=== PATIENT | female | born 1955 | race Caucasian/White ===

== ENCOUNTER → 2020-08-21 | Outpatient (CLI) | payer OTHER ==
[2020-08-21 11:33] LABS: BASO % 0.6 % (0.0-1.0); EOS # 0.2 10^3/uL (0.0-0.5); EOS % 4.3 % (0.0-3.0); HEMATOCRIT 44.7 % (36.0-47.0); HEMOGLOBIN 13.9 g/dl (12.0-15.5); LYMPH # 1.5 10^3/uL (1.5-5.0); LYMPH % 28.5 % (24.0-44.0); MEAN CORPUSCULAR HEMOGLOBIN 27.5 pg (27.0-33.0); MEAN CORPUSCULAR HGB CONC 31.1 g/dl (32.0-36.5); MEAN CORPUSCULAR VOLUME 88.3 fl (80.0-96.0); MONO # 0.4 10^3/uL (0.0-0.8); MONO % 7.3 % (0.0-5.0); NEUTROPHILS % 59.1 % (36.0-66.0); PLATELET COUNT, AUTOMATED 299 10^3/uL (150-450); RED BLOOD COUNT 5.06 10^6/uL (4.00-5.40); WHITE BLOOD COUNT 5.1 10^3/uL (4.0-10.0)
[2020-08-21 12:14] LABS: ERYTHROCYTE SEDIMENTATION RATE 9 mm/hr (0-30)
[2020-08-21 12:17] LABS: ALBUMIN 3.4 GM/DL (3.2-5.2); ALT/SGPT 27 U/L (12-78); BILIRUBIN,TOTAL 0.4 MG/DL (0.2-1.0); BLOOD UREA NITROGEN 16 MG/DL (7-18); C REACTIVE PROTEIN QUANTITATIV 0.77 MG/DL (0.00-0.30); CALCIUM LEVEL 8.9 MG/DL (8.8-10.2); CARBON DIOXIDE LEVEL 25 MEQ/L (21-32); CHLORIDE LEVEL 103 MEQ/L (98-107); CHOLESTEROL LEVEL 216 MG/DL (<200); CREATININE FOR GFR 0.86 MG/DL (0.55-1.30); GLOMERULAR FILTRATION RATE > 60.0 (>45); GLUCOSE, FASTING 92 MG/DL (70-100); HDL CHOLESTEROL 61 MG/DL (>40); LDL CHOLESTEROL 128 MG/DL (<100); NON-HDL-C 155 MG/DL; POTASSIUM SERUM 4.3 MEQ/L (3.5-5.1); RHEUMATOID FACTOR QUANT < 10.0 IU/ML (<15.0); SODIUM LEVEL 141 MEQ/L (136-145); TOTAL PROTEIN 6.9 GM/DL (6.4-8.2); TRIGLYCERIDES LEVEL 133 MG/DL (<150)
== END ==
LOC: M WUC 08:24
PROVIDERS: ATTEND Nurse Practitioner Family
DX: M79.7 Fibromyalgia (principal); I25.2 Old myocardial infarction

== ENCOUNTER → 2021-04-30 | Outpatient (CLI) | payer OTHER ==
[~2021-04-30] MED LIST: ALLO100T PO; CAND4TAB PO; CBD OIL PO; CIDA500T2 PO; COLC0.6T47 PO; D31000TA2 PO; DULO1CAP5 PO; EQL50TAB2 PO; FISH1000 PO; FURO40TA2 PO; GNP250TA9 PO; METO1TAB87 PO; NEUR100C PO; PANT40TA29 PO; SAVE50TA PO
== END ==
LOC: M LABSMTC 11:21
PROVIDERS: ATTEND Anesthesiology
DX: Z01.812 Encounter for preprocedural laboratory examination (principal); Z20.822 Contact with and (suspected) exposure to COVID-19

== ENCOUNTER 2021-05-05 10:37 | Day surgery (SDC) | payer OTHER ==
[~2021-05-05] VITALS: Ht 193 cm; Wt 93.0 kg
[~2021-05-05 10:37] MED LIST changes: +LIDOCAINE 2% 100MG/5ML SDV (FOR ANES.) As Ordered ONE; +NS 1,000 ML IV ONE; +propofoL 200 MG/20 ML VIAL As Ordered ONE
[2021-05-05] MEDS ORDERED: fentaNYL 100 MCG/2 ML INJECTION (J3010) As Ordered ONE (11:45)
[2021-05-05] MEDS ORDERED: propofoL 200 MG/20 ML VIAL As Ordered ONE ×2 (12:00→12:09)
--- NOTE | 2021-05-05 12:40 | ROOR ---
Patient Name: Carey Pickens Procedure Date: 05/05/2021 11:35 AM Date of : 1955 Age: 65 Room: [facility] Gender: Female Note Status: Finalized Procedure: Upper GI endoscopy Indications: Heartburn, Follow-up of Ye's esophagus Providers: Enzo Whitaker MD Referring MD: Bhavya Hopper NP Requesting Provider: Medicines: Monitored Anesthesia Care Complications: No immediate complications. Procedure: Pre-Anesthesia Assessment: - Prior to the procedure, a History and Physical was performed, and patient medications and allergies were reviewed. The patient is competent. The risks and benefits of the procedure and the sedation options and risks were discussed with the patient. All questions were answered and informed consent was obtained. Patient identification and proposed procedure were verified by the physician, the nurse and the anesthesiologist in the procedure room. Mental Status Examination: alert and oriented. Airway Examination: normal oropharyngeal airway and neck mobility. Respiratory Examination: clear to auscultation. CV Examination: normal. Prophylactic Antibiotics: The patient does not require prophylactic antibiotics. Prior Anticoagulants: The patient has taken no previous anticoagulant or antiplatelet agents. ASA Grade Assessment: II - A patient with mild systemic disease. After reviewing the risks and benefits, the patient was deemed in satisfactory condition to undergo the procedure. The anesthesia plan was to use monitored anesthesia care (MAC). Immediately prior to administration of medications, the patient was re-assessed for adequacy to receive sedatives. The heart rate, respiratory rate, oxygen saturations, blood pressure, adequacy of pulmonary ventilation, and response to care were monitored throughout the procedure. The physical status of the patient was re-assessed after the procedure. The Endoscope was introduced through the mouth, and advanced to the second part of duodenum. The upper GI endoscopy was accomplished without difficulty. The patient tolerated the procedure well. Findings: LA Grade B (one or more mucosal breaks greater than 5 mm, not extending between the tops of two mucosal folds) esophagitis with no bleeding was found in the distal esophagus. Biopsies were taken with a cold forceps for histology. Verification of patient identification for the specimen was done by the physician and nurse using the patient's name, date and medical record number. Estimated blood loss was minimal. A medium-sized hiatal hernia was present. Scattered moderate inflammation characterized by erythema and granularity was found in the gastric antrum. Biopsies were taken with a cold forceps for Helicobacter pylori testing. Verification of patient identification for the specimen was done by the physician and nurse using the patient's name, date and medical record number. No gross lesions were noted in the duodenal bulb, in the second portion of the duodenum, in the area of the papilla and in the third portion of the duodenum. Impression: - LA Grade B reflux esophagitis. Rule out Ye's esophagus. Biopsied. - Medium-sized hiatal hernia. - Gastritis. Biopsied. - No gross lesions in the duodenal bulb, in the second portion of the duodenum, in the area of the papilla and in the third portion of the duodenum. Recommendation: - Patient has a contact number available for emergencies. The signs and symptoms of potential delayed complications were discussed with the patient. Return to normal activities tomorrow. Written discharge instructions were provided to the patient. - High fiber diet. - Continue present medications. - Await pathology results. - Follow an antireflux regimen. - Recommend acid suppression medication daily. - Telephone GI clinic for pathology results in 2 weeks. - Return to primary care physician. Procedure Code(s): --- Professional --- 09703, Esophagogastroduodenoscopy, flexible, transoral; with biopsy, single or multiple Diagnosis Code(s): --- Professional --- K21.0, Gastro-esophageal reflux disease with esophagitis K44.9, Diaphragmatic hernia without obstruction or gangrene K29.70, Gastritis, unspecified, without bleeding K22.70, Ye's esophagus without dysplasia R12, Heartburn CPT copyright 2019 [employer]. All rights reserved. The codes documented in this report are preliminary and upon percussion teacher review may be revised to meet current compliance requirements. Enzo Whitaker MD Enzo Whitaker MD 05/05/2021 12:39:28 PM Electronically signed by Enzo Whitaker MD Number of Addenda: 0 Note Initiated On: 05/05/2021 11:35 AM Estimated Blood Loss: Estimated blood loss was minimal.
--- NOTE | 2021-05-05 12:43 | ROOR ---
Patient Name: Carey Pickens Procedure Date: 05/05/2021 11:43 AM Date of : 1955 Age: 65 Room: [facility] Gender: Female Note Status: Finalized Procedure: Colonoscopy Indications: Screening for colorectal malignant neoplasm Providers: Enzo Whitaker MD Referring MD: Bhavya Hopper NP Requesting Provider: Medicines: Monitored Anesthesia Care Complications: No immediate complications. Procedure: Pre-Anesthesia Assessment: - Prior to the procedure, a History and Physical was performed, and patient medications and allergies were reviewed. The patient is competent. The risks and benefits of the procedure and the sedation options and risks were discussed with the patient. All questions were answered and informed consent was obtained. Patient identification and proposed procedure were verified by the physician, the nurse and the anesthesiologist in the procedure room. Mental Status Examination: alert and oriented. Airway Examination: normal oropharyngeal airway and neck mobility. Respiratory Examination: clear to auscultation. CV Examination: normal. Prophylactic Antibiotics: The patient does not require prophylactic antibiotics. Prior Anticoagulants: The patient has taken no previous anticoagulant or antiplatelet agents. ASA Grade Assessment: III - A patient with severe systemic disease. After reviewing the risks and benefits, the patient was deemed in satisfactory condition to undergo the procedure. The anesthesia plan was to use monitored anesthesia care (MAC). Immediately prior to administration of medications, the patient was re-assessed for adequacy to receive sedatives. The heart rate, respiratory rate, oxygen saturations, blood pressure, adequacy of pulmonary ventilation, and response to care were monitored throughout the procedure. The physical status of the patient was re-assessed after the procedure. The Colonoscope was introduced through the anus and advanced to the terminal ileum, with identification of the appendiceal orifice and IC valve. The colonoscopy was performed without difficulty. The patient tolerated the procedure well. The quality of the bowel preparation was good. The terminal ileum, ileocecal valve, appendiceal orifice, and rectum were photographed. Scope insertion time was 2 minutes. Scope withdrawal time was 9 minutes. The total duration of the procedure was 12 minutes. Findings: The perianal and digital rectal examinations were normal. The terminal ileum appeared normal. There was evidence of a prior functional end-to-end colo-colonic anastomosis in the recto-sigmoid colon. This was patent and was characterized by healthy appearing mucosa. The anastomosis was traversed. Three sessile polyps were found in the recto-sigmoid colon, descending colon and ascending colon. The polyps were 3 to 6 mm in size. These polyps were removed with a cold snare. Resection and retrieval were complete. Verification of patient identification for the specimen was done by the physician and nurse using the patient's name, date and medical record number. Estimated blood loss was minimal. Multiple small and large-mouthed diverticula were found from sigmoid to transverse colon. There was no evidence of diverticular bleeding. Non-bleeding external and internal hemorrhoids were found during retroflexion. The hemorrhoids were medium-sized. Impression: - The examined portion of the ileum was normal. - Patent functional end-to-end colo-colonic anastomosis, characterized by healthy appearing mucosa. - Three 3 to 6 mm polyps at the recto-sigmoid colon, in the descending colon and in the ascending colon, removed with a cold snare. Resected and retrieved. - Moderate diverticulosis from sigmoid to transverse colon. There was no evidence of diverticular bleeding. - Non-bleeding external and internal hemorrhoids. Recommendation: - Patient has a contact number available for emergencies. The signs and symptoms of potential delayed complications were discussed with the patient. Return to normal activities tomorrow. Written discharge instructions were provided to the patient. - High fiber diet. - Continue present medications. - Use fiber, for example Citrucel, Fibercon, Konsyl or Metamucil. - Await pathology results. - Repeat colonoscopy in 5 years for surveillance based on pathology results. - Telephone GI clinic for pathology results in 2 weeks. - Return to primary care physician. Procedure Code(s): --- Professional --- 36431, Colonoscopy, flexible; with removal of tumor(s), polyp(s), or other lesion(s) by snare technique Diagnosis Code(s): --- Professional --- Z12.11, Encounter for screening for malignant neoplasm of colon K64.8, Other hemorrhoids Z98.0, Intestinal bypass and anastomosis status K63.5, Polyp of colon K57.30, Diverticulosis of large intestine without perforation or abscess without bleeding CPT copyright 2019 [employer]. All rights reserved. The codes documented in this report are preliminary and upon pancake professional review may be revised to meet current compliance requirements. Enzo Whitaker MD Enzo Whitaker MD 05/05/2021 12:42:40 PM Electronically signed by Enzo Whitaker MD Number of Addenda: 0 Note Initiated On: 05/05/2021 11:43 AM Estimated Blood Loss: Estimated blood loss was minimal.
[2021-05-05 13:01] VITALS: BP 171/72
== END 2021-05-05 13:10 | disposition home or self-care (01) ==
LOC: M OPP 10:37
PROVIDERS: ATTEND Internal Medicine Gastroenterology
DX: Z12.11 Encounter for screening for malignant neoplasm of colon (principal); K63.5 Polyp of colon; K57.30 Diverticulosis of large intestine without perforation or abscess without bleeding; K64.8 Other hemorrhoids; Z98.0 Intestinal bypass and anastomosis status; K21.00 Gastro-esophageal reflux disease with esophagitis, without bleeding; K44.9 Diaphragmatic hernia without obstruction or gangrene; K29.70 Gastritis, unspecified, without bleeding; K22.70 Barrett's esophagus without dysplasia; R12 Heartburn; I25.2 Old myocardial infarction; Z79.899 Other long term (current) drug therapy
CPT/HCPCS: 43239; 45385; 88305; J3010

== ENCOUNTER → 2021-05-12 | Outpatient (CLI) | payer OTHER ==
[~2021-05-12] MED LIST changes: +GASTROGRAFIN SOLUTION 30ML (Q9963) As Ordered ONE; +ISOVUE-370 76% 100ML VIAL As Ordered ONE; -LIDOCAINE 2% 100MG/5ML SDV (FOR ANES.) As Ordered ONE; -NS 1,000 ML IV ONE; -propofoL 200 MG/20 ML VIAL As Ordered ONE
--- NOTE | 2021-05-12 12:22 | REP ---
INDICATION: LOWER LT QUAD PAIN. COMPARISON: None. TECHNIQUE: Standard helical technique after the intravenous administration of 100 cc Isovue 370 and oral bowel preparatory contrast administration. FINDINGS: The lung bases show mild chronic changes. There are no pleural or pericardial effusions. The liver, gallbladder, spleen, pancreas, adrenal glands, and kidneys are within normal limits. The abdominal aorta and para-aortic regions are within normal limits. The bowel loops and the mesenteries are within normal limits. Postsurgical changes are seen in the rectosigmoid region. There is no free fluid or free air. There is descending colon diverticulosis. There is a left-sided spigelian hernia the aperture of which measures approximately 2.2 cm and through which only mesentery protrudes. There is no evidence of a mass or adenopathy. There are chronic spinal changes. IMPRESSION: 1. Left lower quadrant spigelian hernia as described above. 2. Descending colon diverticulosis and postoperative change seen in the rectosigmoid region. 3. No evidence of acute disease. Other findings as described above. <Electronically signed by Kolby Flowers > 05/12/21 [id number]
== END ==
LOC: M RAD 09:43
PROVIDERS: ATTEND Physician Assistant Medical
DX: R10.32 Left lower quadrant pain (principal)
CPT/HCPCS: 74177; Q9963; Q9967

== ENCOUNTER 2021-08-10 08:08 | Inpatient (IN) | payer MEDICARE ==
[~2021-08-10] VITALS: Ht 162.6 cm; Wt 113.7 kg
[2021-08-10] VITALS (7 sets, daily range): BP systolic 123–143; BP diastolic 73–87; O2SAT 80–97
[~2021-08-10 08:08] MED LIST changes: -GASTROGRAFIN SOLUTION 30ML (Q9963) As Ordered ONE; -ISOVUE-370 76% 100ML VIAL As Ordered ONE
[2021-08-10] MEDS ORDERED: ACETAMINOPHEN 325 MG TAB PO ONE (08:35)
--- OUTSIDE RECORDS SUMMARY | 2021-08-10 08:56 | CCD | Continuity of Care Document ---
Author Author MARLENE ESCOBAR, Carey Magallon Organization Unknown Address [address] [place] [address] Phone [phone] Care Team Providers Care Reimbursement Rep Name Role Phone Bhavya Hopper N.P. AUTM [phone] [facility] Surgery Practice - Surgery AUTM Hien Best AUTM [phone] Problems Active Problems Provider Date Essential hypertension Hernandez Arroyo MD Onset: 021 Social History Type Date Description Comments Sex Unknown ETOH Use 2-3 A Week Recreational Drug Use Denies Drug Use Tobacco Use Start: Unknown End: Unknown Patient is a former smoker Allergies, Adverse Reactions, Alerts Description No Known Drug Allergies Medications Active Medications SIG Qnty Indications Ordering Provide r Date At[place]and 4mg Tablets Daily in am Unknown Baclofen 10mg Tablets Q6HRS p rn Unknown CBD Oil 1500MG 1 dropper bid prn Unknown Duloxetine HCL 30mg Caps DR Part Daily Unknown Fish Oil [place]-3 1000mg Capsules Daily Unknown Gabapentin 100mg Capsules 1 by mouth three times a day Unknown Glucosamine Chondroitin Complex 500-400mg Capsules Daily Unknown Magnesium 30mg Tablets Daily Unknown Metoprolol Tartrate 25mg Tablets Daily Unknown Pantoprazole Sodium 40mg Tablets DR Daily Unknown Vitamin B Complex Tablets Da naomi Unknown Vitamin D3 50mcg (2000 Ut) Capsule s 1 every day Unknown Calcium 600 600mg Tablets 1 q d Unknown History Medications Miralax 17GM/Scoop Powder use as instructed by doctor for bowel prep 510gm Deepak Covarrubias MD 04/04/2021 - 05/26/2021 Suprep Bowel Prep Kit 17.5-3.13-1.6GM/177ML Solution take per doctor's bowel prep instructions. 354ml R10.3 2 Deepak Covarrubias MD 03/24/2021 - 04/04/[address] take 4 tabs by mouth prior to procedure per instructions. 4tabs R10.32 Deepak Covarrubias MD 03/24/2021 - 05/26/2021 Immunizations Description No Information Available Vital Signs Date Vital Result Comment 05/27/2021 2:12pm BP Systolic 152 mmHg BP Diastolic 86 mmHg Heart Rate 68 /min Body Temperature 98.2 F Height 64 inches 5'4" Weight 209.12 lb BMI (Body Mass Index) 35.9 kg/m2 Rosie Body Weight 120 lb Weight 94.859 kg BSA (Body Surface Area) 1.99 m2 03/24/2021 9:41am BP Systolic 142 mmHg BP Diastolic 92 mmHg Height 64 inches 5'4" Weight 210.00 lb BMI (Body Mass Index) 36.0 kg/m2 Rosie Body Weight 120 lb Weight 95.256 kg BSA (Body Surface Area) 2.00 m2 Results Test Acquired Date Facility Test Result H/L Range Note Laboratory test finding 05/05/2021 [facility] Main Lab [address] [place], [place] [address] [phone] Pathology Request For Service (SEE NOTE) 1 1 FINAL DIAGNOSIS A - Stomach, biopsy: Gastric mucosa with mild reactive gastropathy. No evidence for H. pylori-like organisms on H&E stain. B - Esophagus, lower, biopsy: Squamous mucosa with no significant pathologic findings. No evidence for eosinophilic esophagitis or intestinal metaplasia. C - Colon, polyps, polypectomy: One fragment of tubular adenoma. Multiple fragments of hyperplastic polyps also present. 05/06/2021 - 1255 CLINICAL DIAGNOSIS History Ye's, heartburn, and left lower quadrant pain 05/05/2021 - 1528 GROSS DIAGNOSIS A - Received in formalin labeled "gastric biopsy" consists of one salcedo fragment measuring 0.3 x 0.3 x 0.2 cm. All in one. B - Received in formalin labeled "lower esophagus biopsy" consists of four salcedo fragments, 0.5 x 0.3 x 0.1 cm in aggregate. All in one. C - Received in formalin labeled "colon polyps" consists of multiple salcedo fragments, 0.7 x 0.5 x 0.3 cm in aggregate. All in one. -SV 05/05/2021 - 1528 Signed MELBA MEHTA MD 05/06/2021 1340 Procedures Date Code Description Status 05/05/2021 44900 Colonoscopy W/ Poly Completed 05/05/2021 34508 Endoscopy Upper GI Biopsy Comple [place] 03/24/2021 10873 Office/Outpatient New Moderate M DM 45-59 Minutes Completed Medical Devices Description No Information Available Encounters Type Date Location Provider Dx Diagnosis Office Visit 03/24/2021 9:30a [facility] Gastroenterology [facility] herrera Best, RPA-C K22.70 Ye's esophagus without dysplasia K21.9 Gastro-esophageal reflux dis ease without esophagitis R10.32 Left lower quadrant pain Assessments Date Code Description Provider 05/27/2021 K43.2 Incisional hernia Hernandez jones MD 05/27/2021 R10.32 Left lower quadrant pain Hernandez Arroyo MD 05/05/2021 Z12.11 Encounter for screening for kaleb gnant neoplasm of colon Enzo Whitaker M.D. 05/05/2021 D12.2 Benign neoplasm of ascending col on Enzo Whitaker M.D. 05/05/2021 D12.4 Benign neoplasm of descending co dru Enzo Whitaker M.D. 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 05/05/2021 K57.30 Diverticulosis of la rge intestine without perforation or abscess without bleeding Enzo Whitaker M.D. 05/05/2021 K64.8 Other hemorrhoids Enzo kiser M.D. 05/05/2021 K63.5 Polyp of colon Enzo Toledo ala, M.D. 05/05/2021 R12 Heartburn Enzo Toledo ala, M.D. 05/05/2021 K29.70 Gastritis, unspecified, without bleeding Enzo Whitaker M.D. 05/05/2021 K22.70 Ye's esophagus without dysp lasia Enzo Whitaker M.D. 05/05/2021 K21.00 Gastro-esophageal re flux disease with esophagitis, without bleeding Enzo Whitaker M.D. 05/05/2021 K44.9 Diaphragmatic hernia without obs truction or gangrene Enzo Whitaekr M.D. 03/24/2021 K22.70 Ye's esophagus without dysp lasia Hiennishi Best RPA-C 03/24/2021 K21.9 Gastro-esophageal reflux disease without esophagitis Hien Best, ANGELA-C 03/24/2021 R10.32 Left lower quadrant pain Hien Best, [facility] Plan of Treatment 05/27/2021 - Hernandez Arroyo MD* K43.2 Incisional hernia* Comments:* Patient technically does not have a spigelian hernia. She has an incisional hernia at the lower mid rectus from her prior colostomy site. Not clear if she is symptomatic with this. Where she hurts worse more towards the left groin area but this is not associated with an inguinal hernia as this is located lateral to the inguinal canal. Probably more an inguinal muscle strain. We discussed reasons why to repair hernia which includes symptomatic hernia, enlarging hernia or just the presence of the hernia. There is a theoretical risk for incarceration and strangulation needing emergent surgery so on healthy patients can undergo general anesthesia, it is an option to have an elective repair. I did point out that I do not think that the area where she hurts, where her left groin is related to the presence of the left lower quadrant hernia so fixing her incisional hernia will not relieve or improve the groin discomfort I do not believe. She can give it some time to see if it gets better by itself. She would like to think about it first and she would give us a call whether she would like to have it repaired. Follow-up as needed * R10.32 Left lower quadrant pain* Comments:* Her pain seems to be centered over the left groin area by the inguinal crease but this is well away and lateral from the inguinal canal. She has some point tenderness there with no associated skin changes that I could see and I cannot feel any associated hernia or lump with that. This may just be secondary to muscle strain and she can continue to just watch for now and see if it gets better by itself. She can try some heat compress over the area to see if he gets better. Functional Status Description No Information Available Mental Status Description No Information Available Referrals Refer to Reason for Referral Status Appt Date Hernandez Arroyo MD SPIGELIAN HERNIA Scheduled 05/27/20 21 [address] [place] [address] [phone] [facility] Surgery Practice 65 y/o female with history o f variable LLQ pain. 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 Please evaluate and treat as appropriate. Thank you. Created [phone] Enzo Whitaker M.D. BARRETTS ESOPHAGUS EGD SCREENING [facility] eduled 02/11/2021 [facility]-GI [address], [address] [place], [place] [address] [phone]
--- OUTSIDE RECORDS SUMMARY | 2021-08-10 08:56 | CCD | Continuity of Care Document ---
Demographics Address [address] [place] [address] Home Phone [phone] Preferred Language Unknown Marital Status Unknown Cheondoism Affiliation Unknown Race White Ethnic Group Declined to Specify/Unknown Author Author MARLENE ESCOBAR, Carey Magallon Organization Unknown Address [address] [place] [address] Phone [phone] Care Team Providers Care Pricing Specialist Name Role Phone Bhavya Hopper N.P. AUTM [phone] [facility] Surgery Practice - Surgery AUTM Hien Best AUTM Problems Active Problems Provider Date Essential hypertension [...] Caps DR Part Daily Unknown Fish Oil [place]-3 1000mg Capsules Daily Unknown Gabapentin 100mg Capsules [...] lb BMI (Body Mass Index) 35.9 kg/m2 Elizabeth Body Weight 120 lb Weight 94.859 kg BSA (Body Surface Area) 1.99 m2 03/24/2021 9:41am BP Systolic 142 mmHg BP Diastolic 92 mmHg Height 64 inches 5'4" Weight 210.00 lb BMI (Body Mass Index) 36.0 kg/m2 Elizabeth Body Weight 120 lb Weight 95.256 kg BSA (Body Surface Area) 2.00 m2 Results Test Acquired Date Facility Test Result H/L Range Note Laboratory test finding 05/05/2021 [facility] Main Lab [address] [place], [place] [address] [phone] Pathology Request For Service (SEE NOTE) 1 [...] 05/06/2021 1340 Procedures Date Code Description Status 05/27/2021 26730 Office/Outpatient New Low MDM 30 -44 Minutes Completed 05/05/2021 96096 Colonoscopy W/ Poly Completed 05/05/2021 61268 Endoscopy Upper GI Biopsy Comple [place] 03/24/2021 43949 Office/Outpatient New Moderate M DM 45-59 Minutes Completed Medical Devices Description No Information Available Encounters Type Date Location Provider Dx Diagnosis Office Visit 05/27/2021 2:00p [facility] Surgery Practice Edu bethany Arroyo MD K43.2 Incisional hernia without ob struction or gangrene R10.32 Left lower quadrant pain Office Visit 03/24/2021 9:30a [facility] Gastroenterology [facility] careyice Hien Best, RPA-C K22.70 Ye's esophagus without dysplasia [...] hernia without obs truction or gangrene Enzo Whitaker M.D. 03/24/2021 K22.70 Ye's esophagus without dysp lasia Hien Best RPA-C 03/24/2021 K21.9 Gastro-esophageal reflux disease without esophagitis Hiennishi Best RPA-C 03/24/2021 R10.32 Left lower quadrant pain Hiennishi Best RPA-C Plan of Treatment 05/27/2021 - Hernandez Arroyo [...] Arroyo MD SPIGELIAN HERNIA Scheduled 05/27/[address] [place] [address] [address] [place] [address] [phone] [facility] Surgery Practice 65 y/o female with history o f variable LLQ pain. 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 Please evaluate and treat as appropriate. Thank you. Created [phone] Enzo Whitaker M.D. BARRETTS ESOPHAGUS EGD SCREENING [facility] eduled 02/11/2021 [facility]-GI [address], [address] [place], [place] [address] [phone]
--- OUTSIDE RECORDS SUMMARY | 2021-08-10 08:56 | CCD | Continuity of Care Document ---
Author Author MARLENE ESCOBAR, Carey Magallon Organization Unknown Address [address] [place] [address] Phone [phone] Care Team Providers Care Pool Hall Inspector Name Role Phone Bhavya Hopper N.P. AUTM [phone] [facility] Surgery Practice - Surgery AUTM Hien Best AUTM [phone] Problems Active Problems Provider Date Essential hypertension [...] Caps DR Part Daily Unknown Fish Oil [place]-3 1000mg Capsules Daily Unknown Gabapentin 100mg Capsules [...] lb BMI (Body Mass Index) 35.9 kg/m2 [place] Body Weight 120 lb Weight 94.859 kg BSA (Body Surface Area) 1.99 m2 03/24/2021 9:41am BP Systolic 142 mmHg BP Diastolic 92 mmHg Height 64 inches 5'4" Weight 210.00 lb BMI (Body Mass Index) 36.0 kg/m2 [place] Body Weight 120 lb Weight 95.256 kg BSA (Body Surface Area) 2.00 m2 Results Test Acquired Date Facility Test Result H/L Range Note Laboratory test finding 05/05/2021 [facility] Main Lab [address] [place], [place] [address] [phone] Pathology Request For Service (SEE NOTE) 1 [...] 1340 Procedures Date Code Description Status 05/05/2021 84667 Colonoscopy W/ Poly Completed 05/05/2021 72721 Endoscopy Upper GI Biopsy Comple [place] 03/24/2021 19000 Office/Outpatient New Moderate M DM 45-59 Minutes Completed Medical Devices Description No Information Available Encounters Type Date Location Provider Dx Diagnosis Office Visit 03/24/2021 9:30a [facility] Gastroenterology [facility] herrera Best, RPA-C K22.70 Ye's esophagus without [...] K21.9 Gastro-esophageal reflux disease without esophagitis Hien eBst, ANGELA-C 03/24/2021 R10.32 Left lower quadrant pain Hien Best, [facility] Plan of Treatment 05/27/2021 - Hernandez [...] MD SPIGELIAN HERNIA Scheduled 05/27/20 21 [address] [place] [address] [phone] [facility] Surgery Practice 65 y/o female with history o f variable LLQ pain. 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 Please evaluate and treat as appropriate. Thank you. Created [phone] Enzo Whitaker M.D. BARRETTS ESOPHAGUS EGD SCREENING [facility] eduled 02/11/2021 [facility] [address], [address] [place], [place] [address] [phone]
--- OUTSIDE RECORDS SUMMARY | 2021-08-10 08:56 | CCD ---
Continuity of Care Document (CCD) Created on: 08/04/2021 Carey Pickens External Reference #: [id number] : [id number] Sex: Female Author Author Carey HOPPER Organization Unknown Address [address] [place] [address] Phone [phone] Care Team Providers Care Medical Coding Manager Name Role Phone [facility] AUTM [facility] Gastro - Gastroenterology AUTM Problems Active Problems Provider Date Ye's esophagus Bhavya Hopper FNP Onset: 08/20/2020 Gastroesophageal reflux disease Bhavya Hopper FNP Onset: 08/20/2020 Degenerative joint disease involving multiple joints Ebenezer hBhavya FNP Onset: 08/20/2020 Old myocardial infarction Bhavya Hopper FNP Onset: 2019 Essential hypertension Bhavya Hopper FNP Onset: 0 Fibromyalgia Bhavya Hopper FNP Onset: 08/20/2020 Social History Type Date Description Comments Sex Unknown Tobacco Use Start: Unknown Never Used Smokeless Tobacco ETOH Use Consumes 2-3 glasses of wine per week Tobacco Use Start: Unknown End: Unknown Patient is a former smoker quit at age 31 Recreational Drug Use Denies Drug Use Smoking Status Reviewed: 08/04/21 Patient is a former smoker qu it at age 31 Exercise Type/Frequency Exercises sporadically Tattoo/Piercing Pierced ears Tattoo/Piercing Tattoo 3 Sun Exposure Does not use sunscreen Seat Belt/Car Seat Always uses seat belt Bike Helmet Always Smoke Alarms Yes Smoke Alarms Carbon Monoxide Detector: Yes Allergies and adverse reactions Description No Known Drug Allergies Medications Active Medications SIG Qnty Indications Ordering Provide r Date Duloxetine HCL 60mg Caps DR Part 1 by mouth every day 90caps Bhavya Hopper FNP 05/22/2021 Pantoprazole Sodium 40mg Tablets D R take one tablet by mouth daily 90tabs Bhavya Hopper FNP 0 Baclofen 10mg Tablets take 1 tablet by mouth every 6 hours as needed for muscle spasm 180tabs P jaida COLLEEN Latif Gabapentin 100mg Capsules take 1 capsules by by mouth up to three times a day as needed for back pain 360caps Bhavya Hopper FNP Tamsulosin HCL 0.4mg Capsules take one capsule by mouth every day Unknown Valsartan 160mg Tablets take one tablet by mouth every day for blood pressure Unknown Melatonin 3mg Capsules 1 t ab at bedtime Unknown Mirtazapine 7.5mg Tablets 1 tab by mouth every night at bedtime Unknown 0 Metoprolol Tartrate 25mg Tablets take one tablet by mouth daily Unknown History Medications Atacand 8mg Tablets take one tablet by mouth every day in the morning for blood pressure 90tabs Bhavya Hopper FNP 05/22/2021 - 08/04/2021 Immunizations CPT Code Status Date Vaccine Lot # [id number] Given 01/22/2021 Moderna Sars-(Co vid-19) vaccine, mRNA, LNP-S, PF, 100 mcg/ 0.5 mL 83068 Given 12/25/2020 Moderna Sars-(Co vid-19) vaccine, mRNA, LNP-S, PF, 100 mcg/ 0.5 mL 81680 Given 11/08/2020 Boostrix (Tdap) Tetnus, Diphtheria Toxoids & Acellular Pertussis [id number] Vital Signs Date Vital Result Comment 08/04/2021 10:40am BP Systolic 156 mmHg BP Diastolic 74 mmHg BP Systolic Recheck 147 mmHg recheck BP Diastolic Recheck 81 mmHg recheck Heart Rate 61 /min Body Temperature 97.6 F Respiratory Rate 16 /min Height 63 inches 5'3" Weight 203.38 lb O2 % BldC Oximetry 98 % Peak Expiratory Flow Rate 326 Estimated Peak Flow Rate [place] Body Weight 115 lb BMI (Body Mass Index) 36.0 kg/m2 05/22/2021 11:05am BP Systolic 156 mmHg BP Diastolic 100 mmHg BP Systolic Recheck 159 mmHg BP Diastolic Recheck 113 mmHg Heart Rate 96 /min Body Temperature 97.1 F Respiratory Rate 17 /min Height 63 inches 5'3" Weight 206.00 lb O2 % BldC Oximetry 98 % Peak Expiratory Flow Rate 327 Estimated Peak Flow Rate [place] Body Weight 115 lb BMI (Body Mass Index) 36.5 kg/m2 Results Test Acquired Date Facility Test Result H/L Range Note Coronavirus 2019 Nasopharygeal 04/30/2021 Patient S [facility] [place] [address] [phone] Coronavirus 2019 Nasopharygeal ASSAY INFORMATIO <SEE N OTE> 1 1 ASSAY INFORMATION: Real Time RT-PCR NOTE: The COVID-19 assay has been cleared by the U.S. Food and Drug Administration under the Emergency Use Authorization (EUA). [employer] and [employer] are designated as high complexity laboratories by the Clinical Laboratory Improvement Amendments of 1988(CLIA) and are qualified to perform this test. 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 MACHINE OPERATOR RESISTANCE 08/04/2021 M79.7 Fibromyalgia Bhavya Hopper FNP 08/04/2021 M15.0 Primary generalized (osteo)arthr itis Bhavya Hopper FNP 08/04/2021 E55.9 Vitamin D deficiency, unspecifie d Bhavya Hopper FNP 08/04/2021 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 Bhavya Hopper FNP 05/22/2021 M54.5 Low back pain Bhavya Hopper FNP 05/22/2021 M41.9 Scoliosis, unspecified Bhavya Hopper FNP 05/22/2021 I10 Essential (primary) hypertension Bhavya Hopper FNP Plan of Treatment Future Appointment(s):* 11/06/2021 9:30 am - Bhavya Hopper FNP at Main Office 08/04/2021 - Bhavya Hopper FNP* I10 Essential (primary) hypertension * K21.9 Gastro-esophageal reflux disease without esophagitis * M79.7 Fibromyalgia * M15.0 Primary generalized (osteo)arthritis * E55.9 Vitamin D deficiency, unspecified * I69.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 and hemip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 side* New Orders:* PT Order, Scheduled: 08/04/21 * PT Order, Scheduled: 08/04/21 * Follow up:* 3 months Functional Status Functional Condition Comment Date Status Bifocal glasses Active Independent with all ADL's Activ e leg/ankle brace left Active Mental Status Mental Condition Comment Date Status None Active Referrals Description No Information Available
--- OUTSIDE RECORDS SUMMARY | 2021-08-10 08:56 | CCD | Continuity of Care Document ---
Author Author Carey HOPPER ENVIRONMENTAL SERVICES PROJECT MANAGER Organization Unknown Address [address] [place] [address] Phone [phone] Care Team Providers Care Talent Rep Name Role Phone [facility] 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 Onset: 08/20/2020 Degenerative joint disease involving multiple joints [place] hBhavya ENVIRONMENTAL SERVICES PROJECT MANAGER Onset: 08/20/2020 Old myocardial infarction Bhavya Hopper ENVIRONMENTAL SERVICES PROJECT MANAGER Onset: 2019 Essential hypertension Bhavya Hopper, ENVIRONMENTAL SERVICES PROJECT MANAGER Onset: 0 Fibromyalgia Bhavya Hopper, ENVIRONMENTAL SERVICES PROJECT MANAGER Onset: 08/20/2020 Social History Type Date Description [...] Provide r Date Duloxetine HCL 60mg Caps Part 1 by mouth every day 90capcasey Bhavya Hopper FNP 05/22/2021 Pantoprazole Sodium 40mg Tablets D R take one tablet by mouth daily 90tabs Bhavya Hopper FNP 0 Baclofen 10mg Tablets take 1 tablet by mouth every 6 hours as needed for muscle spasm 180tabs P eddieambreenBhavya FNP Gabapentin 100mg Capsules take 1 capsules by [...] CPT Code Status Date Vaccine Lot # [id number] Given 01/22/2021 Moderna Sars-(Co vid-19) vaccine, mRNA, LNP-S, PF, 100 mcg/ 0.5 mL 56039 Given 12/25/2020 Moderna Sars-(Co vid-19) vaccine, mRNA, LNP-S, PF, 100 mcg/ 0.5 mL 65736 Given 11/08/2020 Boostrix (Tdap) Tetnus, Diphtheria Toxoids [...] Flow Rate 326 Estimated Peak Flow Rate [place] Body Weight 115 lb BMI (Body Mass [...] Flow Rate 327 Estimated Peak Flow Rate [place] Body Weight 115 lb BMI (Body Mass Index) 36.5 kg/m2 Results Test Acquired Date Facility Test Result H/L Range Note Coronavirus 2019 Nasopharygeal 04/30/2021 Patient S [facility] [place] [address] [phone] Coronavirus 2019 Nasopharygeal ASSAY INFORMATIO <SEE N OTE> 1 1 ASSAY INFORMATION: Real Time RT-PCR NOTE: The COVID-19 assay has been cleared by the U.S. Food and Drug Administration under the Emergency Use Authorization (EUA). [employer] and [employer] are designated as high complexity laboratories by the Clinical Laboratory Improvement Amendments of 1988(CLIA) and are qualified to perform this test. 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 I69.354 Hemiplga following cerebral infrc affecting left nondom side I10 Essential (primary) hyperten tonya K21.9 Gastro-esophageal reflux dis ease without esophagitis M79.7 Fibromyalgia M15.0 Primary generalized (osteo)a rthritis E55.9 Vitamin D deficiency, unspec ified Office Visit 05/22/2021 11:00a Main Office Bhavya Hopper FNP M54.5 Low back pain M41.9 Scoliosis, unspecified I10 Essential (primary) hyperten tonya Assessments Date Code Description Provider 08/04/2021 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 Bhavya Hopper FNP 08/04/2021 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 Bhavya Hopper, ENVIRONMENTAL SERVICES PROJECT MANAGER 08/04/2021 I10 Essential (primary) hypertension Bhavya Hopper FNP 08/04/2021 K21.9 Gastro-esophageal reflux disease without esophagitis Bhavya Hopper, ENVIRONMENTAL SERVICES PROJECT MANAGER 08/04/2021 M79.7 Fibromyalgia Bhavya Hopper, ENVIRONMENTAL SERVICES PROJECT MANAGER 08/04/2021 M15.0 Primary generalized (osteo)arthr itis Bhavya Hopper, ENVIRONMENTAL SERVICES PROJECT MANAGER 08/04/2021 E55.9 Vitamin D deficiency, unspecifie d Bhavya Hopper, ENVIRONMENTAL SERVICES PROJECT MANAGER 05/22/2021 M54.5 Low back pain Bhavya Hopper, ENVIRONMENTAL SERVICES PROJECT MANAGER 05/22/2021 M41.9 Scoliosis, unspecified Bhavya Hopper, ENVIRONMENTAL SERVICES PROJECT MANAGER 05/22/2021 I10 Essential (primary) hypertension Bhavya Hopper FNP Plan of Treatment Future Appointment(s):* 11/06/2021 9:30 am - Bhavya Hopper FNP at Main Office 08/04/2021 - Bhavya Hopper FNP* 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* Comments:* refer to neurology * I69.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 and hemip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 side* New Orders:* PT Order, Ordered: 08/04/21 * PT Order, Ordered: 08/04/21 * Comments:* refer for PT and OT * Follow up:* 3 months * I10 Essential (primary) hypertension* Comments:* controlled, continue current medications * K21.9 Gastro-esophageal reflux disease without esophagitis * M79.7 Fibromyalgia * M15.0 Primary generalized (osteo)arthritis * E55.9 Vitamin D deficiency, unspecified Functional Status Functional Condition Comment Date Status Bifocal glasses Active Independent with all ADL's Activ e leg/ankle brace left Active Mental Status Mental Condition Comment Date Status None Active Referrals Refer to Reason for Referral Status Appt Date Bhavya Hopper FNP Patient need urgent appt, s/p stroke. Thank you. Sent [id number] [place] [address] [phone]
--- OUTSIDE RECORDS SUMMARY | 2021-08-10 08:56 | CCD | Continuity of Care Document ---
Author Author MARLENE ESCOBAR, Carey Magallon Organization Unknown Address [address] [place] [address] Phone [phone] Care Team Providers Care Encoding Clerk Name Role Phone Bhavya Hopper N.P. AUTM [phone] [facility] Surgery Practice - Surgery AUTM [phone] Hien Best AUTM [phone] Problems Active Problems Provider Date Essential hypertension [...] Caps DR Part Daily Unknown Fish Oil [place]-3 1000mg Capsules Daily Unknown Gabapentin 100mg Capsules [...] lb BMI (Body Mass Index) 35.9 kg/m2 [place] Body Weight 120 lb Weight 94.859 kg BSA (Body Surface Area) 1.99 m2 03/24/2021 9:41am BP Systolic 142 mmHg BP Diastolic 92 mmHg Height 64 inches 5'4" Weight 210.00 lb BMI (Body Mass Index) 36.0 kg/m2 [place] Body Weight 120 lb Weight 95.256 kg BSA (Body Surface Area) 2.00 m2 Results Test Acquired Date Facility Test Result H/L Range Note Laboratory test finding 05/05/2021 [facility] Main Lab [address] [place], [place] [address] [phone] Pathology Request For Service (SEE NOTE) 1 [...] 1340 Procedures Date Code Description Status 05/05/2021 83734 Colonoscopy W/ Poly Completed 05/05/2021 74481 Endoscopy Upper GI Biopsy Comple [place] 03/24/2021 81480 Office/Outpatient New Moderate M DM 45-59 Minutes Completed Medical Devices Description No Information Available Encounters Type Date Location Provider Dx Diagnosis Office Visit 03/24/2021 9:30a [facility] Gastroenter[facility] herrera Best, RPA-C K22.70 Ye's esophagus [...] D12.2 Benign neoplasm of ascending col on Ezno Whitaker M.D. 05/05/2021 D12.4 Benign neoplasm of descending co dru Enzo Whitaker M.D. 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 05/05/2021 K57.30 Diverticulosis of la rge intestine without perforation or abscess without bleeding Enzo Whitaker M.D. 05/05/2021 K64.8 Other hemorrhoids Enzo kiser M.D. 05/05/2021 K63.5 Polyp of colon Enzo Toledo ala, M.D. 05/05/2021 R12 Heartburn Enzo oTledo ala, M.D. 05/05/2021 K29.70 Gastritis, unspecified, without [...] R10.32 Left lower quadrant pain Hien Best, [facility] Plan of Treatment 05/27/2021 - Hernandez Arroyo [...] MD SPIGELIAN HERNIA Scheduled 05/27/20 21 [address] [facility] [place] [address] [phone] [facility] Surgery Practice 65 y/o female with history o f variable LLQ pain. 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 Please evaluate and treat as appropriate. Thank you. Created [phone] Enzo Whitaker M.D. BARRETTS ESOPHAGUS EGD SCREENING [facility] eduled 02/11/2021 [facility] [address], [address] [place], [place] [id number] [phone]
--- OUTSIDE RECORDS SUMMARY | 2021-08-10 08:56 | CCD | Continuity of Care Document ---
Author Author Carey HOPPER TIMBER TREATMENT PLANT OPERATOR Organization Unknown Address [address] [place] [address] Phone [phone] Care Team Providers Care Bit Sander Name Role Phone [facility] AUTM [phone] [facility] - Gastroenterology AUTM [phone] Problems Active Problems Provider Date Ye's esophagus Bhavya Hopper FNP Onset: 08/20/2020 Gastroesophageal reflux disease Bhavya Hpoper FNP Onset: 08/20/2020 Degenerative joint disease involving multiple joints Bhavya Price TIMBER TREATMENT PLANT OPERATOR Onset: 08/20/2020 Old myocardial infarction Bhavya Hopper FNP Onset: 2019 Essential hypertension Bhavya Hopper FNP Onset: 0 Fibromyalgia Bhavya Hopper TIMBER TREATMENT PLANT OPERATOR Onset: 08/20/2020 Social History Type Date Description Comments Sex Unknown Tobacco Use Start: Unknown Never Used Smokeless Tobacco ETOH Use Consumes 2-3 glasses of wine per week Tobacco Use Start: Unknown End: Unknown Patient is a former smoker quit at age 31 Recreational Drug Use Denies Drug Use Smoking Status Reviewed: 05/22/21 Patient is a former smoker qu it at age 31 Exercise Type/Frequency Exercises sporadically Tattoo/Piercing Pierced ears Tattoo/Piercing Tattoo 3 Sun Exposure Does not use sunscreen Seat Belt/Car Seat Always uses seat belt Bike Helmet Always Smoke Alarms Yes Smoke Alarms Carbon Monoxide Detector: Yes Allergies, Adverse Reactions, Alerts Description No Known Drug Allergies Medications Active Medications SIG Qnty Indications Ordering Provide r Date Duloxetine HCL 60mg Caps DR Part 1 by mouth every day 90caps Bhavya Hopper [facility] 05/22/2021 Atacand 8mg Tablets take one tablet by mouth every day in the morning for blood pressure 90tabs NormanBhavya ureñaNANYP 05/22/2021 Metoprolol Tartrate 25mg Tablets take one tablet by mouth every day 90tabs RuchiBhavyaNANYP 0 Pantoprazole Sodium 40mg Tablets D R take one tablet by mouth daily 180tabs Ruchi BhavyaNANYP 0 Baclofen 10mg Tablets take 1 tablet by mouth every 6 hours as needed for muscle spasm 180tabs P mannyBhavya colon TIMBER TREATMENT PLANT OPERATOR Gabapentin 100mg Capsules take 1 capsules by by mouth up to three times a day as needed for back pain 360caps NormanBhvaya ureña [facility] Vitamin B Complex Tablets 1 by mouth every day Unknown Fish Oil 1000mg Capsules 1 po qd Unknown Magnesium Complex one po qd Unknown 000 CBD Oil 1500 MG 1 dropper bid as needed Unknown Probiotic Daily Capsules 1 by mouth every day Unknown History Medications Amoxicillin/Clavulanate Potassium 875-125mg Tablets 1 by mouth twice a day for 10 days 20tabs K57.32 Vandana Bhavya crook, [facility] 01/27/2021 - 02/06/2021 Colchicine 0.6mg Tablets take two tabs now and one in an hour then one tab bid 14tabs M10.9 Quinton Hopper, [facility] 01/27/2021 - 05/22/2021 Allopurinol 100mg Tablets 1 by mouth every day 90tabs M10.9 NormanBhavya ureña [facility] 01/27/2021 - 05/22/2021 Immunizations CPT Code Status Date Vaccine Lot # [id number] Given 01/22/2021 Moderna Sars-(Co vid-19) vaccine, mRNA, LNP-S, PF, 100 mcg/ 0.5 mL 44086 Given 12/25/2020 Moderna Sars-(Co vid-19) vaccine, mRNA, LNP-S, PF, 100 mcg/ 0.5 mL 61112 Given 11/08/2020 Boostrix (Tdap) Tetnus, Diphtheria Toxoids & Acellular Pertussis [id number] Vital Signs Date Vital Result Comment 05/22/2021 11:05am BP Systolic 156 mmHg BP Diastolic 100 mmHg BP Systolic Recheck 159 mmHg BP Diastolic Recheck 113 mmHg Heart Rate 96 /min Body Temperature 97.1 F Respiratory Rate 17 /min Height 63 inches 5'3" Weight 206.00 lb O2 % BldC Oximetry 98 % Peak Expiratory Flow Rate 327 Estimated Peak Flow Rate [place] Body Weight 115 lb BMI (Body Mass Index) 36.5 kg/m2 01/27/2021 10:25am BP Systolic 135 mmHg BP Diastolic 88 mmHg Heart Rate 95 /min Body Temperature 97.1 F Respiratory Rate 18 /min Height 63 inches 5'3" Weight 210.25 lb O2 % BldC Oximetry 98 % Peak Expiratory Flow Rate 327 Estimated Peak Flow Rate [place] Body Weight 115 lb BMI (Body Mass Index) 37.2 kg/m2 Results Test Acquired Date Facility Test Result H/L Range Note Coronavirus 2019 Nasopharygeal 04/30/2021 [place] [address] [phone] Coronavirus 2019 Nasopharygeal ASSAY INFORMATIO <SEE N OTE> 1 1 ASSAY INFORMATION: Real Time RT-PCR NOTE: The COVID-19 assay has been cleared by the U.S. Food and Drug Administration under the Emergency Use Authorization (EUA). [employer] and [employer] are designated as high complexity laboratories by the Clinical Laboratory Improvement Amendments of 1988(CLIA) and are qualified to perform this test. Not Detected Procedures Date Code Description Status 05/22/2021 12621 Office/Outpatient Established Mo d MDM 30-39 Min Completed 01/27/2021 35953 Office/Outpatient Established Mo d MDM 30-39 Min Completed Medical Devices Description No Information Available Encounters Type Date Location Provider Dx Diagnosis Office Visit 05/22/2021 11:00a Main Office Bhavya Hopper FNP M54.5 Low back pain M41.9 Scoliosis, unspecified I10 Essential (primary) hyperten tonya Office Visit 01/27/2021 10:15a Main Office Bhavya Hopper FNP K57.3 2 Dvtrcli of lg int w/o perforation or abscess w/o bleeding M10.9 Gout, unspecified K21.9 Gastro-esophageal reflux dis ease without esophagitis Assessments Date Code Description Provider 05/22/2021 M54.5 Low back pain Bhavya Hopper FNP 05/22/2021 M41.9 Scoliosis, unspecified PleBhavya owen, TIMBER TREATMENT PLANT OPERATOR 05/22/2021 I10 Essential (primary) hypertension Bhavya Hopper FNP 01/27/2021 K57.32 Diverticulitis of la rge intestine without perforation or abscess without bleeding PleBhavya owen, TIMBER TREATMENT PLANT OPERATOR 01/27/2021 M10.9 Gout, unspecified Pleskach Moll y, TIMBER TREATMENT PLANT OPERATOR 01/27/2021 K21.9 Gastro-esophageal reflux disease without esophagitis Bhavya Hopper FNP Plan of Treatment Future Appointment(s):* 07/08/2021 10:15 am - Bhavya Hopper FNP at Main Office 05/22/2021 - Bhavya Hopper FNP* M54.5 Low back pain* Comments:* chronic in nature, will restart baclofen and gabapentin. Patient to take gabapentin just once daily to start and slowly increase as tolerated. If she is unable to tolerate or pain is uncontrollable will refer back to pain management * M41.9 Scoliosis, unspecified* Comments:* as above * I10 Essential (primary) hypertension* Comments:* Furosemide discontinued. Increase atacand and see response * Follow up:* one month * All * New Medication:* Duloxetine HCL 60 mg - 1 by mouth every day * Atacand 8 mg - take one tablet by mouth every day in the morning for blood pressure Functional Status Functional Condition Comment Date Status Bifocal glasses Active Independent with all ADL's Activ e Mental Status Mental Condition Comment Date Status None Active Referrals Refer to Reason for Referral Status Appt Date [facility] Hx of Ye's Esophogas, needs EGD please Cl osed 03/13/2021 [address] [place] [address] [phone]
--- OUTSIDE RECORDS SUMMARY | 2021-08-10 08:57 | CCD | Continuity of Care Document ---
Author Author Carey SLATER M.D. 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 AUTM [phone] Problems Description No Active Problems Social History Type Date Description Comments Sex Unknown ETOH Use Occasionally consumes alcohol Tobacco Use Start: Unknown Non Smoker Allergies, Adverse Reactions, Alerts Description No Known Drug Allergies Medications Active Medications SIG Qnty Indications Ordering Provide r Date Miralax 17GM/Scoop Powder use as instructed by doctor for bowel prep 510gm Deepak Covarrubias MD 04/04/[address] take 4 tabs by mouth prior to procedure per instructions. 4tabs R10.32 Deepak Covarrubias MD 03/24/2021 Furosemide 40mg Tablets Q mor adonay Unknown Vitamin B Complex Tablets Da naomi Unknown Savella 50mg Tablets bid Unknown Pantoprazole Sodium 40mg Tablets DR Daily Unknown Metoprolol Tartrate 25mg Tablets Daily Unknown Magnesium 30mg Tablets Daily Unknown Glucosamine Chondroitin Complex 500-400mg Capsules Daily Unknown Gabapentin 100mg Capsules 1 by mouth three times a day prn Unknown Fish Oil Holden-3 1000mg Capsules Daily Unknown Duloxetine HCL 30mg Caps DR Part Daily Unknown Colchicine 0.6mg Tablets bid Unknown CBD Oil 1500MG 1 dropper bid prn Unknown Baclofen 10mg Tablets Q6HRS p rn Unknown Atacand 4mg Tablets Daily in am Unknown Allopurinol 100mg Tablets Ivory ly Unknown History Medications Suprep Bowel Prep Kit 17.5-3.13-1.6GM/177ML Solution take per doctor's bowel prep instructions. 354ml R10.3 2 Deepak Covarrubias MD 03/24/2021 - 04/04/2021 Immunizations Description No Information Available Vital Signs Date Vital Result Comment 03/24/2021 9:41am BP Systolic 142 mmHg BP Diastolic 92 mmHg Height 64 inches 5'4" Weight 210.00 lb BMI (Body Mass Index) 36.0 kg/m2 [place] Body Weight 120 lb Weight 95.256 kg BSA (Body Surface Area) 2.00 m2 Results Test Acquired Date Facility Test Result H/L Range Note Laboratory test finding 05/05/2021 [facility] Lab [address] [place] [address] [phone] Pathology Request For Service (SEE NOTE) 1 [...] 1340 Procedures Date Code Description Status 05/05/2021 13288 Colonoscopy W/ Poly Completed 05/05/2021 86553 Endoscopy Upper GI Biopsy Comple [place] 03/24/2021 48954 Office/Outpatient New Moderate M DM 45-59 Minutes Completed Medical Devices Description No Information Available Encounters Type Date Location Provider Dx Diagnosis Office Visit 03/24/2021 9:30a [facility] DOMINIC Call 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 05/05/2021 D12.2 Benign neoplasm of ascending col on Enzo Slater M.D. 05/05/2021 D12.4 Benign neoplasm of descending co dru Enzo Slater M.D. 05/05/2021 D12.7 Benign neoplasm of rectosigmoid junction Enzo Slater M.D. 05/05/2021 K57.30 Diverticulosis of la rge intestine without perforation or abscess without bleeding Enzo Slater M.D. 05/05/2021 K64.8 Other hemorrhoids Enzo kiser M.D. 05/05/2021 K63.5 Polyp of colon Enzo Toledo ala, M.D. 05/05/2021 R12 Heartburn Enzo Toledo ala, M.D. 05/05/2021 K29.70 Gastritis, unspecified, without bleeding Enzo Slater M.D. 05/05/2021 K22.70 Ye's esophagus without dysp lasia Enzo Slater M.D. 05/05/2021 K21.00 Gastro-esophageal re flux disease with esophagitis, without bleeding Enzo Slater M.D. 05/05/2021 K44.9 Diaphragmatic hernia without obs truction or gangrene Enzo Slater M.D. 03/24/2021 K22.70 Ye's esophagus without dysp lasia DOMINIC Call 03/24/2021 K21.9 Gastro-esophageal reflux disease without esophagitis DOMINIC Call 03/24/2021 R10.32 Left lower quadrant pain DOMINIC Call Plan of Treatment Future Appointment(s):* 05/14/2021 1:25 pm - Enzo Slater M.D. 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 Reviewed risks and benefits of the procedures, as well as other options, with the patient. Prep for this procedure was discussed with patient, including risks and side effects associated with the prep. Patient verbalized understanding of all of the above and is in agreement to proceed. Patient will seek medical attention for any acute changes. Will monitor. * Follow up:* As scheduled, sooner if needed. Functional Status Description No Information Available Mental Status Description No Information Available Referrals Refer to Reason for Referral Status Appt Date Enzo Slater M.D. BARRETTS ESOPHAGUS EGD SCREENING Chiara eduled 02/11/2021 [facility] [address], [address] [place] [id number] [phone]
--- OUTSIDE RECORDS SUMMARY | 2021-08-10 08:57 | CCD | Continuity of Care Document ---
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 AUTM Religion Gastro - Gastroenterology AUTM Problems Active Problems Provider Date Ye's esophagus Bhavya Hopper FNP Onset: 08/20/2020 Gastroesophageal reflux disease Bhavya Hopper FNP Onset: 08/20/2020 Degenerative joint disease involving multiple joints Bhavya Price [employer] Onset: 08/20/2020 Old myocardial infarction Bhavya Hopper FNP Onset: 2019 Essential hypertension Bhavya Hopper FNP Onset: 0 Fibromyalgia Bhavya Hopper [employer] Onset: 08/20/2020 Social History Type Date Description [...] by mouth every day 90caps Bhavya Hopper [facility] 05/22/2021 Atacand 8mg Tablets take one [...] for muscle spasm 180tabs P mannyBhavya colon [employer] Gabapentin 100mg Capsules take 1 capsules by by mouth up to three times a day as needed for back pain 360caps NormanBhavya ureña [facility] Vitamin B Complex Tablets 1 by [...] 10 days 20tabs K57.32 Vandana Bhavya crook, [facility] 01/27/2021 - 02/06/2021 Colchicine 0.6mg Tablets take two tabs now and one in an hour then one tab bid 14tabs M10.9 Quinton Hopper, [facility] 01/27/2021 - 05/22/2021 Allopurinol 100mg Tablets 1 by mouth every day 90tabs M10.9 NormanBhavya ureña [facility] 01/27/2021 - 05/22/2021 Immunizations CPT Code Status Date Vaccine Lot # [id number] Given 01/22/2021 Moderna Sars-(Co vid-19) vaccine, mRNA, LNP-S, PF, 100 mcg/ 0.5 mL 63661 Given 12/25/2020 Moderna Sars-(Co vid-19) vaccine, mRNA, LNP-S, PF, 100 mcg/ 0.5 mL 56936 Given 11/08/2020 Boostrix (Tdap) Tetnus, Diphtheria Toxoids [...] Flow Rate 327 Estimated Peak Flow Rate [place] Body Weight 115 lb BMI (Body Mass Index) 36.5 kg/m2 01/27/2021 10:25am BP Systolic 135 mmHg BP Diastolic 88 mmHg Heart Rate 95 /min Body Temperature 97.1 F Respiratory Rate 18 /min Height 63 inches 5'3" Weight 210.25 lb O2 % BldC Oximetry 98 % Peak Expiratory Flow Rate 327 Estimated Peak Flow Rate [place] Body Weight 115 lb BMI (Body Mass Index) 37.2 kg/m2 Results Test Acquired Date Facility Test Result H/L Range Note Coronavirus 2019 Nasopharygeal 04/30/[address] [place] [address] [phone] Coronavirus 2019 Nasopharygeal ASSAY INFORMATIO <SEE N OTE> 1 1 ASSAY INFORMATION: Real Time RT-PCR NOTE: The COVID-19 assay has been cleared by the U.S. Food and Drug Administration under the Emergency Use Authorization (EUA). [employer] and [email or web address] are designated as high complexity laboratories by the Clinical Laboratory Improvement Amendments of 1988(CLIA) and are qualified to perform this test. Not Detected Procedures Date Code Description Status 01/27/2021 65428 Office/Outpatient Established Mo d MDM 30-39 Min Completed Medical Devices Description No Information Available Encounters Type Date Location Provider Dx Diagnosis Office Visit 01/27/2021 10:15a Main Office Bhavya Hopper FNP K57.3 2 Dvtrcli of lg int w/o perforation or abscess w/o bleeding M10.9 Gout, unspecified K21.9 Gastro-esophageal reflux dis ease without esophagitis Assessments Date Code Description Provider 05/22/2021 M54.5 Low back pain Bhavya Hopper FNP 05/22/2021 M41.9 Scoliosis, unspecified PleBhavya owen FNP 05/22/2021 I10 Essential (primary) hypertension Bhavya Hopper FNP 01/27/2021 K57.32 Diverticulitis of la rge intestine without perforation or abscess without bleeding Bhavya Hopper FNP 01/27/2021 M10.9 Gout, unspecified Conchis Hopper FNP 01/27/2021 K21.9 Gastro-esophageal reflux disease without esophagitis Bhavya Hopper FNP Plan of Treatment Future Appointment(s):* 07/08/2021 10:15 am - Bhavya Hopper FNP at Main Office 05/22/2021 - Bhavya Hopper FNP* M54.5 Low back pain * M41.9 Scoliosis, unspecified * I10 Essential (primary) hypertension* Follow up:* one month * All * [...] to Reason for Referral Status Appt Date Religion Gastro Hx of Ye's Esophogas, needs EGD please Cl osed 03/13/2021 [address] [place] [address] [phone]
--- OUTSIDE RECORDS SUMMARY | 2021-08-10 08:57 | CCD ---
Author Author [facility] Organization [facility] Address Unknown Phone Unavailable Care Team Providers Care Skip Hoist Engineer Name Role Phone Ayla ROSARIO MD Unavailable Unavailable Ayla ROSARIO MD Unavailable Unavailable Ayla ROSARIO MD Unavailable Unavailable Ayla ROSARIO MD Unavailable Unavailable Ayla ROSARIO MD Unavailable Unavailable Ayla ROSARIO MD Unavailable Unavailable Ayla ROSARIO MD Unavailable Unavailable Ayla ROSARIO MD Unavailable Unavailable Ayla ROSARIO MD Unavailable Unavailable Ayla ROSARIO MD Unavailable Unavailable Ayla ROSARIO MD Unavailable Unavailable Ayla ROSARIO MD Unavailable Unavailable Ayla ROSARIO MD Unavailable Unavailable Ayla ROSARIO MD Unavailable Unavailable Ayla ROSARIO MD Unavailable Unavailable Ayla ROSARIO MD Unavailable Unavailable Ayla ROSARIO MD Unavailable Unavailable Ayla ROSARIO MD Unavailable Unavailable Ayla ROSARIO MD Unavailable Unavailable Ayla ROSARIO MD Unavailable Unavailable Ayla ROSARIO MD Unavailable Unavailable Ayla ROSARIO MD Unavailable Unavailable Ayla ROSARIO MD Unavailable Unavailable Ayla ROSARIO MD Unavailable Unavailable Ayla ROSARIO MD Unavailable Unavailable Ayla ROSARIO MD Unavailable Unavailable Ayla ROSARIO MD Unavailable Unavailable Ayla ROSARIO MD Unavailable Unavailable Ayla ROSARIO MD Unavailable Unavailable Ayla ROSARIO MD Unavailable Unavailable Ayla ROSARIO MD Unavailable Unavailable BARAYUGA, Ayla BUSTOS MD Unavailable Unavailable BARAYUGA, Ayla BUSTOS MD Unavailable Unavailable BARAYUGA, Ayla BUSTOS MD Unavailable Unavailable BARAYUGA, Ayla BUSTOS MD Unavailable Unavailable Charlebois, A Hien RPA C Unavailable Unavailable Charlebois, A Hien RPA C Unavailable Unavailable Charlebois, A Hien RPA C Unavailable Unavailable Charlebois, A Hien RPA C Unavailable Unavailable Charlebois, A Hien RPA C Unavailable Unavailable Charlebois, A Hien RPA C Unavailable Unavailable Charlebois, A Hien RPA C Unavailable Unavailable Charlebois, A Hien RPA C Unavailable Unavailable Charlebois, A Hien RPA C Unavailable Unavailable Charlebois, A Hien RPA C Unavailable Unavailable Charlebois, A Hien RPA C Unavailable Unavailable Charlebois, A Hien RPA C Unavailable Unavailable Charlebois, A Hien RPA C Unavailable Unavailable Charlebois, A Hien RPA C Unavailable Unavailable Charlebois, A Hien RPA C Unavailable Unavailable Charlebois, A Hien RPA C Unavailable Unavailable Charlebois, A Hien RPA C Unavailable Unavailable Charlebois, A Hien RPA C Unavailable Unavailable Charlebois, A Hien RPA C Unavailable Unavailable Charlebois, A Hien RPA C Unavailable Unavailable Charlebois, A Hien RPA C Unavailable Unavailable Charlebois, A Hien RPA C Unavailable Unavailable Charlebois, A Hien RPA C Unavailable Unavailable Charlebois, A Hien RPA C Unavailable Unavailable Charlebois, A Hien RPA C Unavailable Unavailable Charlebois, A Hien RPA C Unavailable Unavailable Charlebois, A Hien RPA C Unavailable Unavailable Charlebois, A Hien RPA C Unavailable Unavailable Charlebois, A Hien RPA C Unavailable Unavailable Charlebois, A Hien RPA C Unavailable Unavailable Charlebois, A Hien RPA C Unavailable Unavailable Charlebois, A Hien RPA C Unavailable Unavailable Charlebois, A Hien RPA C Unavailable Unavailable Pleskach, Bhavya REFERENCE ASSISTANT Unavailable Unavailable Pleskach, Bhavya REFERENCE ASSISTANT Unavailable Unavailable Pleskach, Bhavya REFERENCE ASSISTANT Unavailable Unavailable Pleskach, Bhavya REFERENCE ASSISTANT Unavailable Unavailable Pleskach, Bhavya REFERENCE ASSISTANT Unavailable Unavailable Pleskach, Bhavya REFERENCE ASSISTANT Unavailable Unavailable Pleskach, Bhavya REFERENCE ASSISTANT Unavailable Unavailable Pleskach, Bhavya REFERENCE ASSISTANT Unavailable Unavailable Pleskach, Bhavya REFERENCE ASSISTANT Unavailable Unavailable Pleskach, Bhavya REFERENCE ASSISTANT Unavailable Unavailable Pleskach, Bhavya REFERENCE ASSISTANT Unavailable Unavailable Pleskach, Bhavya REFERENCE ASSISTANT Unavailable Unavailable Pleskach, Bhavya REFERENCE ASSISTANT Unavailable Unavailable Pleskach, Bhavya REFERENCE ASSISTANT Unavailable Unavailable Pleskach, Bhavya REFERENCE ASSISTANT Unavailable Unavailable Pleskach, Bhavya REFERENCE ASSISTANT Unavailable Unavailable Pleskach, Bhavya REFERENCE ASSISTANT Unavailable Unavailable Pleskach, Bhavya REFERENCE ASSISTANT Unavailable Unavailable Pleskach, Bhavya REFERENCE ASSISTANT Unavailable Unavailable Pleskach, Bhavya REFERENCE ASSISTANT Unavailable Unavailable Pleskach, Bhavya REFERENCE ASSISTANT Unavailable Unavailable Pleskach, Bhavya REFERENCE ASSISTANT Unavailable Unavailable Pleskach, Bhavya REFERENCE ASSISTANT Unavailable Unavailable Pleskach, Bhavya REFERENCE ASSISTANT Unavailable Unavailable Pleskach, Bhavya REFERENCE ASSISTANT Unavailable Unavailable Pleskach, Bhavya REFERENCE ASSISTANT Unavailable Unavailable Pleskach, Bhavya REFERENCE ASSISTANT Unavailable Unavailable Pleskach, Bhavya REFERENCE ASSISTANT Unavailable Unavailable Pleskach, Bhavya REFERENCE ASSISTANT Unavailable Unavailable Pleskach, Bhavya REFERENCE ASSISTANT Unavailable Unavailable Pleskach, Bhavya REFERENCE ASSISTANT Unavailable Unavailable Pleskach, Bhavya REFERENCE ASSISTANT Unavailable Unavailable Pleskach, Bhavya REFERENCE ASSISTANT Unavailable Unavailable Pleskach, Bhavya REFERENCE ASSISTANT Unavailable Unavailable Pleskach, Bhavya REFERENCE ASSISTANT Unavailable Unavailable Pleskach, Bhavya REFERENCE ASSISTANT Unavailable Unavailable Pleskach, Bhavya REFERENCE ASSISTANT Unavailable Unavailable Pleskach, Bhavya REFERENCE ASSISTANT Unavailable Unavailable Pleskach, Bhavya REFERENCE ASSISTANT Unavailable Unavailable Pleskach, Bhavya REFERENCE ASSISTANT Unavailable Unavailable Pleskach, Bhavya REFERENCE ASSISTANT Unavailable Unavailable Pleskach, Bhavya REFERENCE ASSISTANT Unavailable Unavailable Kiara Hanna MD Unavailable Unavailable Kiara Hanna MD Unavailable Unavailable Kiara Hanna MD Unavailable Unavailable Kiara Hanna MD Unavailable Unavailable Kiara Hanna MD Unavailable Unavailable Kiara Hanna MD Unavailable Unavailable Kiara Hanna MD Unavailable Unavailable Kiara Hanna MD Unavailable Unavailable Kiara Hanna MD Unavailable Unavailable Kiara Hanna MD Unavailable Unavailable Kiara Hanna MD Unavailable Unavailable Kiara Hanna MD Unavailable Unavailable Kiara Hanna MD Unavailable Unavailable Slezka Vojtech Unavailable Unavailable Slezka Vojtech Unavailable Unavailable Slezka Vojtech Unavailable Unavailable SlezkaDaltonjtech Unavailable Unavailable Slezka Vojtech Unavailable Unavailable SlezkaDaltonjtech Unavailable Unavailable SlezkaDaltonjtech Unavailable Unavailable SlezkaDaltonjtech Unavailable Unavailable SlezkaDaltonjtech Unavailable Unavailable SlezkaDaltonjtech Unavailable Unavailable SlezkaDaltonjtech Unavailable Unavailable SlezkaDaltonjtech Unavailable Unavailable SlezkaDaltonjtech Unavailable Unavailable SlezkaDaltonjtech Unavailable Unavailable SlezkaDaltonjtech Unavailable Unavailable SlezkaDaltonjtech Unavailable Unavailable SlezkaDaltonjtech Unavailable Unavailable SlezkaDaltonjtech Unavailable Unavailable SlezkaDaltonjtech Unavailable Unavailable SlezkaDaltonjtech Unavailable Unavailable SlezkaDaltonjtech Unavailable Unavailable SlezkaDaltonjtech Unavailable Unavailable SlezkaDaltonjtech Unavailable Unavailable SlezkaDaltonjtech Unavailable Unavailable SlezkaDaltonjtech Unavailable Unavailable SlezkaDaltonjtech Unavailable Unavailable SlezkaDaltonjtech Unavailable Unavailable SlezkaDaltonjtech Unavailable Unavailable SlezkaDaltonjtech Unavailable Unavailable SlezkaDaltonjtech Unavailable Unavailable SlezkaDaltonjtech Unavailable Unavailable SlezkaDaltonjtech Unavailable Unavailable SlezkaDaltonjtech Unavailable Unavailable SlezkaDaltonjtech Unavailable Unavailable SlezkaDaltonjtech Unavailable Unavailable SlezkaDaltonjtech Unavailable Unavailable SlezkaDaltonjtech Unavailable Unavailable SlezkaDaltonjtech Unavailable Unavailable SlezkaDaltonjtech Unavailable Unavailable SlezkaDaltonjtech Unavailable Unavailable SlezkaDaltonjtech Unavailable Unavailable SlezkaDaltonjtech Unavailable Unavailable SlezkaDaltonjtech Unavailable Unavailable SlezkaDaltonjtech Unavailable Unavailable SlezkaDaltonjtech Unavailable Unavailable Re-disclosure Warning The records that you are about to access may contain information from federally-assisted alcohol or drug abuse programs. If such information is present, then the following federally mandated warning applies: This information has been disclosed to you from records protected by federal confidentiality rules (42 CFR part 2). The federal rules prohibit you from making any further disclosure of this information unless further disclosure is expressly permitted by the written consent of the person to whom it pertains or as otherwise permitted by 42 CFR part 2. A general authorization for the release of medical or other information is NOT sufficient for this purpose. The Federal rules restrict any use of the information to criminally investigate or prosecute any alcohol or drug abuse patient.The records that you are about to access may contain highly sensitive health information, the redisclosure of which is protected by Article 27-F of the [facility] Public Health law. If you continue you may have access to information: Regarding HIV / AIDS; Provided by facilities licensed or operated by the [facility] Office of Mental Health; or Provided by the [facility] Office for People With Developmental Disabilities. If such information is present, then the following [facility] mandated warning applies: This information has been disclosed to you from confidential records which are protected by state law. State law prohibits you from making any further disclosure of this information without the specific written consent of the person to whom it pertains, or as otherwise permitted by law. Any unauthorized further disclosure in violation of state law may result in a fine or mcfp sentence or both. A general authorization for the release of medical or other information is NOT sufficient authorization for further disc losure. Encounters Encounter Providers Location Date Indications Data Source(s ) Outpatient Attender: Bhavya Hopper [facility] Main Office 08/04/2021 1 0:30:00 AM EDT [facility] ([facility] Outpatient Attender: JULI Martinez/Kalia/Tim/ Satish 05/27/2021 02:00:00 PM EDT [facility] ([facility] Outpatient Attender: Bhavya Hopper [facility] Main Office 05/22/2021 1 1:00:00 AM EDT [facility] ([facility] Outpatient Attender: Hien Martinez/Kalia/Camilla sigala/Reinguido 03/24/2021 09:30:00 AM EDT [facility] ([facility]) Outpatient Attender: Bhavya Hopper [facility] Main Office 01/27/2021 1 0:15:00 AM EDT [facility] ([facility] Outpatient Attender: Kiara Hanna MDReferrer: Kashif Nicolebrayden [facility] [email or web address] 11/12/2020 12:00:00 AM EST - 11/12/2020 04:34:14 PM EST [facility] Outpatient Attender: Bhavya Hopper [facility] Main Office 11/11/2020 0 9:15:00 AM EST [facility] ([facility] Outpatient Attender: Bhavya Hopper [facility] Main Office 08/20/2020 0 8:15:00 AM EST [facility] ([facility] Immunizations Vaccine Date Status Description Data Source(s) Moderna Sars-(Covid-19) vaccine, mRNA, LNP-S, PF, 100 mcg/ 0.5 mL 01/22/2021 12:00:00 AM EDT completed [facility] ([facility] COVID-19 VACCINE Moderna 01/22/2021 12:00:00 AM EDT completed [facility] Vaccine Series Complete: NOThis Data was Submitted to [facility] Via mcTEL. Moderna Sars-(Covid-19) vaccine, mRNA, LNP-S, PF, 100 mcg/ 0.5 mL 12/25/2020 09:23:00 AM EST completed [facility] ([facility] COVID-19 VACCINE Moderna 12/25/2020 12:00:00 AM EST completed [facility] Vaccine Series Complete: NOThis Data was Submitted to [facility] Via mcTEL. Tdap 11/08/2020 08:53:00 AM EST completed [facility] ([facility] Medications Medication Brand Name Start Date Product Form Dose Route Admi nistrative Instructions Pharmacy Instructions Status Indications Reaction Description Data Source(s) 10 mg 05/23/2021 12:00:00 AM EDT tablet 180 TAKE ONE TABLET BY MOUTH EVERY 6 HOURS NEEDED FOR MUSCLE SPASM TAKE ONE TABLET BY MOUTH EVERY 6 HOURS A S NEEDED FOR MUSCLE SPASM SOLD: 05/23/2021 [facility] candesartan cilexetil 8 MG Oral Tablet CANDESARTAN CILEXETIL 05/23/2021 12:00:00 AM EDT tablet 90 TAKE ONE TABLET BY MOUTH MARIA LUISA RY MORNING TAKE ONE TABLET BY MOUTH EVERY MORNING SOLD: 05/23/2021 [facility] 100 mg 05/23/2021 12:00:00 AM EDT capsule 270 TAKE 1 CAPSULE BY MOUTH UP TO THREE TIMES A DAY NEEDED FOR BACK PAIN TAKE 1 CAPSULE BY MOUTH UP TO THREE TIMES A DAY NEEDED FOR BACK PAIN SOLD: 05/23/2021 [facility] candesartan cilexetil 8 MG Oral Tablet [Atacand] Atacand 05/22/2021 12:00:00 AM EDT ORAL completed [facility] ([facility] duloxetine 60 MG Delayed Release Oral Capsule Duloxetine HCL 05/22/2021 12:00:00 AM EDT ORAL active [facility] ([facility] pantoprazole 40 MG Delayed Release Oral Tablet PANTOPRAZOLE SODIUM 05/15/2021 12:00:00 AM EDT tablet,delayed release (DR/EC) 180 T LACHELLE ONE TABLET BY MOUTH TWICE A DAY TAKE ONE TABLET BY MOUTH TWICE A DAY SOLD: 05/15/2021 [facility] 30 mg 05/15/2021 12:00:00 AM EDT capsule,delayed release (DR/EC) 90 TAKE ONE CAPSULE BY MOUTH EVERY DAY TAKE ONE CAPSULE BY MOUTH EVERY DAY SOLD: 05/15/2021 [facility] POLYETHYLENE GLYCOL 3350 142 MG/ML Oral Solution [Miralax] M iralax 04/04/2021 12:00:00 AM EDT completed [facility] ([facility], ) 25 mg 03/31/2021 12:00:00 AM EDT tablet 90 TAKE ONE TABLET BY MOUTH EVERY DAY TAKE ONE TABLET BY MOUTH EVERY DAY SOLD: 04/01/2021 [facility] Bisacodyl 5 MG Delayed Release Oral Tablet [Dulcolax] Dulcol ax 03/24/2021 12:00:00 AM EDT ORAL completed [facility] ([facility], ) Suprep Bowel Prep Kit Suprep Bowel Prep Kit 03/24/2021 12:00:00 AM EDT completed [facility] ([facility], ) 50 mg 02/18/2021 12:00:00 AM EDT tablet 180 TAKE ONE TABLET BY MOUTH TWICE A DAY TAKE ONE TABLET BY MOUTH TWICE A DAY SOLD: 02/22/2021 [facility] 40 mg 02/18/2021 12:00:00 AM EDT tablet 90 TAKE ONE TABLET BY MOUTH EVERY MORNING TAKE ONE TABLET BY MOUTH EVERY MORNING SOLD: 02/22/2021 [facility] candesartan cilexetil 4 MG Oral Tablet CANDESARTAN CILEXETIL 02/12/2021 12:00:00 AM EDT tablet 90 TAKE ONE TABLET BY MOUTH MARIA LUISA RY MORNING FOR BLOOD PRESSURE TAKE ONE TABLET BY MOUTH EVERY MORNING FOR BLOOD PRESSURE SOLD: 02/17/2021 [facility] 0.6 mg 01/27/2021 12:00:00 AM EDT tablet 14 TAKE 2 TABLETS BY MOUTH NOW AND 1 TABLET IN AN HOUR THEN 1 TABLET TWO TIMES A DAY TAKE 2 TABLETS BY MOUTH NOW AND 1 TABLET IN AN HOUR THEN 1 TABLET TWO TIMES A DAY SOLD: 01/27/2021 [facility] Allopurinol 100 MG Oral Tablet Allopurinol 01/27/2021 12:00:00 AM EDT ORAL completed [facility] ([facility] 875-125 mg 01/27/2021 12:00:00 AM EDT tablet 20 TAKE ONE TABLET BY MOUTH TWICE A DAY FOR 10 DAYS TAKE ONE TABLET BY MOUTH TWICE A DAY FOR 10 DAYS SOLD: 01/27/2021 [facility] Colchicine 0.6 MG Oral Tablet Colchicine 01/27/2021 12:00:00 AM EDT completed [facility] ([facility] pantoprazole 40 MG Delayed Release Oral Tablet PANTOPRAZOLE SODIUM 01/27/2021 12:00:00 AM EDT tablet,delayed release (DR/EC) 180 T LACHELLE ONE TABLET BY MOUTH TWICE A DAY TAKE ONE TABLET BY MOUTH TWICE A DAY SOLD: 01/27/2021 [facility] 100 mg 01/27/2021 12:00:00 AM EDT tablet 90 TAKE ONE TABLET BY MOUTH EVERY DAY TAKE ONE TABLET BY MOUTH EVERY DAY SOLD: 01/27/2021 [facility] Amoxicillin 875 MG / Clavulanate 125 MG Oral Tablet Am oxicillin/Clavulanate Potassium 01/27/2021 12:00:00 AM EDT ORAL completed [facility] ([facility] 25 mg 12/02/2020 12:00:00 AM EST tablet 90 TAKE ONE TABLET BY MOUTH EVERY DAY TAKE ONE TABLET BY MOUTH EVERY DAY SOLD: 12/05/2020 [facility] 500 mg 11/28/2020 12:00:00 AM EST capsule 28 TAKE ONE CAPSULE BY MOUTH EVERY 6 HOURS UNTIL FINISHED TAKE ONE CAPSULE BY MOUTH EVERY 6 HOURS UNTIL FINISHED SOLD: 11/29/2020 [facility] 50 mg 11/13/2020 12:00:00 AM EST tablet 60 TAKE ONE TABLET BY MOUTH TWICE A DAY AFTER 12.5 MG TABLETS DONE TAKE ONE TABLET BY MOUTH TWICE A DAY AFT ER 12.5 MG TABLETS DONE SOLD: 12/19/2020 [facility] 50 mg 11/13/2020 12:00:00 AM EST tablet 60 TAKE ONE TABLET BY MOUTH TWICE A DAY AFTER 12.5 MG TABLETS DONE TAKE ONE TABLET BY MOUTH TWICE A DAY AFT ER 12.5 MG TABLETS DONE SOLD: 11/15/2020 [facility] 50 mg 11/13/2020 12:00:00 AM EST tablet 60 TAKE ONE TABLET BY MOUTH TWICE A DAY AFTER 12.5 MG TABLETS DONE TAKE ONE TABLET BY MOUTH TWICE A DAY AFT ER 12.5 MG TABLETS DONE SOLD: 01/22/2021 [facility] 12.5 mg 11/12/2020 12:00:00 AM EST tablet 25 TAKE ONE TABLET BY MOUTH EVERY DAY DAY 1 THEN 1 TWO TIMES A DAY DAYS 2-3 THEN 2 TWO TIMES A DAY DAYS 4-7 THEN 4 TWO TIMES A DAY TAKE ONE TABLET BY MOUTH EVERY DAY DAY 1 THEN 1 TWO TIMES A DAY DAYS 2-3 THEN 2 TWO TIMES A DAY DAYS 4-7 THEN 4 TWO TIMES A DAY SOLD: 11/13/2020 [facility] Milnacipran hydrochloride 50 MG Oral Tablet [Savella] Savell a 11/11/2020 12:00:00 AM EST active [facility] ([facility] 30 mg 11/11/2020 12:00:00 AM EST capsule,delayed release (DR/EC) 14 TAKE ONE CAPSULE BY MOUTH EVERY DAY TAKE ONE CAPSULE BY MOUTH EVERY DAY SOLD: 11/12/2020 [facility] Milnacipran hydrochloride 12.5 MG Oral Tablet [Savella] Save lla 11/11/2020 12:00:00 AM EST completed [facility] ([facility] duloxetine 30 MG Delayed Release Oral Capsule Duloxetine HCL 11/11/2020 12:00:00 AM EST ORAL active [facility] ([facility] 25 mg 09/25/2020 12:00:00 AM EST tablet 90 TAKE ONE TABLET BY MOUTH EVERY DAY TAKE ONE TABLET BY MOUTH EVERY DAY SOLD: 10/01/2020 [facility] Metoprolol Tartrate 25 MG Oral Tablet me toprolol tartrate (LOPRESSOR) 25 MG tablet metoprolol tartrate (LOPRESSOR) 25 MG tablet 09/25/2020 12:0 0:00 AM EST 25 mg Oral active Take 25 mg by mo uth daily [facility] pantoprazole 40 MG Delayed Release Oral Tablet pantoprazole (PROTONIX) 40 MG tablet pantoprazole (PROTONIX) 40 MG tablet 09/05/2020 12:00:00 AM EST 40 mg Oral active Take 40 mg by mouth daily [facility] duloxetine 60 MG Delayed Release Oral Ca psule DULoxetine (CYMBALTA) 60 MG capsule DULoxetine (CYMBALTA) 60 MG capsule 09/05/2020 12:00:00 AM EST 60 mg Oral active Take 60 mg by mouth daily [facility] pantoprazole 40 MG Delayed Release Oral Tablet PANTOPRAZOLE SODIUM 09/05/2020 12:00:00 AM EST tablet,delayed release (DR/EC) 90 T LACHELLE ONE TABLET BY MOUTH EVERY DAY TAKE ONE TABLET BY MOUTH EVERY DAY SOLD: 09/06/2020 [facility] pantoprazole 40 MG Delayed Release Oral Tablet PANTOPRAZOLE SODIUM 09/05/2020 12:00:00 AM EST tablet,delayed release (DR/EC) 90 T LACHELLE ONE TABLET BY MOUTH EVERY DAY TAKE ONE TABLET BY MOUTH EVERY DAY SOLD: 11/18/2020 [facility] 60 mg 09/05/2020 12:00:00 AM EST capsule,delayed release (DR/EC) 90 TAKE ONE CAPSULE BY MOUTH EVERY DAY TAKE ONE CAPSULE BY MOUTH EVERY DAY SOLD: 09/06/2020 [facility] 800 mg 08/24/2020 12:00:00 AM EST tablet 15 TAKE ONE TABLET BY MOUTH THREE TIMES A DAY -STARTING ONE DAY PRIOR TO SURGERY TAKE ONE TABLET BY MOUTH THREE TIMES A DAY -STARTING ONE DAY PRIOR TO SURGERY SOLD: 08/25/2020 [facility] candesartan cilexetil 4 MG Oral Tablet candesartan (AT ACAND) 4 MG tablet candesartan (ATACAND) 4 MG tablet 08/22/2020 12:00:00 AM EST active TAKE ONE TABLET BY MOUTH EVERY MORNING FOR BLOOD PRESS URE [facility] 4 mg 08/22/2020 12:00:00 AM EST tablet 90 TAKE ONE TABLET BY MOUTH EVERY MORNING FOR BLOOD PRESSURE TAKE ONE TABLET BY MOUTH EVERY MORNING F OR BLOOD PRESSURE SOLD: 08/23/2020 [facility] candesartan cilexetil 4 MG Oral Tablet CANDESARTAN CILEXETIL 08/22/2020 12:00:00 AM EST tablet 90 TAKE ONE TABLET BY MOUTH MARIA LUISA RY MORNING FOR BLOOD PRESSURE TAKE ONE TABLET BY MOUTH EVERY MORNING FOR BLOOD PRESSURE SOLD: 11/18/2020 [facility] 40 mg 08/21/2020 12:00:00 AM EST tablet 90 TAKE ONE TABLET BY MOUTH EVERY MORNING TAKE ONE TABLET BY MOUTH EVERY MORNING SOLD: 11/18/2020 [facility] 40 mg 08/21/2020 12:00:00 AM EST tablet 90 TAKE ONE TABLET BY MOUTH EVERY MORNING TAKE ONE TABLET BY MOUTH EVERY MORNING SOLD: 08/22/2020 [facility] Furosemide 40 MG Oral Tablet furosemide (LASIX) 40 MG tablet furosemide (LASIX) 40 MG tablet 08/21/2020 12:00:00 AM EST 40 mg Oral activ e Take 40 mg by mouth [facility] Insurance Providers Payer name Policy type / Coverage type Policy ID Covered democrat ID Covered democrat's relationship to [place] Policy [place] Plan Information [employer] [id number] xxxxxxxxxxxx [id number] [employer] [id number] [place] [id number] [facility] [id number] [facility] 2 [id number] [facility] [id number] [facility] 2 [id number] [employer] [id number] [facility] [id number] Problems, Conditions, and Diagnoses Code Display Name Description Problem Type Effective Dates Data Source(s) I51.81 Takotsubo syndrome Takotsubo syndrome Diagnosis 03:14:38 PM EST [facility] [id number] Essential hypertension Essential hypertension Problem 05/27/2021 12:00:00 AM EDT [facility] ([facility], ) I51.81 Takotsubo syndrome Takotsubo syndrome [id number] 12:00:00 AM EST [facility] M79.7 Fibromyalgia Fibromyalgia Problem 08/20/2020 12:00:00 A M EST [facility] ([facility] I10 Essential hypertension Essential hypertension Problem 08/20/2020 12:00:00 AM EST [facility] ([facility] I25.2 Old myocardial infarction Old myocardial infarction Pr oblem 08/20/2020 12:00:00 AM EST [facility] ([facility] M15.0 Degenerative joint disease involving mul tiple joints Degenerative joint disease involving multiple joints Problem 08/20/2020 12:00:00 AM EST [facility] ([facility] K21.9 Gastroesophageal reflux disease Gastroesophageal reflu x disease Problem 08/20/2020 12:00:00 AM EST [facility] ([facility] K22.70 Ye's esophagus Ye's esophagus Problem 1 10/20/2019 12:00:00 AM EST [facility] ([facility] Surgeries/Procedures Procedure Description Date Indications Data Source(s) Soto Cre W/I 7 Days Of DC, Comm W/I 2 Dys 08/04/2021 12:00:00 AM EDT [facility] ([facility] OFFICE OUTPATIENT NEW 30 MINUTES 05/27/2021 12:00:00 A M EDT [facility] ([facility]) OFFICE OUTPATIENT VISIT 25 MINUTES 05/22/2021 12:00:00 AM EDT [facility] ([facility] Endoscopy Upper GI Biopsy 05/05/2021 12:00:00 AM EDT [facility] ([facility]) Colonoscopy W/ Poly 05/05/2021 12:00:00 AM EDT [facility] ([facility]) OFFICE OUTPATIENT NEW 45 MINUTES 03/24/2021 12:00:00 A M EDT [facility] ([facility]) OFFICE OUTPATIENT VISIT 25 MINUTES 01/27/2021 12:00:00 AM EDT [facility] ([facility] ECG ROUTINE ECG W/LEAST 12 LDS W/I&R <td>POCT AMB EKG</td><td>Routine</td><td>11/12/2020 4:47 PM EST</td><td> Takotsubo syndrome</td><td> </td> 11/12/2020 09:47:00 PM EST Takotsubo syndrome [facility] Takotsubo syndrome OFFICE OUTPATIENT VISIT 25 MINUTES 11/11/2020 12:00:00 AM EST [facility] ([facility] Brief Emotional/Behav Assessment W/ Scoring Doc Per Standard Inst 08/20/2020 12:00:00 AM EST [facility] ([facility] Results ID Date Data Source [id number] 05/05/2021 12:15:00 PM EDT [facility] ([facility]) Name Value Range Interpretation Code Description Data Aisha rce(s) Supporting Document(s) Surgical pathology study Laboratory test result [facility] ([facility]) <content>FINAL DIAGNOSIS</content>
< content></content>
<content>A - Stomach, biopsy:</content>
<content>Gastric mucosa with mild reactive gastropathy.</content>
<content>No evidence for H. pylori-like organisms on H&E stain.</content>
<content></content>
<content>B - Esophagus, lower, biopsy:</content>
<content>Squamous mucosa with no significant pathologic findings.</content>
<content>No evidence for eosinophilic esophagitis or intestinal metaplasia.</content>
<content></content>
<content>C - Colon, polyps, polypectomy:</content>
<content>One fragment of tubular adenoma.</content>
<content>Multiple fragments of hyperplastic polyps also present.</content>
<content>05/06/2021 - 1255</content>
<content></content>
<content>CLINICAL DIAGNOSIS</content>
<content></content>
<content>History Ye's, heartburn, and left lower quadrant pain</content>
<content>05/05/2021 - 1528</content>
<content></content>
<content>GROSS DIAGNOSIS</content>
<content></content>
<content>A - Received in formalin labeled "gastric biopsy" consists of one salcedo</content>
<content>fragment measuring 0.3 x 0.3 x 0.2 cm. All in one.</content>
<content></content>
<content>B - Received in formalin labeled "lower esophagus biopsy" consists of</content>
<content>four salcedo fragments, 0.5 x 0.3 x 0.1 cm in aggregate. All in one.</content>
<content></content>
<content>C - Received in formalin labeled "colon polyps" consists of multiple salcedo</content>
<content>fragments, 0.7 x 0.5 x 0.3 cm in aggregate. All in one.</content>
<content>-SV</content>
<content>05/05/2021 - 1528</content>
<content></content>
<content>Signed MELBA MEHTA MD 05/06/2021 1340</content>
<content></content> ID Date Data Source [id number] 04/30/2021 11:20:00 AM EDT [facility] ([facility] Name Value Range Interpretation Code Description Data Aisha rce(s) Supporting Document(s) Coronavirus 2019 Nasopharygeal Laboratory test result [facility] ASSAY INFORMATION: Real Time RT-PCR NOTE: The COVID-19 assay has been cleared by the U.S. Food and Drug Administration under the Emergency Use Authorization (EUA). [facility] are designated as high complexity laboratories by the Clinical Laboratory Improvement Amendments of 1988(CLIA) and are qualified to perform this test. Not Detected ID Date Data Source [id number] 08/21/2020 08:27:00 AM EST [facility] ([facility] Name Value Range Interpretation Code Description Data Aisha rce(s) Supporting Document(s) C reactive protein [Mass/volume] in Serum or Plasma by High sensitivity method 0.77 mg/dL 0.00-0.30 [facility] ID Date Data Source [id number] 08/21/2020 08:27:00 AM EST [facility] ([facility] Name Value Range Interpretation Code Description Data Aisha rce(s) Supporting Document(s) Triglycerides Level 133 mg/dL [facility] HDL Cholesterol 61 mg/dL [facility] Cholesterol Level 216 mg/dL [facility] LDL Cholesterol 128 mg/dL [facility] Non-HDL-C 155 mg/dL [facility] Cholesterol Risk Ratio 3.540 [facility] ID Date Data Source [id number] 08/21/2020 08:27:00 AM EST [facility] ([facility] Name Value Range Interpretation Code Description Data Aisha rce(s) Supporting Document(s) Rheumatoid factor [Units/volume] in Serum or Plasma Laboratory test result [facility] ([facility] Erythrocyte sedimentation rate by 2H Westergren method 9 mm/hr 0-3 0 [facility] ID Date Data Source [id number] 08/21/2020 08:27:00 AM EST [facility] ([facility] Name Value Range Interpretation Code Description Data Aisha rce(s) Supporting Document(s) Glucose, Fasting 92 mg/dL 70-100 [facility] Blood Urea Nitrogen 16 mg/dL 7-18 [facility] Glomerular Filtration Rate Laboratory test result [facility] ([facility] <content>Units are mL/min/1.73 m2</content>
<content></content>
<content>Chronic Kidney Disease Staging per [facility]:</content>
<content></content>
<content>Stage I & II GFR >=60 Normal to Mildly Decreased</content>
<content>Stage III GFR 30- 59 Moderately Decreased</content>
<content>Stage IV GFR 15-29 Severely Decreased</content>
<content>Stage V GFR <15 Very Little GFR Left</content>
<content>ESRD GFR <15 on [employer]</content>
<content></content> Creatinine For GFR 0.86 mg/dL 0.55-1.30 [facility] Potassium Serum 4.3 meq/L 3.5-5.1 [facility] Sodium Level 141 meq/L 136-145 [facility] Chloride Level 103 meq/L 98-107 [facility] Carbon Dioxide Level 25 meq/L 21-32 [facility] Anion Gap 13 meq/L 8-16 [facility] Alt/SGPT 27 U/L 12-78 [facility] Ast/Sgot 23 U/L 7-37 [facility] Calcium Level 8.9 mg/dL 8.8-10.2 [facility] Bilirubin,Total 0.4 mg/dL 0.2-1.0 [facility] Alkaline Phosphatase 65 U/L 45-117 [facility] Albumin/Globulin Ratio 1.0 1.2-2.2 [facility] ([facility] Total Protein 6.9 GM/DL 6.4-8.2 [facility] Albumin 3.4 GM/DL 3.2-5.2 [facility] ID Date Data Source [id number] 08/21/2020 08:27:00 AM EST [facility] ([facility] Name Value Range Interpretation Code Description Data Aisha rce(s) Supporting Document(s) White Blood Count 5.1 10 4.0-10.0 [facility] Hematocrit 44.7 % 36.0-47.0 [facility] Red Blood Count 5.06 10 4.00-5.40 [facility] Hemoglobin 13.9 g/dL 12.0-15.5 [facility] Mean Corpuscular Volume 88.3 fl 80.0-96.0 M [facility] ([facility] Mean Corpuscular HGB Conc 31.1 g/dL 32.0-36.5 [facility] Mean Corpuscular Hemoglobin 27.5 pg 27.0-33.0 [facility] Red Cell Distribution Width 14.1 % 11.5-14.5 [facility] Platelet Count, Automated 299 10 150-450 [facility] Neutrophils % 59.1 % 36.0-66.0 [facility] Lymph % 28.5 % 24.0-44.0 [facility] [place] % 7.3 % 0.0-5.0 [facility] Baso % 0.6 % 0.0-1.0 [facility] Eos % 4.3 % 0.0-3.0 [facility] Nucleated Red Blood Cell % 0.0 % 0-0 [facility] ([facility] Immature Granulocyte % 0.2 % 0-3.0 [facility] Lymph # 1.5 10 1.5-5.0 [facility] Neutrophils # 3.0 10 1.5-8.5 [facility] [place] # 0.4 10 0.0-0.8 [facility] Eos # 0.2 10 0.0-0.5 [facility] Baso # 0.0 10 0.0-0.2 [facility] Procedure Social History Code Duration Value Status Description Data Source(s ) Smoking 08/04/2021 12:00:00 AM EDT Patient is a former smoker completed Patient is a former smoker [facility] Alcohol intake 11/12/2020 12:00:00 AM EST Yes completed [facility] Smoking 11/12/2020 12:00:00 AM EST Former smoker completed Former smoker [facility] Vital Signs ID Date Data Source UNK Name Value Range Interpretation Code Description Data Source(s) Diastolic blood pressure 74 mm[Hg] 74 mm[Hg] [facility] Systolic blood pressure 156 mm[Hg] 156 mm[Hg] [facility] ([facility] Systolic blood pressure 147 mm[Hg] 147 mm[Hg] [facility] ([facility] recheck Diastolic blood pressure 81 mm[Hg] 81 mm[Hg] [facility] recheck Heart rate 61 /min 61 /min [facility] ([facility] Body temperature 97.6 [degF] 97.6 [degF] [facility] Respiratory rate 16 /min 16 /min [facility] ( [facility] Body height 63 [in_i] 63 [in_i] [facility] 5'3" Body weight 203.38 [lb_av] 203.38 [lb_av] [facility] ([facility] Oxygen saturation in Arterial blood by Pulse oximetry 98 % 98 % [facility] ([facility] [place] body weight 115 [lb_av] 115 [lb_av] [facility] ([facility] Body mass index (BMI) [Ratio] 36.0 kg/m2 36.0 k g/m2 [facility] ([facility] Body surface area Derived from formula 1.99 m2 1.99 m2 [facility] ([facility]) Systolic blood pressure 152 mm[Hg] 152 mm[Hg] [facility] ([facility]) Diastolic blood pressure 86 mm[Hg] 86 mm[Hg] [facility] ([facility]) Heart rate 68 /min 68 /min [facility] ([facility]) Body temperature 98.2 [degF] 98.2 [degF] [facility] ([facility]) Body height 64 [in_i] 64 [in_i] [facility] ([facility]) 5'4" Body weight 209.12 [lb_av] 209.12 [lb_av] [facility] ([facility]) Body mass index (BMI) [Ratio] 35.9 kg/m2 35.9 k g/m2 [facility] ([facility]) [place] body weight 120 [lb_av] 120 [lb_av] [facility] ([facility]) Body weight 94.859 kg 94.859 kg [facility] ([facility]) Systolic blood pressure 156 mm[Hg] 156 mm[Hg] [facility] ([facility] Diastolic blood pressure 100 mm[Hg] 100 mm[Hg] [facility] Body temperature 97.1 [degF] 97.1 [degF] [facility] ([facility] Systolic blood pressure 159 mm[Hg] 159 mm[Hg] [facility] ([facility] Body height 63 [in_i] 63 [in_i] [facility] ([facility] 5'3" Respiratory rate 17 /min 17 /min [facility] ( [facility] Body weight 206.00 [lb_av] 206.00 [lb_av] [facility] ([facility] Oxygen saturation in Arterial blood by Pulse oximetry 98 % 98 % [facility] ([facility] [place] body weight 115 [lb_av] 115 [lb_av] [facility] ([facility] Body mass index (BMI) [Ratio] 36.5 kg/m2 36.5 k g/m2 [facility] ([facility] Diastolic blood pressure 113 mm[Hg] 113 mm[Hg] [facility] Heart rate 96 /min 96 /min [facility] ([facility] Body height 64 [in_i] 64 [in_i] [facility] ([facility]) 5'4" Body weight 210.00 [lb_av] 210.00 [lb_av] [facility] ([facility]) Body mass index (BMI) [Ratio] 36.0 kg/m2 36.0 k g/m2 [facility] ([facility]) [place] body weight 120 [lb_av] 120 [lb_av] [facility] ([facility]) [facility] 95.256 [facility] Body surface area Derived from formula 2.00 m2 2.00 m2 [facility] ([facility]) Body mass index (BMI) [Ratio] 36.0 kg/m2 36.0 k g/m2 [facility] ([facility]) Systolic blood pressure 142 mm[Hg] 142 mm[Hg] M [facility] ([facility]) Diastolic blood pressure 92 mm[Hg] 92 mm[Hg] [facility] ([facility]) Body height 64 [in_i] 64 [in_i] [facility] ([facility]) 5'4" Body weight 210.00 [lb_av] 210.00 [lb_av] [facility] ([facility]) [place] body weight 120 [lb_av] 120 [lb_av] [facility] ([facility]) Body weight 95.256 kg 95.256 kg [facility] ([facility]) Body surface area Derived from formula 2.00 m2 2.00 m2 [facility] ([facility]) Body height 63 [in_i] 63 [in_i] [facility] ([facility] 5'3" Body mass index (BMI) [Ratio] 37.2 kg/m2 37.2 k g/m2 [facility] ([facility] Systolic blood pressure 135 mm[Hg] 135 mm[Hg] [facility] ([facility] Diastolic blood pressure 88 mm[Hg] 88 mm[Hg] [facility] Heart rate 95 /min 95 /min [facility] ([facility] Body temperature 97.1 [degF] 97.1 [degF] [facility] ([facility] Respiratory rate 18 /min 18 /min [facility] ( [facility] Body weight 210.25 [lb_av] 210.25 [lb_av] [facility] ([facility] Oxygen saturation in Arterial blood by Pulse oximetry 98 % 98 % [facility] ([facility] [place] body weight 115 [lb_av] 115 [lb_av] [facility] ([facility] Body height 162.6 cm 162.6 cm [facility] Systolic blood pressure 130 mm[Hg] 130 mm[Hg] [facility] Diastolic blood pressure 78 mm[Hg] 78 mm[Hg] [facility] Heart rate 63 /min 63 /min [facility] Body weight 95.255 kg 95.255 kg [facility] Body mass index (BMI) [Ratio] 36.05 kg/m2 36.05 kg/m2 [facility] Oxygen saturation in Arterial blood by Pulse oximetry 98 % 98 % [facility] Oxygen saturation in Arterial blood by Pulse oximetry 97 % 97 % [facility] ([facility] Systolic blood pressure 138 mm[Hg] 138 mm[Hg] [facility] ([facility] Diastolic blood pressure 76 mm[Hg] 76 mm[Hg] [facility] Heart rate 76 /min 76 /min [facility] ([facility] Body temperature 97.5 [degF] 97.5 [degF] [facility] ([facility] Respiratory rate 18 /min 18 /min [facility] ( [facility] Body height 63 [in_i] 63 [in_i] [facility] ([facility] 5'3" Body weight 209.38 [lb_av] 209.38 [lb_av] [facility] ([facility] [place] body weight 115 [lb_av] 115 [lb_av] [facility] ([facility] Body mass index (BMI) [Ratio] 37.1 kg/m2 37.1 k g/m2 [facility] ([facility] Body temperature 97.1 [degF] 97.1 [degF] [facility] ([facility] Oxygen saturation in Arterial blood by Pulse oximetry 98 % 98 % [facility] ([facility] [place] body weight 115 [lb_av] 115 [lb_av] [facility] ([facility] Body mass index (BMI) [Ratio] 36.8 kg/m2 36.8 k g/m2 [facility] ([facility] Systolic blood pressure 145 mm[Hg] 145 mm[Hg] [facility] ([facility] Diastolic blood pressure 86 mm[Hg] 86 mm[Hg] [facility] ([facility] Systolic blood pressure 137 mm[Hg] 137 mm[Hg] [facility] ([facility] recheck Diastolic blood pressure 79 mm[Hg] 79 mm[Hg] [facility] ([facility] recheck Heart rate 78 /min 78 /min [facility] ([facility] Body temperature 97.1 [degF] 97.1 [degF] [facility] ([facility] Respiratory rate 16 /min 16 /min [facility] ( [facility] Body height 63 [in_i] 63 [in_i] [facility]ON[facility] ([facility] 5'3" Body weight 208.00 [lb_av] 208.00 [lb_av] [facility] ([facility] Patient Treatment Plan of Care Planned Activity Planned Date Details Description Data Source (s) Metoprolol Tartrate 25 MG Oral Tablet 09/25/2020 12:00:[address] [facility] pantoprazole 40 MG Delayed Release Oral Tablet 09/05/2020 12:00:[address] [facility] duloxetine 60 MG Delayed Release Oral Capsule 09/05/2020 12:00:[address] [facility] candesartan cilexetil 4 MG Oral Tablet 08/22/2020 12:00:[address] [facility] Furosemide 40 MG Oral Tablet 08/21/2020 12:00:[address] [facility]
[2021-08-10 09:09] LABS: BASO % 0.3 % (0.0-1.0); EOS % 0.1 % (0.0-3.0); HEMATOCRIT 42.5 % (36.0-47.0); HEMOGLOBIN 14.1 g/dl (12.0-15.5); LYMPH # 1.1 10^3/uL (1.5-5.0); MEAN CORPUSCULAR HEMOGLOBIN 27.4 pg (27.0-33.0); MEAN CORPUSCULAR HGB CONC 33.2 g/dl (32.0-36.5); MEAN CORPUSCULAR VOLUME 82.7 fl (80.0-96.0); MONO # 1.4 10^3/uL (0.0-0.8); MONO % 9.3 % (2.0-8.0); NEUTROPHILS # 12.6 10^3/uL (1.5-8.5); NEUTROPHILS % 82.9 % (36.0-66.0); PLATELET COUNT, AUTOMATED 214 10^3/uL (150-450); RED BLOOD COUNT 5.14 10^6/uL (4.00-5.40); WHITE BLOOD COUNT 15.2 10^3/uL (4.0-10.0)
[2021-08-10] MEDS ORDERED: cefTRIAXone SOD 2 GM in D5W MINI-BAG PLUS 50 ML IV ONE (09:10)
--- NOTE | 2021-08-10 09:10 | REP ---
INDICATION: DYSPNEA/COUGH. COMPARISON: None. TECHNIQUE: Semi upright portable chest image was obtained. FINDINGS: There is bibasilar airspace disease consistent with atelectasis or pneumonia. There may be superimposed pleural effusions. The heart is largely obscured but there is no apparent congestive heart failure. There is severe dextroscoliosis of the thoracic spine. The upper abdominal bowel gas pattern is normal. IMPRESSION: Bibasilar airspace disease consistent with atelectasis or pneumonia. There may be superimposed pleural effusions. <Electronically signed by Caden Franics > 08/10/21 0915
[2021-08-10 09:45] LABS: ALT/SGPT 57 U/L (12-78); BILIRUBIN,DIRECT 0.3 MG/DL (0.0-0.2); BILIRUBIN,TOTAL 0.9 MG/DL (0.2-1.0); BLOOD UREA NITROGEN 14 MG/DL (7-18); CARBON DIOXIDE LEVEL 26 MEQ/L (21-32); CHLORIDE LEVEL 101 MEQ/L (98-107); CK-MB VALUE MASS < 1.0 NG/ML (<3.6); CPK CREATINE PHOSPHOKINASE 124 U/L (26-192); CREATININE FOR GFR 0.87 MG/DL (0.55-1.30); GLOMERULAR FILTRATION RATE > 60.0 (>45); GLUCOSE, FASTING 141 MG/DL (70-100); MB/CK RELATIVE INDEX 0.81 (< OR =4); NT-PRO BNP 175 PG/ML (<125); POTASSIUM SERUM 4.4 MEQ/L (3.5-5.1); SODIUM LEVEL 136 MEQ/L (136-145); TROPONIN I < 0.02 NG/ML (< 0.10)
[2021-08-10] MEDS ORDERED: MIRT1TAB PO (10:59)
[2021-08-10] MEDS ORDERED: MELA3TAB24 PO (10:59)
[2021-08-10] MEDS ORDERED: VALS1TAB67 PO (10:59)
[2021-08-10] MEDS ORDERED: GABA-1171 PO (10:59)
[2021-08-10] MEDS ORDERED: TAMS1CAP17 PO (10:59)
[2021-08-10] MEDS ORDERED: HOME MED LIST COMPLETE! XX SCH (11:05)
[2021-08-10] MEDS ORDERED: ISOVUE-370 76% 100ML VIAL As Ordered ONE (11:40)
[2021-08-10] MEDS ORDERED: ONDANSETRON 4MG/2ML VIAL IV ONE (11:55)
[2021-08-10] MEDS: MORPHINE 2 MG/ML 1ML VIAL (J2270) IV PRN ×3 (12:11→17:45)
--- NOTE | 2021-08-10 12:11 | REP ---
INDICATION: dyspnea, pleuritic chest pain, recent hospitalization. COMPARISON: None. TECHNIQUE: Imaging protocol: Computed angiography of the chest with IV contrast. Contiguous 3 mm thick axial projection images were obtained through the chest. 2D sagittal and coronal reconstructions were performed. Radiation optimization: All CT scans at this facility use at least one of these dose optimization techniques: automated exposure control; mA and/or kV adjustment per patient size (includes targeted exams where dose is matched to clinical indication); or iterative reconstruction. Contrast: 75 cc of Isovue 370, intravenous. FINDINGS: Lower neck: The thyroid gland is normal. There is no supraclavicular lymphadenopathy. Mediastinum: No abnormal masses or lymphadenopathy. Heart/thoracic aorta: The heart is enlarged. There is no pericardial effusion. There is minimal calcific vascular disease of the thoracic aorta and coronary arteries. Upper abdomen: There is minimal calcific vascular disease of the abdominal aorta. Thoracic esophagus: There is a small hiatal hernia. Chest wall and axilla: The breast soft tissues of the chest wall appear unremarkable. There is no axillary lymphadenopathy. There is severe dextroscoliosis of the thoracic spine. Lung parenchyma: There is peribronchial consolidation/scarring in the lower lobe of the right lung involving primarily the basilar segments, with tubular/traction bronchiectasis. There is superimposed multifocal pleural base consolidation, which may indicate bronchial obstruction. There is a small right pleural effusion. There is peribronchial consolidation/scarring in the superior segment and posterior basilar segment of the lower lobe of the left lung, and the inferior segment of the lingula, with tubular/traction bronchiectasis. There is superimposed pleural base consolidation, which may indicate bronchial obstruction. IMPRESSION: 1. Bilateral peribronchial consolidation/scarring involving the lower lobes of both lungs. There is superimposed multifocal pleural base consolidation which may indicate bronchial obstruction. 2. There is a small right pleural effusion. 3. Cardiomegaly. There is minimal calcific vascular disease of the thoracoabdominal aorta and coronary arteries. 4. There is severe dextroscoliosis of the thoracic spine. <Electronically signed by Caden Francis > 08/10/21 3213
--- OUTSIDE RECORDS SUMMARY | 2021-08-10 13:05 | CCD ---
Author Author [facility] Organization [facility] Address Unknown Phone Unavailable Care Team Providers Care Patrol Conductor Name Role Phone Ayla ROSARIO MD Unavailable [...] Hien RPA C Unavailable Unavailable Pleskach, Bhavya CLAIMS SERVICE ADJUSTOR Unavailable Unavailable Pleskach, Bhavya CLAIMS SERVICE ADJUSTOR Unavailable Unavailable Pleskach, Bhavya CLAIMS SERVICE ADJUSTOR Unavailable Unavailable Pleskach, Bhavya CLAIMS SERVICE ADJUSTOR Unavailable Unavailable Pleskach, Bhavya CLAIMS SERVICE ADJUSTOR Unavailable Unavailable Pleskach, Bhavya CLAIMS SERVICE ADJUSTOR Unavailable Unavailable Pleskach, Bhavya CLAIMS SERVICE ADJUSTOR Unavailable Unavailable Pleskach, Bhavya CLAIMS SERVICE ADJUSTOR Unavailable Unavailable Pleskach, Bhavya CLAIMS SERVICE ADJUSTOR Unavailable Unavailable Pleskach, Bhavya CLAIMS SERVICE ADJUSTOR Unavailable Unavailable Pleskach, Bhavya CLAIMS SERVICE ADJUSTOR Unavailable Unavailable Pleskach, Bhavya CLAIMS SERVICE ADJUSTOR Unavailable Unavailable Pleskach, Bhavya CLAIMS SERVICE ADJUSTOR Unavailable Unavailable Pleskach, Bhavya CLAIMS SERVICE ADJUSTOR Unavailable Unavailable Pleskach, Bhavya CLAIMS SERVICE ADJUSTOR Unavailable Unavailable Pleskach, Bhavya CLAIMS SERVICE ADJUSTOR Unavailable Unavailable Pleskach, Bhavya CLAIMS SERVICE ADJUSTOR Unavailable Unavailable Pleskach, Bhavya CLAIMS SERVICE ADJUSTOR Unavailable Unavailable Pleskach, Bhavya CLAIMS SERVICE ADJUSTOR Unavailable Unavailable Pleskach, Bhavya CLAIMS SERVICE ADJUSTOR Unavailable Unavailable Pleskach, Bhavya CLAIMS SERVICE ADJUSTOR Unavailable Unavailable Pleskach, Bhavya CLAIMS SERVICE ADJUSTOR Unavailable Unavailable Pleskach, Bhavya CLAIMS SERVICE ADJUSTOR Unavailable Unavailable Pleskach, Bhavya CLAIMS SERVICE ADJUSTOR Unavailable Unavailable Pleskach, Bhavya CLAIMS SERVICE ADJUSTOR Unavailable Unavailable Pleskach, Bhavya CLAIMS SERVICE ADJUSTOR Unavailable Unavailable Pleskach, Bhavya CLAIMS SERVICE ADJUSTOR Unavailable Unavailable Pleskach, Bhavya CLAIMS SERVICE ADJUSTOR Unavailable Unavailable Pleskach, Bhavya CLAIMS SERVICE ADJUSTOR Unavailable Unavailable Pleskach, Bhavya CLAIMS SERVICE ADJUSTOR Unavailable Unavailable Pleskach, Bhavya CLAIMS SERVICE ADJUSTOR Unavailable Unavailable Pleskach, Bhavya CLAIMS SERVICE ADJUSTOR Unavailable Unavailable Pleskach, Bhavya CLAIMS SERVICE ADJUSTOR Unavailable Unavailable Pleskach, Bhavya CLAIMS SERVICE ADJUSTOR Unavailable Unavailable Pleskach, Bhavya CLAIMS SERVICE ADJUSTOR Unavailable Unavailable Pleskach, Bhavya CLAIMS SERVICE ADJUSTOR Unavailable Unavailable Pleskach, Bhavya CLAIMS SERVICE ADJUSTOR Unavailable Unavailable Pleskach, Bhavya CLAIMS SERVICE ADJUSTOR Unavailable Unavailable Pleskach, Bhavya CLAIMS SERVICE ADJUSTOR Unavailable Unavailable Pleskach, Bhavya CLAIMS SERVICE ADJUSTOR Unavailable Unavailable Pleskach, Bhavya CLAIMS SERVICE ADJUSTOR Unavailable Unavailable Pleskach, Bhavya CLAIMS SERVICE ADJUSTOR Unavailable Unavailable Kiara Hanna MD Unavailable Unavailable [...] protected by Article 27-F of the [facility] Public Health law. If you continue you may have access to information: Regarding HIV / AIDS; Provided by facilities licensed or operated by the [facility] Office of Mental Health; or Provided by the [facility] Office for People With Developmental Disabilities. If such information is present, then the following [facility] mandated warning applies: This information has [...] law may result in a fine or chcf sentence or both. A general authorization for the release of medical or other information is NOT sufficient authorization for further disc losure. Encounters Encounter Providers Location Date Indications Data Source(s ) Outpatient Attender: Bhavya Hopper [facility] Main Office 08/04/2021 1 0:30:00 AM EDT [facility] ([facility] Outpatient Attender: JULI Martinez/Kalia/Tim/ Satish 05/27/2021 02:00:00 PM EDT [facility] ([facility] Outpatient Attender: Bhavya Hopper [facility] Main Office 05/22/2021 1 1:00:00 AM EDT [facility] ([facility] Outpatient Attender: Hien Martinez/Kalia/Camilla sigala/Reinguido 03/24/2021 09:30:00 AM EDT [facility] ([facility]) Outpatient Attender: Bhavya Hopper [facility] Main Office 01/27/2021 1 0:15:00 AM EDT [facility] ([facility] Outpatient Attender: Kiara Hanna MDReferrer: Kashif Nicolebrayden [facility] [email or web address] 11/12/2020 12:00:00 AM EST - 11/12/2020 04:34:14 PM EST [facility] Outpatient Attender: Bhavya Hopper [facility] Main Office 11/11/2020 0 9:15:00 AM EST [facility] ([facility] Outpatient Attender: Bhavya Hopper [facility] Main Office 08/20/2020 0 8:15:00 AM EST [facility] ([facility] Immunizations Vaccine Date Status Description Data Source(s) Moderna Sars-(Covid-19) vaccine, mRNA, LNP-S, PF, 100 mcg/ 0.5 mL 01/22/2021 12:00:00 AM EDT completed [facility] ([facility] COVID-19 VACCINE Moderna 01/22/2021 12:00:00 AM EDT completed [facility] Vaccine Series Complete: NOThis Data was Submitted to [facility]. Moderna Sars-(Covid-19) vaccine, mRNA, LNP-S, PF, 100 mcg/ 0.5 mL 12/25/2020 09:23:00 AM EST completed [facility] ([facility] COVID-19 VACCINE Moderna 12/25/2020 12:00:00 AM EST completed [facility] Vaccine Series Complete: NOThis Data was Submitted to [facility]. Tdap 11/08/2020 08:53:00 AM EST completed M [...] BY MOUTH TWICE A DAY SOLD: 05/15/2021 [facility] 30 mg 05/15/2021 12:00:00 AM EDT capsule,delayed release (DR/EC) 90 TAKE ONE CAPSULE BY MOUTH EVERY DAY TAKE ONE CAPSULE BY MOUTH EVERY DAY SOLD: 05/15/2021 [facility] POLYETHYLENE GLYCOL 3350 142 MG/ML Oral Solution [Miralax] M iralax 04/04/2021 12:00:00 AM EDT completed [facility] ([facility], ) 25 mg 03/31/2021 12:00:00 AM EDT tablet 90 TAKE ONE TABLET BY MOUTH EVERY DAY TAKE ONE TABLET BY MOUTH EVERY DAY SOLD: 04/01/2021 [facility] Bisacodyl 5 MG Delayed Release Oral Tablet [Dulcolax] Dulcol ax 03/24/2021 12:00:00 AM EDT ORAL completed [facility] ([facility], ) Suprep Bowel Prep Kit Suprep Bowel Prep Kit 03/24/2021 12:00:00 AM EDT completed [facility] ([facility], ) 50 mg 02/18/2021 12:00:00 AM EDT [...] CAPSULE BY MOUTH EVERY DAY SOLD: 11/12/2020 [facility] Milnacipran hydrochloride 12.5 MG Oral Tablet [Savella] Save lla 11/11/2020 12:00:00 AM EST completed [facility] ([facility] duloxetine 30 MG Delayed Release Oral Capsule Duloxetine HCL 11/11/2020 12:00:00 AM EST ORAL active [facility] ([facility] 25 mg 09/25/2020 12:00:00 AM EST tablet 90 TAKE ONE TABLET BY MOUTH EVERY DAY TAKE ONE TABLET BY MOUTH EVERY DAY SOLD: 10/01/2020 [facility] Metoprolol Tartrate 25 MG Oral Tablet me toprolol tartrate (LOPRESSOR) 25 MG tablet metoprolol tartrate (LOPRESSOR) 25 MG tablet 09/25/2020 12:0 0:00 AM EST 25 mg Oral active Take 25 mg by mo uth daily [facility] pantoprazole 40 MG Delayed Release Oral Tablet pantoprazole (PROTONIX) 40 MG tablet pantoprazole (PROTONIX) 40 MG tablet 09/05/2020 12:00:00 AM EST 40 mg Oral active Take 40 mg by mouth daily [facility] duloxetine 60 MG Delayed Release Oral Ca psule DULoxetine (CYMBALTA) 60 MG capsule DULoxetine (CYMBALTA) 60 MG capsule 09/05/2020 12:00:00 AM EST 60 mg Oral active Take 60 mg by mouth daily [facility] pantoprazole 40 MG Delayed Release Oral Tablet PANTOPRAZOLE SODIUM 09/05/2020 12:00:00 AM EST tablet,delayed release (DR/EC) 90 T LACHELLE ONE TABLET BY MOUTH EVERY DAY TAKE ONE TABLET BY MOUTH EVERY DAY SOLD: 09/06/2020 [facility] pantoprazole 40 MG Delayed Release Oral Tablet [...] MOUTH EVERY MORNING FOR BLOOD PRESS URE [facility] 4 mg 08/22/2020 12:00:00 AM EST [...] activ e Take 40 mg by mouth [facility] Insurance Providers Payer name Policy type / Coverage type Policy ID Covered republican ID Covered republican's relationship to dumont Policy [place] Plan Information [employer] [id number] xxxxxxxxxxxx [id number] [employer]IF[employer] B[employer]IT SOLU [id number] [place] [id number] [facility] [id number] [facility] 2 [id number] [facility] [id number] [facility] 2 [id number] [employer] [id number] [facility] [id number] Problems, Conditions, and Diagnoses Code Display Name Description Problem Type Effective Dates Data Source(s) I51.81 Takotsubo syndrome Takotsubo syndrome Diagnosis 03:14:38 PM EST [facility] [id number] Essential hypertension Essential hypertension Problem 05/27/2021 12:00:00 AM EDT [facility] ([facility], ) I51.81 Takotsubo syndrome Takotsubo syndrome 08993899 12:00:00 AM EST [facility] M79.7 Fibromyalgia Fibromyalgia Problem 08/20/2020 12:00:00 [...] MINUTES 05/27/2021 12:00:00 A M EDT [facility] ([facility]) OFFICE OUTPATIENT VISIT 25 MINUTES 05/22/2021 12:00:00 AM EDT [facility] ([facility] Endoscopy Upper GI Biopsy 05/05/2021 12:00:00 AM EDT [facility] ([facility]) Colonoscopy W/ Poly 05/05/2021 12:00:00 AM EDT [facility] ([facility]) OFFICE OUTPATIENT NEW 45 MINUTES 03/24/2021 12:00:00 A M EDT [facility] ([facility]) OFFICE OUTPATIENT VISIT 25 MINUTES 01/27/2021 12:00:00 AM EDT [facility] ([facility] ECG ROUTINE ECG W/LEAST 12 LDS W/I&R <td>POCT AMB EKG</td><td>Routine</td><td>11/12/2020 4:47 PM EST</td><td> Takotsubo syndrome</td><td> </td> 11/12/2020 09:47:00 PM EST Takotsubo syndrome [facility] Takotsubo syndrome OFFICE OUTPATIENT VISIT 25 MINUTES 11/11/2020 12:00:00 AM EST [facility] ([facility] Brief Emotional/Behav Assessment W/ Scoring Doc Per Standard Inst 08/20/2020 12:00:00 AM EST [facility] ([facility] Results ID Date Data Source [id number] 05/05/2021 12:15:00 PM EDT [facility] ([facility]) Name Value Range Interpretation Code Description Data Aisha rce(s) Supporting Document(s) Surgical pathology study Laboratory test result [facility] ([facility]) <content>FINAL DIAGNOSIS</content>
< content></content>
<content>A - [...] 05/06/2021 1340</content>
<content></content> ID Date Data Source [id number] 04/30/2021 11:20:00 AM EDT [facility] ([facility] Name Value Range Interpretation Code Description Data Aisha rce(s) Supporting Document(s) Coronavirus 2019 Nasopharygeal Laboratory test result [facility] ([facility] ASSAY INFORMATION: Real Time RT-PCR NOTE: The COVID-19 assay has been cleared by the U.S. Food and Drug Administration under the Emergency Use Authorization (EUA). [employer] [facility] and [employer] are designated as high complexity laboratories by the Clinical Laboratory Improvement Amendments of 1988(CLIA) and are qualified to perform this test. Not Detected ID Date Data Source [id number] 08/21/2020 08:27:00 AM EST [facility] ([facility] Name Value Range Interpretation Code Description Data Aisha rce(s) Supporting Document(s) C reactive protein [Mass/volume] in Serum or Plasma by High sensitivity method 0.77 mg/dL 0.00-0.30 [facility] ([facility] ID Date Data Source [id number] 08/21/2020 08:27:00 AM EST [facility] ([facility] [...] [facility] ID Date Data Source [id number] 08/21/2020 08:27:00 AM EST [facility] ([facility] Name Value Range Interpretation Code Description Data Aisha rce(s) Supporting Document(s) Rheumatoid factor [Units/volume] in Serum or Plasma Laboratory test result [facility] ([facility] Erythrocyte sedimentation rate by 2H Westergren method 9 mm/hr 0-3 0 [facility] ([facility] ID Date Data Source [id number] 08/21/2020 08:27:00 AM EST [facility] ([facility] [...] Little GFR Left</content>
<content>ESRD GFR <15 on TWIST PACKER</content>
<content></content> Creatinine For GFR 0.86 mg/dL 0.55-1.30 [...] [facility] ID Date Data Source [id number] 08/21/2020 08:27:00 AM EST [facility] ([facility] [...] % 24.0-44.0 [facility] [place] % 7.3 % 0.0-5.0 [facility] ([facility] [...] 10 1.5-8.5 [facility] ([facility] [place] # 0.4 10 0.0-0.8 [facility] ([facility] [...] intake 11/12/2020 12:00:00 AM EST Yes completed [facility] Smoking 11/12/2020 12:00:00 AM EST Former smoker completed Former smoker [facility] Vital Signs ID Date Data Source [...] 98 % [facility] [place] body weight 115 [lb_av] 115 [lb_av] [facility] ([facility] Body mass index (BMI) [Ratio] 36.0 kg/m2 36.0 k g/m2 [facility] ([facility] Body surface area Derived from formula 1.99 m2 1.99 m2 [facility] ([facility]) Systolic blood pressure 152 mm[Hg] 152 mm[Hg] [facility] ([facility]) Diastolic blood pressure 86 mm[Hg] 86 mm[Hg] [facility] ([facility]) Heart rate 68 /min 68 /min [facility] ([facility]) Body temperature 98.2 [degF] 98.2 [degF] [facility] ([facility]) Body height 64 [in_i] 64 [in_i] [facility] ([facility]) 5'4" Body weight 209.12 [lb_av] 209.12 [lb_av] [facility] T ([facility]) Body mass index (BMI) [Ratio] 35.9 kg/m2 35.9 k g/m2 [facility] ([facility]) [place] body weight 120 [lb_av] 120 [lb_av] [facility] ([facility]) Body weight 94.859 kg 94.859 kg [facility] ([facility]) Systolic blood pressure 156 mm[Hg] 156 mm[Hg] M [facility] ([facility] Diastolic blood pressure 100 mm[Hg] 100 mm[Hg] [facility] Systolic blood pressure 159 mm[Hg] 159 mm[Hg] M [facility] ([facility] Body temperature 97.1 [degF] 97.1 [degF] [facility] Respiratory rate 17 /min 17 /min [facility] ( [facility] Body height 63 [in_i] 63 [in_i] [facility] ([facility] 5'3" Body weight 206.00 [lb_av] 206.00 [lb_av] [facility] ([facility] Oxygen saturation in Arterial blood by Pulse oximetry 98 % 98 % [facility] ([facility] [place] body weight 115 [lb_av] 115 [lb_av] [facility] ([facility] Body mass index (BMI) [Ratio] 36.5 kg/m2 36.5 k g/m2 [facility] Diastolic blood pressure 113 mm[Hg] 113 mm[Hg] [facility] Heart rate 96 /min 96 /min [facility] Body height 64 [in_i] 64 [in_i] [facility] ([facility]) 5'4" Body weight 210.00 [lb_av] 210.00 [lb_av] [facility] T ([facility]) Body mass index (BMI) [Ratio] 36.0 kg/m2 36.0 k g/m2 [facility] ([facility]) [place] body weight 120 [lb_av] 120 [lb_av] [facility] T ([facility]) Body weight 95.256 kg 95.256 kg [facility] ([facility]) Body surface area Derived from formula 2.00 m2 2.00 m2 [facility] ([facility]) Systolic blood pressure 142 mm[Hg] 142 mm[Hg] M [facility] ([facility]) Diastolic blood pressure 92 mm[Hg] 92 mm[Hg] [facility] ([facility]) Body height 64 [in_i] 64 [in_i] [facility] ([facility]) 5'4" Body weight 210.00 [lb_av] 210.00 [lb_av] [facility] T ([facility]) Body mass index (BMI) [Ratio] 36.0 kg/m2 36.0 k g/m2 [facility] [place] body weight 120 [lb_av] 120 [lb_av] [facility] T ([facility]) Body weight 95.256 kg 95.256 kg [facility] ([facility]) Body surface area Derived from formula 2.00 m2 2.00 m2 [facility] ([facility]) Body height 63 [in_i] 63 [in_i] [...] 98 % [facility] [place] body weight 115 [lb_av] 115 [lb_av] [facility] ([facility] Systolic blood pressure 130 mm[Hg] 130 mm[Hg] [facility] Diastolic blood pressure 78 mm[Hg] 78 mm[Hg] [facility] Heart rate 63 /min 63 /min [facility] Body height 162.6 cm 162.6 cm [facility] Body weight 95.255 kg 95.255 kg [facility] Body mass index (BMI) [Ratio] 36.05 kg/m2 36.05 kg/m2 [facility] Oxygen saturation in Arterial blood by Pulse oximetry 98 % 98 % [facility] Oxygen saturation in Arterial blood by [...] [lb_av] [facility] ([facility] [place] body weight 115 [lb_av] 115 [lb_av] [facility] ([facility] Body mass index (BMI) [Ratio] 37.1 kg/m2 37.1 k g/m2 [facility] Body temperature 97.1 [degF] 97.1 [degF] [facility] Oxygen saturation in Arterial blood by Pulse oximetry 98 % 98 % [facility] [place] body weight 115 [lb_av] 115 [lb_av] [facility] [...] 25 MG Oral Tablet 09/25/2020 12:00:00 AM [facility] pantoprazole 40 MG Delayed Release Oral Tablet 09/05/2020 12:00:00 AM [facility] duloxetine 60 MG Delayed Release Oral Capsule 09/05/2020 12:00:00 A M [facility] candesartan cilexetil 4 MG Oral Tablet 08/22/2020 12:00:00 AM [facility] Furosemide 40 MG Oral Tablet 08/21/2020 12:00:00 AM [facility]
[2021-08-10] MEDS: TAMSULOSIN 0.4 MG CAP PO SCH (13:23)
[2021-08-10] MEDS: METOPROLOL TART 25 MG TABLET PO SCH (13:24)
[2021-08-10] MEDS: LACTOBACILLUS ACIDOPHILUS CAP (BACID) PO SCH (13:24)
[2021-08-10] MEDS: VITAMIN D 1,000 INTERNATIONAL UNITS TABLET PO SCH (13:24)
[2021-08-10] MEDS: VALSARTAN 80 MG TAB (DIOVAN) PO SCH (13:24)
--- NOTE | 2021-08-10 13:51 | ECGEPIP ---
[facility] - ED Test Date: 2021-08-10 Pat Name: ALIZA SCHULZ Department: Room: - Gender: Female Marker Hand: HAYDEE : 1955 Requested By: Alie Gomes Order Number: [id number] Reading MD: Alie Gomes Measurements Intervals [place] Rate: 106 P: 38 VA: 172 QRS: 30 QRSD: 96 T: 31 QT: 312 QTc: 414 Interpretive Statements Sinus tachycardia Possible Left atrial enlargement NSTTW abnormalities No prior Electronically Signed on 08-10-2021 13:50:47 EDT by Alie Gomes
--- NOTE | 2021-08-10 14:24 | HPEPDOC ---
General Date of Admission Aug 10, 2021 at 13:01 Date of Service: Aug 10, 2021 Chief Complaint The patient is a 66-year-old female admitted with a reason for visit of Pneumonia. History of Present Illness Mrs. Pickens is a 66-year-old female with hypertension and recent hemorrhagic stroke with left-sided residual weakness who presents here with pleuritic chest pain and hypoxia. She tells me that about 6 weeks ago she was hospitalized for hemorrhagic stroke in [place]. She went to [facility] in [place] and afterwards went to rehab. She flew back to here about a week ago. She is doing okay until yesterday afternoon she had left posterior upper back pain and then shortness of breath. The shortness of breath is worse with activity and deep breathing. She came into the ED today for evaluation. While here she had a temperature of 101.2 and tachycardia 113. Blood pressure was stable at 145/74. She was hypoxic at 89%. Lab work-up was significant for WBC of 15.2 and a pro calcitonin level of 0.27. Chest x-ray demonstrated pneumonia. When I spoke with her, she could not complete her sentences without taking a breath. She appeared to have mild respiratory distress. She told me she was feeling better with a nasal cannula in place. Denies any chest pain, abdominal pain, diarrhea, or dysuria. Still has pleuritic chest pain worse with deep breath. Still has residual left-sided weakness in the upper extremity and lower extremity. Patient be admitted for hypoxia secondary to multifocal pneumonia. Home Medications Scheduled Cholecalciferol (Vitamin D3) (Vitamin D3) 1,000 Unit Tablet, 1,000 UNITS PO DAILY, (Reported) Gabapentin (Gabapentin) 100 Mg Capsule, 100 MG PO QHS, (Reported) Melatonin (Melatonin) 3 Mg Tab.rapdis, 3 MG PO QHS, (Reported) Metoprolol Tartrate (Metoprolol Tartrate) 25 Mg Tablet, 25 MG PO DAILY, (Reported) Mirtazapine (Mirtazapine) 7.5 Mg Tablet, 7.5 MG PO QHS, (Reported) Pantoprazole Sodium (Pantoprazole Sodium) 40 Mg Tablet.dr, 40 MG PO BID, (Reported) Tamsulosin Hcl (Tamsulosin HCl) 0.4 Mg Capsule, 0.4 MG PO DAILY, (Reported) Valsartan (Valsartan) 160 Mg Tablet, 160 MG PO DAILY, (Reported) Allergies Coded Allergies: No Known Allergies (Unverified , 04/23/21) Past Medical History Medical History 1. Hypertension 2. History of hemorrhagic stroke with left-sided deficits around Jun 2021 3. GERD 4. Chronic pain 5. Diverticulosis status post colon resection Surgical History 1. Bilateral toe surgery 2. Appendectomy 3. Colon resection for diverticulosis Family History Father: History of leukemia Mother: History of unspecified cancer Social History * Smoker: former Smoker Alcohol: occationally Drugs: denies A-FIB/CHADSVASC A-FIB History Current/History of A-Fib/PAF?: No Review of Systems Constitutional: Reports: Fever; Denies: Chills Eyes: Denies: Vision change ENT: Denies: Sore Throat Skin: Denies: Rash Pulmonary: Reports: Pleuritic Chest Pain; Denies: Cough Cardiovascular: Denies: Chest Pain Gastrointestinal: Denies: Abdominal Pain, Diarrhea Genitourinary: Denies: Dysuria Hematologic: Denies: Bruising Neurological: Reports: Other Symptoms (Residual left-sided weakness in the upper and lower extremity); Denies: Numbness Psych: Denies: Anxiety, Depression Physical Examination General Exam: Positive: Alert, Cooperative, Mild Distress (Has trouble completing sentences) Eye Exam: Positive: EOMI; Negative: Sclera icteric ENT Exam: Positive: Atraumatic Neck Exam: Positive: Supple Chest Exam: Positive: Clear to auscultation Heart Exam: Positive: Rate Normal, Regular Rhythm Abdomen Exam: Positive: Normal bowel sounds, Soft; Negative: Tenderness Extremity Exam: Negative: Edema Neuro Exam: Positive: Cranial Nerves 3-12 NL; Negative: Strength at 5/5 X4 ext (Left arm and left leg weaker than right) Psych Exam: Positive: Mental status NL, Mood NL Vital Signs Vital Signs Date Time Temp Pulse Resp B/P (MAP) Pulse Ox O2 Delivery O2 Flow Rate FiO2 08/10/21 12:44 22 08/10/21 12:15 89 140/66 (90) 93 Nasal Cannula 4.0 08/10/21 10:04 99.3 Laboratory Data Labs 24H Laboratory Tests 2 08/10/21 09:00: Immature Granulocyte % (Auto) 0.4, Neutrophils (%) (Auto) 82.9H, Lymphocytes (%) (Auto) 7.0L, Monocytes (%) (Auto) 9.3H, Eosinophils (%) (Auto) 0.1, Basophils ( %) (Auto) 0.3, Neutrophils # (Auto) 12.6H, Lymphocytes # (Auto) 1.1L, Monocytes # (Auto) 1.4H, Eosinophils # (Auto) 0.0, Basophils # (Auto) 0.0, Nucleated Red Blood Cells % (auto) 0.0, Anion Gap 9, Glomerular Filtration Rate > 60.0, Lactic Acid Level 1.0, Calcium Level 9.0, Total Bilirubin 0.9, Direct Bilirubin 0.3H, Aspartate Amino Transf (AST/SGOT) 38H, Alanine Aminotransferase (ALT/SGPT) 57, Alkaline Phosphatase 135H, Total Creatine Kinase 124, Creatine Kinase MB < 1.0, Creatine Kinase MB Relative Index 0.81, Troponin I < 0.02, PZ-[id number]-Type Natriuretic Peptide 175H, Total Protein 7.0, Albumin 3.0L, Albumin/Globulin Ratio 0.8L, Procalcitonin 0.27, Thyroid Stimulating Hormone (TSH) 1.190 08/10/21 13:11: CBC/BMP Laboratory Tests 08/10/21 09:00 Microbiology Microbiology 08/10/21 Respiratory Virus Panel (PCR) ([facility]) - Final, Complete 08/10/21 Blood Culture, Received Pending 08/10/21 Blood Culture, Received Pending Assessment/Plan Mrs. Pickens is a 66-year-old female with hypertension and recent hemorrhagic stroke with left-sided residual weakness who presents here with pleuritic chest pain and hypoxia. Imaging suggested multifocal pneumonia. Patient does have leukocytosis, hypoxia, and pleuritic chest pain. Patient be started on ceftriaxone and azithromycin. Plan / VTE VTE Prophylaxis Ordered?: Yes Plan Plan 1. Hypoxia in the setting of multifocal pneumonia Supplemental oxygen Patient has leukocytosis with elevated procalcitonin Ceftriaxone and azithromycin day [address] angio chest demonstrated filling defect in the lower lobes. When discussed with radiologist, may be artifact versus PE. Recommended repeating CT angio chest tomorrow 2. Recent hemorrhagic stroke with residual left-sided weakness Patient was at [facility] about 6 weeks ago for hemorrhagic stroke Left upper and lower extremity is still weaker than right We will avoid anticoagulation as much as possible We will try to obtain records 3. Hypertension Continue Lopressor, tamsulosin, and valsartan 4. GERD Continue Protonix 5. Insomnia Switch melatonin to ramelteon 6. DVT prophylaxis SCDs and teds Avoid chemical prophylaxis due to fairly recent hemorrhagic stroke with residual left-sided weakness Disposition: Pending clinical improvement ROBERT ACKERMAN DO Aug 10, 2021 14:24
[2021-08-10] MEDS: AZITHROMYCIN INJ 500 MG, VIAL MATE ADAPTER 1 EACH in NS 250 ML IV SCH (15:08)
[2021-08-10] MEDS: traMADol 50 MG TAB PO PRN ×2 (15:09→21:38)
[2021-08-10] MEDS: LIDOCAINE 5% (LIDODERM) PATCH TD SCH (17:46)
[2021-08-10] MEDS: MIRTAZAPINE 7.5MG PER 1/2 TABLET PO SCH (20:12)
[2021-08-10] MEDS: PANTOPRAZOLE 40MG TAB (PROTONIX) PO SCH (20:12)
[2021-08-10] MEDS: GABAPENTIN 100 MG CAP PO SCH (20:12)
[2021-08-10] MEDS: RAMELTEON 8 MG TAB (ROZEREM) PO SCH (20:12)
[2021-08-10] MEDS: guaiFENesin ER 600 MG TAB PO SCH (20:12)
[2021-08-10] MEDS: ACETAMINOPHEN TAB 650MG DOSE (2X325MG) PO PRN (20:13)
[2021-08-10] MEDS: **NOTE PATIENT COMMENT** MISC XX SCH (20:14)
[2021-08-11] VITALS (14 sets, daily range): BP systolic 72–149; BP diastolic 30–76
[2021-08-11 07:34] LABS: HEMATOCRIT 41.3 % (36.0-47.0); HEMOGLOBIN 13.1 g/dl (12.0-15.5); MEAN CORPUSCULAR HEMOGLOBIN 27.5 pg (27.0-33.0); MEAN CORPUSCULAR HGB CONC 31.7 g/dl (32.0-36.5); MEAN CORPUSCULAR VOLUME 86.6 fl (80.0-96.0); PLATELET COUNT, AUTOMATED 197 10^3/uL (150-450); RED BLOOD COUNT 4.77 10^6/uL (4.00-5.40); WHITE BLOOD COUNT 14.2 10^3/uL (4.0-10.0)
[2021-08-11 08:04] LABS: CALCIUM LEVEL 8.7 MG/DL (8.8-10.2); CREATININE FOR GFR 1.36 MG/DL (0.55-1.30); GLOMERULAR FILTRATION RATE 41.5 (>45)
[2021-08-11] MEDS: LACTOBACILLUS ACIDOPHILUS CAP (BACID) PO SCH (09:48)
[2021-08-11] MEDS: VITAMIN D 1,000 INTERNATIONAL UNITS TABLET PO SCH (09:48)
[2021-08-11] MEDS: TAMSULOSIN 0.4 MG CAP PO SCH (09:48)
[2021-08-11] MEDS: PANTOPRAZOLE 40MG TAB (PROTONIX) PO SCH (09:48)
[2021-08-11] MEDS: guaiFENesin ER 600 MG TAB PO SCH (09:48)
[2021-08-11] MEDS: BACLOFEN 5MG PER 1/2 TABLET PO PRN (09:48)
[2021-08-11] MEDS: LIDOCAINE 5% (LIDODERM) PATCH TD SCH (09:49)
[2021-08-11] MEDS: cefTRIAXone SOD 1 GM in D5W MINI-BAG PLUS 50 ML IV SCH (09:49)
[2021-08-11] MEDS: METOPROLOL TART 25 MG TABLET PO SCH (09:56)
[2021-08-11] MEDS: VALSARTAN 80 MG TAB (DIOVAN) PO SCH (09:57)
[2021-08-11] MEDS: IPRATROPIUM 0.5MG/ALBUTEROL 2.5MG INH SOL UD 3ML (DUONEB) NEB PRN ×2 (11:11→21:57)
[2021-08-11] MEDS ORDERED: ISOVUE-370 76% 100ML VIAL As Ordered ONE (14:00)
--- NOTE | 2021-08-11 14:11 | IPNPDOC ---
Subjective Date Seen The patient was seen on 08/11/21. Subjective Chief Complaint/HPI Mrs. Pickens is a 66-year-old female with hypertension and recent hemorrhagic stroke with left-sided residual weakness who presents here with pleuritic chest pain and hypoxia. This morning, she continues to have back spasms. Shortness of breath is worse during these episodes. Otherwise, she requested CT head as her neurologist had planned repeat imaging for her hemorrhagic stroke. Will order CT head without contrast and repeat the CT angio chest to look for PE. Otherwise I added on baclofen in addition to the lidocaine patch to help with the back spasms. Around 2PM, I was notified that patient had a low blood pressure (BP 78/38, HR 61) with lightheaded. She reported seeing stars. Nurse reported an irregular heart beat, EKG demonstrated trigeminy. Ordered for 1L fluid and repeated labs. She was not anemia and electrolytes were within normal. Troponin was negative. I spoke with the patient. She said her appetite was poor and has not drank much fluid. She also told me her urine looked brown. I ordered for CPK which was normal. Her toes felt warm, so she is most likely septic. Blood pressure was still low after the 1st and 2nd fluid bolus. Ordered for a 3rd bolus. Her blood pressure is more stable with the 3rd bolus. More than half of the 3rd bolus and patient was at 98/36. I spoke with the night attending, Dr. Khanna. Will upgrade patient to PCU. If blood pressure drops again can consider, pressors. Objective Physical Examination General Exam: Positive: Alert, Cooperative, Mild Distress (Has trouble completing sentences) Eye Exam: Positive: EOMI; Negative: Sclera icteric ENT Exam: Positive: Atraumatic Neck Exam: Positive: Supple Chest Exam: Positive: Clear to auscultation Heart Exam: Positive: Rate Normal, Regular Rhythm Abdomen Exam: Positive: Normal bowel sounds, Soft; Negative: Tenderness Extremity Exam: Negative: Edema Neuro Exam: Positive: Cranial Nerves 3-12 NL; Negative: Strength at 5/5 X4 ext (Left arm and left leg weaker than right) Psych Exam: Positive: Mental status NL, Mood NL Assessment /Plan Assessment Mrs. Pickens is a 66-year-old female with hypertension and recent hemorrhagic stroke with left-sided residual weakness who presents here with pleuritic chest pain and hypoxia. Imaging suggested multifocal pneumonia. Patient does have leukocytosis, hypoxia, and pleuritic chest pain. Patient be started on ceftriaxone and azithromycin. We will work on pain control with baclofen, morphine, acetaminophen, and Ultram. No NSAIDs should be used as she recently had a hemorrhagic stroke. Plan/VTE VTE Prophylaxis Ordered?: Yes Plan 1. Hypoxia in the setting of multifocal pneumonia Supplemental oxygen Patient has leukocytosis with elevated procalcitonin Ceftriaxone and azithromycin day [address] angio chest demonstrated filling defect in the lower lobes. When discussed with radiologist, may be artifact versus PE. Pending repeat CT angio chest today. Unable to get repeat CT angio chest today due to hypotension. 2. Recent hemorrhagic stroke with residual left-sided weakness Patient was at [facility] about 6 weeks ago for hemorrhagic stroke Left upper and lower extremity is still weaker than right We will avoid anticoagulation and NSAIDs as much as possible We will try to obtain records Repeating CT head without contrast today. Unable to obtain repeat CT head today due to hypotension 3. Hypertension Continue Lopressor, tamsulosin, and valsartan 4. GERD Continue Protonix 5. Insomnia Switch melatonin to ramelteon 6. Back spasms Added on baclofen 7. DVT prophylaxis SCDs and teds Avoid chemical prophylaxis due to fairly recent hemorrhagic stroke with residual left-sided weakness Disposition: Pending clinical improvement VS, I&O, 24H, Fishbone Vital Signs/I&O Vital Signs Date Time Temp Pulse Resp B/P (MAP) Pulse Ox O2 Delivery O2 Flow Rate FiO2 08/11/21 09:56 103 139/71 08/11/21 09:50 4.0 08/11/21 06:00 98.0 20 93 Nasal Cannula I&O- Last 24 Hours up to 6 AM 08/11/21 06:00 Intake Total 410 ml Output Total 600 ml Balance -190 ml Laboratory Data 24H LABS Laboratory Tests 2 08/11/21 06:31: Nucleated Red Blood Cells % (auto) 0.0, Anion Gap 6L, Glomerular Filtration Rate 41.5L, Calcium Level 8.7L CBC/BMP Laboratory Tests 08/11/21 06:31 Microbiology Microbiology 08/10/21 Respiratory Virus Panel (PCR) ([facility]) - Final, Complete 08/10/21 Blood Culture - Preliminary, Resulted No growth after 24 hours . All specim... 08/10/21 Blood Culture - Preliminary, Resulted No growth after 24 hours . All specim... ROBERT ACKERMAN DO Aug 11, 2021 14:11
[2021-08-11] MEDS ORDERED: NS 1,000 ML IV ONE ×4 (14:20→20:00)
[2021-08-11 15:10] LABS: HEMOGLOBIN 12.4 g/dl (12.0-15.5); MEAN CORPUSCULAR HEMOGLOBIN 27.5 pg (27.0-33.0); MEAN CORPUSCULAR HGB CONC 31.8 g/dl (32.0-36.5); MEAN CORPUSCULAR VOLUME 86.5 fl (80.0-96.0); PLATELET COUNT, AUTOMATED 214 10^3/uL (150-450); RED BLOOD COUNT 4.51 10^6/uL (4.00-5.40); WHITE BLOOD COUNT 12.3 10^3/uL (4.0-10.0)
[2021-08-11] MEDS: ACETAMINOPHEN TAB 650MG DOSE (2X325MG) PO PRN (15:15)
[2021-08-11 15:41] LABS: BLOOD UREA NITROGEN 27 MG/DL (7-18); CALCIUM LEVEL 8.5 MG/DL (8.8-10.2); CARBON DIOXIDE LEVEL 27 MEQ/L (21-32); CHLORIDE LEVEL 103 MEQ/L (98-107); CPK CREATINE PHOSPHOKINASE 118 U/L (26-192); CREATININE FOR GFR 1.32 MG/DL (0.55-1.30); GLUCOSE, FASTING 141 MG/DL (70-100); POTASSIUM SERUM 4.9 MEQ/L (3.5-5.1); SODIUM LEVEL 136 MEQ/L (136-145); TROPONIN I < 0.02 NG/ML (< 0.10)
[2021-08-11] MEDS: NS 1,000 ML IV SCH ×2 (15:59→16:00)
[2021-08-11] MEDS: AZITHROMYCIN INJ 500 MG, VIAL MATE ADAPTER 1 EACH in NS 250 ML IV SCH (16:09)
[2021-08-11] MEDS ORDERED: MIDODRINE 5 MG TAB PO ONE (20:00)
[2021-08-11] MEDS: **NOTE PATIENT COMMENT** MISC XX SCH (21:00)
[2021-08-11 21:04] LABS: BASO % 0.3 % (0.0-1.0); EOS # 0.2 10^3/uL (0.0-0.5); EOS % 2.2 % (0.0-3.0); HEMATOCRIT 39.9 % (36.0-47.0); HEMOGLOBIN 12.3 g/dl (12.0-15.5); LYMPH # 1.4 10^3/uL (1.5-5.0); LYMPH % 15.3 % (24.0-44.0); MEAN CORPUSCULAR HEMOGLOBIN 27.2 pg (27.0-33.0); MEAN CORPUSCULAR HGB CONC 30.8 g/dl (32.0-36.5); MEAN CORPUSCULAR VOLUME 88.3 fl (80.0-96.0); MONO # 0.9 10^3/uL (0.0-0.8); MONO % 9.5 % (2.0-8.0); NEUTROPHILS # 6.6 10^3/uL (1.5-8.5); NEUTROPHILS % 72.3 % (36.0-66.0); PLATELET COUNT, AUTOMATED 162 10^3/uL (150-450); RED BLOOD COUNT 4.52 10^6/uL (4.00-5.40); WHITE BLOOD COUNT 9.2 10^3/uL (4.0-10.0)
--- NOTE | 2021-08-11 21:21 | ECGEPIP ---
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 Non specific ST/T abnormality was present Electronically Signed on 08-11-2021 21:20:52 EDT by James Mcnair
[2021-08-11] MEDS: MORPHINE 2 MG/ML 1ML VIAL (J2270) IV PRN (22:16)
--- NOTE | 2021-08-11 22:19 | REPVR ---
PROCEDURE INFORMATION: Exam: CTA Chest With Contrast Exam date and time: 08/11/2021 9:24 PM Age: 66 years old Clinical indication: Shortness of breath; Additional info: Lower lobe filling defects, artifact vs pe? TECHNIQUE: Imaging protocol: Computed tomographic angiography of the chest with contrast. 3D rendering (Not supervised by radiologist): MIP and/or 3D reconstructed images were created by the technologist. Radiation optimization: All CT scans at this facility use at least one of these dose optimization techniques: automated exposure control; mA and/or kV adjustment per patient size (includes targeted exams where dose is matched to clinical indication); or iterative reconstruction. Contrast material: ISOVUE 370; Contrast volume: 75 ml; Contrast route: INTRAVENOUS (IV); COMPARISON: CT ANGIO CHEST 08/10/2021 11:41 AM FINDINGS: Pulmonary arteries: Small nonocclusive embolus demonstrated in the distal left intralobar pulmonary artery extending into the medial basilar branch in the left lower lobe. Small nonocclusive embolus demonstrated in the distal right intralobar pulmonary artery. Findings are unchanged in comparison to the prior study. Aorta: There is no aortic dissection or aneurysm. Other arteries: There is mild atherosclerosis in the thoracic aorta. Lungs: Bibasilar infiltrates with air bronchograms. Findings may represent atelectasis although clinical correlation to exclude infection suggested. Angular opacity in the right middle lobe measuring 6 mm unchanged in comparison to the prior study. Pleural spaces: Small right pleural effusion increased in size in comparison the prior study. Minimal left effusion. Heart: Unremarkable. No cardiomegaly. No pericardial effusion. Lymph nodes: Unremarkable. No enlarged lymph nodes. Bones/joints: Dextroscoliosis. Soft tissues: Unremarkable. IMPRESSION: 1. Small right pleural effusion increased in size in comparison the prior study. Minimal left effusion. 2. There is no aortic dissection or aneurysm. 3. Small bilateral nonocclusive pulmonary emboli as described above. Findings unchanged comparison to the prior study. A critical call has been made to speak with the ordering physician/practitioner. This report will be amended once consultation has occurred. Electronically signed by: Noé Mar On 08/11/2021 22:18:58 PM
--- NOTE | 2021-08-11 22:24 | REPVR ---
PROCEDURE INFORMATION: Exam: CT Head Without Contrast Exam date and time: 08/11/2021 9:24 PM Age: 66 years old Clinical indication: Condition or disease; Other: CVA; Additional info: Re-eval of hemorrhagic stroke (about 6 weeks ago) TECHNIQUE: Imaging protocol: Computed tomography of the head without contrast. Radiation optimization: All CT scans at this facility use at least one of these dose optimization techniques: automated exposure control; mA and/or kV adjustment per patient size (includes targeted exams where dose is matched to clinical indication); or iterative reconstruction. COMPARISON: No relevant prior studies available. FINDINGS: Brain: Periventricular lucency on the right consistent with an age indeterminate infarct. Prior study not available for comparison. Comparison with prior examination suggested when available. Otherwise unremarkable. Cerebral ventricles: No ventriculomegaly. Paranasal sinuses: Visualized sinuses are unremarkable. No fluid levels. Mastoid air cells: Visualized mastoid air cells are well aerated. Bones/joints: There is hyperostosis frontalis interna. Soft tissues: Unremarkable. 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 IMPRESSION: 1. Periventricular lucency on the right consistent with an age indeterminate infarct. Prior study not available for comparison. Comparison with prior examination suggested when available. 2. No acute findings. 3. 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 Electronically signed by: Noé Mar On 08/11/2021 22:23:59 PM
[2021-08-12] MEDS: RAMELTEON 8 MG TAB (ROZEREM) PO SCH ×2 (00:05→21:17)
[2021-08-12] MEDS: guaiFENesin ER 600 MG TAB PO SCH ×3 (00:06→21:18)
[2021-08-12] MEDS: GABAPENTIN 100 MG CAP PO SCH ×2 (00:06→21:17)
[2021-08-12] MEDS: PANTOPRAZOLE 40MG TAB (PROTONIX) PO SCH ×3 (00:07→21:18)
[2021-08-12] MEDS: traMADol 50 MG TAB PO PRN ×3 (00:08→16:20)
--- NOTE | 2021-08-12 00:33 | REPVR ---
PROCEDURE INFORMATION: Exam: US Duplex Lower Extremity Veins, Bilateral Exam date and time: 08/11/2021 11:37 PM Age: 66 years old Clinical indication: Pain; Leg, upper and leg, lower; Left; Additional info: Possible dvt TECHNIQUE: Imaging protocol: Real-time duplex ultrasound of the extremities with 2-D harmon scale, color Doppler flow and spectral waveform analysis with image documentation. Complete exam focused on the bilateral lower extremity veins. COMPARISON: CT ABD PELVIS WITH CONTRAST 05/12/2021 11:37 AM FINDINGS: Right deep veins: Common femoral, femoral, proximal profunda femoral and popliteal veins are patent without thrombus. Normal Doppler waveforms. Normal compressibility and/or augmentation response. Right superficial veins: Saphenofemoral junction is patent without thrombus. Left deep veins: Common femoral, femoral, proximal profunda femoral veins are patent without thrombus. Normal Doppler waveforms. Normal compressibility and/or augmentation response. Partially occluded left popliteal vein Left superficial veins: Saphenofemoral junction is patent without thrombus. Soft tissues: No abnormal focal fluid collection. IMPRESSION: Partially occluded left popliteal vein with thrombus. No extension into the femoral vein or thigh. Calf veins are not imaged. No deep venous thrombosis within the right lower extremity venous system Electronically signed by: Kyle Lora On 08/12/2021 00:33:17 AM
[2021-08-12 04:00] VITALS: BP 101/49
[2021-08-12 08:00] VITALS: BP 128/55
[2021-08-12] MEDS: LIDOCAINE 5% (LIDODERM) PATCH TD SCH (08:16)
[2021-08-12] MEDS: cefTRIAXone SOD 1 GM in D5W MINI-BAG PLUS 50 ML IV SCH (08:17)
[2021-08-12] MEDS: TAMSULOSIN 0.4 MG CAP PO SCH (08:17)
[2021-08-12] MEDS: LACTOBACILLUS ACIDOPHILUS CAP (BACID) PO SCH (08:17)
[2021-08-12] MEDS: VITAMIN D 1,000 INTERNATIONAL UNITS TABLET PO SCH (08:17)
[2021-08-12 08:53] LABS: HEMATOCRIT 35.5 % (36.0-47.0); HEMOGLOBIN 11.4 g/dl (12.0-15.5); MEAN CORPUSCULAR HEMOGLOBIN 27.5 pg (27.0-33.0); MEAN CORPUSCULAR HGB CONC 32.1 g/dl (32.0-36.5); MEAN CORPUSCULAR VOLUME 85.7 fl (80.0-96.0); PLATELET COUNT, AUTOMATED 197 10^3/uL (150-450); RED BLOOD COUNT 4.14 10^6/uL (4.00-5.40); WHITE BLOOD COUNT 10.3 10^3/uL (4.0-10.0)
[2021-08-12 09:15] LABS: BLOOD UREA NITROGEN 14 MG/DL (7-18); CALCIUM LEVEL 8.4 MG/DL (8.8-10.2); CARBON DIOXIDE LEVEL 24 MEQ/L (21-32); CHLORIDE LEVEL 110 MEQ/L (98-107); CREATININE FOR GFR 0.69 MG/DL (0.55-1.30); GLOMERULAR FILTRATION RATE > 60.0 (>45); GLUCOSE, FASTING 159 MG/DL (70-100); POTASSIUM SERUM 4.3 MEQ/L (3.5-5.1); SODIUM LEVEL 140 MEQ/L (136-145)
[2021-08-12] MEDS ORDERED: LORazepam 0.5 MG TAB PO ONE (10:45)
[2021-08-12 12:00] VITALS: BP 150/70
[2021-08-12] MEDS: MORPHINE 2 MG/ML 1ML VIAL (J2270) IV PRN (12:04)
[2021-08-12] MEDS: AZITHROMYCIN INJ 500 MG, VIAL MATE ADAPTER 1 EACH in NS 250 ML IV SCH (13:15)
[2021-08-12 14:07] LABS: INR 1.06; PROTHROMBIN TIME 14.2 SECONDS (12.7-14.5)
[2021-08-12 14:08] LABS: PARTIAL THROMBOPLASTIN TIME 40.9 SECONDS (25.9-37.0)
[2021-08-12] MEDS: BACLOFEN 5MG PER 1/2 TABLET PO PRN ×2 (14:47→21:17)
[2021-08-12 16:00] VITALS: BP 143/83
--- NOTE | 2021-08-12 17:25 | REP ---
INDICATION: R/O dvt COMPARISON: None. TECHNIQUE: Real time compression and duplex Doppler evaluation of the Left upper extremity deep venous system is performed. FINDINGS: The Left subclavian, jugular, axillary, brachial, basilic and cephalic veins are fully compressible where accessible with transducer pressure, and demonstrate no intraluminal thrombus and normal venous waveforms. There is no evidence of deep venous thrombosis.The right subclavian vein is fully compressible where accessible with transducer pressure, and demonstrates no intraluminal thrombus and normal venous waveforms. IMPRESSION: No evidence of deep venous thrombosis of the Left upper extremity deep vein system. <Electronically signed by Evelio Duenas > 08/12/21 [id number]
--- NOTE | 2021-08-12 18:15 | IPNPDOC ---
Date Seen The patient was seen on 08/12/21. Progress Note SUBJECTIVE: patient seen and examined at bedside. on 6L/min. Complains of pleuritic chest pain and SOB. Denies palpitations, fevers, chills. C/o L arm swelling. No hemoptysis. Hypotension has resolved, status post 3 L bolus. OBJECTIVE PHYSICAL EXAMINATION: VITAL SIGNS: please see below General: NAD, comfortable HEENT: PERRLA, EOMI, sclerae clear Neck: supple, normal ROM, no JVD Respiratory: fair inspiratory effort, no wheeze, no rales. CVS: RRR, normal S1, S2, no murmurs Abdo: soft, no masses, no hepatosplenomegaly, BS+, no rebound tenderness Extremities: no edema, pulses 2+ MSK: no joint deformities, normal ROM Neuro: no focal neuro deficits, moving all 4 extremities, CN2-12 intact. Strength 4/5 in LUE, LLE. 5/5 strength in RUE and RLE Psych: calm, cooperative, AAO x 3 LABORATORY DATA, IMAGING STUDIES, MICROBIOLOGY: Please see below. Echocardiogram: ordered on 08/12/21. CT head noncontrast on 08/11/2021 1. Periventricular lucency on the right consistent with an age indeterminate infarct. Prior study not available for comparison. Comparison with prior examination suggested when available. 2. No acute findings. 3. 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 CT angiogram chest on 08/11/2021: IMPRESSION: 1. Small right pleural effusion increased in size in comparison the prior study. Minimal left effusion. 2. There is no aortic dissection or aneurysm. 3. Small bilateral nonocclusive pulmonary emboli as described above. Findings unchanged comparison to the prior study. Bilateral venous duplex on 08/12/2021: IMPRESSION: Partially occluded left popliteal vein with thrombus. No extension into the femoral vein or thigh. Calf veins are not imaged. No deep venous thrombosis within the right lower extremity venous system DVT prophylaxis ordered?: SCDs. TEDs. Started eliquis 2.5 mg BID. ASSESSMENT AND PLAN:Mrs. Pickens is a 66-year-old female with hypertension and recent hemorrhagic stroke with left-sided residual weakness who presents here with pleuritic chest pain and hypoxia. This morning, she continues to have back spasms. Shortness of breath is worse during these episodes. Otherwise, she requested CT head as her neurologist had planned repeat imaging for her hemorrhagic stroke. PROBLEMS: #. Hypoxia in the setting of multifocal pneumonia/sepsis. - CTA showing multiple peribronchial consolidation in lower lobes of both lungs/superimposed multifocal pleural base consolidation Supplemental oxygen Patient has leukocytosis with elevated procalcitonin - hypotensive, s/p 3L NS bolus. Ceftriaxone and azithromycin day [address] angio chest repeat on 08/11/21, small bilateral nonocclusive PEs, see below. #. Recent hemorrhagic stroke with residual left-sided weakness Patient was at [place] and [place] about 6 weeks ago for hemorrhagic stroke Left upper and lower extremity is still weaker than right Reviewed [place] records from [place]. Patient was admitted with a spontaneous right intraparenchymal hemorrhage likely secondary to hypertensive urgency. She was assessed by neurosurgery who recommended an MRI brain 8 weeks after the incident. Repeat CT head 08/11/21: periventricular lucency on R consistent prior infarct. Empta sella syndrome - MRI brain w and wo contrast ordered. #Bilateral PE, L partially occluding popliteal vein thrombus - d/w Dr. Whitt. Difficult decision to start anticoagulation in setting of recent intraparenchymal brain hemorrhage - recommendation to proceed with eliquis 2.5 mg BID. This will likely reduce risk of clot propagation - d/w Dr. Myers. Decision to proceed with IVC filter placement. - NPO after midnight. OK to c/w eliquis per Dr. Myers. - I spoke to patient and her Paul, who are both in agreement with the plan. #. History of essential hypertension, hypotensive overnight. -likely 2/2 sepsis. -Status post 3 L NS bolus. Holding Lopressor, tamsulosin, and valsartan -Resume in a.m. as BP trending upwards #. GERD Continue Protonix # Insomnia Switch melatonin to ramelteon #. Back spasms c/w baclofen #. DVT prophylaxis SCDs and teds - started eliquis 2.5 mg BID. Disposition: Pending clinical improvement VS, I&O, 24H, Fishbone Vital Signs/I&O Vital Signs Date Time Temp Pulse Resp B/P (MAP) Pulse Ox O2 Delivery O2 Flow Rate FiO2 08/12/21 16:20 20 08/12/21 16:00 98.5 95 143/83 (103) 96 High Flow Cannula 6.0 I&O- Last 24 Hours up to 6 AM 08/12/21 06:00 Intake Total 3600 ml Output Total 1200 ml Balance 2400 ml Laboratory Data 24H LABS Laboratory Tests 2 08/11/21 17:55: Lactic Acid Level 0.8 08/11/21 20:51: Immature Granulocyte % (Auto) 0.4, Neutrophils (%) (Auto) 72.3H, Lymphocytes (%) (Auto) 15.3L, Monocytes (%) (Auto) 9.5H, Eosinophils (%) (Auto) 2.2, Basophils (%) (Auto) 0.3, Neutrophils # (Auto) 6.6, Lymphocytes # (Auto) 1.4L, Monocytes # (Auto) 0.9H, Eosinophils # (Auto) 0.2, Basophils # (Auto) 0.0, Nucleated Red Blood Cells % (auto) 0.0, Troponin I < 0.02 08/12/21 08:34: Nucleated Red Blood Cells % (auto) 0.0, Anion Gap 6L, Glomerular Filtration Rate > 60.0, Calcium Level 8.4L 08/12/21 13:31: Erythrocyte Sedimentation Rate 67H, Prothrombin Time 14.2H, Prothromb Time International Ratio 1.06, Activated Partial Thromboplast Time 40.9H, C-Reactive Protein, Quantitative 27.50H CBC/BMP Laboratory Tests 08/11/21 20:51 08/12/21 08:34 Microbiology Microbiology 08/10/21 Respiratory Virus Panel (PCR) ([facility]AS[facility]A) - Final, Complete 08/10/21 Blood Culture - Preliminary, Resulted No Growth after 48 hours. All Specime... 08/10/21 Blood Culture - Preliminary, Resulted No Growth after 48 hours. All Specime... KENNEDY CLARK MD Aug 12, 2021 18:15
[2021-08-12 20:00] VITALS: BP 135/63
[2021-08-12] MEDS ORDERED: PROHANCE 279.3MG/ML 5ML VIAL As Ordered ONE (20:12)
[2021-08-12] MEDS ORDERED: PROHANCE 279.3MG/ML 15ML VIAL As Ordered ONE (20:13)
[2021-08-12] MEDS: IPRATROPIUM 0.5MG/ALBUTEROL 2.5MG INH SOL UD 3ML (DUONEB) NEB PRN (20:41)
[2021-08-12] MEDS: MIRTAZAPINE 7.5MG PER 1/2 TABLET PO SCH ×2 (21:16→21:17)
[2021-08-12] MEDS: **NOTE PATIENT COMMENT** MISC XX SCH (21:18)
[2021-08-12] MEDS: APIXABAN 2.5 MG TAB (ELIQUIS) PO SCH (21:18)
--- NOTE | 2021-08-12 21:20 | REPVR ---
PROCEDURE INFORMATION: Exam: MR Head Without and With Contrast Exam date and time: 08/12/2021 8:46 PM Age: 66 years old Clinical indication: Other: R/O underlying brain mass; Additional info: R/O underlying brain mass. HX R intraparenchymal hemorrhage TECHNIQUE: Imaging protocol: MR of the head without and with intravenous contrast. Contrast material: PROHANCE; Contrast volume: 20 ml; Contrast route: INTRAVENOUS (IV); COMPARISON: CT Head without contrast 08/11/2021 9:12 PM FINDINGS: Brain: Subacute hemorrhagic infarct demonstrated in the right subinsular and external capsule bounded by a T1 and T2 hypointense hemosiderin rim, central high signal on both T1 and T2 weighted imaging, persistent hyperintense signal on diffusion-weighted imaging which may represent T2 shine through, and no significant enhancement on post-contrast imaging. Bandlike focus of T1 hypointense T2 hyperintense with restricted diffusion extending medially and inferiorly consistent with wallerian degeneration. Cerebral ventricles: Normal. No ventriculomegaly. Bones/joints: Unremarkable. Paranasal sinuses: Normal as visualized. No acute sinusitis. Mastoid air cells: Normal as visualized. No mastoid effusion. Orbital cavity: Unremarkable. Soft tissues: Unremarkable. IMPRESSION: Findings consistent with a mid to late subacute hemorrhagic infarct in the right external capsule subinsular region as described above. Finding likely hypertensive in etiology. Electronically signed by: Noé Mar On 08/12/2021 21:19:36 PM
[2021-08-13] VITALS (12 sets, daily range): BP systolic 111–132; BP diastolic 60–66; O2SAT 94–97
[2021-08-13] MEDS: traMADol 50 MG TAB PO PRN ×3 (04:37→21:47)
[2021-08-13 04:54] LABS: HEMATOCRIT 35.1 % (36.0-47.0); HEMOGLOBIN 11.2 g/dl (12.0-15.5); MEAN CORPUSCULAR HEMOGLOBIN 27.3 pg (27.0-33.0); MEAN CORPUSCULAR HGB CONC 31.9 g/dl (32.0-36.5); MEAN CORPUSCULAR VOLUME 85.4 fl (80.0-96.0); PLATELET COUNT, AUTOMATED 201 10^3/uL (150-450); RED BLOOD COUNT 4.11 10^6/uL (4.00-5.40); WHITE BLOOD COUNT 9.1 10^3/uL (4.0-10.0)
[2021-08-13 05:12] LABS: BLOOD UREA NITROGEN 9 MG/DL (7-18); CALCIUM LEVEL 8.1 MG/DL (8.8-10.2); CARBON DIOXIDE LEVEL 31 MEQ/L (21-32); CHLORIDE LEVEL 106 MEQ/L (98-107); CREATININE FOR GFR 0.55 MG/DL (0.55-1.30); GLOMERULAR FILTRATION RATE > 60.0 (>45); GLUCOSE, FASTING 130 MG/DL (70-100); POTASSIUM SERUM 4.8 MEQ/L (3.5-5.1); SODIUM LEVEL 138 MEQ/L (136-145)
--- NOTE | 2021-08-13 07:26 | CR ---
CONSULTATION DATE: 08/12/2021 REFERRING PHYSICIAN: Fareed Arauz MD REASON FOR CONSULTATION: Left-sided weakness, cerebral hemorrhage and current DVT with pulmonary embolism. HISTORY OF PRESENT ILLNESS: Carey Pickens is a 66-year-old woman with a history of hypertension who was visiting [place], end of May,. She states that she had a toothache and went for hiking and then developed sudden left-sided weakness. She was taken to [facility] in [place] and was found to have right-sided basal ganglia hemorrhage. She was hospitalized and then in rehabilitation unit for six weeks. She was discharged home in early July, and they came back to [place] around July 31, 2021. The patient states that she had improved to a certain extent in terms of her left-sided weakness. She developed shortness of breath and back pain which was worse with breathing over the weekend and came back to [facility]. Her temperature in the emergency department was 101.2 with tachycardia, heart rate 113. Blood pressure was 145/74. She was hypoxic with oxygen saturation 89%. WBCs on blood work 15.2. X-ray of chest showed pneumonia. She was thought to have pleuritic chest pain. She later had ultrasound her legs and CT angiogram of chest which revealed nonocclusive left popliteal vein thrombosis and nonocclusive bilateral pulmonary emboli. CT scan of head showed resolving encephalomalacia and right basal ganglia likely consistent with her right basal ganglia hemorrhage 6-7 weeks ago. There was no blood visible on CT scan of head on review. Patient herself states that her left side weakness is worse than before. She has back pain which is worse with activity and breathing. She denies any neck pain, dysphagia, dysarthria, diplopia, urinary incontinence, falls, loss of consciousness. PAST MEDICAL HISTORY: 1. Hypertension. 2. Right-sided basal ganglia hemorrhage with left-sided deficit on June 17, 2021. 3. Acid reflux. 4. Chronic pain. 5. Diverticulosis. 6. Bilateral toe surgery. 7. Appendectomy. 8. Colon resection. FAMILY HISTORY: Father had leukemia present. Mother had cancer. SOCIAL HISTORY: She is a former smoker. She occasionally drinks alcohol. She denies illicit drugs. ALLERGIES: None. HOME MEDICATIONS: 1. Gabapentin 100 mg p.o. q.h.s. 2. Melatonin 3 mg p.o. q.h.s. 3. Metoprolol 25 mg p.o. daily. 4. Mirtazapine 7.5 mg p.o. q.h.s. 5. Protonix 40 mg p.o. daily. 6. Valsartan 160 mg p.o. daily. 7. Flomax 0.4 mg p.o. daily. 8. Vitamin D3 1000 units p.o. daily. PHYSICAL EXAMINATION: VITAL SIGNS: Temperature 99.3, pulse 89, blood pressure 140/66, respiratory rate 22 and patient is on six liters of nasal cannula oxygen. HEART: Regular rate and rhythm. LUNGS: Clear to auscultation. ABDOMEN: Soft, nontender, nondistended. EXTREMITIES: No pedal edema. MUSCULOSKELETAL: No abnormalities. SKIN: No rash. NEUROLOGICAL: No signs of meningeal irritation. The patient is awake, alert, oriented to place, person and time. Normal speech, comprehension and repetition. Extraocular muscles are intact. No facial weakness. Tongue and uvula are midline. 5/5 strength on the right side. Left-sided arm and leg strength is 2/5. Left plantar is upgoing. Gait could not be tested. She has no dysmetria on right side. She has severe left-sided weakness. Sensation is intact on the right side and she has decreased cold touch sensation on the left arm and leg. ASSESSMENT: 1. Right basal ganglia hypertensive hemorrhage with left hemiparesis on June 17, 2021 and recent worsening. 2. Left leg DVT and bilateral pulmonary embolism. 3. Current pneumonia. PLAN: 1. MRI of brain. 2. Eliquis 2.5 mg p.o. b.i.d. One should avoid full dose anticoagulation. 3. Consider inferior vena caval filter. 4. Physical and occupational therapy. 5. Keep blood pressure below 130/80.
[2021-08-13] MEDS ORDERED: amLODIPine 5 MG TAB PO ONE (07:45)
[2021-08-13] MEDS: MORPHINE 2 MG/ML 1ML VIAL (J2270) IV PRN ×3 (09:04→18:32)
[2021-08-13] MEDS: VITAMIN D 1,000 INTERNATIONAL UNITS TABLET PO SCH (09:05)
[2021-08-13] MEDS: LIDOCAINE 5% (LIDODERM) PATCH TD SCH (09:05)
[2021-08-13] MEDS: PANTOPRAZOLE 40MG TAB (PROTONIX) PO SCH ×2 (09:05→20:46)
[2021-08-13] MEDS: LACTOBACILLUS ACIDOPHILUS CAP (BACID) PO SCH (09:05)
[2021-08-13] MEDS: cefTRIAXone SOD 1 GM in D5W MINI-BAG PLUS 50 ML IV SCH (09:05)
[2021-08-13] MEDS: guaiFENesin ER 600 MG TAB PO SCH ×2 (09:06→20:46)
[2021-08-13] MEDS: TAMSULOSIN 0.4 MG CAP PO SCH (09:06)
[2021-08-13] MEDS ORDERED: ISOVUE-300 61% 50ML VIAL As Ordered ONE (10:16)
[2021-08-13] MEDS ORDERED: LIDOCAINE 1% MDV 20ML VIAL As Ordered ONE (10:27)
[2021-08-13] MEDS ORDERED: fentaNYL 100 MCG/2 ML INJECTION (J3010) As Ordered ONE (10:39)
[2021-08-13] MEDS ORDERED: MIDAZOLAM INJ 2MG/2ML VIAL (J2250 PER 1MG) As Ordered ONE (10:40)
--- NOTE | 2021-08-13 11:17 | IRMSE ---
[facility] IR Moderate Sedation Eval. Date and Time Date: Aug 13, 2021 Time: 10:20 ASA Classification ASA Classification: II-Mild systemic disease, III-Severe systemic dis. Mallampati Score: II NPO: Yes Obstructive Sleep Apnea: No Interval Plan: moderate sedation ZAINA MÁRQUEZ MD Aug 13, 2021 11:17
[2021-08-13] MEDS: BACLOFEN 5MG PER 1/2 TABLET PO PRN (12:37)
[2021-08-13] MEDS: APIXABAN 2.5 MG TAB (ELIQUIS) PO SCH ×2 (13:02→20:46)
[2021-08-13] MEDS: AZITHROMYCIN INJ 500 MG, VIAL MATE ADAPTER 1 EACH in NS 250 ML IV SCH (14:19)
--- NOTE | 2021-08-13 17:38 | IPNPDOC ---
Date Seen The patient was seen on 08/13/21. Progress Note SUBJECTIVE: patient seen and examined at bedside. O2 requirement decreased to 5LPM. In good spirits today. Denies CP, SOB, palpitations. Ongoing work with PT. OBJECTIVE PHYSICAL EXAMINATION: VITAL SIGNS: please see below General: NAD, comfortable HEENT: PERRLA, EOMI, sclerae clear Neck: supple, normal ROM, no JVD Respiratory: fair inspiratory effort, no wheeze, no rales. CVS: RRR, normal S1, S2, no murmurs Abdo: soft, no masses, no hepatosplenomegaly, BS+, no rebound tenderness Extremities: no edema, pulses 2+ MSK: no joint deformities, normal ROM Neuro: no focal neuro deficits, moving all 4 extremities, CN2-12 intact. Strength 4/5 in LUE, LLE. 5/5 strength in RUE and RLE Psych: calm, cooperative, AAO x 3 LABORATORY DATA, IMAGING STUDIES, MICROBIOLOGY: Please see below. Echocardiogram: ordered on 08/12/21. MRI brain w/wo contrast (08/12/21): Findings consistent with a mid to late subacute hemorrhagic infarct in the right external capsule subinsular region as described above. Finding likely hypertensive in etiology. CT head noncontrast on 08/11/2021 1. Periventricular lucency on the right consistent with an age indeterminate infarct. Prior study not available for comparison. Comparison with prior examination suggested when available. 2. No acute findings. 3. 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 CT angiogram chest on 08/11/2021: IMPRESSION: 1. Small right pleural effusion increased in size in comparison the prior study. Minimal left effusion. 2. There is no aortic dissection or aneurysm. 3. Small bilateral nonocclusive pulmonary emboli as described above. Findings unchanged comparison to the prior study. Bilateral venous duplex on 08/12/2021: IMPRESSION: Partially occluded left popliteal vein with thrombus. No extension into the femoral vein or thigh. Calf veins are not imaged. No deep venous thrombosis within the right lower extremity venous system DVT prophylaxis ordered?: SCDs. TEDs. Started eliquis 2.5 mg BID. ASSESSMENT AND PLAN:Mrs. Pickens is a 66-year-old female with hypertension and recent hemorrhagic stroke with left-sided residual weakness who presents here with pleuritic chest pain and hypoxia. This morning, she continues to have back spasms. Shortness of breath is worse during these episodes. Otherwise, she requested CT head as her neurologist had planned repeat imaging for her hemorrhagic stroke. PROBLEMS: #. Hypoxia in the setting of multifocal pneumonia/sepsis. - CTA showing multiple peribronchial consolidation in lower lobes of both lungs/superimposed multifocal pleural base consolidation Supplemental oxygen Patient has leukocytosis with elevated procalcitonin - hypotensive, s/p 3L NS bolus. Ceftriaxone and azithromycin day [address] angio chest repeat on 08/11/21, small bilateral nonocclusive PEs, see below. #. Recent hemorrhagic stroke with residual left-sided weakness Patient was at [place] and [place] about 6 weeks ago for hemorrhagic stroke Left upper and lower extremity is still weaker than right Reviewed [place] records from [place]. Patient was admitted with a spontaneous right intraparenchymal hemorrhage likely secondary to hypertensive urgency. She was assessed by neurosurgery who recommended an MRI brain 8 weeks after the incident. Repeat CT head 08/11/21: periventricular lucency on R consistent prior infarct. Empta sella syndrome - MRI brain w and wo contrast - mid to late subacute hemorrhagic infarct in the right external capsule subinsular region #Bilateral PE, L partially occluding popliteal vein thrombus - d/w Dr. Whitt. Difficult decision to start anticoagulation in setting of recent intraparenchymal brain hemorrhage - recommendation to proceed with eliquis 2.5 mg BID. This will likely reduce risk of clot propagation - d/w Dr. Myers. Decision to proceed with IVC filter placement. - s/p IVC filter placement on 08/13/21 - c/w eliquis 2.5 mg BID #. History of essential hypertension, hypotensive overnight. -likely 2/2 sepsis. -Status post 3 L NS bolus. - need strict BP control given hx of intraparenchymal brain bleed likely 2/2 hypertensive urgency - resume valsartan 160 mg daily, metoprolol 25 mg daily, amlodipine 5 mg daily. #Report of questionable LV thrombus? - family denies - noted in records from OSH - ordered 2D echo. #. GERD Continue Protonix # Insomnia Switch melatonin to ramelteon #. Back spasms Added on baclofen #. DVT prophylaxis SCDs and teds - started eliquis 2.5 mg BID. #L arm swelling - Duplex shows no DVT - possibly lymphedema Disposition: Pending clinical improvement. ARU admission screening ordered. VS, I&O, 24H, Fishbone Vital Signs/I&O Vital Signs Date Time Temp Pulse Resp B/P (MAP) Pulse Ox O2 Delivery O2 Flow Rate FiO2 08/13/21 16:00 99.1 99 22 130/60 (83) 96 High Flow Cannula 5.0 I&O- Last 24 Hours up to 6 AM 08/13/21 06:00 Intake Total 300 ml Output Total 300 ml Balance 0 ml Laboratory Data 24H LABS Laboratory Tests 2 08/13/21 02:12: Urine Color YELLOW, Urine Appearance CLEAR, Urine pH 6.0, Urine Specific [place] 1.010, Urine Protein NEGATIVE, Urine Glucose (UA) NEGATIVE, Urine Ketones NEGATIVE, Urine Blood NEGATIVE, Urine Nitrite NEGATIVE, Urine Bilirubin NEGATIV E, Urine Urobilinogen 0.2, Urine Leukocyte Esterase NEGATIVE, Urine WBC (Auto) 1, Urine RBC (Auto) 4H, Urine Hyaline Casts (Auto) 0, Urine Bacteria (Auto) NEGATIVE, Urine Squamous Epithelial Cells 0, Urine Sperm (Auto) 08/13/21 04:29: Nucleated Red Blood Cells % (auto) 0.0, Anion Gap 1L, Glomerular Filtration Rate > 60.0, Calcium Level 8.1L CBC/BMP Laboratory Tests 08/13/21 04:29 Microbiology Microbiology 08/10/21 Respiratory Virus Panel (PCR) ([facility]) - Final, Complete 08/10/21 Blood Culture - Preliminary, Resulted No Growth after 72 hours. All specime... 08/10/21 Blood Culture - Preliminary, Resulted No Growth after 72 hours. All specime... KENNEDY CLARK MD Aug 13, 2021 17:38
[2021-08-13 18:11] LABS: BODY FLUID CULTURE Not indicated. (.); LEGIONELLA ANTIGEN URINE Negative (Negative); ORGANISM ID Not indicated. (.); SPECIMEN SOURCE Urine (.); URINE STREP PNEUMONIAE ANTIGEN Negative (Negative)
[2021-08-13] MEDS: MIRTAZAPINE 7.5MG PER 1/2 TABLET PO SCH (20:46)
[2021-08-13] MEDS: RAMELTEON 8 MG TAB (ROZEREM) PO SCH (20:46)
[2021-08-13] MEDS: GABAPENTIN 100 MG CAP PO SCH (20:46)
[2021-08-13] MEDS: **NOTE PATIENT COMMENT** MISC XX SCH (21:00)
[2021-08-14] VITALS (22 sets, daily range): BP systolic 94–125; BP diastolic 50–58; O2SAT 87–100
[2021-08-14] MEDS: MORPHINE 2 MG/ML 1ML VIAL (J2270) IV PRN (04:08)
[2021-08-14 05:49] LABS: HEMATOCRIT 34.2 % (36.0-47.0); HEMOGLOBIN 11.2 g/dl (12.0-15.5); MEAN CORPUSCULAR HEMOGLOBIN 27.3 pg (27.0-33.0); MEAN CORPUSCULAR HGB CONC 32.7 g/dl (32.0-36.5); MEAN CORPUSCULAR VOLUME 83.2 fl (80.0-96.0); PLATELET COUNT, AUTOMATED 258 10^3/uL (150-450); RED BLOOD COUNT 4.11 10^6/uL (4.00-5.40); WHITE BLOOD COUNT 8.6 10^3/uL (4.0-10.0)
[2021-08-14 06:19] LABS: BLOOD UREA NITROGEN 12 MG/DL (7-18); CALCIUM LEVEL 8.2 MG/DL (8.8-10.2); CARBON DIOXIDE LEVEL 31 MEQ/L (21-32); CHLORIDE LEVEL 103 MEQ/L (98-107); CREATININE FOR GFR 0.61 MG/DL (0.55-1.30); GLOMERULAR FILTRATION RATE > 60.0 (>45); GLUCOSE, FASTING 124 MG/DL (70-100); POTASSIUM SERUM 4.4 MEQ/L (3.5-5.1); SODIUM LEVEL 135 MEQ/L (136-145)
[2021-08-14] MEDS: LIDOCAINE 5% (LIDODERM) PATCH TD SCH (09:59)
[2021-08-14] MEDS: cefTRIAXone SOD 1 GM in D5W MINI-BAG PLUS 50 ML IV SCH (09:59)
[2021-08-14] MEDS: amLODIPine 5 MG TAB PO SCH (10:00)
[2021-08-14] MEDS: guaiFENesin ER 600 MG TAB PO SCH ×2 (10:00→22:06)
[2021-08-14] MEDS: TAMSULOSIN 0.4 MG CAP PO SCH (10:00)
[2021-08-14] MEDS: METOPROLOL SUCC *XL* 25MG TAB (TopROL *XL*) PO SCH (10:00)
[2021-08-14] MEDS: PANTOPRAZOLE 40MG TAB (PROTONIX) PO SCH ×2 (10:00→22:05)
[2021-08-14] MEDS: APIXABAN 2.5 MG TAB (ELIQUIS) PO SCH ×2 (10:00→22:05)
[2021-08-14] MEDS: VITAMIN D 1,000 INTERNATIONAL UNITS TABLET PO SCH (10:01)
[2021-08-14] MEDS: LACTOBACILLUS ACIDOPHILUS CAP (BACID) PO SCH (10:01)
[2021-08-14] MEDS: VALSARTAN 80 MG TAB (DIOVAN) PO SCH (10:01)
[2021-08-14] MEDS: traMADol 50 MG TAB PO PRN ×2 (12:36→22:47)
--- NOTE | 2021-08-14 12:57 | ECHO ---
ECHOCARDIOGRAM DATE OF PROCEDURE: 08/13/2021 Age: 66 Gender: Female Height: 64 inches Weight: 246 pounds. Body surface area: 2.14 m2 Inpatient, progressive care unit (PCU), room 3226 REFERRING PHYSICIAN: Fermin Arauz M.D. INDICATION: Shortness of breath, deep venous thrombosis, pneumonia. MEASUREMENTS: 2D Measurements: RV - 4.8 cm LV - 4.2 cm Septum 1.2 cm Posterior wall 1.1 cm Aortic root 3.1 cm LA - 4.3 cm LVEF 60% Doppler Measurements: AV 1.65 m/s LVOT - 1.31 m/s LVOT diameter 1.9 cm MV-E 57, A 58, E /A ratio 1 Early mitral deceleration time 280 msec E prime medial 10 A prime medial 11.4 E prime lateral 8.9 Average E/E prime ratio 6/PCWP - 9.4 mmHg PV - 0.95 m/s Pulmonary artery acceleration time 70 msec RVSP 50 mmHg IVC - 1.2 cm COMMENTS: Normal sinus rhythm without intraventricular conduction disturbance. Technically challenging study in light of the patient's body habitus, but diagnostically useful information was still obtained. Normal left ventricular size with wall thickenings upper limits of normal. Seeming subtle proximal septal flattening, suspected to be due to right ventricular pressure overload, but other left ventricular wall segments were hyperkinetic with global systolic function increased. Mildly dilated left atrium with currently normal Doppler assessment of LV diastolic function and estimated mean left atrial pressure. Moderately dilated right heart chambers with normal right ventricular free wall motion and Doppler evidence of at least moderate pulmonary hypertension. IVC size was somewhat reduced with adequate respiratory collapse, suggestive of a slightly low central venous pressure. Normal aortic dimensions. Normal-appearing aortic valvular apparatus without functional valvular abnormality. Normal-appearing mitral valvular apparatus and leaflet excursion with no posterior systolic buckling. Only trace mitral insufficiency. Normal-appearing tricuspid valve with at least mild insufficiency. No apparent intracardiac mass or pericardial effusion.
--- NOTE | 2021-08-14 12:58 | IRPON ---
IR Postoperative Note Date Of Procedure: Aug 13, 2021 Time Of Procedure: 16:00 IR Postoperative Note IR IVC Filter Placement IR Inferior vena cavogram IR Ultrasound of the right groin. IR Moderate sedation. Clinical Information:DVT and pulmonary emboli with superimposed pneumonia and decompensated cardiorespiratory status. Recent hemorrhagic stroke and concerns with risk of anticoagulation. Referred for IVC filter placement Physician: Dr. Myers. Procedure: The patient was advised of the benefits, risks, and alternatives of the procedure and informed consent was obtained. A time out was performed with verification of the patient's name, MRN, site of procedure, and type of procedure to be performed. The patient was positioned in the supine position on the angiographic table. The site was prepped and draped in the usual sterile fashion. Moderate sedation was performed by the physician including the presence of an independent trained RN, who assisted in monitoring the patient's level of consciousness and physiological status. Following the administration of fentanyl and Versed, the physician spent 45 minutes of continuous [id number] time with the patient. Preliminary ultrasound of the right groin was performed, demonstrating patent and compressible right common femoral vein. . The right common femoral vein was accessed under ultrasound guidance, using a micropuncture kit. A 0.035 Amplatz wire was advanced under fluoroscopy guidance and placed into the central inferior vena cava. The filter sheath was advanced over the wire, under fluoroscopy guidance, and positioned in the right common iliac vein. An inferior venacavogram was then performed, demonstrating a normal caliber inferior vena cava without filling defects and the renal vein inflows at the L1/L2 level. No caval anomalies were identified. The filter sheath was advanced over the wire and under fluoroscopy guidance, beyond the target site of deployment. A retrievable Cook select inferior vena cava filter was then advanced through the sheath and positioned within the infra-renal inferior vena cava. The filter was then deployed in the usual fashion. Positioning was confirmed fluoroscopically. The sheath was then removed and hemostasis obtained with manual compression. The patient tolerated the procedure well and was returned to the PRU in stable condition. EBL: < 5 mL. Complications:None. Conclusions: 1. Normal cavogram. 2. Successful deployment of a retrievable Cook select inferior vena cava filter in the infra-renal inferior vena cava. 3. Patient to follow-up in IR clinic in 6 months to discuss filter retrieval. Thank you for this referral. CC ZAINA Hdez MD Aug 14, 2021 12:58
[2021-08-14] MEDS: ACETAMINOPHEN TAB 650MG DOSE (2X325MG) PO PRN (14:10)
[2021-08-14] MEDS: BACLOFEN 5MG PER 1/2 TABLET PO PRN (14:10)
[2021-08-14] MEDS: AZITHROMYCIN INJ 500 MG, VIAL MATE ADAPTER 1 EACH in NS 250 ML IV SCH (14:11)
[2021-08-14] MEDS: **NOTE PATIENT COMMENT** MISC XX SCH (21:00)
[2021-08-14] MEDS ORDERED: NS 500 ML IV ONE (21:30)
--- NOTE | 2021-08-14 21:30 | IPNPDOC ---
Date Seen The patient was seen on 08/14/21. Progress Note SUBJECTIVE: patient seen and examined at bedside. O2 requirement decreased to 5LPM. In good spirits today. Denies CP, SOB, palpitations. Ongoing work with PT. OBJECTIVE PHYSICAL EXAMINATION: VITAL SIGNS: please see below General: NAD, comfortable HEENT: PERRLA, EOMI, sclerae clear Neck: supple, normal ROM, no JVD Respiratory: fair inspiratory effort, no wheeze, no rales. CVS: RRR, normal S1, S2, no murmurs Abdo: soft, no masses, no hepatosplenomegaly, BS+, no rebound tenderness Extremities: no edema, pulses 2+ MSK: no joint deformities, normal ROM Neuro: no focal neuro deficits, moving all 4 extremities, CN2-12 intact. Strength 4/5 in LUE, LLE. 5/5 strength in RUE and RLE Psych: calm, cooperative, AAO x 3 LABORATORY DATA, IMAGING STUDIES, MICROBIOLOGY: Please see below. Echocardiogram: ordered on 08/12/21. MRI brain w/wo contrast (08/12/21): Findings consistent with a mid to late subacute hemorrhagic infarct in the right external capsule subinsular region as described above. Finding likely hypertensive in etiology. CT head noncontrast on 08/11/2021 1. Periventricular lucency on the right consistent with an age indeterminate infarct. Prior study not available for comparison. Comparison with prior examination suggested when available. 2. No acute findings. 3. 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 CT angiogram chest on 08/11/2021: IMPRESSION: 1. Small right pleural effusion increased in size in comparison the prior study. Minimal left effusion. 2. There is no aortic dissection or aneurysm. 3. Small bilateral nonocclusive pulmonary emboli as described above. Findings unchanged comparison to the prior study. Bilateral venous duplex on 08/12/2021: IMPRESSION: Partially occluded left popliteal vein with thrombus. No extension into the femoral vein or thigh. Calf veins are not imaged. No deep venous thrombosis within the right lower extremity venous system DVT prophylaxis ordered?: SCDs. TEDs. Started eliquis 2.5 mg BID. ASSESSMENT AND PLAN:Mrs. Pickens is a 66-year-old female with hypertension and recent hemorrhagic stroke with left-sided residual weakness who presents here with pleuritic chest pain and hypoxia. This morning, she continues to have back spasms. Shortness of breath is worse during these episodes. Otherwise, she requested CT head as her neurologist had planned repeat imaging for her hemorrhagic stroke. PROBLEMS: #. Hypoxia in the setting of multifocal pneumonia/sepsis. - CTA showing multiple peribronchial consolidation in lower lobes of both lungs/superimposed multifocal pleural base consolidation Supplemental oxygen Patient has leukocytosis with elevated procalcitonin - hypotensive, s/p 3L NS bolus. Ceftriaxone and azithromycin day 4 CT angio chest repeat on 08/11/21, small bilateral nonocclusive PEs, see below. #. Recent hemorrhagic stroke with residual left-sided weakness Patient was at [place] and [place] about 6 weeks ago for hemorrhagic stroke Left upper and lower extremity is still weaker than right Reviewed [place] records from [place]. Patient was admitted with a spontaneous right intraparenchymal hemorrhage likely secondary to hypertensive urgency. She was assessed by neurosurgery who recommended an MRI brain 8 weeks after the incident. Repeat CT head 08/11/21: periventricular lucency on R consistent prior infarct. Empta sella syndrome - MRI brain w and wo contrast - mid to late subacute hemorrhagic infarct in the right external capsule subinsular region #Bilateral PE, L partially occluding popliteal vein thrombus - d/w Dr. Whitt. Difficult decision to start anticoagulation in setting of recent intraparenchymal brain hemorrhage - recommendation to proceed with eliquis 2.5 mg BID. This will likely reduce risk of clot propagation - d/w Dr. Myers. Decision to proceed with IVC filter placement. - s/p IVC filter placement on 08/13/21 - c/w eliquis 2.5 mg BID #. History of essential hypertension, hypotensive overnight. - likely 2/2 sepsis. -Status post 3 L NS bolus. - need strict BP control given hx of intraparenchymal brain bleed likely 2/2 hypertensive urgency - resume valsartan 160 mg daily, metoprolol 25 mg daily, amlodipine 5 mg daily - with parameters #Report of questionable LV thrombus? - family denies - noted in records from OSH - ordered 2D echo - report showing no intracardiac mass #. GERD Continue Protonix # Insomnia Switch melatonin to ramelteon #. Back spasms Added on baclofen #. DVT prophylaxis SCDs and teds - started eliquis 2.5 mg BID. #L arm swelling - Duplex shows no DVT - possibly lymphedema Disposition: Pending clinical improvement. ARU admission screening pending insurance. VS, I&O, 24H, Fishbone Vital Signs/I&O Vital Signs Date Time Temp Pulse Resp B/P (MAP) Pulse Ox O2 Delivery O2 Flow Rate FiO2 08/14/21 20:00 96.8 75 18 94/51 (65) 96 High Flow Cannula 3.0 I&O- Last 24 Hours up to 6 AM 08/14/21 06:00 Intake Total 1385 ml Output Total 1200 ml Balance 185 ml Laboratory Data 24H LABS Laboratory Tests 2 08/14/21 05:19: Nucleated Red Blood Cells % (auto) 0.0, Anion Gap 1L, Glomerular Filtration Rate > 60.0, Calcium Level 8.2L 08/14/21 11:39: Erythrocyte Sedimentation Rate 1, C-Reactive Protein, Quantitative 21.10H, Procalcitonin 0.40 CBC/BMP Laboratory Tests 08/14/21 05:19 Microbiology Microbiology 08/10/21 Respiratory Virus Panel (PCR) ([facility]) - Final, Complete 08/10/21 Blood Culture - Preliminary, Resulted No Growth after 72 hours. All specime... 08/10/21 Blood Culture - Preliminary, Resulted No Growth after 72 hours. All specime... KENNEDY CLARK MD Aug 14, 2021 21:30
[2021-08-14] MEDS: MIRTAZAPINE 7.5MG PER 1/2 TABLET PO SCH (22:04)
[2021-08-14] MEDS: RAMELTEON 8 MG TAB (ROZEREM) PO SCH (22:05)
[2021-08-14] MEDS: GABAPENTIN 100 MG CAP PO SCH (22:05)
[2021-08-15] VITALS (17 sets, daily range): BP systolic 100–119; BP diastolic 50–62; O2SAT 95–99
[2021-08-15] MEDS: BACLOFEN 5MG PER 1/2 TABLET PO PRN (05:25)
[2021-08-15 06:11] LABS: HEMATOCRIT 35.4 % (36.0-47.0); HEMOGLOBIN 11.3 g/dl (12.0-15.5); MEAN CORPUSCULAR HEMOGLOBIN 27.3 pg (27.0-33.0); MEAN CORPUSCULAR HGB CONC 31.9 g/dl (32.0-36.5); MEAN CORPUSCULAR VOLUME 85.5 fl (80.0-96.0); PLATELET COUNT, AUTOMATED 309 10^3/uL (150-450); RED BLOOD COUNT 4.14 10^6/uL (4.00-5.40); WHITE BLOOD COUNT 9.7 10^3/uL (4.0-10.0)
[2021-08-15 06:38] LABS: BLOOD UREA NITROGEN 15 MG/DL (7-18); CALCIUM LEVEL 8.4 MG/DL (8.8-10.2); CARBON DIOXIDE LEVEL 33 MEQ/L (21-32); CHLORIDE LEVEL 105 MEQ/L (98-107); CREATININE FOR GFR 0.62 MG/DL (0.55-1.30); GLOMERULAR FILTRATION RATE > 60.0 (>45); GLUCOSE, FASTING 115 MG/DL (70-100); SODIUM LEVEL 139 MEQ/L (136-145)
[2021-08-15] MEDS: cefTRIAXone SOD 1 GM in D5W MINI-BAG PLUS 50 ML IV SCH (09:22)
[2021-08-15] MEDS: LIDOCAINE 5% (LIDODERM) PATCH TD SCH (09:22)
[2021-08-15] MEDS: amLODIPine 5 MG TAB PO SCH (09:23)
[2021-08-15] MEDS: VALSARTAN 80 MG TAB (DIOVAN) PO SCH (09:23)
[2021-08-15] MEDS: traMADol 50 MG TAB PO PRN (09:23)
[2021-08-15] MEDS: VITAMIN D 1,000 INTERNATIONAL UNITS TABLET PO SCH (09:24)
[2021-08-15] MEDS: TAMSULOSIN 0.4 MG CAP PO SCH (09:24)
[2021-08-15] MEDS: guaiFENesin ER 600 MG TAB PO SCH ×2 (09:24→20:39)
[2021-08-15] MEDS: APIXABAN 2.5 MG TAB (ELIQUIS) PO SCH ×2 (09:24→20:39)
[2021-08-15] MEDS: PANTOPRAZOLE 40MG TAB (PROTONIX) PO SCH ×2 (09:24→20:40)
[2021-08-15] MEDS: LACTOBACILLUS ACIDOPHILUS CAP (BACID) PO SCH (09:24)
[2021-08-15] MEDS: METOPROLOL SUCC *XL* 25MG TAB (TopROL *XL*) PO SCH (09:24)
[2021-08-15] MEDS ORDERED: BACLOFEN 5MG PER 1/2 TABLET PO ONE (12:00)
--- NOTE | 2021-08-15 13:02 | REP ---
INDICATION: Left ankle pain. COMPARISON: None. TECHNIQUE: Four views FINDINGS: No acute fracture or destructive osseous lesion. The mortise is intact. There is a plantar calcaneal heel spur. IMPRESSION: No acute osseous abnormality. <Electronically signed by Kolby Flowers > 08/15/21 [id number]
--- NOTE | 2021-08-15 13:17 | REP ---
INDICATION: left leg pain. COMPARISON: 08/11/2021 which showed a partially occluded popliteal vein. TECHNIQUE: Multiple ultrasonographic images of the deep venous structures of the left lower extremity were obtained from the inguinal ligament to the ankle. Venous compression techniques, color doppler imaging, and augmentation techniques were also obtained where appropriate. As per the ACR guidelines the anterior tibial vein can not be effectively evaluated. Only compression techniques in the calf on the peroneal and posterior tibial veins was attempted/performed. FINDINGS: Once again, there is echogenic material seen in the popliteal vein, however, today there also shows echogenic material in noncompressible peroneal and posterior tibial veins of the calf. The remainder of the imaged deep venous structures are unchanged from the prior exam and show no additional thrombus IMPRESSION: Known popliteal DVT from the exam of 08/11/2021 with today's exam also showing calf DVT as described above. <Electronically signed by Kolby Flowers > 08/15/21 [id number]
[2021-08-15] MEDS: AZITHROMYCIN INJ 500 MG, VIAL MATE ADAPTER 1 EACH in NS 250 ML IV SCH (15:12)
[2021-08-15] MEDS: ACETAMINOPHEN TAB 650MG DOSE (2X325MG) PO PRN (15:28)
[2021-08-15] MEDS: MORPHINE 2 MG/ML 1ML VIAL (J2270) IV PRN (15:29)
--- NOTE | 2021-08-15 17:04 | IPNPDOC ---
Subjective Date Seen The patient was seen on 08/15/21. Subjective Chief Complaint/HPI Mrs. Pickens is a 66-year-old female with hypertension and recent hemorrhagic stroke with left-sided residual weakness who presents here with pleuritic chest pain and hypoxia. This morning, patient denies any chest pain or dyspnea. She occasionally has back spasms. Her main complaint is her left leg pain. Ordered for x-ray ankle which was negative. Ultrasound left lower extremity still demonstrates a DVT which is most likely caused to her pain. Objective Physical Examination General Exam: Positive: Alert, Cooperative Eye Exam: Positive: EOMI; Negative: Sclera icteric ENT Exam: Positive: Atraumatic Neck Exam: Positive: Supple Chest Exam: Positive: Clear to auscultation Heart Exam: Positive: Rate Normal, Regular Rhythm Abdomen Exam: Positive: Normal bowel sounds, Soft; Negative: Tenderness Extremity Exam: Negative: Edema Neuro Exam: Positive: Cranial Nerves 3-12 NL; Negative: Strength at 5/5 X4 ext (Left arm and left leg weaker than right) Psych Exam: Positive: Mental status NL, Mood NL Assessment /Plan Assessment Mrs. Pickens is a 66-year-old female with hypertension and recent hemorrhagic stroke with left-sided residual weakness who presents here with pleuritic chest pain and hypoxia. Imaging suggested multifocal pneumonia. Patient does have leukocytosis, hypoxia, and pleuritic chest pain. Patient be started on ceftriaxone and azithromycin. Otherwise, CT angio chest demonstrated PE and ultrasound of the left leg demonstrated popliteal DVT. Most likely provoked from recent hospitalization and recent travel from [place]. IVC filter was placed on 08/13/2021. Neurology, Dr. Whitt, was consulted, and recommended Eliquis 2.5 mg twice daily. Also recommended keeping the blood pressure below 130/80. Physical therapy and Occupational Therapy had recommended rehab. ARU screen has been placed. Plan/VTE VTE Prophylaxis Ordered?: Yes Plan 1. Hypoxia in the setting of multifocal pneumonia/sepsis Supplemental oxygen. Still requiring 3 L of oxygen Patient has leukocytosis with elevated procalcitonin Ceftriaxone and azithromycin day 5 2. Recent hemorrhagic stroke with residual left-sided weakness Patient was at [facility] about 6 weeks ago for hemorrhagic stroke Left upper and lower extremity is still weaker than right We will avoid anticoagulation and NSAIDs as much as possible Repeat CT head on 08/11/2021 demonstrated periventricular lucency in the right, consistent with prior infarct MRI brain with and without contrast demonstrated a mid to late subacute hemorrhagic infarct in the right external capsule subinsular region 3. Bilateral PE and left popliteal vein DVT Provoked secondary to recent hospitalization and recent travel IVC filter placed on 08/13/2021 Neurology consulted. Made a difficult decision to start anticoagulation Eliquis 2.5 mg twice daily Maintain blood pressure below 130/80 4. Hypertension Continue amlodipine, Lopressor, tamsulosin, and valsartan 5. GERD Continue Protonix 6. Insomnia Switch melatonin to ramelteon 7. Back spasms Continue baclofen 8. DVT prophylaxis Eliquis 2.5 mg twice daily Disposition: Physical therapy recommended PT and OT. ARU screen placed. Will obtain procalcitonin to see if we can de-escalate IV antibiotics to p.o. antibiotics VS, I&O, 24H, Fishbone Vital Signs/I&O Vital Signs Date Time Temp Pulse Resp B/P (MAP) Pulse Ox O2 Delivery O2 Flow Rate FiO2 08/15/21 16:00 98.6 84 18 100/50 (67) 98 High Flow Cannula 3.0 I&O- Last 24 Hours up to 6 AM 08/15/21 06:00 Intake Total 983 ml Output Total 550 ml Balance 433 ml Laboratory Data 24H LABS Laboratory Tests 2 08/15/21 05:52: Nucleated Red Blood Cells % (auto) 0.0, Anion Gap 1L, Glomerular Filtration Rate > 60.0, Calcium Level 8.4L CBC/BMP Laboratory Tests 08/15/21 05:52 Microbiology Microbiology 08/10/21 Respiratory Virus Panel (PCR) ([facility]) - Final, Complete 08/10/21 Blood Culture - Final, Complete NO GROWTH AFTER 5 DAYS 08/10/21 Blood Culture - Final, Complete NO GROWTH AFTER 5 DAYS ROBERT ACKERMAN DO Aug 15, 2021 17:04
[2021-08-15] MEDS: DOCUSATE SODIUM 100MG CAPSULE PO SCH (20:38)
[2021-08-15] MEDS: GABAPENTIN 100 MG CAP PO SCH (20:40)
[2021-08-15] MEDS: RAMELTEON 8 MG TAB (ROZEREM) PO SCH (20:40)
[2021-08-15] MEDS: MIRTAZAPINE 7.5MG PER 1/2 TABLET PO SCH (20:40)
[2021-08-15] MEDS: **NOTE PATIENT COMMENT** MISC XX SCH (20:40)
[2021-08-16] VITALS (18 sets, daily range): BP systolic 105–130; BP diastolic 54–65; O2SAT 93–97
[2021-08-16] MEDS: BACLOFEN 5MG PER 1/2 TABLET PO PRN (00:36)
[2021-08-16] MEDS: MORPHINE 2 MG/ML 1ML VIAL (J2270) IV PRN (01:37)
[2021-08-16] MEDS: traMADol 50 MG TAB PO PRN ×2 (05:46→15:04)
[2021-08-16 06:26] LABS: HEMOGLOBIN 11.6 g/dl (12.0-15.5); MEAN CORPUSCULAR HEMOGLOBIN 27.3 pg (27.0-33.0); MEAN CORPUSCULAR HGB CONC 32.2 g/dl (32.0-36.5); MEAN CORPUSCULAR VOLUME 84.7 fl (80.0-96.0); PLATELET COUNT, AUTOMATED 397 10^3/uL (150-450); RED BLOOD COUNT 4.25 10^6/uL (4.00-5.40); WHITE BLOOD COUNT 8.8 10^3/uL (4.0-10.0)
[2021-08-16 06:42] LABS: BLOOD UREA NITROGEN 12 MG/DL (7-18); CALCIUM LEVEL 8.5 MG/DL (8.8-10.2); CARBON DIOXIDE LEVEL 29 MEQ/L (21-32); CHLORIDE LEVEL 105 MEQ/L (98-107); CREATININE FOR GFR 0.47 MG/DL (0.55-1.30); GLOMERULAR FILTRATION RATE > 60.0 (>45); GLUCOSE, FASTING 112 MG/DL (70-100); POTASSIUM SERUM 4.1 MEQ/L (3.5-5.1); SODIUM LEVEL 138 MEQ/L (136-145)
[2021-08-16] MEDS: VALSARTAN 80 MG TAB (DIOVAN) PO SCH (10:10)
[2021-08-16] MEDS: VITAMIN D 1,000 INTERNATIONAL UNITS TABLET PO SCH (10:10)
[2021-08-16] MEDS: LACTOBACILLUS ACIDOPHILUS CAP (BACID) PO SCH (10:10)
[2021-08-16] MEDS: amLODIPine 5 MG TAB PO SCH (10:11)
[2021-08-16] MEDS: TAMSULOSIN 0.4 MG CAP PO SCH (10:11)
[2021-08-16] MEDS: DOCUSATE SODIUM 100MG CAPSULE PO SCH ×2 (10:11→21:26)
[2021-08-16] MEDS: METOPROLOL SUCC *XL* 25MG TAB (TopROL *XL*) PO SCH (10:12)
[2021-08-16] MEDS: PANTOPRAZOLE 40MG TAB (PROTONIX) PO SCH ×2 (10:13→21:26)
[2021-08-16] MEDS: APIXABAN 2.5 MG TAB (ELIQUIS) PO SCH ×2 (10:13→21:27)
[2021-08-16] MEDS: cefTRIAXone SOD 1 GM in D5W MINI-BAG PLUS 50 ML IV SCH (10:14)
[2021-08-16] MEDS: LIDOCAINE 5% (LIDODERM) PATCH TD SCH (10:15)
[2021-08-16] MEDS: guaiFENesin ER 600 MG TAB PO SCH ×2 (10:15→21:26)
[2021-08-16] MEDS: GABAPENTIN 100 MG CAP PO SCH ×3 (12:59→21:26)
[2021-08-16] MEDS: AZITHROMYCIN INJ 500 MG, VIAL MATE ADAPTER 1 EACH in NS 250 ML IV SCH (14:51)
[2021-08-16] MEDS: MIRALAX *UNIT DOSE* 17GM PACKET PO PRN (15:04)
--- NOTE | 2021-08-16 15:32 | IPNPDOC ---
Subjective Date Seen The patient was seen on 08/16/21. Subjective Chief Complaint/HPI Mrs. Pickens is a 66-year-old female with hypertension and recent hemorrhagic stroke with left-sided residual weakness who presents here with pleuritic chest pain and hypoxia. He was seen this morning. She denies any chest pain or worsening dyspnea. She still having muscle spasms. She requested increasing gabapentin frequency to help with the muscle spasms. We will increase gabapentin from 100 mg nightly to 100 mg 3 times daily. Otherwise, she is weaned down from 3 L of oxygen to 2 L of oxygen Objective Physical Examination General Exam: Positive: Alert, Cooperative Eye Exam: Positive: EOMI; Negative: Sclera icteric ENT Exam: Positive: Atraumatic Neck Exam: Positive: Supple Chest Exam: Positive: Clear to auscultation Heart Exam: Positive: Rate Normal, Regular Rhythm Abdomen Exam: Positive: Normal bowel sounds, Soft; Negative: Tenderness Extremity Exam: Negative: Edema Neuro Exam: Positive: Cranial Nerves 3-12 NL; Negative: Strength at 5/5 X4 ext (Left arm and left leg weaker than right) Psych Exam: Positive: Mental status NL, Mood NL Assessment /Plan Assessment Mrs. Pickens is a 66-year-old female with hypertension and recent hemorrhagic stroke with left-sided residual weakness who presents here with pleuritic chest pain and hypoxia. Imaging suggested multifocal pneumonia. Patient does have leukocytosis, hypoxia, and pleuritic chest pain. Patient be started on ceftriaxone and azithromycin. Otherwise, CT angio chest demonstrated PE and ultrasound of the left leg demonstrated popliteal DVT. Most likely provoked from recent hospitalization and recent travel from [place]. IVC filter was placed on 08/13/2021. Neurology, Dr. Whitt, was consulted, and recommended Eliquis 2.5 mg twice daily. Also recommended keeping the blood pressure below 130/80. Physical therapy and Occupational Therapy had recommended rehab. ARU screen has been placed. Plan/VTE VTE Prophylaxis Ordered?: Yes Plan 1. Hypoxia in the setting of multifocal pneumonia/sepsis Supplemental oxygen. Wean down to 2 L of oxygen Patient has leukocytosis with elevated procalcitonin Ceftriaxone and azithromycin day 6 2. Recent hemorrhagic stroke with residual left-sided weakness Patient was at [facility] about 6 weeks ago for hemorrhagic stroke Left upper and lower extremity is still weaker than right We will avoid anticoagulation and NSAIDs as much as possible Repeat CT head on 08/11/2021 demonstrated periventricular lucency in the right, consistent with prior infarct MRI brain with and without contrast demonstrated a mid to late subacute hemorrhagic infarct in the right external capsule subinsular region 3. Bilateral PE and left popliteal vein DVT Provoked secondary to recent hospitalization and recent travel IVC filter placed on 08/13/2021 Neurology consulted. Made a difficult decision to start anticoagulation Eliquis 2.5 mg twice daily Maintain blood pressure below 130/80 4. Hypertension Continue amlodipine, Lopressor, tamsulosin, and valsartan 5. GERD Continue Protonix 6. Insomnia Switch melatonin to ramelteon 7. Back spasms Continue baclofen 8. DVT prophylaxis Eliquis 2.5 mg twice daily Disposition: Physical therapy recommended PT and OT. ARU screen placed. Procalcitonin pending VS, I&O, 24H, Fishbone Vital Signs/I&O Vital Signs Date Time Temp Pulse Resp B/P (MAP) Pulse Ox O2 Delivery O2 Flow Rate FiO2 08/16/21 15:04 18 Nasal Cannula 2.0 08/16/21 12:00 99.5 75 123/58 (79) 98 I&O- Last 24 Hours up to 6 AM 08/16/21 06:00 Intake Total 1323 ml Output Total 0 ml Balance 1323 ml Laboratory Data 24H LABS Laboratory Tests 2 08/16/21 05:28: Nucleated Red Blood Cells % (auto) 0.0, Anion Gap 4L, Glomerular Filtration Rate > 60.0, Calcium Level 8.5L CBC/BMP Laboratory Tests 08/16/21 05:28 Microbiology Microbiology 08/10/21 Respiratory Virus Panel (PCR) ([facility]) - Final, Complete 08/10/21 Blood Culture - Final, Complete NO GROWTH AFTER 5 DAYS 08/10/21 Blood Culture - Final, Complete NO GROWTH AFTER 5 DAYS ROBERT ACKERMAN DO Aug 16, 2021 15:32
[2021-08-16] MEDS: RAMELTEON 8 MG TAB (ROZEREM) PO SCH (21:25)
[2021-08-16] MEDS: MIRTAZAPINE 7.5MG PER 1/2 TABLET PO SCH (21:25)
[2021-08-16] MEDS: **NOTE PATIENT COMMENT** MISC XX SCH (21:27)
[2021-08-17] VITALS (16 sets, daily range): BP systolic 98–151; BP diastolic 53–76; O2SAT 93–100
[2021-08-17 05:37] LABS: HEMATOCRIT 34.6 % (36.0-47.0); HEMOGLOBIN 11.2 g/dl (12.0-15.5); MEAN CORPUSCULAR HEMOGLOBIN 27.4 pg (27.0-33.0); MEAN CORPUSCULAR HGB CONC 32.4 g/dl (32.0-36.5); MEAN CORPUSCULAR VOLUME 84.6 fl (80.0-96.0); PLATELET COUNT, AUTOMATED 433 10^3/uL (150-450); RED BLOOD COUNT 4.09 10^6/uL (4.00-5.40); WHITE BLOOD COUNT 8.4 10^3/uL (4.0-10.0)
[2021-08-17 06:08] LABS: BLOOD UREA NITROGEN 11 MG/DL (7-18); CALCIUM LEVEL 8.3 MG/DL (8.8-10.2); CARBON DIOXIDE LEVEL 28 MEQ/L (21-32); CHLORIDE LEVEL 106 MEQ/L (98-107); CREATININE FOR GFR 0.55 MG/DL (0.55-1.30); GLOMERULAR FILTRATION RATE > 60.0 (>45); GLUCOSE, FASTING 98 MG/DL (70-100); POTASSIUM SERUM 4.4 MEQ/L (3.5-5.1); SODIUM LEVEL 139 MEQ/L (136-145)
[2021-08-17] MEDS: MIRALAX *UNIT DOSE* 17GM PACKET PO PRN (06:28)
[2021-08-17] MEDS: LACTOBACILLUS ACIDOPHILUS CAP (BACID) PO SCH (09:10)
[2021-08-17] MEDS: DOCUSATE SODIUM 100MG CAPSULE PO SCH ×2 (09:10→21:11)
[2021-08-17] MEDS: VALSARTAN 80 MG TAB (DIOVAN) PO SCH (09:10)
[2021-08-17] MEDS: VITAMIN D 1,000 INTERNATIONAL UNITS TABLET PO SCH (09:10)
[2021-08-17] MEDS: TAMSULOSIN 0.4 MG CAP PO SCH (09:10)
[2021-08-17] MEDS: APIXABAN 2.5 MG TAB (ELIQUIS) PO SCH ×2 (09:11→21:11)
[2021-08-17] MEDS: guaiFENesin ER 600 MG TAB PO SCH ×2 (09:11→21:11)
[2021-08-17] MEDS: GABAPENTIN 100 MG CAP PO SCH ×3 (09:11→21:11)
[2021-08-17] MEDS: amLODIPine 5 MG TAB PO SCH (09:11)
[2021-08-17] MEDS: LIDOCAINE 5% (LIDODERM) PATCH TD SCH (09:12)
[2021-08-17] MEDS: PANTOPRAZOLE 40MG TAB (PROTONIX) PO SCH ×2 (09:12→21:11)
[2021-08-17] MEDS: cefTRIAXone SOD 1 GM in D5W MINI-BAG PLUS 50 ML IV SCH (09:12)
[2021-08-17] MEDS: METOPROLOL SUCC *XL* 25MG TAB (TopROL *XL*) PO SCH (09:12)
[2021-08-17] MEDS: traMADol 50 MG TAB PO PRN ×3 (09:16→18:36)
[2021-08-17] MEDS: MORPHINE 2 MG/ML 1ML VIAL (J2270) IV PRN (10:07)
[2021-08-17] MEDS ORDERED: MORPHINE 4 MG/ML 1ML VIAL/SYRINGE (J2270) IV STA (10:44)
[2021-08-17] MEDS ORDERED: ONDANSETRON 4MG/2ML VIAL IV PRN (10:45)
[2021-08-17] MEDS ORDERED: ONDANSETRON 4MG/2ML VIAL IV STA (10:49)
--- NOTE | 2021-08-17 12:15 | IPNPDOC ---
Subjective Date Seen The patient was seen on 08/17/21. Subjective Chief Complaint/HPI Mrs. Pickens is a 66-year-old female with hypertension and recent hemorrhagic stroke with left-sided residual weakness who presents here with pleuritic chest pain and hypoxia. Patient was seen earlier in the morning and was doing well. She was sitting up in her chair off of nasal canula. She was feeling well, denied chest pain or dyspnea. Later in the morning, she developed severe pelvic pain and left leg cramping. Worse with palpation. Area felt soft and not warm. She also felt nauseous. Ordered for additional morphine, ondansetron, and CT abd/pelvis with and without contrast stat. Objective Physical Examination General Exam: Positive: Alert, Cooperative, Moderate Distress Eye Exam: Positive: EOMI; Negative: Sclera icteric ENT Exam: Positive: Atraumatic Neck Exam: Positive: Supple Chest Exam: Positive: Clear to auscultation Heart Exam: Positive: Rate Normal, Regular Rhythm Abdomen Exam: Positive: Normal bowel sounds, Soft, Other (Pelvic pain) Extremity Exam: Negative: Edema Neuro Exam: Positive: Cranial Nerves 3-12 NL; Negative: Strength at 5/5 X4 ext (Left arm and left leg weaker than right) Psych Exam: Positive: Mental status NL, Mood NL Assessment /Plan Assessment Mrs. Pickens is a 66-year-old female with hypertension and recent hemorrhagic stroke with left-sided residual weakness who presents here with pleuritic chest pain and hypoxia. Imaging suggested multifocal pneumonia. Patient does have leukocytosis, hypoxia, and pleuritic chest pain. Patient be started on ceftriaxone and azithromycin. Otherwise, CT angio chest demonstrated PE and ultrasound of the left leg demonstrated popliteal DVT. Most likely provoked from recent hospitalization and recent travel from [place]. IVC filter was placed on 08/13/2021. Neurology, Dr. Whitt, was consulted, and recommended Eliquis 2.5 mg twice daily. Also recommended keeping the blood pressure below 130/80. Physical therapy and Occupational Therapy had recommended rehab. ARU screen has been placed. Late morning, patient developed a severe pelvic pain. Located on the mons pubis. Soft, not hot. She has a purwick. Ordered for stat CT abd/pelvis with and without contrast. Plan/VTE VTE Prophylaxis Ordered?: Yes Plan 1. Hypoxia in the setting of multifocal pneumonia/sepsis Supplemental oxygen. Wean down to 2 L of oxygen Patient has leukocytosis with elevated procalcitonin Ceftriaxone day 7 -Discontinued azithromycin 2. Recent hemorrhagic stroke with residual left-sided weakness Patient was at [facility] about 6 weeks ago for hemorrhagic stroke Left upper and lower extremity is still weaker than right We will avoid anticoagulation and NSAIDs as much as possible Repeat CT head on 08/11/2021 demonstrated periventricular lucency in the right, consistent with prior infarct MRI brain with and without contrast demonstrated a mid to late subacute hemorrhagic infarct in the right external capsule subinsular region 3. Bilateral PE and left popliteal vein DVT Provoked secondary to recent hospitalization and recent travel IVC filter placed on 08/13/2021 Neurology consulted. Made a difficult decision to start anticoagulation Eliquis 2.5 mg twice daily Maintain blood pressure below 130/80 4. Hypertension Continue amlodipine, Lopressor, tamsulosin, and valsartan 5. GERD Continue Protonix 6. Insomnia Switch melatonin to ramelteon 7. Back spasms Continue baclofen 8. DVT prophylaxis Eliquis 2.5 mg twice daily Disposition: Physical therapy recommended PT and OT. ARU screen placed. Procalcitonin pending. CT abd/pelvis pending VS, I&O, 24H, Fishbone Vital Signs/I&O Vital Signs Date Time Temp Pulse Resp B/P (MAP) Pulse Ox O2 Delivery O2 Flow Rate FiO2 08/17/21 11:20 18 08/17/21 10:00 97 Nasal Cannula 2.0 08/17/21 09:35 118/68 (85) 08/17/21 08:00 96.5 75 I&O- Last 24 Hours up to 6 AM 08/17/21 06:00 Intake Total 1165 ml Output Total 1900 ml Balance -735 ml Laboratory Data 24H LABS Laboratory Tests 2 08/17/21 04:52: Nucleated Red Blood Cells % (auto) 0.0, Anion Gap 5L, Glomerular Filtration Rate > 60.0, Calcium Level 8.3L CBC/BMP Laboratory Tests 08/17/21 04:52 Microbiology Microbiology 08/10/21 Respiratory Virus Panel (PCR) ([facility]) - Final, Complete 08/10/21 Blood Culture - Final, Complete NO GROWTH AFTER 5 DAYS 08/10/21 Blood Culture - Final, Complete NO GROWTH AFTER 5 DAYS ROBERT ACKERMAN DO Aug 17, 2021 12:14
[2021-08-17] MEDS ORDERED: ISOVUE-370 76% 100ML VIAL As Ordered ONE (13:36)
--- NOTE | 2021-08-17 14:55 | REP ---
INDICATION: Severe pain, recent IVC filter. Hemoperitium? Stone?. COMPARISON: 05/12/2021 also with contrast TECHNIQUE: Standard helical technique before and after the intravenous administration of 100 cc Isovue 370 FINDINGS: Since the last examination a moderate sized right pleural effusion has developed. Patchy right lung base opacities are identified with air bronchograms. The liver, gallbladder, spleen, pancreas, adrenal glands, and kidneys are unchanged. The abdominal aorta and para-aortic regions are unchanged. There is no significant change in appearance of the bowel loops or the mesenteries. 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 Since the last examination an inferior vena cava filter has been placed the tip of which is at the level of the superior endplate of L2 which is just at the level of the left renal vein. There is no abnormal Veronica caval fatty infiltration or fluid. Bone window technique throughout the examination shows no change in the osseous structures. IMPRESSION: 1. Status post inferior vena cava filter as described above. 2. Right pleural effusion and patchy right lung base opacities as described above. Subsegmental atelectatic changes suspected, however, concomitant pneumonia cannot be ruled out. 3. There is no evidence of acute intra-abdominal or intrapelvic disease with findings as described above. <Electronically signed by Kolby Flowers > 08/17/21 [id number]
[2021-08-17] MEDS: MIRTAZAPINE 7.5MG PER 1/2 TABLET PO SCH (21:11)
[2021-08-17] MEDS: RAMELTEON 8 MG TAB (ROZEREM) PO SCH (21:11)
[2021-08-17] MEDS: **NOTE PATIENT COMMENT** MISC XX SCH (21:12)
[2021-08-18] MEDS: traMADol 50 MG TAB PO PRN ×2 (01:03→11:50)
[2021-08-18 02:00] VITALS: BP 113/56
[2021-08-18 06:00] VITALS: BP 116/62
[2021-08-18 06:29] LABS: HEMOGLOBIN 12.1 g/dl (12.0-15.5); MEAN CORPUSCULAR HEMOGLOBIN 27.4 pg (27.0-33.0); MEAN CORPUSCULAR HGB CONC 32.7 g/dl (32.0-36.5); MEAN CORPUSCULAR VOLUME 83.9 fl (80.0-96.0); PLATELET COUNT, AUTOMATED 525 10^3/uL (150-450); RED BLOOD COUNT 4.41 10^6/uL (4.00-5.40)
[2021-08-18 07:01] LABS: BLOOD UREA NITROGEN 10 MG/DL (7-18); CALCIUM LEVEL 8.5 MG/DL (8.8-10.2); CARBON DIOXIDE LEVEL 29 MEQ/L (21-32); CHLORIDE LEVEL 103 MEQ/L (98-107); CREATININE FOR GFR 0.54 MG/DL (0.55-1.30); GLOMERULAR FILTRATION RATE > 60.0 (>45); GLUCOSE, FASTING 97 MG/DL (70-100); POTASSIUM SERUM 4.6 MEQ/L (3.5-5.1); SODIUM LEVEL 139 MEQ/L (136-145)
[2021-08-18] MEDS: GABAPENTIN 100 MG CAP PO SCH ×3 (08:49→20:34)
[2021-08-18] MEDS: TAMSULOSIN 0.4 MG CAP PO SCH (08:49)
[2021-08-18] MEDS: PANTOPRAZOLE 40MG TAB (PROTONIX) PO SCH ×2 (08:49→20:35)
[2021-08-18] MEDS: LACTOBACILLUS ACIDOPHILUS CAP (BACID) PO SCH (08:49)
[2021-08-18] MEDS: VALSARTAN 80 MG TAB (DIOVAN) PO SCH (08:49)
[2021-08-18] MEDS: VITAMIN D 1,000 INTERNATIONAL UNITS TABLET PO SCH (08:49)
[2021-08-18] MEDS: cefTRIAXone SOD 1 GM in D5W MINI-BAG PLUS 50 ML IV SCH (08:49)
[2021-08-18] MEDS: APIXABAN 2.5 MG TAB (ELIQUIS) PO SCH ×2 (08:49→20:35)
[2021-08-18] MEDS: guaiFENesin ER 600 MG TAB PO SCH ×2 (08:49→20:35)
[2021-08-18] MEDS: DOCUSATE SODIUM 100MG CAPSULE PO SCH ×2 (08:49→20:35)
[2021-08-18] MEDS: LIDOCAINE 5% (LIDODERM) PATCH TD SCH (08:50)
[2021-08-18] MEDS: amLODIPine 5 MG TAB PO SCH (08:50)
[2021-08-18] MEDS: METOPROLOL SUCC *XL* 25MG TAB (TopROL *XL*) PO SCH (08:50)
[2021-08-18 10:00] VITALS: BP 111/66
--- NOTE | 2021-08-18 12:10 | IPNPDOC ---
Subjective Date Seen The patient was seen on 08/18/21. Subjective Chief Complaint/HPI Mrs. Pickens is a 66-year-old female with hypertension and recent hemorrhagic stroke with left-sided residual weakness who presents here with pleuritic chest pain and hypoxia. This morning, she is feeling better. The pain in her groin has resolved. Unclear what had happened, and patient is not sure either. She is glad that it has resolved. Possibly related to the hernia seen on CT abd/pelvis, but in the wrong location. No acute findings in the pelvis. Still has some pleuritic pain. PT and OT evaluated patient, recommending ARU. Objective Physical Examination General Exam: Positive: Alert, Cooperative Eye Exam: Positive: EOMI; Negative: Sclera icteric ENT Exam: Positive: Atraumatic Neck Exam: Positive: Supple Chest Exam: Positive: Clear to auscultation Heart Exam: Positive: Rate Normal, Regular Rhythm Abdomen Exam: Positive: Normal bowel sounds, Soft Extremity Exam: Negative: Edema Neuro Exam: Positive: Cranial Nerves 3-12 NL; Negative: Strength at 5/5 X4 ext (Left arm and left leg weaker than right) Psych Exam: Positive: Mental status NL, Mood NL Assessment /Plan Assessment Mrs. Pickens is a 66-year-old female with hypertension and recent hemorrhagic stroke with left-sided residual weakness who presents here with pleuritic chest pain and hypoxia. Imaging suggested multifocal pneumonia. Patient does have leukocytosis, hypoxia, and pleuritic chest pain. Patient be started on ceftriaxone and azithromycin. Otherwise, CT angio chest demonstrated PE and ultrasound of the left leg demonstrated popliteal DVT. Most likely provoked from recent hospitalization and recent travel from [place]. IVC filter was placed on 08/13/2021. Neurolog y, Dr. Whitt, was consulted, and recommended Eliquis 2.5 mg twice daily. Also recommended keeping the blood pressure below 130/80. Physical therapy and Occupational Therapy had recommended rehab. ARU screen has been placed. Late morning, patient developed a severe pelvic pain. Located on the mons pubis. Soft, not hot. She has a purwick. Ordered for stat CT abd/pelvis with and without contrast. No acute findings on the CT abd/pelvis with and without contrast. Pain resolved on own. Plan/VTE VTE Prophylaxis Ordered?: Yes Plan 1. Hypoxia in the setting of multifocal pneumonia/sepsis Supplemental oxygen. Wean down to 2 L of oxygen Patient has leukocytosis with elevated procalcitonin Ceftriaxone transitioned to Cefdinir. Antibiotic day 8, pending procalcitonin results -Discontinued azithromycin 2. Recent hemorrhagic stroke with residual left-sided weakness Patient was at [facility] about 6 weeks ago for hemorrhagic stroke Left upper and lower extremity is still weaker than right We will avoid anticoagulation and NSAIDs as much as possible Repeat CT head on 08/11/2021 demonstrated periventricular lucency in the right, consistent with prior infarct MRI brain with and without contrast demonstrated a mid to late subacute hemorrhagic infarct in the right external capsule subinsular region 3. Bilateral PE and left popliteal vein DVT Provoked secondary to recent hospitalization and recent travel IVC filter placed on 08/13/2021 Neurology consulted. Made a difficult decision to start anticoagulation Eliquis 2.5 mg twice daily Maintain blood pressure below 130/80 4. Hypertension Continue amlodipine, Lopressor, tamsulosin, and valsartan 5. GERD Continue Protonix 6. Insomnia Switch melatonin to ramelteon 7. Back spasms Continue baclofen 8. DVT prophylaxis Eliquis 2.5 mg twice daily Disposition: Physical therapy recommended PT and OT. ARU screen placed. Patient is medically stable. VS, I&O, 24H, Fishbone Vital Signs/I&O Vital Signs Date Time Temp Pulse Resp B/P (MAP) Pulse Ox O2 Delivery O2 Flow Rate FiO2 08/18/21 11:50 18 Room Air 08/18/21 10:00 98.0 82 111/66 (81) 96 2.0 I&O- Last 24 Hours up to 6 AM 08/18/21 06:00 Intake Total 1130 ml Output Total 1400 ml Balance -270 ml Laboratory Data 24H LABS Laboratory Tests 2 08/18/21 05:50: Nucleated Red Blood Cells % (auto) 0.0, Anion Gap 7L, Glomerular Filtration Rate > 60.0, Calcium Level 8.5L CBC/BMP Laboratory Tests 08/18/21 05:50 Microbiology Microbiology 08/10/21 Respiratory Virus Panel (PCR) (JASMINA) - Final, Complete 08/10/21 Blood Culture - Final, Complete NO GROWTH AFTER 5 DAYS 08/10/21 Blood Culture - Final, Complete NO GROWTH AFTER 5 DAYS ROBERT ACKERMAN DO Aug 18, 2021 12:10
[2021-08-18 14:00] VITALS: BP 110/63
[2021-08-18 18:00] VITALS: BP 118/64
[2021-08-18] MEDS: RAMELTEON 8 MG TAB (ROZEREM) PO SCH (20:34)
[2021-08-18] MEDS: MIRTAZAPINE 7.5MG PER 1/2 TABLET PO SCH (20:34)
[2021-08-18] MEDS: CEFDINIR 300 MG CAP (OMNICEF) PO SCH (20:35)
[2021-08-18] MEDS: **NOTE PATIENT COMMENT** MISC XX SCH (20:36)
[2021-08-18] MEDS: ACETAMINOPHEN TAB 650MG DOSE (2X325MG) PO PRN (20:36)
[2021-08-18 22:00] VITALS: BP 116/58
[2021-08-19] VITALS (8 sets, daily range): BP systolic 111–122; BP diastolic 58–64; O2SAT 92–97
[2021-08-19] MEDS: traMADol 50 MG TAB PO PRN ×2 (03:53→12:57)
[2021-08-19] MEDS: BACLOFEN 5MG PER 1/2 TABLET PO PRN ×2 (04:53→20:37)
[2021-08-19 06:42] LABS: HEMATOCRIT 36.8 % (36.0-47.0); HEMOGLOBIN 11.8 g/dl (12.0-15.5); MEAN CORPUSCULAR HEMOGLOBIN 26.9 pg (27.0-33.0); MEAN CORPUSCULAR HGB CONC 32.1 g/dl (32.0-36.5); PLATELET COUNT, AUTOMATED 504 10^3/uL (150-450); RED BLOOD COUNT 4.38 10^6/uL (4.00-5.40); WHITE BLOOD COUNT 7.9 10^3/uL (4.0-10.0)
[2021-08-19 07:07] LABS: BLOOD UREA NITROGEN 12 MG/DL (7-18); CALCIUM LEVEL 8.5 MG/DL (8.8-10.2); CARBON DIOXIDE LEVEL 29 MEQ/L (21-32); CHLORIDE LEVEL 105 MEQ/L (98-107); CREATININE FOR GFR 0.61 MG/DL (0.55-1.30); GLOMERULAR FILTRATION RATE > 60.0 (>45); GLUCOSE, FASTING 107 MG/DL (70-100); POTASSIUM SERUM 4.4 MEQ/L (3.5-5.1); SODIUM LEVEL 139 MEQ/L (136-145)
[2021-08-19] MEDS: LIDOCAINE 5% (LIDODERM) PATCH TD SCH (08:22)
[2021-08-19] MEDS: VALSARTAN 80 MG TAB (DIOVAN) PO SCH (08:23)
[2021-08-19] MEDS: APIXABAN 2.5 MG TAB (ELIQUIS) PO SCH ×2 (08:23→20:37)
[2021-08-19] MEDS: guaiFENesin ER 600 MG TAB PO SCH ×2 (08:23→20:37)
[2021-08-19] MEDS: TAMSULOSIN 0.4 MG CAP PO SCH (08:24)
[2021-08-19] MEDS: DOCUSATE SODIUM 100MG CAPSULE PO SCH ×2 (08:24→20:37)
[2021-08-19] MEDS: GABAPENTIN 100 MG CAP PO SCH ×3 (08:24→20:37)
[2021-08-19] MEDS: CEFDINIR 300 MG CAP (OMNICEF) PO SCH (08:24)
[2021-08-19] MEDS: VITAMIN D 1,000 INTERNATIONAL UNITS TABLET PO SCH (08:24)
[2021-08-19] MEDS: LACTOBACILLUS ACIDOPHILUS CAP (BACID) PO SCH (08:25)
[2021-08-19] MEDS: amLODIPine 5 MG TAB PO SCH (08:25)
[2021-08-19] MEDS: METOPROLOL SUCC *XL* 25MG TAB (TopROL *XL*) PO SCH (08:25)
[2021-08-19] MEDS: PANTOPRAZOLE 40MG TAB (PROTONIX) PO SCH ×2 (08:25→20:37)
[2021-08-19 10:05] LABS: DRVV SCREEN 57.2 SEC
[2021-08-19 10:07] LABS: PTT LUPUS TYPE ANTICOAG SCREEN 1.5 (0-1.2)
[2021-08-19 10:12] LABS: DRVV CONFIRM 46.5 SEC; LUPUS CONFIRM RATIO 1.2
[2021-08-19 10:13] LABS: NORMALIZED RATIO 1.25 (0.00-1.20)
[2021-08-19] MEDS: DULoxetine 30MG CAPSULE (CYMBALTA) PO SCH (10:21)
[2021-08-19] MEDS ORDERED: ONDANSETRON 4 MG ORAL DISINTEGRATING TAB PO PRN (17:40)
[2021-08-19 18:11] LABS: ANCA-ATYPICAL <1:20 titer (Neg:<1:20); ANTI THROMBIN 3 ANTIGEN IMMUNO 86 % (72-124); ANTI THROMBIN 3 FUNCT ACTIVITY 101 % (75-135); ANTINUCLEAR ANTIBODIES DIRECT Negative (Negative); CARDIOLIPIN IGA ANTIBODY <9 APL U/mL (0-11); CARDIOLIPIN IGG ANTIBODY <9 GPL U/mL (0-14); CARDIOLIPIN IGM ANTIBODY 11 MPL U/mL (0-12); CYTOPLASMIC NEUTROP AB ANCA-C <1:20 titer (Neg:<1:20); PERINUCLEAR AB ANCA-P <1:20 titer (Neg:<1:20); PROTEIN C ANTIGEN 73 % (60-150); PROTEIN S ANTIGEN FREE 71 % (61-136); PROTEIN S ANTIGEN TOTAL 80 % (60-150); SJOGREN'S ANTI SS-A <0.2 AI (0.0-0.9); SJOGREN'S ANTI SS-B <0.2 AI (0.0-0.9)
--- NOTE | 2021-08-19 20:27 | IPNPDOC ---
Subjective Date Seen The patient was seen on 08/19/21. Subjective Chief Complaint/HPI Mrs. Pickens is a 66-year-old female with hypertension and recent hemorrhagic stroke with left-sided residual weakness who presents here with pleuritic chest pain and hypoxia. This morning she denies any chest pain or dyspnea. ARU initially did not accept due to not being able to communicate with her insurance. PFS working on contacting insurance Objective Physical Examination General Exam: Positive: Alert, Cooperative Eye Exam: Positive: EOMI; Negative: Sclera icteric ENT Exam: Positive: Atraumatic Neck Exam: Positive: Supple Chest Exam: Positive: Clear to auscultation Heart Exam: Positive: Rate Normal, Regular Rhythm Abdomen Exam: Positive: Normal bowel sounds, Soft Extremity Exam: Negative: Edema Neuro Exam: Positive: Cranial Nerves 3-12 NL; Negative: Strength at 5/5 X4 ext (Left arm and left leg weaker than right) Psych Exam: Positive: Mental status NL, Mood NL Assessment /Plan Assessment Mrs. Pickens is a 66-year-old female with hypertension and recent hemorrhagic stroke with left-sided residual weakness who presents here with pleuritic chest pain and hypoxia. Imaging suggested multifocal pneumonia. Patient does have leukocytosis, hypoxia, and pleuritic chest pain. Patient be started on ceftriaxone and azithromycin. Otherwise, CT angio chest demonstrated PE and ultrasound of the left leg demonstrated popliteal DVT. Most likely provoked from recent hospitalization and recent travel from [place]. IVC filter was placed on 08/13/2021. Neurology, Dr. Whitt, was consulted, and recommended Eliquis 2.5 mg twice daily. Also recommended keeping the blood pressure below 130/80. Physical therapy and Occupational Therapy had recommended rehab. ARU screen has been placed. Late morning, patient developed a severe pelvic pain. Located on the mons pubis. Soft, not hot. She has a purwick. Ordered for stat CT abd/pelvis with and w ithout contrast. No acute findings on the CT abd/pelvis with and without contrast. Pain resolved on own. Plan/VTE VTE Prophylaxis Ordered?: Yes Plan 1. Hypoxia in the setting of multifocal pneumonia/sepsis Supplemental oxygen. Wean down to 2 L of oxygen Patient has leukocytosis with elevated procalcitonin Ceftriaxone transitioned to Cefdinir. Antibiotic day 9, procalcitonin low. Will discontinue antibiotic today -Discontinued azithromycin 2. Recent hemorrhagic stroke with residual left-sided weakness Patient was at [facility] about 6 weeks ago for hemorrhagic stroke Left upper and lower extremity is still weaker than right We will avoid anticoagulation and NSAIDs as much as possible Repeat CT head on 08/11/2021 demonstrated periventricular lucency in the right, consistent with prior infarct MRI brain with and without contrast demonstrated a mid to late subacute hemorrhagic infarct in the right external capsule subinsular region 3. Bilateral PE and left popliteal vein DVT Provoked secondary to recent hospitalization and recent travel IVC filter placed on 08/13/2021 Neurology consulted. Made a difficult decision to start anticoagulation Eliquis 2.5 mg twice daily Maintain blood pressure below 130/80 4. Hypertension Continue amlodipine, Lopressor, tamsulosin, and valsartan 5. GERD Continue Protonix 6. Insomnia Switch melatonin to ramelteon 7. Back spasms Continue baclofen 8. DVT prophylaxis Eliquis 2.5 mg twice daily Disposition: Physical therapy recommended PT and OT. ARU screen placed. Patient is medically stable. VS, I&O, 24H, Fishbone Vital Signs/I&O Vital Signs Date Time Temp Pulse Resp B/P (MAP) Pulse Ox O2 Delivery O2 Flow Rate FiO2 08/19/21 14:00 97.6 83 18 112/61 (78) 96 High Flow Cannula 1.0 I&O- Last 24 Hours up to 6 AM 08/19/21 06:00 Intake Total 1440 ml Output Total 1350 ml Balance 90 ml Laboratory Data 24H LABS Laboratory Tests 2 08/19/21 06:08: Nucleated Red Blood Cells % (auto) 0.0, Anion Gap 5L, Glomerular Filtration Rate > 60.0, Calcium Level 8.5L CBC/BMP Laboratory Tests 08/19/21 06:08 Microbiology Microbiology 08/10/21 Respiratory Virus Panel (PCR) (JASMINA) - Final, Complete 08/10/21 Blood Culture - Final, Complete NO GROWTH AFTER 5 DAYS 08/10/21 Blood Culture - Final, Complete NO GROWTH AFTER 5 DAYS ROBERT ACKERMAN DO Aug 19, 2021 20:27
[2021-08-19] MEDS: RAMELTEON 8 MG TAB (ROZEREM) PO SCH (20:37)
[2021-08-19] MEDS: MIRTAZAPINE 7.5MG PER 1/2 TABLET PO SCH (20:37)
[2021-08-19] MEDS: **NOTE PATIENT COMMENT** MISC XX SCH (20:38)
[2021-08-20 06:00] VITALS: BP 113/57
[2021-08-20 06:38] LABS: HEMATOCRIT 36.1 % (36.0-47.0); HEMOGLOBIN 11.8 g/dl (12.0-15.5); MEAN CORPUSCULAR HEMOGLOBIN 27.4 pg (27.0-33.0); MEAN CORPUSCULAR HGB CONC 32.7 g/dl (32.0-36.5); MEAN CORPUSCULAR VOLUME 83.8 fl (80.0-96.0); PLATELET COUNT, AUTOMATED 563 10^3/uL (150-450); RED BLOOD COUNT 4.31 10^6/uL (4.00-5.40); WHITE BLOOD COUNT 7.4 10^3/uL (4.0-10.0)
[2021-08-20 06:49] LABS: BLOOD UREA NITROGEN 11 MG/DL (7-18); CALCIUM LEVEL 8.3 MG/DL (8.8-10.2); CARBON DIOXIDE LEVEL 30 MEQ/L (21-32); CHLORIDE LEVEL 104 MEQ/L (98-107); CREATININE FOR GFR 0.51 MG/DL (0.55-1.30); GLOMERULAR FILTRATION RATE > 60.0 (>45); GLUCOSE, FASTING 103 MG/DL (70-100); POTASSIUM SERUM 4.7 MEQ/L (3.5-5.1); SODIUM LEVEL 138 MEQ/L (136-145)
[2021-08-20 08:00] VITALS: BP 122/61
[2021-08-20] MEDS: METOPROLOL SUCC *XL* 25MG TAB (TopROL *XL*) PO SCH (11:01)
[2021-08-20] MEDS: amLODIPine 5 MG TAB PO SCH (11:02)
[2021-08-20] MEDS: APIXABAN 2.5 MG TAB (ELIQUIS) PO SCH ×2 (11:02→21:25)
[2021-08-20] MEDS: PANTOPRAZOLE 40MG TAB (PROTONIX) PO SCH ×2 (11:02→21:25)
[2021-08-20] MEDS: DULoxetine 30MG CAPSULE (CYMBALTA) PO SCH (11:02)
[2021-08-20] MEDS: GABAPENTIN 100 MG CAP PO SCH ×3 (11:03→21:24)
[2021-08-20] MEDS: TAMSULOSIN 0.4 MG CAP PO SCH (11:03)
[2021-08-20] MEDS: VITAMIN D 1,000 INTERNATIONAL UNITS TABLET PO SCH (11:03)
[2021-08-20] MEDS: LACTOBACILLUS ACIDOPHILUS CAP (BACID) PO SCH (11:03)
[2021-08-20] MEDS: guaiFENesin ER 600 MG TAB PO SCH ×2 (11:03→21:25)
[2021-08-20] MEDS: DOCUSATE SODIUM 100MG CAPSULE PO SCH ×2 (11:03→21:00)
[2021-08-20] MEDS: LIDOCAINE 5% (LIDODERM) PATCH TD SCH (11:04)
[2021-08-20] MEDS: VALSARTAN 80 MG TAB (DIOVAN) PO SCH (11:04)
[2021-08-20 12:02] VITALS: BP 118/62
[2021-08-20] MEDS: traMADol 50 MG TAB PO PRN (12:12)
[2021-08-20 14:00] VITALS: BP 118/56
--- NOTE | 2021-08-20 15:07 | IPNPDOC ---
Subjective Date Seen The patient was seen on 08/20/21. Subjective Chief Complaint/HPI Mrs. Pickens is a 66-year-old female with hypertension and recent hemorrhagic stroke with left-sided residual weakness who presents here with pleuritic chest pain and hypoxia. This morning, patient denied any chest pain or dyspnea. Objective Physical Examination General Exam: Positive: Alert, Cooperative Eye Exam: Positive: EOMI; Negative: Sclera icteric ENT Exam: Positive: Atraumatic Neck Exam: Positive: Supple Chest Exam: Positive: Clear to auscultation Heart Exam: Positive: Rate Normal, Regular Rhythm Abdomen Exam: Positive: Normal bowel sounds, Soft Extremity Exam: Negative: Edema Neuro Exam: Positive: Cranial Nerves 3-12 NL; Negative: Strength at 5/5 X4 ext (Left arm and left leg weaker than right) Psych Exam: Positive: Mental status NL, Mood NL Assessment /Plan Assessment Mrs. Pickens is a 66-year-old female with hypertension and recent hemorrhagic stroke with left-sided residual weakness who presents here with pleuritic chest pain and hypoxia. Imaging suggested multifocal pneumonia. Patient does have leukocytosis, hypoxia, and pleuritic chest pain. Patient be started on ceftriaxone and azithromycin. Otherwise, CT angio chest demonstrated PE and ultrasound of the left leg demonstrated popliteal DVT. Most likely provoked from recent hospitalization and recent travel from [place]. IVC filter was placed on 08/13/2021. Neurology, Dr. Whitt, was consulted, and recommended Eliquis 2.5 mg twice daily. Also recommended keeping the blood pressure below 130/80. Physical therapy and Occupational Therapy had recommended rehab. ARU screen has been placed. Late morning, patient developed a severe pelvic pain. Located on the mons pubis. Soft, not hot. She has a purwick. Ordered for stat CT abd/pelvis with and without contrast. No acute findings on the CT abd/pelvis with and without contrast. Pain resolved on own. Plan/VTE VTE Prophylaxis Ordered?: Yes Plan 1. Hypoxia in the setting of multifocal pneumonia/sepsis Supplemental oxygen. Weaned off oxygen Patient had leukocytosis with elevated procalcitonin, both of which has resolved Ceftriaxone transitioned to Cefdinir. Antibiotic day 9, procalcitonin low. Will discontinue antibiotic today -Discontinued azithromycin 2. Recent hemorrhagic stroke with residual left-sided weakness Patient was at [facility] about 6 weeks ago for hemorrhagic stroke Left upper and lower extremity is still weaker than right We will avoid anticoagulation and NSAIDs as much as possible Repeat CT head on 08/11/2021 demonstrated periventricular lucency in the right, consistent with prior infarct MRI brain with and without contrast demonstrated a mid to late subacute hemorrhagic infarct in the right external capsule subinsular region 3. Bilateral PE and left popliteal vein DVT Provoked secondary to recent hospitalization and recent travel IVC filter placed on 08/13/2021 Neurology consulted. Made a difficult decision to start anticoagulation Eliquis 2.5 mg twice daily Maintain blood pressure below 130/80 4. Hypertension Continue amlodipine, Lopressor, tamsulosin, and valsartan 5. GERD Continue Protonix 6. Insomnia Switch melatonin to ramelteon 7. Back spasms Continue baclofen 8. Sepsis with end organ damage -Towards the beginning of the admission, patient had fever, leukocytosis, and tachycardia -Patient had end organ damage with KAMILLA (an acute rise in creatinine from 0.87 to 1.36 -This as resolved with fluid and antibiotics 9. Acute hypoxic respiratory failure -Secondary to PNA and PE -During the beginning of the admission, patient had required nonrebreather -Resolved since treating the PNA and PE 10. Obesity -BMI 43 -Complicates care 11. DVT prophylaxis Eliquis 2.5 mg twice daily Disposition: PT/OT recommended rehab. ARU screen placed. Patient is medically stable. VS, I&O, 24H, Davidbongilberto Vital Signs/I&O Vital Signs Date Time Temp Pulse Resp B/P (MAP) Pulse Ox O2 Delivery O2 Flow Rate FiO2 08/20/21 14:00 98.2 72 16 118/56 (76) 94 Room Air 08/19/21 14:00 1.0 I&O- Last 24 Hours up to 6 AM 08/20/21 06:00 Intake Total 1280 ml Balance 1280 ml Laboratory Data 24H LABS Laboratory Tests 2 08/20/21 05:20: Nucleated Red Blood Cells % (auto) 0.0, Anion Gap 4L, Glomerular Filtration Rate > 60.0, Calcium Level 8.3L CBC/BMP Laboratory Tests 08/20/21 05:20 Microbiology Microbiology 08/10/21 Respiratory Virus Panel (PCR) (JASMINA) - Final, Complete 08/10/21 Blood Culture - Final, Complete NO GROWTH AFTER 5 DAYS 08/10/21 Blood Culture - Final, Complete NO GROWTH AFTER 5 DAYS ROBERT ACKERMAN DO Aug 20, 2021 15:07
[2021-08-20] MEDS: **NOTE PATIENT COMMENT** MISC XX SCH (21:25)
[2021-08-20] MEDS: RAMELTEON 8 MG TAB (ROZEREM) PO SCH (21:25)
[2021-08-20] MEDS: MIRTAZAPINE 7.5MG PER 1/2 TABLET PO SCH (21:25)
[2021-08-20] MEDS: BACLOFEN 5MG PER 1/2 TABLET PO PRN (21:25)
[2021-08-20] MEDS: ACETAMINOPHEN TAB 650MG DOSE (2X325MG) PO PRN (21:26)
[2021-08-20 22:00] VITALS: BP 112/63
[2021-08-21] MEDS: traMADol 50 MG TAB PO PRN (01:59)
[2021-08-21 04:11] LABS: HEXAGONAL PHASE PHOSPHOLIPID 1 sec (0-11)
[2021-08-21 06:00] VITALS: BP 126/69
[2021-08-21 06:48] LABS: HEMATOCRIT 38.8 % (36.0-47.0); HEMOGLOBIN 12.4 g/dl (12.0-15.5); MEAN CORPUSCULAR VOLUME 84.5 fl (80.0-96.0); PLATELET COUNT, AUTOMATED 590 10^3/uL (150-450); RED BLOOD COUNT 4.59 10^6/uL (4.00-5.40); WHITE BLOOD COUNT 6.9 10^3/uL (4.0-10.0)
[2021-08-21 07:08] LABS: BLOOD UREA NITROGEN 11 MG/DL (7-18); CALCIUM LEVEL 8.4 MG/DL (8.8-10.2); CARBON DIOXIDE LEVEL 29 MEQ/L (21-32); CHLORIDE LEVEL 105 MEQ/L (98-107); CREATININE FOR GFR 0.57 MG/DL (0.55-1.30); GLOMERULAR FILTRATION RATE > 60.0 (>45); GLUCOSE, FASTING 90 MG/DL (70-100); POTASSIUM SERUM 4.5 MEQ/L (3.5-5.1); SODIUM LEVEL 140 MEQ/L (136-145)
[2021-08-21] MEDS: VALSARTAN 80 MG TAB (DIOVAN) PO SCH (08:17)
[2021-08-21] MEDS: DOCUSATE SODIUM 100MG CAPSULE PO SCH (08:17)
[2021-08-21] MEDS: METOPROLOL SUCC *XL* 25MG TAB (TopROL *XL*) PO SCH (08:18)
[2021-08-21] MEDS: GABAPENTIN 100 MG CAP PO SCH (08:18)
[2021-08-21 08:22] VITALS: BP 100/62
[2021-08-21] MEDS: TAMSULOSIN 0.4 MG CAP PO SCH (08:22)
[2021-08-21] MEDS: amLODIPine 5 MG TAB PO SCH (08:22)
[2021-08-21] MEDS: DULoxetine 30MG CAPSULE (CYMBALTA) PO SCH (08:31)
[2021-08-21] MEDS: guaiFENesin ER 600 MG TAB PO SCH (08:31)
[2021-08-21] MEDS: PANTOPRAZOLE 40MG TAB (PROTONIX) PO SCH (08:31)
[2021-08-21] MEDS: LACTOBACILLUS ACIDOPHILUS CAP (BACID) PO SCH (08:31)
[2021-08-21] MEDS: APIXABAN 2.5 MG TAB (ELIQUIS) PO SCH (08:31)
[2021-08-21] MEDS: VITAMIN D 1,000 INTERNATIONAL UNITS TABLET PO SCH (08:31)
[2021-08-21] MEDS: LIDOCAINE 5% (LIDODERM) PATCH TD SCH (08:32)
[2021-08-21] MEDS ORDERED: METO1TAB32 PO (09:40)
[2021-08-21] MEDS ORDERED: ELIQ2.5T PO (09:40)
[2021-08-21] MEDS ORDERED: CYMB1CAP5 PO (09:40)
[2021-08-21] MEDS ORDERED: COLA100C5 PO (09:40)
[2021-08-21] MEDS ORDERED: BACL10TA2 PO (09:40)
[2021-08-21] MEDS ORDERED: GABA-1171 PO (09:40)
[2021-08-21] MEDS ORDERED: TRAM50TA2 PO (09:40)
[2021-08-21 10:58] VITALS: BP 110/66
--- NOTE | 2021-08-21 14:18 | DS.PDOC ---
Discharge Summary General Date of Admission Aug 10, 2021 at 13:01 Date of Discharge Aug 21, 2021 Specialist/Consultants [facility], Dr. Whitt Discharge Summary PROCEDURES PERFORMED DURING STAY: IVC filter placed on August 13, [address] Myers ADMITTING DIAGNOSES: 1. Acute hypoxic respiratory failure in the setting of multifocal pneumonia and sepsis 2. Recent hemorrhagic stroke with residual left-sided weakness 3. Provoked bilateral PE and left popliteal vein DVT 4. Hypertension 5. GERD 6. Insomnia 7. Back spasms 8. Sepsis with end organ damage 9. Obesity DISCHARGE DIAGNOSES: 1. Acute hypoxic respiratory failure in the setting of multifocal pneumonia and sepsis 2. Recent hemorrhagic stroke with residual left-sided weakness 3. Provoked bilateral PE and left popliteal vein DVT 4. Hypertension 5. GERD 6. Insomnia 7. Back spasms 8. Sepsis with end organ damage 9. Obesity COMPLICATIONS/CHIEF COMPLAINT: Pneumonia. HISTORY OF PRESENT ILLNESS: Mrs. Pickens is a 66-year-old female with hypertension and recent hemorrhagic stroke with left-sided residual weakness who presents here with pleuritic chest pain and hypoxia. She tells me that about 6 weeks ago she was hospitalized for hemorrhagic stroke in [place]. She went to [facility] in [place] and afterwards went to rehab. She flew back to here about a week ago. She is doing okay until yesterday afternoon she had left posterior upper back pain and then shortness of breath. The shortness of breath is worse with activity and deep breathing. She came into the ED today for robin luation. While here she had a temperature of 101.2 and tachycardia 113. Blood pressure was stable at 145/74. She was hypoxic at 89%. Lab work-up was significant for WBC of 15.2 and a procalcitonin level of 0.27. Chest x-ray demonstrated pneumonia. When I spoke with her, she could not complete her sentences without taking a breath. She appeared to have mild respiratory distress. She told me she was feeling better with a nasal cannula in place. Denies any chest pain, abdominal pain, diarrhea, or dysuria. Still has pleuritic chest pain worse with deep breath. Still has residual left-sided weakness in the upper extremity and lower extremity. Patient be admitted for hypoxia secondary to multifocal pneumonia. HOSPITAL COURSE: After admission, patient developed a low blood pressure (BP 78/38, HR 61) with lightheadedness. Patient was given 30 mg milligrams of fluids and antibiotics. Patient was transferred to the PCU. Patient was requiring increasing amounts of oxygen. With fluids, antibiotics, and treatment for PE, patient stabilized and was able to return to [facility]. At the beginning of admission, patient had a CT angio chest, but initial CT angio chest was inconclusive for PE. Radiologist had recommended a repeat CT angio chest 24 hours later. Suspicion for PE was high due to recent flight, long hospitalization, pleuritic chest pain, and tachycardia. Repeat CT angio chest demonstrated nonocclusive emboli. There is no evidence of right heart strain. Ultrasound of lower extremities were obtained which demonstrated left leg DVT. Neurology was consulted due to patient recent ICH. They had recommended Eliquis 2.5 mg twice daily and inferior vena cava filter placement. They had also recommended keeping patient's blood pressure below 130/80 Otherwise, patient did well during hospitalization. Patient's elevated procalcitonin and leukocytosis both resolved. Patient completed about 9 days of antibiotics. Patient was also able to wean off of oxygen. Patient worked with PT and OT who recommended rehab. Patient was accepted into ARU today. This morning, patient was feeling well. She was off of oxygen. Patient was discharged to ARU today. DISCHARGE MEDICATIONS: Please see below. ALLERGIES: Please see below. PHYSICAL EXAMINATION ON DISCHARGE: VITAL SIGNS: Please see below. GENERAL: Comfortable, in no apparent distress. HEENT: EOMI, sclera clear. NECK: Supple. RESPIRATORY: Lungs clear to auscultation bilaterally, no rales, wheeze or rhonc hi. CARDIOVASCULAR: Regular rate and rhythm. ABDOMEN: Soft, nontender, no guarding or rebound tenderness. Normal bowel sounds. MUSCLE SKELETAL: Residual left sided weakness. NEUROLOGICAL: CN 312 grossly intact. PSYCHOLOGICAL: Normal mood and affect LABORATORY DATA: Please see below. IMAGING: Radiologist interpretation CT angio chest 1. Small right pleural effusion increased in size in comparison the prior study. Minimal left effusion. 2. There is no aortic dissection or aneurysm. 3. Small bilateral nonocclusive pulmonary emboli as described above. Findings unchanged comparison to the prior study. Ultrasound lower extremities bilaterally Partially occluded left popliteal vein with thrombus. No extension into the femoral vein or thigh. Calf veins are not imaged. No deep venous thrombosis within the right lower extremity venous system CT head without contrast 1. Periventricular lucency on the right consistent with an age indeterminate infarct. Prior study not available for comparison. Comparison with prior examination suggested when available. 2. No acute findings. 3. 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 MRI brain Findings consistent with a mid to late subacute hemorrhagic infarct in the right external capsule subinsular region as described above. Finding likely hypertensive in etiology. PROGNOSIS: Good ACTIVITY: As tolerated. DIET: As tolerated DISCHARGE PLAN: ARU DISPOSITION: 62 D/T Rehab Facility. DISCHARGE INSTRUCTIONS: 1. Once discharged from ARU, follow-up with PCP within 1 week. 2. Once discharged from area, also follow-up with neurology within 1 week 3. Maintain blood pressure below 130/80 ITEMS TO FOLLOWUP ON ON OUTPATIENT: 1. Blood pressure 2. Due to provoked PE, patient will need at least 3 months of anticoagulation. Monitor for signs of bleeding and worsening ICH. DISCHARGE CONDITION: Stable. Total time spent discharge planning, discharge summary, medication reconciliation: 40 minutes Vital Signs/I&Os Vital Signs Date Time Temp Pulse Resp B/P (MAP) Pulse Ox O2 Delivery O2 Flow Rate FiO2 08/21/21 10:58 110/66 (81) 08/21/21 08:22 76 08/21/21 06:00 97.9 18 93 Room Air 08/19/21 14:00 1.0 I&O- Last 24 Hours up to 6 AM 08/21/21 06:00 Intake Total 580 ml Output Total 0 ml Balance 580 ml Laboratory Data Labs 24H Laboratory Tests 2 08/21/21 05:47: Nucleated Red Blood Cells % (auto) 0.0, Anion Gap 6L, Glomerular Filtration Rate > 60.0, Calcium Level 8.4L CBC/BMP Laboratory Tests 08/21/21 05:47 Discharge Medications Scheduled Apixaban (Eliquis) 2.5 Mg Tablet, 2.5 MG PO BID Cholecalciferol (Vitamin D3) (Vitamin D3) 1,000 Unit Tablet, 1,000 UNITS PO DAILY, (Reported) Docusate Sodium (Colace) 100 Mg Capsule, 100 MG PO BID Duloxetine Hcl (Cymbalta) 30 Mg Capsule.dr, 30 MG PO DAILY Gabapentin (Gabapentin) 100 Mg Capsule, 100 MG PO TID Melatonin (Melatonin) 3 Mg Tab.rapdis, 3 MG PO QHS, (Reported) Metoprolol Succinate (Metoprolol Succinate) 25 Mg Tab.er.24h, 25 MG PO DAILY Mirtazapine (Mirtazapine) 7.5 Mg Tablet, 7.5 MG PO QHS, (Reported) Pantoprazole Sodium (Pantoprazole Sodium) 40 Mg Tablet.dr, 40 MG PO BID, (Reported) Tamsulosin Hcl (Tamsulosin HCl) 0.4 Mg Capsule, 0.4 MG PO DAILY, (Reported) Valsartan (Valsartan) 160 Mg Tablet, 160 MG PO DAILY, (Reported) Scheduled PRN Baclofen (Baclofen) 10 Mg Tablet, 5 MG PO Q6HP PRN for muscle spasms Tramadol HCl (Tramadol HCl) 50 Mg Tablet, 50 MG PO Q6HP PRN for MODERATE PAIN (PS 5-7) Allergies Coded Allergies: No Known Allergies (Unverified , 04/23/21) ROBERT ACKERMAN DO Aug 21, 2021 14:18
== END 2021-08-21 11:47 | DRG 871 ==
LOC: M ED 08:08 → M ED INP 13:01 → M MSPAV 14:32 → M PCU 08-11 19:44 → M MSPAV 08-17 18:17
PROVIDERS: ADMIT Internal Medicine; ATTEND Internal Medicine
PROC: 06H03DZ Insertion of Intraluminal Device into Inferior Vena Cava, Percutaneous Approach (ICD-10-PCS; principal; 2021-08-13 15:00)
DX: A41.9 Sepsis, unspecified organism (principal); J18.9 Pneumonia, unspecified organism; I26.99 Other pulmonary embolism without acute cor pulmonale; J96.01 Acute respiratory failure with hypoxia; I82.432 Acute embolism and thrombosis of left popliteal vein; I69.154 Hemiplegia and hemiparesis following nontraumatic intracerebral hemorrhage affecting left non-dominant side; N17.9 Acute kidney failure, unspecified; Z68.41 Body mass index [BMI] 40.0-44.9, adult; E66.9 Obesity, unspecified; K21.9 Gastro-esophageal reflux disease without esophagitis; I10 Essential (primary) hypertension; G47.00 Insomnia, unspecified; Z79.899 Other long term (current) drug therapy; K57.30 Diverticulosis of large intestine without perforation or abscess without bleeding; Z87.891 Personal history of nicotine dependence

== ENCOUNTER 2021-08-21 11:55 | Inpatient (IN) | payer MEDICARE ==
[~2021-08-21] VITALS: Ht 162.6 cm; Wt 91.7 kg
[~2021-08-21 11:55] MED LIST changes: +BACL10TA2 PO; +COLA100C5 PO; +CYMB1CAP5 PO; +ELIQ2.5T PO; +GABA-1171 PO; +MELA3TAB24 PO; +METO1TAB32 PO; +MIRT1TAB PO; +TAMS1CAP17 PO; +TRAM50TA2 PO; +VALS1TAB67 PO
[2021-08-21 12:00] VITALS: BP 124/70
--- OUTSIDE RECORDS SUMMARY | 2021-08-21 12:04 | CCD | Continuity of Care Document ---
Author Author Carey DIETRICH M.D. Organization Unknown Address [address] [place] [address] Phone [phone] Care Team Providers Care Videotape Editor Name Role Phone [facility] PRenaeCRenae AUTM [facility] Gastro - Gastroenterology AUTM [facility] Neurology - Neurology AUTM Problems Active Problems Provider Date Ye's esophagus PleBhavya owen, LOCOMOTIVE CRANE OPERATOR Onset: 08/20/2020 Gastroesophageal reflux disease PleConchis oweny, LOCOMOTIVE CRANE OPERATOR Onset: 08/20/2020 Degenerative joint disease involving multiple joints Pleskac hConchisy, LOCOMOTIVE CRANE OPERATOR Onset: 08/20/2020 Old myocardial infarction PleConchis oweny, LOCOMOTIVE CRANE OPERATOR Onset: 2019 Essential hypertension PleskConchis ureñay, LOCOMOTIVE CRANE OPERATOR Onset: 0 Fibromyalgia Pleskach, Bhavya, LOCOMOTIVE CRANE OPERATOR Onset: 08/20/2020 Social History Type Date [...] Caps Part 1 by mouth every day 90caps Bhavya Hopper [facility] 05/22/2021 Pantoprazole Sodium 40mg Tablets D R take one tablet by mouth daily 90tabs Bhavya Hopper, LOCOMOTIVE CRANE OPERATOR 0 Baclofen 10mg Tablets take 1 tablet by mouth every 6 hours as needed for muscle spasm 180tabs P Bhavya sena, LOCOMOTIVE CRANE OPERATOR Gabapentin 100mg Capsules take 1 capsules by by mouth up to three times a day as needed for back pain 360caps Bhavya Hopper, LOCOMOTIVE CRANE OPERATOR Tamsulosin HCL 0.4mg Capsules take one capsule by mouth every day 90caps Bhavya Hopper LOCOMOTIVE CRANE OPERATOR Valsartan 160mg Tablets take one tablet by mouth every day for blood pressure 90tabs Kashif Hopper, LOCOMOTIVE CRANE OPERATOR Melatonin 3mg Capsules 1 t ab at bedtime Unknown Mirtazapine 7.5mg Tablets 1 tab by mouth every night at bedtime 90tabs Bhavya Hopper, LOCOMOTIVE CRANE OPERATOR 00 Metoprolol Tartrate 25mg Tablets take one tablet by mouth daily 90tabs Bhavya Hopper FNP History Medications Atacand 8mg Tablets take one tablet by mouth every day in the morning for blood pressure 90tabs Bhavya Hopper FNP 05/22/2021 - 08/04/2021 Immunizations CPT Code Status Date Vaccine Lot # [id number] Given 01/22/2021 Moderna Sars-(Co vid-19) vaccine, mRNA, LNP-S, PF, 100 mcg/ 0.5 mL [id number] Given 12/25/2020 Moderna Sars-(Co vid-19) vaccine, mRNA, LNP-S, PF, 100 mcg/ 0.5 mL [id number] Given 11/08/2020 Boostrix (Tdap) Tetnus, Diphtheria Toxoids [...] Flow Rate 326 Estimated Peak Flow Rate [place] Body Weight 115 lb BMI (Body Mass [...] Flow Rate 327 Estimated Peak Flow Rate [place] Body Weight 115 lb BMI (Body Mass Index) 36.5 kg/m2 Results Test Acquired Date Facility Test Result H/L Range Note CBC With Differential 08/10/2021 Patient Service [place], [place] [id number] [phone] White Blood Count 15.2 10 High 4.0-10.0 Red Blood Count 5.14 10 Normal 4.00-5.40 Hemoglobin 14.1 g/dL Normal 12.0-15.5 Hematocrit 42.5 % Normal 36.0-47.0 Mean Corpuscular Volume 82.7 fl Normal 80.0-96.0 Mean Corpuscular Hemoglobin 27.4 pg Normal 27.0-33.0 Mean Corpuscular HGB Conc 33.2 g/dL Normal 32.0-36.5 Red Cell Distribution Width 13.3 % Normal 11.5-14.5 Platelet Count, Automated 214 10 Normal 150-450 Neutrophils % 82.9 % High 36.0-66.0 Lymph % 7.0 % Low 24.0-44.0 [place] % 9.3 % High 2.0-8.0 Eos % 0.1 % Normal 0.0-3.0 Baso % 0.3 % Normal 0.0-1.0 Immature Granulocyte % 0.4 % Normal 0-3.0 Nucleated Red Blood Cell % 0.0 % Normal 0-0 Neutrophils # 12.6 10 High 1.5-8.5 Lymph # 1.1 10 Low 1.5-5.0 [place] # 1.4 10 High 0.0-0.8 Eos # 0.0 10 Normal 0.0-0.5 Baso # 0.0 10 Normal 0.0-0.2 Laboratory test finding 08/10/2021 [place] [address] [phone] Lactic Acid Sepsis Protocol 1.0 mmol/L Normal 0.4- 2.0 1 Cardiac Marker Panel 08/10/[address] [place] [address] [phone] CPK Creatine Phosphokinase 124 U/L Normal 26-19 2 CK-MB Value Mass < 1.0 NG/ML Normal <3.6 MB/CK Relative Index 0.81 Normal < Or =4 2 Troponin I < 0.02 NG/ML Normal < 0.10 3 Liver Profile 08/10/2021 Patient Service [facility] [place] [address] [phone] Ast/Sgot 38 U/L High 7-37 Alt/SGPT 57 U/L Normal 12-78 Alkaline Phosphatase 135 U/L High 45-117 Bilirubin,Total 0.9 mg/dL Normal 0.2-1.0 Bilirubin,Direct 0.3 mg/dL High 0.0-0.2 Total Protein 7.0 GM/DL Normal 6.4-8.2 Albumin 3.0 GM/DL Low 3.2-5.2 Albumin/Globulin Ratio 0.8 Low 1.2-2.2 Basic Metabolic Profile 08/10/2021 Patient Service [place] [id number] [phone] Glucose, Fasting 141 mg/dL High 70-100 Blood Urea Nitrogen 14 mg/dL Normal 7-18 Creatinine For GFR 0.87 mg/dL Normal 0.55-1.30 Glomerular Filtration Rate > 60.0 Normal >45 4 Sodium Level 136 mEq/L Normal 136-145 Potassium Serum 4.4 mEq/L Normal 3.5-5.1 Chloride Level 101 mEq/L Normal 98-107 Carbon Dioxide Level 26 mEq/L Normal 21-32 Anion Gap 9 mEq/L Normal 8-16 Calcium Level 9.0 mg/dL Normal 8.8-10.2 Laboratory test finding 08/10/2021 [place] [address] [phone] NT-Pro BNP 175 pg/mL High <125 Thyroid Stimulating Hormone 1.190 uIU/ML Normal 0.358-3.740 Procalcitonin 0.27 Normal 5 Respiratory Panel 08/10/2021 [place] [address] [phone] Respiratory Panel This respiratory <SEE NOTE> 6 Coronavirus 2019 Nasopharygeal 04/30/2021 [place] [address] [phone] Coronavirus 2019 Nasopharygeal ASSAY INFORMATIO <SEE N OTE> 7 1 Y/N query for Sepsis Lactate Rule: Y 2 DIAGNOSIS CRITERIA MMB ng/ml Relative Index (RI) NON-AMI < or = 5 N/A GOLD ZONE > 5 < or = 4 AMI > 5 > 4 3 Troponin I Reference Interva l for [employer] [place] LOCI: 99th Percentile= 0.00-0.045 ng/ml Risk Stratification: <= 0.10 ng/ml Decreased Risk for Adverse Clinical Events. 0.10-1.50 ng/ml Increased Risk for Adv erse Clinical Events. Evaluation of additional criterion and/or repeat testing in 2-6 hours is suggested to rule out myocardial damage. >= 1.50 ng/ml Indicative of Myocardial Injury. 4 Units are mL/min/1.73 m2 Chronic Kidney Disease Staging per NKF: Stage I & II GFR >=60 Normal to Mildly Decreased Stage III GFR 30-59 Moderately Decreased Stage IV GFR 15-29 Severely Decreased Stage V GFR <15 Very Little GFR Left ESRD GFR <15 on SECURITIES COUNSELOR 5 SEPSIS INTERPRETATION OF RES ULTS <0.5 ng/ml Low risk for progression to severe sepsis and or septic shock. 0.50-2.00 ng/ml Sepsis should be consid ered. >2.00 ng/ml High risk for progression to severe sepsis and or septic shock. LOWER RESPIRATORY TRACT INFECTION REFERENCE INTERVAL <0.1 ng/ml Antibiotics strongly discouraged. 0.1-0.25 ng/ml Antibiotics are disc ouraged. 0.26-0.5 ng/ml Antibiotics are enco uraged. >0.5 ng/ml Antibiotics are strongly encouraged. 6 This respiratory PCR panel d etects Influenza A H1, H3 and 2009 H1 viruses, Influenza B virus, Resp iratory Syncytial Virus, Human metapneumovirus, Parainfluenza virus 1, 2, 3 and 4, Adenovirus, Rhinovirus/Enterovirus, Coronavirus HKU1, NL63, OC43, 229E and SARS-CoV-2 (COVID 19), Bordetella pertussis, Bordetella parapertussis, Mycoplasma pneumoniae and Chlamydia pneumoniae. NEGATIVE by MULTIPLEXED NUCLEIC ACID PCR SARS-CoV-2 (COVID 19) NEGATIVE - SARS-CoV-2 (COVID19) 7 ASSAY INFORMATION: Real Time RT-PCR NOTE: The COVID-19 assay has been cleared by the U.S. Food and Drug Administration under the Emergency Use Authorization (EUA). [facility] and [employer] [facility] [employer] are designated as high complexity laboratories by the Clinical Laboratory Improvement Amendments of 1988(CLIA) and are qualified to perform this test. Not Detected Procedures Date Code Description Status 08/04/2021 40176 [place] Cre W/I 7 Days Of DC, Comm W/I 2 Dys Completed 05/22/2021 82440 Office/Outpatient Established Mo d MDM 30-39 Min [...] affecting left non-dominant side Bhavya Hopper FNP 08/04/2021 I10 Essential (primary) hypertension Bhavya Hopper FNP 08/04/2021 K21.9 Gastro-esophageal reflux disease without esophagitis Bhavya Hopper FNP 08/04/2021 M79.7 Fibromyalgia Pleskach, Bhavya, LOCOMOTIVE CRANE OPERATOR 08/04/2021 M15.0 Primary generalized (osteo)arthr itis Bhavya Hopper, LOCOMOTIVE CRANE OPERATOR 08/04/2021 E55.9 Vitamin D deficiency, unspecifie d Bhavya Hopper, LOCOMOTIVE CRANE OPERATOR 05/22/2021 M54.5 Low back pain Bhavya Hopper, LOCOMOTIVE CRANE OPERATOR 05/22/2021 M41.9 Scoliosis, unspecified Bhavya Hopper, LOCOMOTIVE CRANE OPERATOR 05/22/2021 I10 Essential (primary) hypertension Bhavya [...] to Reason for Referral Status Appt Date [facility] Neurology Patient need urgent appt, s/p stroke . Thank you. Scheduled 09/23/[address] [place] [id number] [phone]
--- OUTSIDE RECORDS SUMMARY | 2021-08-21 12:04 | CCD | Continuity of Care Document ---
Author Author Carey DIETRICH M.D. Organization Unknown Address [address] [place] [address] Phone [phone] Care Team Providers Care Instructor Nurse Name Role Phone [facility] PRenaeCRenae AUTM [facility] Gastro - Gastroenterology AUTM [phone] [facility] Neurology - Neurology AUTM [phone] Problems Active Problems Provider Date Ye's esophagus PleBhavya owen, CHECK OUT CASHIER Onset: 08/20/2020 Gastroesophageal reflux disease PleConchis oweny, CHECK OUT CASHIER Onset: 08/20/2020 Degenerative joint disease involving multiple joints Pleskac hConchisy, CHECK OUT CASHIER Onset: 08/20/2020 Old myocardial infarction PleConchis oweny, CHECK OUT CASHIER Onset: 2019 Essential hypertension PleskConchis ureñay, CHECK OUT CASHIER Onset: 0 Fibromyalgia Pleskach, Bhavya, CHECK OUT CASHIER Onset: 08/20/2020 Social History Type Date Description [...] by mouth every day 90caps Bhavya Hopper [facility] 05/22/2021 Pantoprazole Sodium 40mg Tablets D R take one tablet by mouth daily 90tabs Bhavya Hopper, CHECK OUT CASHIER 0 Baclofen 10mg Tablets take 1 tablet by mouth every 6 hours as needed for muscle spasm 180tabs P Bhavya sena, CHECK OUT CASHIER Gabapentin 100mg Capsules take 1 capsules by by mouth up to three times a day as needed for back pain 360caps Bhavya Hopper, CHECK OUT CASHIER Tamsulosin HCL 0.4mg Capsules take one capsule by mouth every day 90caps Bhavya Hopper CHECK OUT CASHIER Valsartan 160mg Tablets take one tablet by mouth every day for blood pressure 90tabs Kashif Hopper, CHECK OUT CASHIER Melatonin 3mg Capsules 1 t ab at bedtime Unknown Mirtazapine 7.5mg Tablets 1 tab by mouth every night at bedtime 90tabs Bhavya Hopper, CHECK OUT CASHIER 00 Metoprolol Tartrate 25mg Tablets take one tablet by mouth daily 90tabs Bhavya Hopper FNP History Medications Atacand 8mg Tablets take one tablet by mouth every day in the morning for blood pressure 90tabs Bhavya Hopper FNP 05/22/2021 - 08/04/2021 Immunizations CPT Code Status Date Vaccine Lot # [id number] Given 01/22/2021 Moderna Sars-(Co vid-19) vaccine, mRNA, LNP-S, PF, 100 mcg/ 0.5 mL 07007 Given 12/25/2020 Moderna Sars-(Co vid-19) vaccine, mRNA, LNP-S, PF, 100 mcg/ 0.5 mL 16751 Given 11/08/2020 Boostrix (Tdap) Tetnus, Diphtheria Toxoids [...] Flow Rate 326 Estimated Peak Flow Rate [place] Body Weight 115 lb BMI (Body Mass [...] Flow Rate 327 Estimated Peak Flow Rate [place] Body Weight 115 lb BMI (Body Mass Index) 36.5 kg/m2 Results Test Acquired Date Facility Test Result H/L Range Note CBC With Differential 08/10/2021 Patient Service [place], [place] [id number] [phone] White Blood Count 15.2 10 High 4.0-10.0 [...] 36.0-66.0 Lymph % 7.0 % Low 24.0-44.0 [place] % 9.3 % High 2.0-8.0 Eos % 0.1 % Normal 0.0-3.0 Baso % 0.3 % Normal 0.0-1.0 Immature Granulocyte % 0.4 % Normal 0-3.0 Nucleated Red Blood Cell % 0.0 % Normal 0-0 Neutrophils # 12.6 10 High 1.5-8.5 Lymph # 1.1 10 Low 1.5-5.0 [place] # 1.4 10 High 0.0-0.8 Eos # 0.0 10 Normal 0.0-0.5 Baso # 0.0 10 Normal 0.0-0.2 Laboratory test finding 08/10/2021 [place] [address] [phone] Lactic Acid Sepsis Protocol 1.0 mmol/L Normal 0.4- 2.0 1 Cardiac Marker Panel 08/10/[address] [place] [address] [phone] CPK Creatine Phosphokinase 124 U/L Normal 26-19 2 CK-MB Value Mass < 1.0 NG/ML Normal <3.6 MB/CK Relative Index 0.81 Normal < Or =4 2 Troponin I < 0.02 NG/ML Normal < 0.10 3 Liver Profile 08/10/[address] [place] [address] [phone] Ast/Sgot 38 U/L High 7-37 Alt/SGPT 57 U/L Normal 12-78 Alkaline Phosphatase 135 U/L High 45-117 Bilirubin,Total 0.9 mg/dL Normal 0.2-1.0 Bilirubin,Direct 0.3 mg/dL High 0.0-0.2 Total Protein 7.0 GM/DL Normal 6.4-8.2 Albumin 3.0 GM/DL Low 3.2-5.2 Albumin/Globulin Ratio 0.8 Low 1.2-2.2 Basic Metabolic Profile 08/10/2021 Patient Service [place] [id number] [phone] Glucose, Fasting 141 mg/dL High 70-100 Blood [...] 8.8-10.2 Laboratory test finding 08/10/2021 [place] [address] [phone] NT-Pro BNP 175 pg/mL High <125 Thyroid Stimulating Hormone 1.190 uIU/ML Normal 0.358-3.740 Procalcitonin 0.27 Normal 5 Respiratory Panel 08/10/2021 [place] [address] [phone] Respiratory Panel This respiratory <SEE NOTE> 6 Coronavirus 2019 Nasopharygeal 04/30/2021 [place] [address] [phone] Coronavirus 2019 Nasopharygeal ASSAY INFORMATIO <SEE N OTE> 7 1 Y/N query for Sepsis Lactate Rule: Y 2 DIAGNOSIS CRITERIA MMB ng/ml Relative Index (RI) NON-AMI < or = 5 N/A GOLD ZONE > 5 < or = 4 AMI > 5 > 4 3 Troponin I Reference Interva l for Siemens [place] LOCI: 99th Percentile= 0.00-0.045 ng/ml Risk Stratification: [...] Little GFR Left ESRD GFR <15 on BOTANICAL TECHNICAL OFFICER 5 SEPSIS INTERPRETATION OF RES ULTS <0.5 [...] Administration under the Emergency Use Authorization (EUA). [facility] and [facility] are designated as high complexity laboratories by the Clinical Laboratory Improvement Amendments of 1988(CLIA) and are qualified to perform this test. Not Detected Procedures Date Code Description Status 08/04/2021 15400 [place] Cre W/I 7 Days Of DC, Comm W/I 2 Dys Completed 05/22/2021 17107 Office/Outpatient Established Mo d MDM 30-39 Min [...] Hopper FNP 08/04/2021 M79.7 Fibromyalgia Pleskach, Bhavya, CHECK OUT CASHIER 08/04/2021 M15.0 Primary generalized (osteo)arthr itis Bhavya Hopper, CHECK OUT CASHIER 08/04/2021 E55.9 Vitamin D deficiency, unspecifie d Bhavya Hopper, CHECK OUT CASHIER 05/22/2021 M54.5 Low back pain Bhavya Hopper, CHECK OUT CASHIER 05/22/2021 M41.9 Scoliosis, unspecified Bhavya Hopper, CHECK OUT CASHIER 05/22/2021 I10 Essential (primary) hypertension Bhavya Hopper [...] to Reason for Referral Status Appt Date [facility] Neurology Patient need urgent appt, s/p stroke . Thank you. Scheduled 09/23/[address] [place] [id number] [phone]
--- OUTSIDE RECORDS SUMMARY | 2021-08-21 12:05 | CCD ---
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 Firmware Engineer Name Role Phone Ayla ROSARIO MD [...] Hien RPA C Unavailable Unavailable Pleskach, Bhavya SHINGLE CARRIER Unavailable Unavailable Pleskach, Bhavya SHINGLE CARRIER Unavailable Unavailable Pleskach, Bhavya SHINGLE CARRIER Unavailable Unavailable Pleskach, Bhavya SHINGLE CARRIER Unavailable Unavailable Pleskach, Bhavya SHINGLE CARRIER Unavailable Unavailable Pleskach, Bhavya SHINGLE CARRIER Unavailable Unavailable Pleskach, Bhavya SHINGLE CARRIER Unavailable Unavailable Pleskach, Bhavya SHINGLE CARRIER Unavailable Unavailable Pleskach, Bhavya SHINGLE CARRIER Unavailable Unavailable Pleskach, Bhavya SHINGLE CARRIER Unavailable Unavailable Pleskach, Bhavya SHINGLE CARRIER Unavailable Unavailable Pleskach, Bhavya SHINGLE CARRIER Unavailable Unavailable Pleskach, Bhavya SHINGLE CARRIER Unavailable Unavailable Pleskach, Bhavya SHINGLE CARRIER Unavailable Unavailable Pleskach, Bhavya SHINGLE CARRIER Unavailable Unavailable Pleskach, Bhavya SHINGLE CARRIER Unavailable Unavailable Pleskach, Bhavya SHINGLE CARRIER Unavailable Unavailable Pleskach, Bhavya SHINGLE CARRIER Unavailable Unavailable Pleskach, Bhavya SHINGLE CARRIER Unavailable Unavailable Pleskach, Bhavya SHINGLE CARRIER Unavailable Unavailable Pleskach, Bhavya SHINGLE CARRIER Unavailable Unavailable Pleskach, Bhavya SHINGLE CARRIER Unavailable Unavailable Pleskach, Bhavya SHINGLE CARRIER Unavailable Unavailable Pleskach, Bhavya SHINGLE CARRIER Unavailable Unavailable Pleskach, Bhavya SHINGLE CARRIER Unavailable Unavailable Pleskach, Bhavya SHINGLE CARRIER Unavailable Unavailable Pleskach, Bhavya SHINGLE CARRIER Unavailable Unavailable Pleskach, Bhavya SHINGLE CARRIER Unavailable Unavailable Pleskach, Bhavya SHINGLE CARRIER Unavailable Unavailable Pleskach, Bhavya SHINGLE CARRIER Unavailable Unavailable Pleskach, Bhavya SHINGLE CARRIER Unavailable Unavailable Pleskach, Bhavya SHINGLE CARRIER Unavailable Unavailable Pleskach, Bhavya SHINGLE CARRIER Unavailable Unavailable Pleskach, Bhavya SHINGLE CARRIER Unavailable Unavailable Pleskach, Bhavya SHINGLE CARRIER Unavailable Unavailable Pleskach, Bhavya SHINGLE CARRIER Unavailable Unavailable Pleskach, Bhavya SHINGLE CARRIER Unavailable Unavailable Pleskach, Bhavya SHINGLE CARRIER Unavailable Unavailable Pleskach, Bhavya SHINGLE CARRIER Unavailable Unavailable Pleskach, Bhavya SHINGLE CARRIER Unavailable Unavailable Pleskach, Bhavya SHINGLE CARRIER Unavailable Unavailable Pleskach, Bhavya SHINGLE CARRIER Unavailable Unavailable Pleskach, Bhavya SHINGLE CARRIER Unavailable Unavailable Pleskach, Bhavya SHINGLE CARRIER Unavailable Unavailable Kiara Hanna MD Unavailable Unavailable [...] Unavailable Unavailable Kiara Hanna MD Unavailable Unavailable SleKiara recinos MD Unavailable Unavailable SleKiara recinos MD Unavailable Unavailable Kiara Hanna MD Unavailable [...] Unavailable Unavailable Kiara Hanna MD Unavailable Unavailable Re-disclosure Warning The records that [...] is protected by Article 27-F of the [facility] Public Health law. If you continue you may have access to information: Regarding HIV / AIDS; Provided by facilities licensed or operated by the [facility] Office of Mental Health; or Provided by the [facility] Office for People With Developmental Disabilities. If such information is present, then the following [facility] mandated warning applies: This information has [...] law may result in a fine or usp sentence or both. A general authorization for the release of medical or other information is NOT sufficient authorization for further disc losure. Encounters Encounter Providers Location Date Indications Data Source(s ) Outpatient Attender: Bhavya Hopper [facility] Main Office 08/04/2021 1 0:30:00 AM EDT [facility] ([facility] Outpatient Attender: JULI Martinez/Kalia/Tim/ Reinguido 05/27/2021 02:00:00 PM EDT [facility] ([facility] Outpatient Attender: Bhavya Hopper [facility] Main Office 05/22/2021 1 1:00:00 AM EDT [facility] ([facility] Outpatient Attender: Hien Martinez/Kalia/A ngel/Reindl 03/24/2021 09:30:00 AM EDT [facility] ([facility]) Outpatient Attender: Bhavya Hopper [facility] Main Office 01/27/2021 1 0:15:00 AM EDT [facility] ([facility] Outpatient Attender: Kiara Hanna MDReferrer: Kashif puri Ruchi [facility] [email or web address] 11/12/2020 12:00:00 AM EST - 11/12/2020 04:34:14 PM EST [facility] Outpatient Attender: Bhavya Hopper [facility] Main Office 11/11/2020 0 9:15:00 AM EST [facility] ([facility] Outpatient Attender: Bhavya Hopper [facility] Main Office 08/20/2020 0 8:15:00 AM EST [facility] ([facility] Immunizations Vaccine Date Status Description Data Source(s) Moderna Sars-(Covid-19) vaccine, mRNA, LNP-S, PF, 100 mcg/ 0.5 mL 01/22/2021 12:00:00 AM EDT completed [facility] ([facility] COVID-19 VACCINE Moderna 01/22/2021 12:00:00 AM EDT completed [facility] Vaccine Series Complete: NOThis Data was Submitted to [facility] Via ensembli. Moderna Sars-(Covid-19) vaccine, mRNA, LNP-S, PF, 100 mcg/ 0.5 mL 12/25/2020 09:23:00 AM EST completed [facility] ([facility] COVID-19 VACCINE Moderna 12/25/2020 12:00:00 AM EST completed [facility] Vaccine Series Complete: NOThis Data was Submitted to [facility] Via ensembli. Tdap 11/08/2020 08:53:00 AM EST completed [facility] ([facility] Medications Medication Brand Name Start Date Product Form Dose Route Admi nistrative Instructions Pharmacy Instructions Status Indications Reaction Description Data Source(s) 25 mg 08/08/2021 12:00:00 AM EDT tablet 90 TAKE ONE TABLET BY MOUTH EVERY DAY TAKE ONE TABLET BY MOUTH EVERY DAY SOLD: 08/13/2021 [facility] 100 mg 05/23/2021 12:00:00 AM EDT capsule 270 TAKE 1 CAPSULE BY MOUTH UP TO THREE TIMES A DAY NEEDED FOR BACK PAIN TAKE 1 CAPSULE BY MOUTH UP TO THREE TIMES A DAY NEEDED FOR BACK PAIN SOLD: 05/23/2021 [facility] 100 mg 05/23/2021 12:00:00 AM EDT capsule 270 TAKE 1 CAPSULE BY MOUTH UP TO THREE TIMES A DAY NEEDED FOR BACK PAIN TAKE 1 CAPSULE BY MOUTH UP TO THREE TIMES A DAY NEEDED FOR BACK PAIN SOLD: 08/13/2021 [facility] 10 mg 05/23/2021 12:00:00 AM EDT tablet 180 TAKE ONE TABLET BY MOUTH EVERY 6 HOURS NEEDED FOR MUSCLE SPASM TAKE ONE TABLET BY MOUTH EVERY 6 HOURS A S NEEDED FOR MUSCLE SPASM SOLD: 05/23/2021 [facility] candesartan cilexetil 8 MG Oral Tablet CANDESARTAN CILEXETIL 05/23/2021 12:00:00 AM EDT tablet 90 TAKE ONE TABLET BY MOUTH MARIA LUISA MORNING TAKE ONE TABLET BY MOUTH EVERY MORNING SOLD: 05/23/2021 [facility] candesartan cilexetil 8 MG Oral Tablet [...] BY MOUTH TWICE A DAY SOLD: 05/15/2021 [facility] 30 mg 05/15/2021 12:00:00 AM EDT capsule,delayed release (DR/EC) 90 TAKE ONE CAPSULE BY MOUTH EVERY DAY TAKE ONE CAPSULE BY MOUTH EVERY DAY SOLD: 05/15/2021 [facility] pantoprazole 40 MG Delayed Release Oral Tablet PANTOPRAZOLE SODIUM 05/15/2021 12:00:00 AM EDT tablet,delayed release (DR/EC) 180 T LACHELLE ONE TABLET BY MOUTH TWICE A DAY TAKE ONE TABLET BY MOUTH TWICE A DAY SOLD: 08/13/2021 [facility] POLYETHYLENE GLYCOL 3350 142 MG/ML Oral Solution [Miralax] M iralax 04/04/2021 12:00:00 AM EDT completed [facility] ([facility], ) 25 mg 03/31/2021 12:00:00 AM EDT tablet 90 TAKE ONE TABLET BY MOUTH EVERY DAY TAKE ONE TABLET BY MOUTH EVERY DAY SOLD: 04/01/2021 [facility] Bisacodyl 5 MG Delayed Release Oral Tablet [Dulcolax] Dulcol ax 03/24/2021 12:00:00 AM EDT ORAL completed [facility] ([facility], ) Suprep Bowel Prep Kit Suprep Bowel Prep Kit 03/24/2021 12:00:00 AM EDT completed [facility] ([facility], ) 50 mg 02/18/2021 12:00:00 AM EDT tablet 180 TAKE ONE TABLET BY MOUTH TWICE A DAY TAKE ONE TABLET BY MOUTH TWICE A DAY SOLD: 02/22/2021 [facility] 40 mg 02/18/2021 12:00:00 AM EDT tablet 90 TAKE ONE TABLET BY MOUTH EVERY MORNING TAKE ONE TABLET BY MOUTH EVERY MORNING SOLD: 02/22/2021 [facility] candesartan cilexetil 4 MG Oral Tablet CANDESARTAN CILEXETIL 02/12/2021 12:00:00 AM EDT tablet 90 TAKE ONE TABLET BY MOUTH MARIA LUISA RY MORNING FOR BLOOD PRESSURE TAKE ONE TABLET BY MOUTH EVERY MORNING FOR BLOOD PRESSURE SOLD: 02/17/2021 [facility] candesartan cilexetil 4 MG Oral Tablet CANDESARTAN CILEXETIL 02/12/2021 12:00:00 AM EDT tablet 90 TAKE ONE TABLET BY MOUTH MARIA LUISA RY MORNING FOR BLOOD PRESSURE TAKE ONE TABLET BY MOUTH EVERY MORNING FOR BLOOD PRESSURE SOLD: 08/13/2021 [facility] Allopurinol 100 MG Oral Tablet Allopurinol 01/27/2021 12:00:00 AM EDT ORAL completed [facility] ([facility] 875-125 mg 01/27/2021 12:00:00 AM EDT tablet 20 TAKE ONE TABLET BY MOUTH TWICE A DAY FOR 10 DAYS TAKE ONE TABLET BY MOUTH TWICE A DAY FOR 10 DAYS SOLD: 01/27/2021 [facility] Colchicine 0.6 MG Oral Tablet Colchicine 01/27/2021 12:00:00 AM EDT completed [facility] ([facility] pantoprazole 40 MG Delayed Release Oral Tablet PANTOPRAZOLE SODIUM 01/27/2021 12:00:00 AM EDT tablet,delayed release (DR/EC) 180 T LACHELLE ONE TABLET BY MOUTH TWICE A DAY TAKE ONE TABLET BY MOUTH TWICE A DAY SOLD: 01/27/2021 [facility] 100 mg 01/27/2021 12:00:00 AM EDT tablet 90 TAKE ONE TABLET BY MOUTH EVERY DAY TAKE ONE TABLET BY MOUTH EVERY DAY SOLD: 01/27/2021 [facility] Amoxicillin 875 MG / Clavulanate 125 MG Oral Tablet Am oxicillin/Clavulanate Potassium 01/27/2021 12:00:00 AM EDT ORAL completed [facility] ([facility] 0.6 mg 01/27/2021 12:00:00 AM EDT tablet 14 TAKE 2 TABLETS BY MOUTH NOW AND 1 TABLET IN AN HOUR THEN 1 TABLET TWO TIMES A DAY TAKE 2 TABLETS BY MOUTH NOW AND 1 TABLET IN AN HOUR THEN 1 TABLET TWO TIMES A DAY SOLD: 01/27/2021 [facility] 25 mg 12/02/2020 12:00:00 AM EST tablet 90 TAKE ONE TABLET BY MOUTH EVERY DAY TAKE ONE TABLET BY MOUTH EVERY DAY SOLD: 12/05/2020 [facility] 500 mg 11/28/2020 12:00:00 AM EST [...] ER 12.5 MG TABLETS DONE SOLD: 11/15/2020 [facility] 50 mg 11/13/2020 12:00:00 AM EST tablet 60 TAKE ONE TABLET BY MOUTH TWICE A DAY AFTER 12.5 MG TABLETS DONE TAKE ONE TABLET BY MOUTH TWICE A DAY AFT ER 12.5 MG TABLETS DONE SOLD: 01/22/2021 [facility] 50 mg 11/13/2020 12:00:00 AM EST tablet 60 TAKE ONE TABLET BY MOUTH TWICE A DAY AFTER 12.5 MG TABLETS DONE TAKE ONE TABLET BY MOUTH TWICE A DAY AFT ER 12.5 MG TABLETS DONE SOLD: 12/19/2020 [facility] 12.5 mg 11/12/2020 12:00:00 [...] 4 TWO TIMES A DAY SOLD: 11/13/2020 [facility] Milnacipran hydrochloride 50 MG Oral Tablet [Savella] Savell a 11/11/2020 12:00:00 AM EST active [facility] ([facility] 30 mg 11/11/2020 12:00:00 AM EST capsule,delayed release (DR/EC) 14 TAKE ONE CAPSULE BY MOUTH EVERY DAY TAKE ONE CAPSULE BY MOUTH EVERY DAY SOLD: 11/12/2020 [facility] Milnacipran hydrochloride 12.5 MG Oral Tablet [Savella] Save lla 11/11/2020 12:00:00 AM EST completed [facility] ([facility] duloxetine 30 MG Delayed Release Oral Capsule Duloxetine HCL 11/11/2020 12:00:00 AM EST ORAL active [facility] ([facility] 25 mg 09/25/2020 12:00:00 AM EST tablet 90 TAKE ONE TABLET BY MOUTH EVERY DAY TAKE ONE TABLET BY MOUTH EVERY DAY SOLD: 10/01/2020 [facility] Metoprolol Tartrate 25 MG Oral Tablet me toprolol tartrate (LOPRESSOR) 25 MG tablet metoprolol tartrate (LOPRESSOR) 25 MG tablet 09/25/2020 12:0 0:00 AM EST 25 mg Oral active Take 25 mg by mo uth daily [facility] pantoprazole 40 MG Delayed Release Oral Tablet PANTOPRAZOLE SODIUM 09/05/2020 12:00:00 AM EST tablet,delayed release (DR/EC) 90 T LACHELLE ONE TABLET BY MOUTH EVERY DAY TAKE ONE TABLET BY MOUTH EVERY DAY SOLD: 09/06/2020 [facility] pantoprazole 40 MG Delayed Release Oral Tablet pantoprazole (PROTONIX) 40 MG tablet pantoprazole (PROTONIX) 40 MG tablet 09/05/2020 12:00:00 AM EST 40 mg Oral active Take 40 mg by mouth daily [facility] duloxetine 60 MG Delayed Release Oral Ca psule DULoxetine (CYMBALTA) 60 MG capsule DULoxetine (CYMBALTA) 60 MG capsule 09/05/2020 12:00:00 AM EST 60 mg Oral active Take 60 mg by mouth daily [facility] pantoprazole 40 MG Delayed Release Oral Tablet [...] MOUTH EVERY MORNING FOR BLOOD PRESS URE [facility] 4 mg 08/22/2020 12:00:00 AM EST tablet [...] activ e Take 40 mg by mouth [facility] Insurance Providers Payer name Policy type / Coverage type Policy ID Covered republican ID Covered republican's relationship to [place] Policy [place] Plan Information [employer] [id number] xxxxxxxxxxxx [id number] [employer] LIF[employer]IME BENEFIT SOLU [id number] Christie [id number] [facility] [id number] 2 2 [id number] MEDICARE [id number] SP [id number] [facility] [id number] SP [id number] LIFETIME BENEFIT SOLUTIONS [id number] MEDICARE BLUE PPO [id number] SP [id number] [facility] [id number] [facility] 2 [id number] Problems, Conditions, and Diagnoses Code Display Name Description Problem Type Effective Dates Data Source(s) I51.81 Takotsubo syndrome Takotsubo syndrome Diagnosis 03:14:38 PM EST [facility] [id number] Essential hypertension Essential hypertension Problem 05/27/2021 12:00:00 AM [facility]ER [facility] ([facility], ) I51.81 Takotsubo syndrome Takotsubo syndrome [id number] 12:00:00 AM EST [facility] M79.7 Fibromyalgia Fibromyalgia Problem 08/20/2020 12:00:00 A [...] MINUTES 05/27/2021 12:00:00 A M EDT [facility] ([facility], ) OFFICE OUTPATIENT VISIT 25 MINUTES 05/22/2021 12:00:00 AM EDT [facility] ([facility] Endoscopy Upper GI Biopsy 05/05/2021 12:00:00 AM EDT [facility] ([facility]) Colonoscopy W/ Poly 05/05/2021 12:00:00 AM EDT [facility] ([facility]) OFFICE OUTPATIENT NEW 45 MINUTES 03/24/2021 12:00:00 A M EDT [facility] ([facility]) OFFICE OUTPATIENT VISIT 25 MINUTES 01/27/2021 12:00:00 AM EDT [facility] ([facility] ECG ROUTINE ECG W/LEAST 12 LDS W/I&R <td>POCT AMB EKG</td><td>Routine</td><td>11/12/2020 4:47 PM EST</td><td> Takotsubo syndrome</td><td> </td> 11/12/2020 09:47:00 PM EST Takotsubo syndrome [facility] Takotsubo syndrome OFFICE OUTPATIENT VISIT 25 MINUTES 11/11/2020 12:00:00 AM EST [facility] ([facility] Brief Emotional/Behav Assessment W/ Scoring Doc Per Standard Inst 08/20/2020 12:00:00 AM EST [facility] ([facility] Results ID Date Data Source [id number] 08/10/2021 09:00:00 AM EDT [facility] Name Value Range Interpretation Code Description Data Aisha rce(s) Supporting Document(s) SARS-CoV-2 (COVID 19) NEGATIVE - SARS-CoV-2 (COVID19) [facility] This lab was ordered by [facility] a nd reported by [facility]. ID Date Data Source [id number] 08/10/2021 09:00:00 AM EDT [facility] ([facility] Name Value Range Interpretation Code Description Data Aisha rce(s) Supporting Document(s) Respiratory Panel Laboratory test result [facility] ([facility] This respiratory PCR panel detects Influ nina A H1, H3 and 2009 H1 viruses, Influenza B virus, Resp iratory Syncytial Virus, Human metapneumovirus, Parainfluenza virus 1, 2, 3 and 4, Adenovirus, Rhinovirus/Enterovirus, Coronavirus HKU1, NL63, OC43, 229E and SARS-CoV-2 (COVID 19), Bordetella pertussis, Bordetella parapertussis, Mycoplasma pneumoniae and Chlamydia pneumoniae. NEGATIVE by MULTIPLEXED NUCLEIC ACID PCR SARS-CoV-2 (COVID 19) NEGATIVE - SARS-CoV-2 (COVID19) ID Date Data Source [id number] 08/10/2021 09:00:00 AM EDT [facility] ([facility] Name Value Range Interpretation Code Description Data Aisha rce(s) Supporting Document(s) Natriuretic peptide.B prohormone N-Terminal [Mass/volu me] in Serum or Plasma 175 pg/mL [facility] ([facility] Thyrotropin [Units/volume] in Serum or Plasma 1.190 uIU/ML 0.358-3.74 0 [facility] ([facility] Procalcitonin [Mass/volume] in Serum or Plasma 0.27 [facility] ([facility] <content>SEPSIS INTERPRETATION OF RESULT S</content>
<content><0.5 ng/ml Low risk for progression to severe</content>
<content>sepsis and or septic shock.</content>
<content>0.50-2.00 ng/ml Sepsis should be considered.</content>
<content>>2.00 ng/ml High risk for progression to severe</content>
<content>sepsis and or septic shock.</content>
<content></content>
<content>LOWER RESPIRATORY TRACT INFECTION REFERENCE INTERVAL</content>
<content><0.1 ng/ml Antibiotics strongly discouraged.</content>
<content>0.1-0.25 ng/ml Antibiotics are discouraged.</content>
<content>0.26-0.5 ng/ml Antibiotics are encouraged.</content>
<content>>0.5 ng/ml Antibiotics are strongly encouraged.</content>
<content></content> ID Date Data Source [id number] 08/10/2021 09:00:00 AM EDT [facility] ([facility] Name Value Range Interpretation Code Description Data Aisha rce(s) Supporting Document(s) Glucose, Fasting 141 mg/dL 70-100 [facility] ([facility] Blood Urea Nitrogen 14 mg/dL 7-18 [facility] ([facility] Creatinine For GFR 0.87 mg/dL 0.55-1.30 [facility] ([facility] Sodium Level 136 meq/L 136-145 [facility] ([facility] Glomerular Filtration Rate Laboratory test result [facility] ([facility] <content>Units are mL/min/1.73 m2</content>
<content></content>
<content>Chronic Kidney Disease Staging per NKF:</content>
<content></content>
<content>Stage I & II GFR >=60 Normal to Mildly Decreased</content>
<content>Stage III GFR 30- 59 Moderately Decreased</content>
<content>Stage IV GFR 15-29 Severely Decreased</content>
<content>Stage V GFR <15 Very Little GFR Left</content>
<content>ESRD GFR <15 on REMOTE SENSING ANALYST</content>
<content></content> Potassium Serum 4.4 meq/L 3.5-5.1 [facility] ([facility] Chloride Level 101 meq/L 98-107 [facility] ([facility] Anion Gap 9 meq/L 8-16 [facility] ([facility] Calcium Level 9.0 mg/dL 8.8-10.2 [facility] ([facility] Carbon Dioxide Level 26 meq/L 21-32 [facility] ([facility] ID Date Data Source [id number] 08/10/2021 09:00:00 AM EDT [facility] ([facility] Name Value Range Interpretation Code Description Data Aisha rce(s) Supporting Document(s) Ast/Sgot 38 U/L 7-37 [facility] ([facility] Alkaline Phosphatase 135 U/L 45-117 [facility] ([facility] Alt/SGPT 57 U/L 12-78 [facility] ([facility] Bilirubin,Total 0.9 mg/dL 0.2-1.0 [facility] ([facility] Bilirubin,Direct 0.3 mg/dL 0.0-0.2 [facility] ([facility] Albumin 3.0 GM/DL 3.2-5.2 [facility] ([facility] Total Protein 7.0 GM/DL 6.4-8.2 [facility] ([facility] Albumin/Globulin Ratio 0.8 1.2-2.2 [facility] ([facility] ID Date Data Source [id number] 08/10/2021 09:00:00 AM EDT [facility] ([facility] Name Value Range Interpretation Code Description Data [facility](s) Supporting Document(s) CPK Creatine Phosphokinase 124 U/L 26-192 [facility] ([facility] CK-MB Value Mass Laboratory test result [facility] ([facility] MB/CK Relative Index 0.81 [facility] ([facility] <content>DIAGNOSIS CRITERIA</content>
<content>MMB ng/ml Relative Index (RI)</content>
<content>NON-AMI < or = 5 N/A</content>
<content>GOLD ZONE > 5 < or = 4</content>
<content>AMI > 5 > 4</content>
<content></content> Troponin I Laboratory [facility] <content>Troponin I Reference Interval f or Siemens [place] LOCI:</content>
<content></content>
<content>99th Percentile= 0.00-0.045 ng/ml</content>
<content></content>
<content>Risk Stratification:</content>
<content><= 0.10 ng/ml Decreased Risk for Adverse Clinical</content>
<content>Events.</content>
<content>0.10-1.50 ng/ml Increased Risk for Adverse Clinical</content>
<content>Events. Evaluation of additional</content>
<content>criterion and/or repeat testing in 2-6</content>
<content>hours is suggested to rule out myocardial</content>
<content>damage.</content>
<content>>= 1.50 ng/ml Indicative of Myocardial Injury.</content>
<content></content> ID Date Data Source [id number] 08/10/2021 09:00:00 AM EDT [facility] ([facility] Name Value Range Interpretation Code Description Data Aisha e(s) Supporting Document(s) Lactate [Mass/volume] in Serum or Plasma 1.0 mmol/L 0.4-2.0 [facility] ([facility] Y/N query for Sepsis Lactate Rule: Y ID Date Data Source [id number] 08/10/2021 09:00:00 AM EDT [facility] ([facility] Name Value Range Interpretation Code Description Data Aisha rce(s) Supporting Document(s) White Blood Count 15.2 10 4.0-10.0 [facility] ([facility] Hemoglobin 14.1 g/dL 12.0-15.5 [facility] ([facility] Red Blood Count 5.14 10 4.00-5.40 [facility] ([facility] Mean Corpuscular Hemoglobin 27.4 pg 27.0-33.0 [facility] ([facility] Hematocrit 42.5 % 36.0-47.0 [facility] ([facility] Mean Corpuscular Volume 82.7 fl 80.0-96.0 [facility] ([facility] Mean Corpuscular HGB Conc 33.2 g/dL 32.0-36.5 [facility] ([facility] Red Cell Distribution Width 13.3 % 11.5-14.5 [facility] ([facility] Platelet Count, Automated 214 10 150-450 [facility] ([facility] Neutrophils % 82.9 % 36.0-66.0 [facility] ([facility] Lymph % 7.0 % 24.0-44.0 [facility] ([facility] [place] % 9.3 % 2.0-8.0 [facility] ([facility] Baso % 0.3 % 0.0-1.0 [facility] ([facility] Eos % 0.1 % 0.0-3.0 [facility] ([facility] Immature Granulocyte % 0.4 % 0-3.0 [facility] ([facility] Nucleated Red Blood Cell % 0.0 % 0-0 [facility] ([facility] Neutrophils # 12.6 10 1.5-8.5 [facility] ([facility] Lymph # 1.1 10 1.5-5.0 [facility] ([facility] [place] # 1.4 10 0.0-0.8 [facility] ([facility] Baso # 0.0 10 0.0-0.2 [facility] ([facility] Eos # 0.0 10 0.0-0.5 [facility] ([facility] ID Date Data Source [id number] 05/05/2021 12:15:00 PM EDT [facility] ([facility], ) Name Value Range Interpretation Code Description Data Aisha rce(s) Supporting Document(s) Surgical pathology study Laboratory test result [facility] ([facility], ) <content>FINAL DIAGNOSIS</content>
< content></content>
<content>A - Stomach, [...] of hyperplastic polyps also present.</content>
<content>05/06/2021 - 5</content>
<content></content>
<content>CLINICAL DIAGNOSIS</content>
<content></content>
<content>History Ye's, heartburn, and left lower quadrant pain</content>
<content>05/05/2021 - 1527</content>
<content></content>
<content>GROSS DIAGNOSIS</content>
<content></content>
<content>A - Received [...] aggregate. All in one.</content>
<content>-SV</content>
<content>05/05/2021 - 1527</content>
<content></content>
<content>Signed MELBA MEHTA MD 05/06/2021 1340</content>
<content></content> ID Date Data Source [id number] 04/30/2021 11:20:00 AM EDT [facility] ([facility] Name Value Range Interpretation Code Description Data Aisha rce(s) Supporting Document(s) Coronavirus 2019 Nasopharygeal Laboratory test result [facility] ([facility] ASSAY INFORMATION: Real Time RT-PCR NOTE: The COVID-19 assay has been cleared by the U.[place]. Food and Drug Administration under the Emergency Use Authorization (EUA). [facility] are designated as high complexity laboratories by the Clinical Laboratory Improvement Amendments of 1988(CLIA) and are qualified to perform this test. Not Detected ID Date Data Source [id number] 08/21/2020 08:27:00 AM EST [facility] Name Value Range Interpretation Code Description Data Aisha rce(s) Supporting Document(s) C reactive protein [Mass/volume] in Serum or Plasma by High sensitivity method 0.77 mg/dL 0.00-0.30 [facility] ID Date Data Source [id number] 08/21/2020 08:27:00 AM EST [facility] ([facility] [...] [facility] ID Date Data Source [id number] 08/21/2020 08:27:00 AM EST [facility] ([facility] Name Value Range Interpretation Code Description Data Aisha rce(s) Supporting Document(s) Rheumatoid factor [Units/volume] in Serum or Plasma Laboratory test result [facility] ([facility] Erythrocyte sedimentation rate by 2H Westergren method 9 mm/hr 0-3 0 [facility] ([facility] ID Date Data Source [id number] 08/21/2020 08:27:00 AM EST [facility] ([facility] Name Value Range Interpretation Code Description Data Aisha e(s) Supporting Document(s) Glucose, Fasting 92 mg/dL 70-100 [...] Little GFR Left</content>
<content>ESRD GFR <15 on REMOTE SENSING ANALYST</content>
<content></content> Creatinine For GFR 0.86 mg/dL 0.55-1.30 [...] [facility] Alt/SGPT 27 U/L 12-78 [facility] ([facility] Ast/Sgot 23 U/L 7-37 [facility] [...] [facility] ID Date Data Source [id number] 08/21/2020 08:27:00 AM EST [facility] (Josefa Ruiz [...] % 24.0-44.0 [facility] ([facility] [place] % 7.3 % 0.0-5.0 [facility] (Josefa johnson [...] 10 1.5-8.5 [facility] ([facility] [place] # 0.4 10 0.0-0.8 [facility] ([facility] Eos # 0.2 10 0.0-0.5 [facility] ([facility] Baso # 0.0 10 0.0-0.2 [facility] ([facility] Procedure Social History Code Duration Value Status Description Data Source(s ) Smoking 08/04/2021 12:00:00 AM EDT Patient is a former smoker completed Patient is a former smoker [facility] Alcohol intake 11/12/2020 12:00:00 AM EST Yes completed [facility] Smoking 11/12/2020 12:00:00 AM EST Former smoker completed Former smoker [facility] Vital Signs ID Date Data Source UNK Name Value Range Interpretation Code Description Data Source(s) Diastolic blood pressure 74 mm[Hg] 74 mm[Hg] [facility] ([facility] Body [...] 98 % [facility] [place] body weight 115 [lb_av] 115 [lb_av] [facility] [...] 61 /min [facility] ([facility] Systolic blood pressure 152 mm[Hg] 152 mm[Hg] [facility] Diastolic blood pressure 86 mm[Hg] 86 mm[Hg] [facility] Heart rate 68 /min 68 /min [facility] ([facility]) Body temperature 98.2 [degF] 98.2 [degF] [facility] ([facility]) Body height 64 [in_i] 64 [in_i] [facility] 5'4" Body weight 209.12 [lb_av] 209.12 [lb_av] [facility] ([facility]) Body mass index (BMI) [Ratio] 35.9 kg/m2 35.9 k g/m2 [facility] ([facility]) [place] body weight 120 [lb_av] 120 [lb_av] [facility] ([facility]) Body weight 94.859 kg 94[address] [facility] ([facility]) Body surface area Derived from formula 1.99 [address] [facility] ([facility]) Body temperature 97.1 [degF] 97.1 [degF] [facility] Respiratory rate 17 /min 17 /min [facility] ( [facility] Oxygen saturation in Arterial blood by Pulse oximetry 98 % 98 % [facility] [place] body weight 115 [lb_av] 115 [lb_av] [facility] ([facility] Heart rate 96 /min 96 /min [facility] ([facility] Body weight 206.00 [lb_av] [...] 113 mm[Hg] [facility] ([facility] Body height 63 [in_i] 63 [in_i] [facility] ([facility] 5'3" Body height 64 [in_i] 64 [in_i] [facility] ([facility]) 5'4" Body weight 210.00 [lb_av] 210.00 [lb_av] [facility] ([facility]) Body mass index (BMI) [Ratio] 36.0 kg/m2 36.0 k g/m2 [facility] [place] body weight 120 [lb_av] 120 [lb_av] [facility] ([facility]) Body weight 95.256 kg [address] [facility] ([facility]) Body surface area Derived from formula 2.[address] [facility] ([facility]) Body mass index (BMI) [Ratio] 36.0 kg/m2 36.0 k g/m2 [facility] ([facility]) [place] body weight 120 [lb_av] 120 [lb_av] [facility] ([facility]) Body weight 95.256 kg 95[address] [facility] ([facility]) Body surface area Derived from formula 2.[address] [facility] ([facility]) Systolic blood pressure 142 mm[Hg] 142 mm[Hg] M [facility] ([facility]) Diastolic blood pressure 92 mm[Hg] 92 mm[Hg] [facility] ([facility]) Body height 64 [in_i] 64 [in_i] [facility] ([facility], ) 5'4" Body weight 210.00 [lb_av] 210.00 [lb_av] [facility] ([facility]) Body height 63 [in_i] 63 [in_i] [facility] 5'3" Body mass index (BMI) [Ratio] 37.2 kg/m2 37.2 k g/m2 [facility] Systolic blood pressure 135 mm[Hg] 135 mm[Hg] [facility] ([facility] Diastolic blood [...] 98 % [facility] [place] body weight 115 [lb_av] 115 [lb_av] [facility] ([facility] Systolic blood pressure 130 mm[Hg] 130 mm[Hg] [facility] Diastolic blood pressure 78 mm[Hg] 78 mm[Hg] [facility] Heart rate 63 /min 63 /min [facility] Body height 162.6 cm 162.6 cm [facility] Body weight 95.255 kg 95.255 kg [facility] Body mass index (BMI) [Ratio] 36.05 kg/m2 36.05 kg/m2 [facility] Oxygen saturation in Arterial blood by Pulse oximetry 98 % 98 % [facility] Oxygen saturation in Arterial blood by Pulse [...] [lb_av] [facility] ([facility] [place] body weight 115 [lb_av] 115 [lb_av] [facility] ([facility] Body mass index (BMI) [Ratio] 37.1 kg/m2 37.1 k g/m2 [facility] Body temperature 97.1 [degF] 97.1 [degF] [facility] Oxygen saturation in Arterial blood by Pulse oximetry 98 % 98 % [facility] [place] body weight 115 [lb_av] 115 [lb_av] [facility] [...] 5'3" Body weight 208.00 [lb_av] 208.00 [lb_av] [facility] ([facility] Patient Treatment Plan of Care Planned Activity Planned Date Details Description Data Source (s) Metoprolol Tartrate 25 MG Oral Tablet 09/25/2020 12:00:00 AM [facility] pantoprazole 40 MG Delayed Release Oral Tablet 09/05/2020 12:00:00 AM [facility] duloxetine 60 MG Delayed Release Oral Capsule 09/05/2020 12:00:00 A M [facility] candesartan cilexetil 4 MG Oral Tablet 08/22/2020 12:00:00 AM [facility] Furosemide 40 MG Oral Tablet 08/21/2020 12:00:00 AM EST [facility]
[2021-08-21] MEDS ORDERED: ONDANSETRON 4 MG TAB PO PRN (12:20)
[2021-08-21] MEDS ORDERED: HOME MED LIST COMPLETE! XX SCH (12:35)
[2021-08-21] MEDS ORDERED: BACLOFEN 10 MG TAB PO PRN (13:10)
[2021-08-21] MEDS ORDERED: hydrOXYzine 10 MG TAB PO PRN (13:10)
[2021-08-21 14:00] VITALS: BP 137/68
--- NOTE | 2021-08-21 15:51 | HPEPDOC ---
Accounting Advisory Services Manager Note DATE OF SERVICE: 08.21.2021 TIME OF ADMISSION: Please refer to physician's admission order. SOURCE OF ADMISSION INFORMATION: Medical Records and Patient ADMITTING DIAGNOSES: 1. Acute hypoxic respiratory failure in the setting of multifocal pneumonia and sepsis 2. Recent hemorrhagic stroke with residual spastic left-hemiparesis and hyperalgesia 3. Provoked bilateral PE and left popliteal vein DVT 4. Hypertension 5. GERD 6. Insomnia 7. Back spasms 8. Sepsis with end organ damage 9. Obesity 10. Debility 11. Hypotension 12.right pes anserine bursitis Surgical History 1. Bilateral toe surgery 2. Appendectomy 3. Colon resection for diverticulosis CHIEF COMPLAINT: . Dypsnea Generalized debility Left hemiparesis with hypersensitivity and pain left upper and lower extremity Pain left 1st CMC joint HISTORY OF PRESENT ILLNESS: History of Present Illness Mrs. 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 She sustained left-sided weakness without cognitive deficits and successfully underwent rehabilitation interventions in [place] at [facility]. She was discharged with all needed equipment including wheelchair, s hower chair, venkatesh-walker flew back home to [place] with plan to continue therapy and progression to use of the quad cane. On 08.19, She presented with pleuritic chest pain and hypoxia was found in ED to be febrile 101.2, tachycardic and hypoxic 89% with leukocytosis 15.2 and found to have non Covid Pneumonia. She was admitted for hypoxia with pleuritic thoracic pain secondary to multifocal pneumonia, treated with course of antibiotics including a stay in PCU for sepsis and hypotension and patient had a CT angio chest, initially inconclusive for PE, repeated 24 hours later due to high suspicion for PE due to recent flight, long hospitalization, pleuritic chest pain, and tachycardia. Repeat CT angio chest demonstrated nonocclusive emboli without evidence of right heart strain. Ultrasound of lower extremities were obtained which demonstrated left leg DVT. Neurology was consulted due to patient recent ICH. They had recommended Eliquis 2.5 mg twice daily and on 08/14 an inferior vena cava filter placement achieved by IR via Right groin access. They had also recommended keeping patient's blood pressure below 130/80 She is now stabilized on room air and being admitted to ARU for strengthening, pulmonary rehabilitation and regaining progress lost with regard to left he miparesis and improving pain and spasticity management. REVIEW OF SYSTEMS: The following is a completed review of systems and has been reviewed. Review of systems otherwise unremarkable. PAIN: Patient self reports pain left 1st CMC, UE, left thigh and at times foot EYES: No recent vision changes. EARS, NOSE, & THROAT: No throat pain, or dysphagia, or rhinorrhea. CARDIOVASCULAR: Denies chest pain or palpitations, does have some posterior pleuritic pain with deep inspiration, alleviated with Lidoderm patches. PULMONARY: admits shortness of breath. GASTROINTESTINAL: Denies constipation/diarrhea. GENITOURINARY: .continent MUSCULOSKELETAL: .No prior issues, recent increase pain right medial knee with increased weight bearing compensating for left sided weakness NEUROLOGICAL:.Spastic L venkatesh s/p R CVA HEMATOLOGICAL: .S/P PE, L DVT, IVC filter SKIN: .Denies rashes, breakdown PSYCHIATRIC: Unremarkable. All other review of systems found to be negative. PAST MEDICAL HISTORY: 1. Hypertension 2. History of hemorrhagic stroke with left-sided deficits around Jun 2021 3. GERD 4. Chronic pain 5. Diverticulosis status post colon resection PAST SURGICAL HISTORY: 1. Bilateral toe surgery 2. Appendectomy 3. Colon resection for diverticulosis ALLERGIES: Please see below. MEDICATIONS: Please see below. FAMILY HISTORY: Mother 62 from cancer, Father 74 from leukemia (pressman). SOCIAL HISTORY: Non Smoker, no EtOH, lives in a ramp accessible 1st floor apart ent with her healthy . DIET: .2G sodium PHYSICAL EXAMINATION: VITAL SIGNS: Please see below. GENERAL: Pleasant and cooperative. No acute distress. Alert and oriented times three, excellent historian. HEENT: Pupils pin point, left facial droop. Extraocular movements intact. Clear conjunctiva, no adenopathy or thyromegaly. Full cervical range of motion without tenderness or spasm. CARDIOVASCULAR: Regular rate and rhythm. No murmurs, rubs, or gallops. LUNGS: Clear to auscultation bilaterally. No wheezes. No rhonchi. ABDOMEN: Soft, nontender, nondistended. Positive normal active bowel sounds, no organomegaly. Old healed midline incision NEUROLOGICAL: Alert and oriented times three. Cranial nerves II through XII noted for tongue deviation to right, left facial droop. Sensation intact to light touch all 4, decreased to pin prick left upper and lower extremities.. Reflexes 2+right 3+ left biceps, triceps, brachial radialis, patellar, tendon jerks with positive Babinski left, withdrawal on right. No tremor, but 3/5 tone left shoulder/arm and foot with c/o pain on Prom at shoulder, wrist and incited spasms left thigh. EXTREMITIES: 4+ /5 right 3-/5 left trimming assembler, elbow flexion, elbow extension, right knee extension, foot dorsiflexion, plantar flexion, unable to test left due to pain and guarding but demonstrates gross motion.. No calf tenderness, there is bilateral trace edema legs/feet.. Tender right medial knee pes anserine bursa and medial compartment. SKIN: .intact LABORATORY DATA: Please see below. IMAGING: Imaging documentation personally reviewed by record. CT angio chest 1. Small right pleural effusion increased in size in comparison the prior study. Minimal left effusion. 2. There is no aortic dissection or aneurysm. 3. Small bilateral nonocclusive pulmonary emboli as described above. Findings unchanged comparison to the prior study. Ultrasound lower extremities bilaterally Partially occluded left popliteal vein with thrombus. No extension into the femoral vein or thigh. Calf veins are not imaged. No deep venous thrombosis within the right lower extremity venous system CT head without contrast 1. Periventricular lucency on the right consistent with an age indeterminate infarct. Prior study not available for comparison. Comparison with prior examination suggested when available. 2. No acute findings. 3. 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 MRI brain Findings consistent with a mid to late subacute hemorrhagic infarct in the right external capsule subinsular region as described above. Finding likely hypertensive in etiology. FUNCTIONAL STATUS: Premorbid: Independent with all activities of daily life as well as mobility, had regained Mod I with hemiwalker. On Admission: -Mod/Max assistance for lower body dressing, shower transfers, stairs. -Min/Mod assistance for bathing, upper body dressing, bed chair and wheelchair transfers, toilet transfers, ambulation. - Set up/supervision assistance for grooming. -Mod I for memory and problem solving. Modified independence for social interaction, expression, comprehension, bowel and bladder. 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 PLAN: 1. Rehab- PT/OT advance gait and ADls, strengthen/stretch/maintain ROM all 4 limbs. We'll continue to work on timing pain medication with therapy interventions to optimize possible capacity to participate. Utilization and adjustment of appropriate splinting, tone reduction techniques in breaking the pattern of shoulder, hand pain syndrome will be a priority, use of AFO and Medication adjustments including gradual increase in baclofen. 2. Neuro- right hemorrhagic CVA with Left venkatesh-, neuro recommended resumption of anticoagulation. Continue 3. Ortho- . Left first carpometacarpal, right knee, spinal pain noted. Be add ressed with appropriate modalities and medication adjustments 4. Cardiac- -HTN , maintain blood pressure systolic 130-amlodipine -HLD- dietary control 5. Resp -incentive spirometry, monitor for recurrent infection, monitor pulse oximetry and include component of pulmonary rehabilitation with overall reconditioning program 6. - Enter Frequency in Direction field Bladder scan [id number] and catheterize for >400 cc if Pt unable to void on own, check PVRs and catheterize for >300cc, may stop all scans if PVRs are <200 cc on 3 consecutive occasions. 7. GI ppx-ppi POST ADMISSION PHYSICIAN EVALUATION: Medical and functional status: Description of medical status, medical assessment: As above. Rehabilitation diagnosis and current and prior co- morbid medical conditions as above. Risk of complications and plans to mitigate them as above. Description of functional status current status is as above. Prior status as above. Status compared to preadmission: There are no clinically significant differences between the patient's current status and the information described on the preadmission screening document. Treatment plan anticipated: Treatment plan is as described above. Required disciplines including physical therapy, occupational therapy, others as noted above. Intensity of services: 3 hours a day, 6-7 days a week. Special considerations: There are no specific special or safety considerations that would likely preclude immediate implementation of an intensive rehabilitation program or subsequently influence the plan of care. ATTESTATION: Considering all the information above, it is my best judgment that this patient requires intensive rehabilitation therapy as described above and an inpatient hospital environment due to the complexity of nursing, medical, and rehabilitation needs required by the patient. Furthermore, this patient can reasonably be expected to participate in an benefit from an inpatient rehabilitation stay with an interdisciplinary team approach to the delivery of rehabilitation care under the direction and supervision of rehabilitation physician. PROGNOSIS: Excellent. ESTIMATED LENGTH OF STAY:10-14 days. PROJECTED DISCHARGE DESTINATION: Home with family support and any durable medical equipment required to increase functional safety and mobility. TIME SPENT COUNSELING AND COORDINATING INITIAL CARE: Greater than 60 minutes. This document is generated using speech recognition software which may result in grammatical, typographical and individual word errors. Vital Signs Vital Sign - Last 24 Hours 08/21/21 08/21/21 08/21/21 12:00 14:00 14:00 Temp 97.5 98.1 98.1 Pulse 74 76 76 Resp 18 18 18 B/P (MAP) 124/70 (88) 137/68 (91) 137/68 (91) Pulse Ox 97 97 97 O2 Delivery Room Air Room Air Room Air Home Medications Scheduled Apixaban (Eliquis) 2.5 Mg Tablet, 2.5 MG PO BID Cholecalciferol (Vitamin D3) (Vitamin D3) 1,000 Unit Tablet, 1,000 UNITS PO DAILY, (Reported) Docusate Sodium (Colace) 100 Mg Capsule, 100 MG PO BID Duloxetine Hcl (Cymbalta) 30 Mg Capsule.dr, 30 MG PO DAILY Gabapentin (Gabapentin) 100 Mg Capsule, 100 MG PO TID Melatonin (Melatonin) 3 Mg Tab.rapdis, 3 MG PO QHS, (Reported) Metoprolol Succinate (Metoprolol Succinate) 25 Mg Tab.er.24h, 25 MG PO DAILY Mirtazapine (Mirtazapine) 7.5 Mg Tablet, 7.5 MG PO QHS, (Reported) Pantoprazole Sodium (Pantoprazole Sodium) 40 Mg Tablet.dr, 40 MG PO BID, (Reported) Tamsulosin Hcl (Tamsulosin HCl) 0.4 Mg Capsule, 0.4 MG PO DAILY, (Reported) Valsartan (Valsartan) 160 Mg Tablet, 160 MG PO DAILY, (Reported) Scheduled PRN Baclofen (Baclofen) 10 Mg Tablet, 5 MG PO Q6HP PRN for muscle spasms Tramadol HCl (Tramadol HCl) 50 Mg Tablet, 50 MG PO Q6HP PRN for MODERATE PAIN (PS 5-7) Allergies Coded Allergies: No Known Allergies (Unverified , 04/23/21) A-FIB/CHADSVASC A-FIB History Current/History of A-Fib/PAF?: No Current PO Anticoag Therapy: Yes Age/Risk Factor Scoring CHADSVASC: CHADSVASC Response (Comments) Value Age Risk Factor Age 65-74 years old 1 Gender Risk Factor Female 1 Hx of CHF No 0 Hx of HTN No 0 Hx of Stroke/TIA/or VTE Yes 2 Hx of Diabetes No 0 Hx of Vascular Disease No 0 Total 4 Treatment Treatment ordered: Apixaban RICARDO LOWERY MD Aug 21, 2021 15:50
[2021-08-21] MEDS: ACETAMINOPHEN TAB 650MG DOSE (2X325MG) PO PRN (16:09)
[2021-08-21] MEDS: GABAPENTIN 100 MG CAP PO SCH ×2 (16:09→22:16)
[2021-08-21 20:00] VITALS: BP 120/59
[2021-08-21] MEDS: DOCUSATE SODIUM 100MG CAPSULE PO SCH (22:15)
[2021-08-21] MEDS: PANTOPRAZOLE 40MG TAB (PROTONIX) PO SCH (22:16)
[2021-08-21] MEDS: MIRTAZAPINE 7.5MG PER 1/2 TABLET PO SCH (22:16)
[2021-08-21] MEDS: APIXABAN 2.5 MG TAB (ELIQUIS) PO SCH (22:16)
[2021-08-21] MEDS: BACLOFEN 5MG PER 1/2 TABLET PO SCH (22:16)
[2021-08-21] MEDS: traMADol 50 MG TAB PO PRN (23:32)
[2021-08-22 06:00] VITALS: BP 148/70
[2021-08-22 06:14] LABS: BASO # 0.1 10^3/uL (0.0-0.2); BASO % 0.7 % (0.0-1.0); EOS # 0.2 10^3/uL (0.0-0.5); EOS % 2.9 % (0.0-3.0); HEMATOCRIT 37.9 % (36.0-47.0); LYMPH # 1.7 10^3/uL (1.5-5.0); LYMPH % 23.9 % (24.0-44.0); MEAN CORPUSCULAR HEMOGLOBIN 27.1 pg (27.0-33.0); MEAN CORPUSCULAR HGB CONC 31.7 g/dl (32.0-36.5); MEAN CORPUSCULAR VOLUME 85.6 fl (80.0-96.0); MONO # 0.4 10^3/uL (0.0-0.8); MONO % 5.4 % (2.0-8.0); NEUTROPHILS # 4.8 10^3/uL (1.5-8.5); NEUTROPHILS % 66.5 % (36.0-66.0); PLATELET COUNT, AUTOMATED 619 10^3/uL (150-450); RED BLOOD COUNT 4.43 10^6/uL (4.00-5.40); WHITE BLOOD COUNT 7.3 10^3/uL (4.0-10.0)
[2021-08-22] MEDS: BACLOFEN 5MG PER 1/2 TABLET PO SCH ×3 (06:24→21:30)
[2021-08-22] MEDS: traMADol 50 MG TAB PO PRN (06:24)
[2021-08-22] MEDS: DOCUSATE SODIUM 100MG CAPSULE PO SCH ×2 (09:00→20:19)
[2021-08-22] MEDS: PANTOPRAZOLE 40MG TAB (PROTONIX) PO SCH ×2 (09:55→20:20)
[2021-08-22] MEDS: DULoxetine 30MG CAPSULE (CYMBALTA) PO SCH (09:55)
[2021-08-22] MEDS: GABAPENTIN 100 MG CAP PO SCH ×3 (09:55→20:20)
[2021-08-22] MEDS: VALSARTAN 80 MG TAB (DIOVAN) PO SCH (09:55)
[2021-08-22] MEDS: VITAMIN D 1,000 INTERNATIONAL UNITS TABLET PO SCH (09:56)
[2021-08-22] MEDS: APIXABAN 2.5 MG TAB (ELIQUIS) PO SCH ×2 (09:56→20:20)
[2021-08-22] MEDS: TAMSULOSIN 0.4 MG CAP PO SCH (09:56)
[2021-08-22] MEDS: METOPROLOL SUCC *XL* 25MG TAB (TopROL *XL*) PO SCH (09:56)
[2021-08-22] MEDS ORDERED: VOLTAREN GEL (PATIENT'S OWN MED) TOP PRN (11:10)
[2021-08-22] MEDS: amLODIPine 5 MG TAB PO SCH (11:10)
[2021-08-22 14:00] VITALS: BP 139/84
--- NOTE | 2021-08-22 15:30 | IPNPDOC ---
PM&R Progress Note DATE OF SERVICE: Aug 22, 2021 Marketing Analytics Specialist Progress Note DATE OF ADMISSION: Aug 21, 2021 at 11:55 INPATIENT REHABILITATION ADMISSION DAY: # 1 SUBJECTIVE: Mrs. 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 She sustained left-sided weakness without cognitive deficits and successfully underwent rehabilitation interventions in [place] at [facility]. She was discharged with all needed equipment including wheelchair, shower chair, venkatesh-walker flew back home to [place] with plan to continue therapy and progression to use of the quad cane. On 08.19, She presented with pleuritic chest pain and hypoxia was found in ED to be febrile 101.2, tachycardic and hypoxic 89% with leukocytosis 15.2 and found to have non Covid Pneumonia. She was admitted for hypoxia with pleuritic thoracic pain secondary to multifocal pneumonia, treated with course of antibiotics including a stay in PCU for sepsis and hypotension and patient had a CT angio chest, initially inconclusive for PE, repeated 24 hours later due to high suspicion for PE due to recent flight, long hospitalization, pleuritic chest pain, and tachycardia. Repeat CT angio chest demonstrated nonocclusive emboli without evidence of right heart strain. Ultrasound of lower extremities were obtained which demonstrated left leg DVT. Neurology was consulted due to patient recent ICH. They had recommended Eliquis 2.5 mg twice daily and on 08/14 an inferior vena cava filter placement achieved by IR via Right groin access. They had also recommended keeping patient's blood pressure below 130/80 She is now stabilized on room air and was admitted to ARU for strengthening, pulmonary rehabilitation and regaining progress lost with regard to left hemiparesis and improving pain and spasticity management. 08.22.2021 She notes less tightness in the left upper extremity however severe pain in the left thigh, hip flexors and swelling in the LLE. I requested support for left upper extremity as I find her with it crumpled under her in bed and WC, therapy indicated preference not to place arm trough or lap board, requested consistent positioning as she is getting some functional return. Tone seems improving with Baclofen. Patient notes she did have a problem with subluxation during previous rehab stay. REVIEW OF SYSTEMS: The following is a completed review of systems and has been reviewed. Review of systems otherwise unremarkable. PAIN: Patient self reports pain left 1st CMC, UE, left thigh and at times foot EYES: No recent vision changes. EARS, NOSE, & THROAT: No throat pain, or dysphagia, or rhinorrhea. CARDIOVASCULAR: Denies chest pain or palpitations, does have some posterior pleuritic pain with deep inspiration, alleviated with Lidoderm patches. PULMONARY: admits shortness of breath. GASTROINTESTINAL: Denies constipation/diarrhea. GENITOURINARY: .continent MUSCULOSKELETAL: .No prior issues, recent increase pain right medial knee with increased weight bearing compensating for left sided weakness NEUROLOGICAL:.Spastic L venkatesh s/p R CVA HEMATOLOGICAL: .S/P PE, L DVT, IVC filter SKIN: .Denies rashes, breakdown PSYCHIATRIC: Unremarkable. All other review of systems found to be negative. ALLERGIES: See Below MEDICATIONS: Reviewed, see below. OBJECTIVE: VITAL SIGNS: Please see below. VITAL SIGNS: Please see below. GENERAL: Pleasant and cooperative. No acute distress, excellent historian. HEENT: Pupils pin point, left facial droop. Extraocular movements intact. Clear conjunctiva, no adenopathy or thyromegaly. Full cervical range of motion without tenderness or spasm. CARDIOVASCULAR: Regular rate and rhythm. No murmurs, rubs, or gallops. LUNGS: Clear to auscultation bilaterally. No wheezes. No rhonchi. ABDOMEN: Soft, nontender, nondistended. Positive normal active bowel sounds, no organomegaly. Old healed midline incision NEUROLOGICAL: Alert and oriented times three. Cranial nerves II through XII noted for tongue deviation to right, left facial droop. Sensation intact to light touch all 4, decreased to pin prick left upper and lower extremities.. Reflexes 2+right 3+ left biceps, triceps, brachial radialis, patellar, tendon jerks with positive Babinski left, withdrawal on right. No tremor, but 3/5 tone left shoulder/arm and foot with c/o pain on Prom at shoulder, wrist and incited spasms left thigh. EXTREMITIES: 4+ /5 right 3-/5 left electronic system engineer, elbow flexion, elbow extension, right knee extension, foot dorsiflexion, plantar flexion, unable to test left due to pain and guarding but demonstrates gross motion.. No calf tenderness, there is bilateral trace edema legs/feet.. Tender right medial knee pes anserine bursa and medial compartment. Tender right 1st CMC joint and with attempted extension of digits. SKIN: .intact FUNCTIONAL STATUS: Transfer: Supine to Sit Moderate Assist Transfer: Sit to Supine Moderate Assist Transfer: Rolling Moderate Assist Transfer: Sit to Stand Contact Guard Assist Transfer: Stand to Sit Contact Guard Assist Transfer: Bed to Chair Contact Guard Assist Transfer: Chair to Bed Contact Guard Assist Transfer: Toilet/Commode Contact Guard Assist Transfer Comment CGA w/ sneakers and L AFO donned, w/ L platform RW Ambulation Distance 93 Feet Ambulation Level of Assist Contact Guard Assist Assistive Device Used Platform Walker Gait Belt Other Assistive Device Used L side plaform walker L AFO LABORATORY DATA: Reviewed. Please see below. MICROBIOLOGY: See below ASSESSMENT AND PLAN: DIAGNOSES: 1. Acute hypoxic respiratory failure in the setting of multifocal pneumonia and sepsis 2. Recent hemorrhagic stroke with residual spastic left-hemiparesis and hyperalgesia 3. Provoked bilateral PE and left popliteal vein DVT 4. Hypertension 5. GERD 6. Insomnia 7. Back spasms 8. Sepsis with end organ damage 9. Obesity 10. Debility 11. 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 PLAN: 1. Rehab- PT/OT advance gait and ADls, strengthen/stretch/maintain ROM all 4 limbs. We'll continue to work on timing pain medication with therapy interventions to optimize possible capacity to participate. Utilization and adjustment of appropriate splinting, tone reduction techniques in breaking the pattern of shoulder, hand pain syndrome will be a priority, use of AFO and Medi cation adjustments including gradual increase in baclofen. 2. Neuro- right hemorrhagic CVA with Left venkatesh-, neuro recommended resumption of anticoagulation. Continue 3. Ortho- . Left first carpometacarpal, right knee, spinal pain noted. Be addressed with appropriate modalities and medication adjustments 4. Cardiac- -HTN , maintain blood pressure systolic 130-amlodipine -HLD- dietary control 5. Resp -incentive spirometry, monitor for recurrent infection, monitor pulse oximetry and include component of pulmonary rehabilitation with overall reconditioning program 6. - Enter Frequency in Direction field Bladder scan [id number] and catheterize for >400 cc if Pt unable to void on own, check PVRs and catheterize for >300cc, may stop all scans if PVRs are <200 cc on 3 consecutive occasions. 7. GI ppx-ppi ESTIMATED LENGTH OF STAY:10-14 days. PROJECTED DISCHARGE DESTINATION: Home with family support and any durable medical equipment required to increase functional safety and mobility. TIME SPENT: Chart Review, examination and documentation 35 minutes. This document is generated using speech recognition software which may result in grammatical, typographical and individual word errors. Allergies Coded Allergies: No Known Allergies (Unverified , 04/23/21) Vital Signs Vital Signs Date Time Temp Pulse Resp B/P (MAP) Pulse Ox O2 Delivery O2 Flow Rate FiO2 08/22/21 14:00 98.5 74 20 139/84 (102) 98 Room Air Laboratory Data CBC/BMP Laboratory Tests 08/22/21 05:52 Labs 24H Laboratory Tests 2 08/22/21 05:52: Immature Granulocyte % (Auto) 0.6, Neutrophils (%) (Auto) 66.5H, Lymphocytes (%) (Auto) 23.9L, Monocytes (%) (Auto) 5.4, Eosinophils (%) (Auto) 2.9, Basophils (%) (Auto) 0.7, Neutrophils # (Auto) 4.8, Lymphocytes # (Auto) 1.7, Monocytes # (Auto) 0.4, Eosinophils # (Auto) 0.2, Basophils # (Auto) 0.1, Nucleated Red Blood Cells % (auto) 0.0 Current Medications Current Medications Current Medications Medications (Trade) Dose Ordered Sig/Chiara Route PRN Reason Start Time Stop Time Status Last Admin Dose Admin Acetaminophen (Tylenol Tab) 650 mg Q4HP PRN PO MILD PAIN (PS 1-4) 08/21/21 12:20 08/21/21 16:09 Amlodipine Besylate (Norvasc) 5 mg DAILY PO 08/22/21 10:35 08/22/21 11:10 Apixaban (Eliquis) 2.5 mg BID PO 08/21/21 21:00 08/22/21 09:56 Baclofen (Lioresal) 5 mg Q6HP PRN PO muscle spasms 08/21/21 13:10 08/21/21 15:55 DC 08/21/21 14:24 Baclofen (Lioresal) 5 mg Q8H PO 08/21/21 22:00 08/22/21 13:18 Docusate Sodium (Colace) 100 mg BID PO 08/21/21 21:00 Duloxetine HCl (Cymbalta) 30 mg DAILY PO 08/22/21 09:00 08/22/21 09:55 Gabapentin (Neurontin) 100 mg TID PO 08/21/21 16:00 08/22/21 09:55 Home Med (Home Med List Complete!) ASDIRECTED XX 08/21/21 12:35 08/21/21 12:37 DC Hydroxyzine HCl (Atarax) 10 mg QHSP PRN PO INSOMNIA 08/21/21 13:10 08/21/21 22:17 Metoprolol Succinate (TopROL XL) 25 mg DAILY PO 08/22/21 09:00 08/22/21 09:56 Mirtazapine (Remeron) 7.5 mg QHS PO 08/21/21 21:00 08/21/21 22:16 Ondansetron HCl (Zofran) 4 mg Q6HP PRN PO NAUSEA 08/21/21 12:20 Pantoprazole Sodium (Protonix) 40 mg BID PO 08/21/21 21:00 08/22/21 09:55 Patient Own Medication (Patient'S Own Med) Volteran gel 1 dose topica... TIDP PRN TOP hand pain 08/22/21 11:10 UNV Tamsulosin HCl (Flomax) 0.4 mg DAILY PO 08/22/21 09:00 08/22/21 09:56 Tramadol HCl (Ultram) 50 mg Q6HP PRN PO MODERATE PAIN (PS 5-7) 08/21/21 13:10 08/22/21 06:24 Valsartan (Diovan) 160 mg DAILY PO 08/22/21 09:00 08/22/21 09:55 Vitamin D (Vitamin D) 1,000 units DAILY PO 08/22/21 09:00 08/22/21 09:56 RICARDO LOWERY MD Aug 22, 2021 15:30
--- NOTE | 2021-08-22 17:30 | HPEPDOC ---
General Date of Admission Aug 21, 2021 at 11:55 Date of Service: Aug 22, 2021 Chief Complaint The patient is a 66-year-old female admitted with a reason for visit of Pneumonia. History of Present Illness Mrs. Pickens is a 66-year-old female with hypertension and recent hemorrhagic stroke with left-sided residual weakness who presents here with pleuritic chest pain and hypoxia. Patient was found to have pneumonia and bilateral PE without any right heart strain. Patient initially required oxygen but now has been weaned off. Patient had a long hospitalization and PT and OT had recommended rehab. Patient was seen in rehab today. She is feeling better. She still has some pleuritic chest pain from the PE. Explained that she will feel this for a while. She will need to be on anticoagulation for at least 3 months. Otherwise, she had some left thumb pain and requested Voltaren gel from home. I placed a patient on med order for the Voltaren gel. Home Medications Scheduled Apixaban (Eliquis) 2.5 Mg Tablet, 2.5 MG PO BID Cholecalciferol (Vitamin D3) (Vitamin D3) 1,000 Unit Tablet, 1,000 UNITS PO DAILY, (Reported) Docusate Sodium (Colace) 100 Mg Capsule, 100 MG PO BID Duloxetine Hcl (Cymbalta) 30 Mg Capsule.dr, 30 MG PO DAILY Gabapentin (Gabapentin) 100 Mg Capsule, 100 MG PO TID Melatonin (Melatonin) 3 Mg Tab.rapdis, 3 MG PO QHS, (Reported) Metoprolol Succinate (Metoprolol Succinate) 25 Mg Tab.er.24h, 25 MG PO DAILY Mirtazapine (Mirtazapine) 7.5 Mg Tablet, 7.5 MG PO QHS, (Reported) Pantoprazole Sodium (Pantoprazole Sodium) 40 Mg Tablet.dr, 40 MG PO BID, (Reported) Tamsulosin Hcl (Tamsulosin HCl) 0.4 Mg Capsule, 0.4 MG PO DAILY, (Reported) Valsartan (Valsartan) 160 Mg Tablet, 160 MG PO DAILY, (Reported) Scheduled PRN Baclofen (Baclofen) 10 Mg Tablet, 5 MG PO Q6HP PRN for muscle spasms Tramadol HCl (Tramadol HCl) 50 Mg Tablet, 50 MG PO Q6HP PRN for MODERATE PAIN (PS 5-7) Allergies Coded Allergies: No Known Allergies (Unverified , 04/23/21) Past Medical History Medical History 1. Hypertension 2. History of hemorrhagic stroke with left-sided deficits around Jun 2021 3. GERD 4. Chronic pain 5. Diverticulosis status post colon resection 6. Provoked bilateral PE and left DVT Surgical History 1. Bilateral toe surgery 2. Appendectomy 3. Colon resection for diverticulosis 4. IVC filter placed Family History Father: History of leukemia Mother: History of unspecified cancer Social History * Smoker: former Smoker Alcohol: occationally Drugs: denies A-FIB/CHADSVASC A-FIB History Current/History of A-Fib/PAF?: No Age/Risk Factor Scoring CHADSVASC: CHADSVASC Response (Comments) Value Age Risk Factor Age 65-74 years old 1 Gender Risk Factor Female 1 Hx of CHF No 0 Hx of HTN No 0 Hx of Stroke/TIA/or VTE Yes 2 Hx of Diabetes No 0 Hx of Vascular Disease No 0 Total 4 Review of Systems Constitutional: Denies: Fever Eyes: Denies: Vision change ENT: Denies: Sore Throat Skin: Reports: Bruising (From lab draws) Pulmonary: Reports: Pleuritic Chest Pain; Denies: Dyspnea, Cough Cardiovascular: Reports: Chest Pain (Pleuritic chest pain) Gastrointestinal: Denies: Abdominal Pain Genitourinary: Denies: Dysuria Hematologic: Reports: Bruising (From lab draws) Musculoskeletal: Reports: Hand Pain (Left thumb pain) Physical Examination General Exam: Positive: Alert, Cooperative Eye Exam: Positive: EOMI; Negative: Sclera icteric ENT Exam: Positive: Atraumatic Neck Exam: Positive: Supple Chest Exam: Positive: Clear to auscultation Heart Exam: Positive: Rate Normal, Regular Rhythm Abdomen Exam: Positive: Normal bowel sounds, Soft; Negative: Tenderness Extremity Exam: Negative: Edema Skin Exam: Positive: Other skin issue (Bruises on arms bilaterally) Neuro Exam: Positive: Normal Speech Psych Exam: Positive: Mental status NL, Mood NL Vital Signs Vital Signs Date Time Temp Pulse Resp B/P (MAP) Pulse Ox O2 Delivery O2 Flow Rate FiO2 08/22/21 14:00 98.5 74 20 139/84 (102) 98 Room Air Laboratory Data Labs 24H Laboratory Tests 2 08/22/21 05:52: Immature Granulocyte % (Auto) 0.6, Neutrophils (%) (Auto) 66.5H, Lymphocytes (%) (Auto) 23.9L, Monocytes (%) (Auto) 5.4, Eosinophils (%) (Auto) 2.9, Basophils (%) (Auto) 0.7, Neutrophils # (Auto) 4.8, Lymphocytes # (Auto) 1.7, Monocytes # (Auto) 0.4, Eosinophils # (Auto) 0.2, Basophils # (Auto) 0.1, Nucleated Red Blood Cells % (auto) 0.0 CBC/BMP Laboratory Tests 08/22/21 05:52 Assessment/Plan Mrs. Pickens is a 66-year-old female with hypertension and recent hemorrhagic stroke with left-sided residual weakness who presents here with pleuritic chest pain and hypoxia. Patient was found to have multifocal pneumonia and bilateral PE without any right heart strain. Patient was treated with 9 days of antibiotics. After discussion with neurology, patient was started on Eliquis f or PE and DVT. IVC filter was also placed. Otherwise, neurology recommended keeping blood pressure below 130/80. Otherwise, PT and OT worked with patient and recommended rehab. She is currently at ARU. Plan / VTE VTE Prophylaxis Ordered?: Yes Plan Plan 1. Hypoxia in the setting of multifocal pneumonia/sepsis Resolved Completed 9 days of antibiotics while inpatient 2. Recent hemorrhagic stroke with residual left-sided weakness Patient was at [facility] about 6 weeks ago for hemorrhagic stroke Left upper and lower extremity is still weaker than right Repeat CT head on 08/11/2021 demonstrated periventricular lucency in the right, consistent with prior infarct MRI brain with and without contrast demonstrated a mid to late subacute hemorrhagic infarct in the right external capsule subinsular region 3. Bilateral PE and left popliteal vein DVT Provoked secondary to recent hospitalization and recent travel IVC filter placed on 08/13/2021 Neurology consulted. Made a difficult decision to start anticoagulation Eliquis 2.5 mg twice daily Maintain blood pressure below 130/80 4. Hypertension Continue amlodipine, Lopressor, tamsulosin, and valsartan 5. GERD Continue Protonix 6. Insomnia Switch melatonin to ramelteon 7. Back spasms Continue baclofen 8. Obesity -BMI 43 -Complicates care 9. DVT prophylaxis Eliquis 2.5 mg twice daily Disposition: Per ROBERT HERRERA DO Aug 22, 2021 17:29
[2021-08-22 17:45] LABS: APPEARANCE, URINE HAZY (CLEAR); BACTERIA, URINE AUTO NEGATIVE (NEGATIVE); BILIRUBIN, URINE AUTO NEGATIVE (NEGATIVE); BLOOD, URINE BLOOD NEGATIVE (NEGATIVE); COLOR, URINE YELLOW (YELLOW); GLUCOSE, URINE (UA) AUTO NEGATIVE (NEGATIVE); KETONE, URINE AUTO NEGATIVE (NEGATIVE); LEUKOCYTE ESTERASE, URINE AUTO NEGATIVE (NEGATIVE); MUCUS, URINE SMALL (NEGATIVE); NITRITE, URINE AUTO NEGATIVE (NEGATIVE); PROTEIN, URINE AUTO NEGATIVE (NEGATIVE); RBC, URINE AUTO 0 /HPF (0-3); SPECIFIC GRAVITY URINE AUTO 1.006 (1.002-1.035); SQUAMOUS EPITHELIAL CELL UR AU 4 /HPF (0-6); UROBILINOGEN, URINE AUTO 0.2 mg/dL (0.0-2.0); WBC, URINE AUTO 2 /HPF (0-3)
[2021-08-22 20:00] VITALS: BP 120/57
[2021-08-22] MEDS: MIRTAZAPINE 7.5MG PER 1/2 TABLET PO SCH (20:20)
[2021-08-23] MEDS: BACLOFEN 5MG PER 1/2 TABLET PO SCH ×3 (05:28→21:37)
[2021-08-23 06:00] VITALS: BP 138/62
[2021-08-23] MEDS: DOCUSATE SODIUM 100MG CAPSULE PO SCH ×2 (08:04→21:00)
[2021-08-23] MEDS: PANTOPRAZOLE 40MG TAB (PROTONIX) PO SCH ×2 (08:10→21:37)
[2021-08-23] MEDS: TAMSULOSIN 0.4 MG CAP PO SCH (08:11)
[2021-08-23] MEDS: GABAPENTIN 100 MG CAP PO SCH ×3 (08:11→21:36)
[2021-08-23] MEDS: amLODIPine 5 MG TAB PO SCH (08:11)
[2021-08-23] MEDS: METOPROLOL SUCC *XL* 25MG TAB (TopROL *XL*) PO SCH (08:11)
[2021-08-23] MEDS: VITAMIN D 1,000 INTERNATIONAL UNITS TABLET PO SCH (08:11)
[2021-08-23] MEDS: APIXABAN 2.5 MG TAB (ELIQUIS) PO SCH ×2 (08:11→21:37)
[2021-08-23] MEDS: VALSARTAN 80 MG TAB (DIOVAN) PO SCH (08:11)
[2021-08-23] MEDS: DULoxetine 30MG CAPSULE (CYMBALTA) PO SCH (08:12)
[2021-08-23 14:00] VITALS: BP 126/59
[2021-08-23 20:00] VITALS: BP 118/58
[2021-08-23] MEDS: MIRTAZAPINE 7.5MG PER 1/2 TABLET PO SCH (21:36)
[2021-08-24] MEDS: BACLOFEN 5MG PER 1/2 TABLET PO SCH ×3 (05:20→20:26)
[2021-08-24 06:00] VITALS: BP 146/75
[2021-08-24 06:43] VITALS: BP 136/68
[2021-08-24] MEDS: amLODIPine 5 MG TAB PO SCH (08:19)
[2021-08-24] MEDS: TAMSULOSIN 0.4 MG CAP PO SCH (08:19)
[2021-08-24] MEDS: VITAMIN D 1,000 INTERNATIONAL UNITS TABLET PO SCH (08:19)
[2021-08-24] MEDS: VALSARTAN 80 MG TAB (DIOVAN) PO SCH (08:19)
[2021-08-24] MEDS: PANTOPRAZOLE 40MG TAB (PROTONIX) PO SCH ×2 (08:19→20:25)
[2021-08-24] MEDS: DOCUSATE SODIUM 100MG CAPSULE PO SCH ×2 (08:19→20:25)
[2021-08-24] MEDS: DULoxetine 30MG CAPSULE (CYMBALTA) PO SCH (08:19)
[2021-08-24] MEDS: GABAPENTIN 100 MG CAP PO SCH ×3 (08:19→20:25)
[2021-08-24] MEDS: APIXABAN 2.5 MG TAB (ELIQUIS) PO SCH ×2 (08:19→20:24)
[2021-08-24] MEDS: METOPROLOL SUCC *XL* 25MG TAB (TopROL *XL*) PO SCH (08:19)
[2021-08-24 14:00] VITALS: BP 129/62
[2021-08-24 20:00] VITALS: BP 131/59
[2021-08-24] MEDS: MIRTAZAPINE 7.5MG PER 1/2 TABLET PO SCH (20:24)
[2021-08-25] MEDS: BACLOFEN 5MG PER 1/2 TABLET PO SCH ×3 (05:49→20:37)
[2021-08-25 06:00] VITALS: BP 122/55
[2021-08-25 07:04] LABS: BASO # 0.1 10^3/uL (0.0-0.2); EOS # 0.2 10^3/uL (0.0-0.5); EOS % 3.5 % (0.0-3.0); HEMATOCRIT 40.7 % (36.0-47.0); HEMOGLOBIN 12.9 g/dl (12.0-15.5); LYMPH # 1.6 10^3/uL (1.5-5.0); LYMPH % 22.9 % (24.0-44.0); MEAN CORPUSCULAR HEMOGLOBIN 26.9 pg (27.0-33.0); MEAN CORPUSCULAR HGB CONC 31.7 g/dl (32.0-36.5); MONO # 0.3 10^3/uL (0.0-0.8); MONO % 4.5 % (2.0-8.0); NEUTROPHILS # 4.6 10^3/uL (1.5-8.5); NEUTROPHILS % 67.5 % (36.0-66.0); PLATELET COUNT, AUTOMATED 620 10^3/uL (150-450); RED BLOOD COUNT 4.79 10^6/uL (4.00-5.40); WHITE BLOOD COUNT 6.8 10^3/uL (4.0-10.0)
[2021-08-25 07:27] LABS: ALBUMIN 2.7 GM/DL (3.2-5.2); ALT/SGPT 28 U/L (12-78); BILIRUBIN,TOTAL 0.3 MG/DL (0.2-1.0); BLOOD UREA NITROGEN 12 MG/DL (7-18); CALCIUM LEVEL 8.7 MG/DL (8.8-10.2); CARBON DIOXIDE LEVEL 30 MEQ/L (21-32); CHLORIDE LEVEL 106 MEQ/L (98-107); CREATININE FOR GFR 0.71 MG/DL (0.55-1.30); GLOMERULAR FILTRATION RATE > 60.0 (>45); GLUCOSE, FASTING 93 MG/DL (70-100); POTASSIUM SERUM 4.3 MEQ/L (3.5-5.1); SODIUM LEVEL 141 MEQ/L (136-145); TOTAL PROTEIN 6.8 GM/DL (6.4-8.2)
[2021-08-25] MEDS: DOCUSATE SODIUM 100MG CAPSULE PO SCH ×2 (09:00→20:29)
[2021-08-25] MEDS: TAMSULOSIN 0.4 MG CAP PO SCH (09:11)
[2021-08-25] MEDS: APIXABAN 2.5 MG TAB (ELIQUIS) PO SCH ×2 (09:11→20:29)
[2021-08-25] MEDS: VALSARTAN 80 MG TAB (DIOVAN) PO SCH (09:11)
[2021-08-25] MEDS: DULoxetine 30MG CAPSULE (CYMBALTA) PO SCH (09:11)
[2021-08-25] MEDS: PANTOPRAZOLE 40MG TAB (PROTONIX) PO SCH ×2 (09:11→20:29)
[2021-08-25] MEDS: VITAMIN D 1,000 INTERNATIONAL UNITS TABLET PO SCH (09:11)
[2021-08-25] MEDS: GABAPENTIN 100 MG CAP PO SCH ×3 (09:11→20:29)
[2021-08-25] MEDS: METOPROLOL SUCC *XL* 25MG TAB (TopROL *XL*) PO SCH (09:12)
[2021-08-25] MEDS: amLODIPine 5 MG TAB PO SCH (09:12)
[2021-08-25] MEDS: ACETAMINOPHEN TAB 650MG DOSE (2X325MG) PO PRN (13:48)
[2021-08-25 14:00] VITALS: BP 141/67
[2021-08-25] MEDS: MIRTAZAPINE 7.5MG PER 1/2 TABLET PO SCH (20:29)
[2021-08-25 21:22] VITALS: BP 137/66
[2021-08-26] MEDS: BACLOFEN 5MG PER 1/2 TABLET PO SCH ×3 (05:40→21:21)
[2021-08-26 06:17] VITALS: BP 138/69
[2021-08-26] MEDS: APIXABAN 2.5 MG TAB (ELIQUIS) PO SCH ×2 (08:22→21:23)
[2021-08-26] MEDS: VITAMIN D 1,000 INTERNATIONAL UNITS TABLET PO SCH (08:22)
[2021-08-26] MEDS: PANTOPRAZOLE 40MG TAB (PROTONIX) PO SCH ×2 (08:22→21:21)
[2021-08-26] MEDS: DULoxetine 30MG CAPSULE (CYMBALTA) PO SCH (08:22)
[2021-08-26] MEDS: TAMSULOSIN 0.4 MG CAP PO SCH (08:22)
[2021-08-26] MEDS: amLODIPine 5 MG TAB PO SCH (08:23)
[2021-08-26] MEDS: GABAPENTIN 100 MG CAP PO SCH ×3 (08:23→21:21)
[2021-08-26] MEDS: VALSARTAN 80 MG TAB (DIOVAN) PO SCH (08:23)
[2021-08-26] MEDS: METOPROLOL SUCC *XL* 25MG TAB (TopROL *XL*) PO SCH (08:23)
[2021-08-26] MEDS: DOCUSATE SODIUM 100MG CAPSULE PO SCH ×2 (08:24→21:00)
--- NOTE | 2021-08-26 11:36 | IPNPDOC ---
PM&R Progress Note DATE OF SERVICE: Aug 26, 2021 [employer] Progress Note SUBJECTIVE: Patient stating her left thumb is sore and and her fingers on her left side feel a little swollen. She acknowledges that her legs are more edematous and is agreeable to a trial of lasix. REVIEW OF SYSTEMS: The following is a completed review of systems and has been reviewed. Review of systems otherwise unremarkable. PAIN: Patient self reports pain left 1st CMC, UE, left thigh and at times foot EYES: No recent vision changes. EARS, NOSE, & THROAT: No throat pain, or dysphagia, or rhinorrhea. CARDIOVASCULAR: Denies chest pain or palpitations, does have some posterior pleuritic pain with deep inspiration, alleviated with Lidoderm patches. PULMONARY: admits shortness of breath. GASTROINTESTINAL: Denies constipation/diarrhea. GENITOURINARY: .continent MUSCULOSKELETAL: .No prior issues, recent increase pain right medial knee with increased weight bearing compensating for left sided weakness NEUROLOGICAL:.Spastic L venkatesh s/p R CVA HEMATOLOGICAL: .S/P PE, L DVT, IVC filter SKIN: .Denies rashes, breakdown PSYCHIATRIC: Unremarkable. All other review of systems found to be negative. ALLERGIES: See Below MEDICATIONS: Reviewed, see below. OBJECTIVE: VITAL SIGNS: Please see below. VITAL SIGNS: Please see below. GENERAL: Pleasant and cooperative. No acute distress, excellent historian. HEENT: Pupils pin point, left facial droop. Extraocular movements intact. Clear conjunctiva, no adenopathy or thyromegaly. Full cervical range of motion without tenderness or spasm. CARDIOVASCULAR: Regular rate and rhythm. No murmurs, rubs, or gallops. LUNGS: Clear to auscultation bilaterally. No wheezes. No rhonchi. ABDOMEN: Soft, nontender, nondistended. Positive normal active bowel sounds, no organomegaly. Old healed midline incision NEUROLOGICAL: Alert and oriented times three. Cranial nerves II through XII noted for tongue deviation to right, left facial droop. Sensation intact to light touch all 4, decreased to pin prick left upper and lower extremities.. Reflexes 2+right 3+ left biceps, triceps, brachial radialis, patellar, tendon jerks with positive Babinski left, withdrawal on right. No tremor, but 3/5 tone left shoulder/arm and foot with c/o pain on Prom at shoulder, wrist and incited spasms left thigh. EXTREMITIES: 4+ /5 right 3-/5 left commercial administrator, elbow flexion, elbow extension, right knee extension, foot dorsiflexion, plantar flexion, unable to test left due to pain and guarding but demonstrates gross motion.. No calf tenderness, there is bilateral trace edema legs/feet.. Tender right medial knee pes anserine bursa and medial compartment. Tender right 1st CMC joint and with attempted extension of digits. SKIN: .intact DIAGNOSES: 1. Acute hypoxic respiratory failure in the setting of multifocal pneumonia and sepsis 2. Recent hemorrhagic stroke with residual spastic left-hemiparesis and hyperalgesia 3. Provoked bilateral PE and left popliteal vein DVT 4. Hypertension 5. GERD 6. Insomnia 7. Back spasms 8. Sepsis with end organ damage 9. Obesity 10. Debility 11. 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 PLAN: 1. Rehab- PT/OT advance gait and ADls, strengthen/stretch/maintain ROM all 4 limbs. We'll continue to work on timing pain medication with therapy inter ventions to optimize possible capacity to participate. Utilization and adjustment of appropriate splinting, tone reduction techniques in breaking the pattern of shoulder, hand pain syndrome will be a priority- thumb spica splint ordered and Flector path to left thumb for CMC OA and ligamental instability , -cont use of AFO and Medication adjustments including gradual increase in baclofen. 2. Neuro- right hemorrhagic CVA with Left venkatesh-, neuro recommended resumption of anticoagulation. Continue eliquis 2.5 mg BID fpr PE and DVT 3. Ortho- . Left first carpometacarpal, right knee, spinal pain noted. Be addressed with appropriate modalities and medication adjustments 4. Cardiac- -HTN , maintain blood pressure systolic 130-amlodipine -HLD- dietary control 5. Resp -incentive spirometry, monitor for recurrent infection, monitor pulse oximetry and include component of pulmonary rehabilitation with overall reconditioning program 6. - Enter Frequency in Direction field Bladder scan [id number] and catheterize for >400 cc if Pt unable to void on own, check PVRs and catheterize for >300cc, may stop all scans if PVRs are <200 cc on 3 consecutive occasions. 7. GI ppx-ppi 8. Dispo- 09-02-21 to home, progressing towards goals Allergies Coded Allergies: No Known Allergies (Unverified , 04/23/21) Vital Signs Vital Signs Date Time Temp Pulse Resp B/P (MAP) Pulse Ox O2 Delivery O2 Flow Rate FiO2 08/26/21 08:23 135/79 08/26/21 06:17 97.6 76 18 94 Room Air Microbiology Microbiology 08/22/21 Urine Culture - Final, Complete Current Medications Current Medications Current Medications Medications (Trade) Dose Ordered Sig/Chiara Route PRN Reason Start Time Stop Time Status Last Admin Dose Admin Acetaminophen (Tylenol Tab) 650 mg Q4HP PRN PO MILD PAIN (PS 1-4) 08/21/21 12:20 08/25/21 13:48 Amlodipine Besylate (Norvasc) 5 mg DAILY PO 08/22/21 10:35 08/26/21 08:23 Apixaban (Eliquis) 2.5 mg BID PO 08/21/21 21:00 08/26/21 08:22 Baclofen (Lioresal) 5 mg Q6HP PRN PO muscle spasms 08/21/21 13:10 08/21/21 15:55 DC 08/21/21 14:24 Baclofen (Lioresal) 5 mg Q8H PO 08/21/21 22:00 08/26/21 05:40 Docusate Sodium (Colace) 100 mg BID PO 08/21/21 21:00 08/24/21 20:25 Duloxetine HCl (Cymbalta) 30 mg DAILY PO 08/22/21 09:00 08/26/21 08:22 Gabapentin (Neurontin) 100 mg TID PO 08/21/21 16:00 08/26/21 08:23 Home Med (Home Med List Complete!) ASDIRECTED XX 08/21/21 12:35 08/21/21 12:37 DC Hydroxyzine HCl (Atarax) 10 mg QHSP PRN PO INSOMNIA 08/21/21 13:10 08/21/21 22:17 Metoprolol Succinate (TopROL XL) 25 mg DAILY PO 08/22/21 09:00 11/9/21 08:23 Mirtazapine (Remeron) 7.5 mg QHS PO 08/21/21 21:00 08/25/21 20:29 Ondansetron HCl (Zofran) 4 mg Q6HP PRN PO NAUSEA 08/21/21 12:20 Pantoprazole Sodium (Protonix) 40 mg BID PO 08/21/21 21:00 08/26/21 08:22 Patient Own Medication (Patient'S Own Med) Volteran gel 1 dose topica... TIDP PRN TOP hand pain 08/22/21 11:10 08/26/21 09:15 DC Tamsulosin HCl (Flomax) 0.4 mg DAILY PO 08/22/21 09:00 08/26/21 08:22 Tramadol HCl (Ultram) 50 mg Q6HP PRN PO MODERATE PAIN (PS 5-7) 08/21/21 13:10 08/22/21 06:24 Valsartan (Diovan) 160 mg DAILY PO 08/22/21 09:00 08/26/21 08:23 Vitamin D (Vitamin D) 1,000 units DAILY PO 08/22/21 09:00 08/26/21 08:22 FAUZIA GUSTAFSON MD Aug 26, 2021 11:36
[2021-08-26 14:00] VITALS: BP 131/61
[2021-08-26] MEDS: ACETAMINOPHEN TAB 650MG DOSE (2X325MG) PO PRN (16:39)
[2021-08-26 20:00] VITALS: BP 120/59
[2021-08-26] MEDS: MIRTAZAPINE 7.5MG PER 1/2 TABLET PO SCH (21:21)
[2021-08-26] MEDS: DICLOFENAC EPOLAMINE 1.3 % PATCH TOP SCH (21:22)
[2021-08-27] MEDS: BACLOFEN 5MG PER 1/2 TABLET PO SCH ×3 (05:50→21:21)
[2021-08-27 06:00] VITALS: BP 136/65
[2021-08-27] MEDS: DOCUSATE SODIUM 100MG CAPSULE PO SCH ×2 (08:13→21:00)
[2021-08-27] MEDS: TAMSULOSIN 0.4 MG CAP PO SCH (08:18)
[2021-08-27] MEDS: METOPROLOL SUCC *XL* 25MG TAB (TopROL *XL*) PO SCH (08:18)
[2021-08-27] MEDS: FUROSEMIDE 20 MG TAB PO SCH (08:18)
[2021-08-27] MEDS: PANTOPRAZOLE 40MG TAB (PROTONIX) PO SCH ×2 (08:18→21:21)
[2021-08-27] MEDS: APIXABAN 2.5 MG TAB (ELIQUIS) PO SCH ×2 (08:18→21:21)
[2021-08-27] MEDS: VALSARTAN 80 MG TAB (DIOVAN) PO SCH (08:18)
[2021-08-27] MEDS: VITAMIN D 1,000 INTERNATIONAL UNITS TABLET PO SCH (08:18)
[2021-08-27] MEDS: GABAPENTIN 100 MG CAP PO SCH ×3 (08:18→21:21)
[2021-08-27] MEDS: DULoxetine 30MG CAPSULE (CYMBALTA) PO SCH (08:18)
[2021-08-27] MEDS: DICLOFENAC EPOLAMINE 1.3 % PATCH TOP SCH ×2 (08:19→21:21)
[2021-08-27] MEDS: amLODIPine 5 MG TAB PO SCH (08:19)
[2021-08-27 11:28] LABS: BASO # 0.1 10^3/uL (0.0-0.2); BASO % 0.8 % (0.0-1.0); EOS # 0.3 10^3/uL (0.0-0.5); EOS % 3.5 % (0.0-3.0); HEMATOCRIT 43.1 % (36.0-47.0); HEMOGLOBIN 13.8 g/dl (12.0-15.5); LYMPH % 22.9 % (24.0-44.0); MEAN CORPUSCULAR VOLUME 84.3 fl (80.0-96.0); MONO # 0.5 10^3/uL (0.0-0.8); MONO % 5.6 % (2.0-8.0); NEUTROPHILS # 5.7 10^3/uL (1.5-8.5); NEUTROPHILS % 66.2 % (36.0-66.0); PLATELET COUNT, AUTOMATED 622 10^3/uL (150-450); RED BLOOD COUNT 5.11 10^6/uL (4.00-5.40); WHITE BLOOD COUNT 8.7 10^3/uL (4.0-10.0)
[2021-08-27 11:47] LABS: BLOOD UREA NITROGEN 13 MG/DL (7-18); CALCIUM LEVEL 9.2 MG/DL (8.8-10.2); CARBON DIOXIDE LEVEL 29 MEQ/L (21-32); CHLORIDE LEVEL 103 MEQ/L (98-107); CREATININE FOR GFR 0.82 MG/DL (0.55-1.30); GLOMERULAR FILTRATION RATE > 60.0 (>45); GLUCOSE, FASTING 92 MG/DL (70-100); POTASSIUM SERUM 3.9 MEQ/L (3.5-5.1); SODIUM LEVEL 138 MEQ/L (136-145)
[2021-08-27 14:00] VITALS: BP 123/61
[2021-08-27 20:00] VITALS: BP 114/55
[2021-08-27] MEDS: traMADol 50 MG TAB PO PRN (20:03)
[2021-08-27] MEDS: MIRTAZAPINE 7.5MG PER 1/2 TABLET PO SCH (21:21)
[2021-08-28] MEDS: BACLOFEN 5MG PER 1/2 TABLET PO SCH ×2 (05:21→13:34)
[2021-08-28 06:00] VITALS: BP 129/65
[2021-08-28] MEDS: DOCUSATE SODIUM 100MG CAPSULE PO SCH ×2 (08:12→20:19)
[2021-08-28] MEDS: PANTOPRAZOLE 40MG TAB (PROTONIX) PO SCH ×2 (08:29→20:20)
[2021-08-28] MEDS: GABAPENTIN 100 MG CAP PO SCH ×3 (08:30→20:20)
[2021-08-28] MEDS: APIXABAN 2.5 MG TAB (ELIQUIS) PO SCH ×2 (08:30→20:20)
[2021-08-28] MEDS: FUROSEMIDE 20 MG TAB PO SCH (08:30)
[2021-08-28] MEDS: DULoxetine 30MG CAPSULE (CYMBALTA) PO SCH (08:30)
[2021-08-28] MEDS: VALSARTAN 80 MG TAB (DIOVAN) PO SCH (08:30)
[2021-08-28] MEDS: TAMSULOSIN 0.4 MG CAP PO SCH (08:30)
[2021-08-28] MEDS: amLODIPine 5 MG TAB PO SCH (08:30)
[2021-08-28] MEDS: METOPROLOL SUCC *XL* 25MG TAB (TopROL *XL*) PO SCH (08:30)
[2021-08-28] MEDS: VITAMIN D 1,000 INTERNATIONAL UNITS TABLET PO SCH (08:30)
[2021-08-28] MEDS: DICLOFENAC EPOLAMINE 1.3 % PATCH TOP SCH ×2 (08:31→20:20)
[2021-08-28 14:00] VITALS: BP 116/63
[2021-08-28 20:00] VITALS: BP_SYST 134; BP_SYST 150; BP_DIAS 58; BP_DIAS 73
[2021-08-28] MEDS: MIRTAZAPINE 7.5MG PER 1/2 TABLET PO SCH (20:20)
[2021-08-29 06:00] VITALS: BP 132/64
[2021-08-29] MEDS: TAMSULOSIN 0.4 MG CAP PO SCH (08:34)
[2021-08-29] MEDS: DULoxetine 30MG CAPSULE (CYMBALTA) PO SCH (08:34)
[2021-08-29] MEDS: PANTOPRAZOLE 40MG TAB (PROTONIX) PO SCH ×2 (08:34→21:59)
[2021-08-29] MEDS: APIXABAN 2.5 MG TAB (ELIQUIS) PO SCH ×2 (08:34→22:00)
[2021-08-29] MEDS: DOCUSATE SODIUM 100MG CAPSULE PO SCH ×2 (08:34→22:00)
[2021-08-29] MEDS: VITAMIN D 1,000 INTERNATIONAL UNITS TABLET PO SCH (08:34)
[2021-08-29] MEDS: amLODIPine 5 MG TAB PO SCH (08:34)
[2021-08-29] MEDS: GABAPENTIN 100 MG CAP PO SCH ×3 (08:34→22:00)
[2021-08-29] MEDS: METOPROLOL SUCC *XL* 25MG TAB (TopROL *XL*) PO SCH (08:35)
[2021-08-29] MEDS: DICLOFENAC EPOLAMINE 1.3 % PATCH TOP SCH ×2 (08:35→22:01)
[2021-08-29] MEDS: FUROSEMIDE 20 MG TAB PO SCH (08:35)
[2021-08-29] MEDS: VALSARTAN 80 MG TAB (DIOVAN) PO SCH (08:36)
[2021-08-29 08:41] LABS: BASO # 0.1 10^3/uL (0.0-0.2); BASO % 1.2 % (0.0-1.0); EOS # 0.3 10^3/uL (0.0-0.5); EOS % 4.9 % (0.0-3.0); HEMATOCRIT 39.7 % (36.0-47.0); HEMOGLOBIN 12.6 g/dl (12.0-15.5); LYMPH # 1.2 10^3/uL (1.5-5.0); LYMPH % 24.3 % (24.0-44.0); MEAN CORPUSCULAR HGB CONC 31.7 g/dl (32.0-36.5); MONO # 0.3 10^3/uL (0.0-0.8); MONO % 6.1 % (2.0-8.0); NEUTROPHILS # 3.2 10^3/uL (1.5-8.5); NEUTROPHILS % 63.3 % (36.0-66.0); PLATELET COUNT, AUTOMATED 406 10^3/uL (150-450); RED BLOOD COUNT 4.67 10^6/uL (4.00-5.40); WHITE BLOOD COUNT 5.1 10^3/uL (4.0-10.0)
[2021-08-29] MEDS: LIDOCAINE 5% (LIDODERM) PATCH TD SCH (09:00)
[2021-08-29 09:05] LABS: BLOOD UREA NITROGEN 17 MG/DL (7-18); CARBON DIOXIDE LEVEL 31 MEQ/L (21-32); CHLORIDE LEVEL 101 MEQ/L (98-107); CREATININE FOR GFR 0.75 MG/DL (0.55-1.30); GLOMERULAR FILTRATION RATE > 60.0 (>45); GLUCOSE, FASTING 113 MG/DL (70-100); SODIUM LEVEL 139 MEQ/L (136-145)
--- NOTE | 2021-08-29 13:29 | IPNPDOC ---
PM&R Progress Note DATE OF SERVICE: Aug 27, 2021 [employer] Progress Note SUBJECTIVE: Patient stating her left thumb pain is much better today with the splint and flector patch. She states she normally drinks a lot of fluid and was encouraged to limit her intake given her leg swelling in conjunction with lasix. REVIEW OF SYSTEMS: The following is a completed review of systems and has been reviewed. Review of systems otherwise unremarkable. PAIN: Patient self reports pain left 1st CMC, UE, left thigh and at times foot EYES: No recent vision changes. EARS, NOSE, & THROAT: No throat pain, or dysphagia, or rhinorrhea. CARDIOVASCULAR: Denies chest pain or palpitations, does have some posterior pleuritic pain with deep inspiration, alleviated with Lidoderm patches. PULMONARY: admits shortness of breath. GASTROINTESTINAL: Denies constipation/diarrhea. GENITOURINARY: .continent MUSCULOSKELETAL: .No prior issues, recent increase pain right medial knee with increased weight bearing compensating for left sided weakness NEUROLOGICAL:.Spastic L venkatesh s/p R CVA HEMATOLOGICAL: .S/P PE, L DVT, IVC filter SKIN: .Denies rashes, breakdown PSYCHIATRIC: Unremarkable. All other review of systems found to be negative. ALLERGIES: See Below MEDICATIONS: Reviewed, see below. OBJECTIVE: VITAL SIGNS: Please see below. VITAL SIGNS: Please see below. GENERAL: Pleasant and cooperative. No acute distress, excellent historian. HEENT: Pupils pin point, left facial droop. Extraocular movements intact. Clear conjunctiva, no adenopathy or thyromegaly. Full cervical range of motion without tenderness or spasm. CARDIOVASCULAR: Regular rate and rhythm. No murmurs, rubs, or gallops. LUNGS: Clear to auscultation bilaterally. No wheezes. No rhonchi. ABDOMEN: Soft, nontender, nondistended. Positive normal active bowel sounds, no organomegaly. Old healed midline incision NEUROLOGICAL: Alert and oriented times three. Cranial nerves II through XII noted for tongue deviation to right, left facial droop. Sensation intact to light touch all 4, decreased to pin prick left upper and lower extremities.. Reflexes 2+right 3+ left biceps, triceps, brachial radialis, patellar, tendon jerks with positive Babinski left, withdrawal on right. No tremor, but 3/5 tone left shoulder/arm and foot with c/o pain on Prom at shoulder, wrist and incited spasms left thigh. EXTREMITIES: 4+ /5 right 3-/5 left face cleaner, elbow flexion, elbow extension, right knee extension, foot dorsiflexion, plantar flexion, unable to test left due to pain and guarding but demonstrates gross motion.. +LE edema .. Tender right 1st CMC joint and with attempted extension of digits. SKIN: .intact DIAGNOSES: 1. Acute hypoxic respiratory failure in the setting of multifocal pneumonia and sepsis 2. Recent hemorrhagic stroke with residual spastic left-hemiparesis and hyperalgesia 3. Provoked bilateral PE and left popliteal vein DVT 4. Hypertension 5. GERD 6. Insomnia 7. Back spasms 8. Sepsis with end organ damage 9. Obesity 10. Debility 11. 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 PLAN: 1. Rehab- PT/OT advance gait and ADls, strengthen/stretch/maintain ROM all 4 limbs. We'll continue to work on timing pain medication with therapy interventions to optimize possible capacity to participate. Utilization and adjustment of appropriate splinting, tone reduction techniques in breaking the pattern of shoulder, hand pain syndrome will be a priority- -cont use of AFO and Medication adjustments including gradual increase in baclofen. 2. Neuro- right hemorrhagic CVA with Left venkatesh-, neuro recommended resumption of anticoagulation. Continue eliquis 2.5 mg BID fpr PE and DVT 3. Ortho- . Left first carpometacarpal, right knee, spinal pain noted. Be addressed with appropriate modalities and medication adjustments, thumb spica splint ordered and Flector path to left thumb for CMC OA and ligamental instability- pain improving 4. Cardiac- -HTN , maintain blood pressure systolic 130-amlodipine -LE edema cont lasix -HLD- dietary control 5. Resp -incentive spirometry, monitor for recurrent infection, monitor pulse oximetry and include component of pulmonary rehabilitation with overall reconditioning program 6. - Enter Frequency in Direction field Bladder scan [id number] and catheterize for >400 cc if Pt unable to void on own, check PVRs and catheterize for >300cc, may stop all scans if PVRs are <200 cc on 3 consecutive occasions. 7. GI ppx-ppi 8. Dispo- 09-02-21 to home, progressing towards goals Allergies Coded Allergies: No Known Allergies (Unverified , 04/23/21) Vital Signs Vital Signs Date Time Temp Pulse Resp B/P (MAP) Pulse Ox O2 Delivery O2 Flow Rate FiO2 08/29/21 08:36 132/64 08/29/21 08:35 78 08/29/21 06:00 98.8 17 97 Room Air Laboratory Data CBC/BMP Laboratory Tests 08/29/21 08:17 Labs 24H Laboratory Tests 2 08/29/21 08:17: Immature Granulocyte % (Auto) 0.2, Neutrophils (%) (Auto) 63.3, Lymphocytes (%) (Auto) 24.3, Monocytes (%) (Auto) 6.1, Eosinophils (%) (Auto) 4.9H, Basophils (%) (Auto) 1.2H, Neutrophils # (Auto) 3.2, Lymphocytes # (Auto) 1.2L, Monocytes # (Auto) 0.3, Eosinophils # (Auto) 0.3, Basophils # (Auto) 0.1, Nucleated Red Blood Cells % (auto) 0.0, Anion Gap 7L, Glomerular Filtration Rate > 60.0, Calcium Level 9.0 Microbiology Microbiology 08/22/21 Urine Culture - Final, Complete Current Medications Current Medications Current Medications Medications (Trade) Dose Ordered Sig/Chiara Route PRN Reason Start Time Stop Time Status Last Admin Dose Admin Acetaminophen (Tylenol Tab) 650 mg Q4HP PRN PO MILD PAIN (PS 1-4) 08/21/21 12:20 08/26/21 16:39 Amlodipine Besylate (Norvasc) 5 mg DAILY PO 08/22/21 10:35 08/29/21 08:34 Apixaban (Eliquis) 2.5 mg BID PO 08/21/21 21:00 08/29/21 08:34 Baclofen (Lioresal) 5 mg Q6HP PRN PO muscle spasms 08/21/21 13:10 08/21/21 15:55 DC 08/21/21 14:24 Baclofen (Lioresal) 5 mg Q8H PO 08/21/21 22:00 08/28/21 15:16 DC 08/28/21 13:34 Diclofenac Epolamine (Flector 1.3%) 1 patch Q12H TOP 08/26/21 21:00 08/29/21 08:35 Docusate Sodium (Colace) 100 mg BID PO 08/21/21 21:00 08/24/21 20:25 Duloxetine HCl (Cymbalta) 30 mg DAILY PO 08/22/21 09:00 08/29/21 08:34 Furosemide (Lasix) 20 mg DAILY PO 08/27/21 09:00 08/29/21 08:35 Gabapentin (Neurontin) 100 mg TID PO 08/21/21 16:00 08/29/21 08:34 Home Med (Home Med List Complete!) ASDIRECTED XX 08/21/21 12:35 08/21/21 12:37 DC Hydroxyzine HCl (Atarax) 10 mg QHSP PRN PO INSOMNIA 08/21/21 13:10 08/21/21 22:17 Metoprolol Succinate (TopROL XL) 25 mg DAILY PO 08/22/21 09:00 08/29/21 08:35 Mirtazapine (Remeron) 7.5 mg QHS PO 08/21/21 21:00 08/28/21 20:20 Ondansetron HCl (Zofran) 4 mg Q6HP PRN PO NAUSEA 08/21/21 12:20 Pantoprazole Sodium (Protonix) 40 mg BID PO 08/21/21 21:00 08/29/21 08:34 Patient Own Medication (Patient'S Own Med) Volteran gel 1 dose topica... TIDP PRN TOP hand pain 08/22/21 11:10 08/26/21 09:15 DC Tamsulosin HCl (Flomax) 0.4 mg DAILY PO 08/22/21 09:00 08/29/21 08:34 Tramadol HCl (Ultram) 50 mg Q6HP PRN PO MODERATE PAIN (PS 5-7) 08/21/21 13:10 08/27/21 20:03 Valsartan (Diovan) 160 mg DAILY PO 08/22/21 09:00 08/29/21 08:36 Vitamin D (Vitamin D) 1,000 units DAILY PO 08/22/21 09:00 08/29/21 08:34 FAUZIA GUSTAFSON MD Aug 29, 2021 13:29
--- NOTE | 2021-08-29 13:29 | IPNPDOC ---
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 REVIEW OF SYSTEMS: The following is a completed review of systems and has been reviewed. Review of systems otherwise unremarkable. PAIN: Patient self reports pain left 1st CMC, UE, left thigh and at times foot EYES: No recent vision changes. EARS, NOSE, & THROAT: No throat pain, or dysphagia, or rhinorrhea. CARDIOVASCULAR: Denies chest pain or palpitations, does have some posterior pleuritic pain with deep inspiration, alleviated with Lidoderm patches. PULMONARY: admits shortness of breath. GASTROINTESTINAL: Denies constipation/diarrhea. GENITOURINARY: .continent MUSCULOSKELETAL: .No prior issues, recent increase pain right medial knee with increased weight bearing compensating for left sided weakness NEUROLOGICAL:.Spastic L venkatesh s/p R CVA HEMATOLOGICAL: .S/P PE, L DVT, IVC filter SKIN: .Denies rashes, breakdown PSYCHIATRIC: Unremarkable. All other review of systems found to be negative. ALLERGIES: See Below MEDICATIONS: Reviewed, see below. OBJECTIVE: VITAL SIGNS: Please see below. VITAL SIGNS: Please see below. GENERAL: Pleasant and cooperative. No acute distress, excellent historian. HEENT: Pupils pin point, left facial droop. Extraocular movements intact. Clear conjunctiva, no adenopathy or thyromegaly. Full cervical range of motion without tenderness or spasm. CARDIOVASCULAR: Regular rate and rhythm. No murmurs, rubs, or gallops. LUNGS: Clear to auscultation bilaterally. No wheezes. No rhonchi. ABDOMEN: Soft, nontender, nondistended. Positive normal active bowel sounds, no organomegaly. Old healed midline incision NEUROLOGICAL: Alert and oriented times three. Cranial nerves II through XII noted for tongue deviation to right, left facial droop. Sensation intact to light touch all 4, decreased to pin prick left upper and lower extremities.. Reflexes 2+right 3+ left biceps, triceps, brachial radialis, patellar, tendon je rks with positive Babinski left, withdrawal on right. No tremor, but 3/5 tone left shoulder/arm and foot with c/o pain on Prom at shoulder, wrist and incited spasms left thigh. 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 +LE edema .. Tender right 1st CMC joint and with attempted extension of digits. (improving), romel's negative -left first digit warm to touch and TTP SKIN: .intact DIAGNOSES: 1. Acute hypoxic respiratory failure in the setting of multifocal pneumonia and sepsis 2. Recent hemorrhagic stroke with residual spastic left-hemiparesis and hyperalgesia 3. Provoked bilateral PE and left popliteal vein DVT 4. Hypertension 5. GERD 6. Insomnia 7. Back spasms 8. Sepsis with end organ damage 9. Obesity 10. Debility 11. 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 PLAN: 1. Rehab- PT/OT advance gait and ADls, strengthen/stretch/maintain ROM all 4 limbs. We'll continue to work on timing pain medication with therapy interven tions to optimize possible capacity to participate. Utilization and adjustment of appropriate splinting, tone reduction techniques in breaking the pattern of shoulder, hand pain syndrome will be a priority- -cont use of AFO and Medication adjustments including gradual increase in baclofen. 2. Neuro- right hemorrhagic CVA with Left venkatesh-, neuro recommended resumption of anticoagulation. Continue eliquis 2.5 mg BID fpr PE and DVT 3. Ortho- . Left first carpometacarpal, right knee, spinal pain noted. 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 Cardiac- -HTN , maintain blood pressure systolic 130-amlodipine -LE edema cont lasix -HLD- dietary control 5. Resp -incentive spirometry, monitor for recurrent infection, monitor pulse oximetry and include component of pulmonary rehabilitation with overall reconditioning program 6. - Enter Frequency in Direction field Bladder scan [id number] and catheterize for >400 cc if Pt unable to void on own, check PVRs and catheterize for >300cc, may stop all scans if PVRs are <200 cc on 3 consecutive occasions. 7. GI ppx-ppi 8. Rheum- left 1st toe pain suspect gout flair will add uric acid level to labs, start prednisone and flector patching 9. Dispo- 09-02-21 to home, progressing towards goals Allergies Coded Allergies: No Known Allergies (Unverified , 04/23/21) Vital Signs Vital Signs Date Time Temp Pulse Resp B/P (MAP) Pulse Ox O2 Delivery O2 Flow Rate FiO2 08/29/21 08:36 132/64 08/29/21 08:35 78 08/29/21 06:00 98.8 17 97 Room Air Laboratory Data CBC/BMP Laboratory Tests 08/29/21 08:17 Labs 24H Laboratory Tests 2 08/29/21 08:17: Immature Granulocyte % (Auto) 0.2, Neutrophils (%) (Auto) 63.3, Lymphocytes (%) (Auto) 24.3, Monocytes (%) (Auto) 6.1, Eosinophils (%) (Auto) 4.9H, Basophils (%) (Auto) 1.2H, Neutrophils # (Auto) 3.2, Lymphocytes # (Auto) 1.2L, Monocytes # (Auto) 0.3, Eosinophils # (Auto) 0.3, Basophils # (Auto) 0.1, Nucleated Red Blood Cells % (auto) 0.0, Anion Gap 7L, Glomerular Filtration Rate > 60.0, Calcium Level 9.0 Microbiology Microbiology 08/22/21 Urine Culture - Final, Complete Current Medications Current Medications Current Medications Medications (Trade) Dose Ordered Sig/Chiara Route PRN Reason Start Time Stop Time Status Last Admin Dose Admin Acetaminophen (Tylenol Tab) 650 mg Q4HP PRN PO MILD PAIN (PS 1-4) 08/21/21 12:20 08/26/21 16:39 Amlodipine Besylate (Norvasc) 5 mg DAILY PO 08/22/21 10:35 08/29/21 08:34 Apixaban (Eliquis) 2.5 mg BID PO 08/21/21 21:00 08/29/21 08:34 Baclofen (Lioresal) 5 mg Q6HP PRN PO muscle spasms 08/21/21 13:10 08/21/21 15:55 DC 08/21/21 14:24 Baclofen (Lioresal) 5 mg Q8H PO 08/21/21 22:00 08/28/21 15:16 DC 08/28/21 13:34 Diclofenac Epolamine (Flector 1.3%) 1 patch Q12H TOP 08/26/21 21:00 08/29/21 08:35 Docusate Sodium (Colace) 100 mg BID PO 08/21/21 21:00 08/24/21 20:25 Duloxetine HCl (Cymbalta) 30 mg DAILY PO 08/22/21 09:00 08/29/21 08:34 Furosemide (Lasix) 20 mg DAILY PO 08/27/21 09:00 08/29/21 08:35 Gabapentin (Neurontin) 100 mg TID PO 08/21/21 16:00 08/29/21 08:34 Home Med (Home Med List Complete!) ASDIRECTED XX 08/21/21 12:35 08/21/21 12:37 DC Hydroxyzine HCl (Atarax) 10 mg QHSP PRN PO INSOMNIA 08/21/21 13:10 08/21/21 22:17 Metoprolol Succinate (TopROL XL) 25 mg DAILY PO 08/22/21 09:00 08/29/21 08:35 Mirtazapine (Remeron) 7.5 mg QHS PO 08/21/21 21:00 08/28/21 20:20 Ondansetron HCl (Zofran) 4 mg Q6HP PRN PO NAUSEA 08/21/21 12:20 Pantoprazole Sodium (Protonix) 40 mg BID PO 08/21/21 21:00 08/29/21 08:34 Patient Own Medication (Patient'S Own Med) Volteran gel 1 dose topica... TIDP PRN TOP hand pain 08/22/21 11:10 08/26/21 09:15 DC Tamsulosin HCl (Flomax) 0.4 mg DAILY PO 08/22/21 09:00 08/29/21 08:34 Tramadol HCl (Ultram) 50 mg Q6HP PRN PO MODERATE PAIN (PS 5-7) 08/21/21 13:10 08/27/21 20:03 Valsartan (Diovan) 160 mg DAILY PO 08/22/21 09:00 08/29/21 08:36 Vitamin D (Vitamin D) 1,000 units DAILY PO 08/22/21 09:00 08/29/21 08:34 FAUZIA GUSTAFSON MD Aug 29, 2021 13:29
[2021-08-29 14:00] VITALS: BP 113/65
[2021-08-29 16:26] LABS: URIC ACID 7.9 MG/DL (2.6-6.0)
[2021-08-29 20:00] VITALS: BP 126/72
[2021-08-29] MEDS: MIRTAZAPINE 7.5MG PER 1/2 TABLET PO SCH (21:59)
[2021-08-29] MEDS: predniSONE 5 MG TAB PO SCH (21:59)
[2021-08-29] MEDS: **NOTE PATIENT COMMENT** MISC XX SCH (22:00)
[2021-08-30 06:00] VITALS: BP 130/66
[2021-08-30] MEDS: DOCUSATE SODIUM 100MG CAPSULE PO SCH ×2 (09:00→22:00)
[2021-08-30] MEDS: LIDOCAINE 5% (LIDODERM) PATCH TD SCH (09:30)
[2021-08-30] MEDS: DICLOFENAC EPOLAMINE 1.3 % PATCH TOP SCH ×2 (09:31→22:02)
[2021-08-30] MEDS: VALSARTAN 80 MG TAB (DIOVAN) PO SCH (09:32)
[2021-08-30] MEDS: GABAPENTIN 100 MG CAP PO SCH ×3 (09:33→22:01)
[2021-08-30] MEDS: DULoxetine 30MG CAPSULE (CYMBALTA) PO SCH (09:33)
[2021-08-30] MEDS: FUROSEMIDE 20 MG TAB PO SCH (09:33)
[2021-08-30] MEDS: TAMSULOSIN 0.4 MG CAP PO SCH (09:33)
[2021-08-30] MEDS: APIXABAN 2.5 MG TAB (ELIQUIS) PO SCH ×2 (09:33→22:01)
[2021-08-30] MEDS: predniSONE 5 MG TAB PO SCH ×2 (09:34→22:01)
[2021-08-30] MEDS: PANTOPRAZOLE 40MG TAB (PROTONIX) PO SCH ×2 (09:34→22:01)
[2021-08-30] MEDS: amLODIPine 5 MG TAB PO SCH (09:34)
[2021-08-30] MEDS: VITAMIN D 1,000 INTERNATIONAL UNITS TABLET PO SCH (09:34)
[2021-08-30] MEDS: METOPROLOL SUCC *XL* 25MG TAB (TopROL *XL*) PO SCH (09:35)
[2021-08-30 14:00] VITALS: BP 140/60
[2021-08-30 20:00] VITALS: BP 138/74
[2021-08-30] MEDS: **NOTE PATIENT COMMENT** MISC XX SCH (21:00)
[2021-08-30] MEDS: MIRTAZAPINE 7.5MG PER 1/2 TABLET PO SCH (22:01)
[2021-08-30] MEDS: COLCHICINE 0.6 MG TABLET PO SCH (22:19)
[2021-08-31 06:00] VITALS: BP 145/62
[2021-08-31] MEDS: predniSONE 5 MG TAB PO SCH ×2 (08:52→21:22)
[2021-08-31] MEDS: DULoxetine 30MG CAPSULE (CYMBALTA) PO SCH (08:52)
[2021-08-31] MEDS: APIXABAN 2.5 MG TAB (ELIQUIS) PO SCH ×2 (08:52→21:22)
[2021-08-31] MEDS: TAMSULOSIN 0.4 MG CAP PO SCH (08:52)
[2021-08-31] MEDS: PANTOPRAZOLE 40MG TAB (PROTONIX) PO SCH ×2 (08:52→21:22)
[2021-08-31] MEDS: COLCHICINE 0.6 MG TABLET PO SCH ×2 (08:52→17:05)
[2021-08-31] MEDS: VITAMIN D 1,000 INTERNATIONAL UNITS TABLET PO SCH (08:53)
[2021-08-31] MEDS: FUROSEMIDE 20 MG TAB PO SCH (08:53)
[2021-08-31] MEDS: GABAPENTIN 100 MG CAP PO SCH ×3 (08:53→21:22)
[2021-08-31] MEDS: DICLOFENAC EPOLAMINE 1.3 % PATCH TOP SCH ×2 (08:54→21:23)
[2021-08-31] MEDS: METOPROLOL SUCC *XL* 25MG TAB (TopROL *XL*) PO SCH (08:54)
[2021-08-31] MEDS: LIDOCAINE 5% (LIDODERM) PATCH TD SCH (08:54)
[2021-08-31] MEDS: DOCUSATE SODIUM 100MG CAPSULE PO SCH ×2 (08:55→21:22)
[2021-08-31] MEDS: VALSARTAN 80 MG TAB (DIOVAN) PO SCH (08:55)
[2021-08-31] MEDS: amLODIPine 5 MG TAB PO SCH (08:55)
[2021-08-31] MEDS: ACETAMINOPHEN TAB 650MG DOSE (2X325MG) PO PRN (10:42)
[2021-08-31 14:00] VITALS: BP 146/84
[2021-08-31 20:00] VITALS: BP 134/64
[2021-08-31] MEDS: MIRTAZAPINE 7.5MG PER 1/2 TABLET PO SCH (21:22)
[2021-08-31] MEDS: **NOTE PATIENT COMMENT** MISC XX SCH (21:23)
[2021-09-01 06:00] VITALS: BP 158/73
[2021-09-01 07:41] LABS: BASO % 0.5 % (0.0-1.0); EOS % 0.3 % (0.0-3.0); HEMATOCRIT 43.9 % (36.0-47.0); HEMOGLOBIN 13.7 g/dl (12.0-15.5); LYMPH # 0.8 10^3/uL (1.5-5.0); LYMPH % 12.9 % (24.0-44.0); MEAN CORPUSCULAR HEMOGLOBIN 26.6 pg (27.0-33.0); MEAN CORPUSCULAR HGB CONC 31.2 g/dl (32.0-36.5); MEAN CORPUSCULAR VOLUME 85.1 fl (80.0-96.0); MONO # 0.2 10^3/uL (0.0-0.8); MONO % 2.7 % (2.0-8.0); NEUTROPHILS # 4.8 10^3/uL (1.5-8.5); NEUTROPHILS % 82.9 % (36.0-66.0); PLATELET COUNT, AUTOMATED 409 10^3/uL (150-450); RED BLOOD COUNT 5.16 10^6/uL (4.00-5.40); WHITE BLOOD COUNT 5.8 10^3/uL (4.0-10.0)
[2021-09-01 08:13] LABS: BLOOD UREA NITROGEN 19 MG/DL (7-18); CARBON DIOXIDE LEVEL 29 MEQ/L (21-32); CHLORIDE LEVEL 106 MEQ/L (98-107); CREATININE FOR GFR 0.78 MG/DL (0.55-1.30); GLOMERULAR FILTRATION RATE > 60.0 (>45); GLUCOSE, FASTING 106 MG/DL (70-100); POTASSIUM SERUM 3.9 MEQ/L (3.5-5.1); SODIUM LEVEL 141 MEQ/L (136-145)
[2021-09-01] MEDS: DOCUSATE SODIUM 100MG CAPSULE PO SCH ×2 (09:00→20:23)
[2021-09-01] MEDS: GABAPENTIN 100 MG CAP PO SCH ×3 (09:44→20:24)
[2021-09-01] MEDS: FUROSEMIDE 20 MG TAB PO SCH (09:44)
[2021-09-01] MEDS: VALSARTAN 80 MG TAB (DIOVAN) PO SCH (09:44)
[2021-09-01] MEDS: TAMSULOSIN 0.4 MG CAP PO SCH (09:44)
[2021-09-01] MEDS: DULoxetine 30MG CAPSULE (CYMBALTA) PO SCH (09:44)
[2021-09-01] MEDS: APIXABAN 2.5 MG TAB (ELIQUIS) PO SCH ×2 (09:44→20:24)
[2021-09-01] MEDS: VITAMIN D 1,000 INTERNATIONAL UNITS TABLET PO SCH (09:45)
[2021-09-01] MEDS: PANTOPRAZOLE 40MG TAB (PROTONIX) PO SCH ×2 (09:45→20:24)
[2021-09-01] MEDS: amLODIPine 5 MG TAB PO SCH (09:45)
[2021-09-01] MEDS: predniSONE 5 MG TAB PO SCH (09:45)
[2021-09-01] MEDS: METOPROLOL SUCC *XL* 25MG TAB (TopROL *XL*) PO SCH (09:45)
[2021-09-01] MEDS: LIDOCAINE 5% (LIDODERM) PATCH TD SCH (09:46)
[2021-09-01] MEDS: DICLOFENAC EPOLAMINE 1.3 % PATCH TOP SCH ×2 (09:46→20:25)
[2021-09-01] MEDS ORDERED: amLODIPine 5 MG TAB PO ONE (11:10)
--- NOTE | 2021-09-01 11:19 | IPNPDOC ---
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 Review of systems otherwise unremarkable. PAIN: Patient self reports pain left 1st CMC, UE, left thigh and at times foot EYES: No recent vision changes. EARS, NOSE, & THROAT: No throat pain, or dysphagia, or rhinorrhea. CARDIOVASCULAR: Denies chest pain or palpitations, does have some posterior pleuritic pain with deep inspiration, alleviated with Lidoderm patches. PULMONARY: admits shortness of breath. GASTROINTESTINAL: Denies constipation/diarrhea. GENITOURINARY: .continent MUSCULOSKELETAL: .No prior issues, recent increase pain right medial knee with increased weight bearing compensating for left sided weakness NEUROLOGICAL:.Spastic L venkatesh s/p R CVA HEMATOLOGICAL: .S/P PE, L DVT, IVC filter SKIN: .Denies rashes, breakdown PSYCHIATRIC: Unremarkable. All other review of systems found to be negative. ALLERGIES: See Below MEDICATIONS: Reviewed, see below. OBJECTIVE: VITAL SIGNS: Please see below. VITAL SIGNS: Please see below. GENERAL: Pleasant and cooperative. No acute distress, excellent historian. HEENT: Pupils pin point, left facial droop. Extraocular movements intact. Clear conjunctiva, no adenopathy or thyromegaly. Full cervical range of motion without tenderness or spasm. CARDIOVASCULAR: Regular rate and rhythm. No murmurs, rubs, or gallops. LUNGS: Clear to auscultation bilaterally. No wheezes. No rhonchi. ABDOMEN: Soft, nontender, nondistended. Positive normal active bowel sounds, no organomegaly. Old healed midline incision NEUROLOGICAL: Alert and oriented times three. Cranial nerves II through XII noted for tongue deviation to right, left facial droop. Sensation intact to light touch all 4, decreased to pin prick left upper and lower extremities.. Reflexes 2+right 3+ left biceps, triceps, brachial radialis, patellar, tendon jerks with positive Babinski left, withdrawal on right. No tremor, but 3/5 tone left shoulder/arm and foot with c/o pain on Prom at shoulder, wrist and incited spasms left thigh. 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 +LE edema .. Tender right 1st CMC joint and with attempted extension of digits. (improving), romel's negative -left first digit warm to touch and TTP SKIN: .intact DIAGNOSES: 1. Acute hypoxic respiratory failure in the setting of multifocal pneumonia and sepsis 2. Recent hemorrhagic stroke with residual spastic left-hemiparesis and hyperalgesia 3. Provoked bilateral PE and left popliteal vein DVT 4. Hypertension 5. GERD 6. Insomnia 7. Back spasms 8. Sepsis with end organ damage 9. Obesity 10. Debility 11. 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 PLAN: 1. Rehab- PT/OT advance gait and ADls, strengthen/stretch/maintain ROM all 4 limbs. We'll continue to work on timing pain medication with therapy interventions to optimize possible capacity to participate. Utilization and adjustment of appropriate splinting, tone reduction techniques in breaking the pattern of shoulder, hand pain syndrome will be a priority- -cont use of AFO and Medication adjustments including gradual increase in bacl ofen. 2. Neuro- right hemorrhagic CVA with Left venkatesh-, neuro recommended resumption of anticoagulation. Continue eliquis 2.5 mg BID fpr PE and DVT 3. Ortho- . Left first carpometacarpal, right knee, spinal pain noted. 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 Cardiac- -HTN , maintain blood pressure systolic 130-amlodipine -LE edema cont lasix -HLD- dietary control 5. Resp -incentive spirometry, monitor for recurrent infection, monitor pulse oximetry and include component of pulmonary rehabilitation with overall reconditioning program 6. - Enter Frequency in Direction field Bladder scan [id number] and catheterize for >400 cc if Pt unable to void on own, check PVRs and catheterize for >300cc, may stop all scans if PVRs are <200 cc on 3 consecutive occasions. 7. GI ppx-ppi 8. Rheum- left 1st toe pain gout flair with elevated uric acid level, s/p 3 doses of colchicine, cont prednisone and flector patching 9. Dispo- 09-02-21 to home, progressing towards goals Allergies Coded Allergies: No Known Allergies (Unverified , 04/23/21) Vital Signs Vital Signs Date Time Temp Pulse Resp B/P (MAP) Pulse Ox O2 Delivery O2 Flow Rate FiO2 09/01/21 09:45 82 158/73 09/01/21 06:00 97.6 17 98 Room Air Laboratory Data CBC/BMP Laboratory Tests 09/01/21 07:18 Labs 24H Laboratory Tests 2 09/01/21 07:18: Immature Granulocyte % (Auto) 0.7, Neutrophils (%) (Auto) 82.9H, Lymphocytes (%) (Auto) 12.9L, Monocytes (%) (Auto) 2.7, Eosinophils (%) (Auto) 0.3, Basophils (%) (Auto) 0.5, Neutrophils # (Auto) 4.8, Lymphocytes # (Auto) 0.8L, Monocytes # (Auto) 0.2, Eosinophils # (Auto) 0.0, Basophils # (Auto) 0.0, Nucleated Red Blood Cells % (auto) 0.0, Anion Gap 6L, Glomerular Filtration Rate > 60.0, Calcium Level 9.0 Microbiology Microbiology 08/22/21 Urine Culture - Final, Complete Current Medications Current Medications Current Medications Medications (Trade) Dose Ordered Sig/Chiara Route PRN Reason Start Time Stop Time Status Last Admin Dose Admin Acetaminophen (Tylenol Tab) 650 mg Q4HP PRN PO MILD PAIN (PS 1-4) 08/21/21 12:20 08/31/21 10:42 Amlodipine Besylate (Norvasc) 5 mg DAILY PO 08/22/21 10:35 09/01/21 09:45 Apixaban (Eliquis) 2.5 mg BID PO 08/21/21 21:00 09/01/21 09:44 Baclofen (Lioresal) 5 mg Q6HP PRN PO muscle spasms 08/21/21 13:10 08/21/21 15:55 DC 08/21/21 14:24 Baclofen (Lioresal) 5 mg Q8H PO 08/21/21 22:00 08/28/21 15:16 DC 08/28/21 13:34 Colchicine (Colcrys) 0.6 mg TID PO 08/30/21 21:25 08/31/21 16:01 DC 08/31/21 17:05 Diclofenac Epolamine (Flector 1.3%) 1 patch Q12H TOP 08/29/21 21:00 09/01/21 09:46 Diclofenac Epolamine (Flector 1.3%) 1 patch Q12H TOP 08/26/21 21:00 08/29/21 16:00 DC 08/29/21 08:35 Docusate Sodium (Colace) 100 mg BID PO 08/21/21 21:00 08/31/21 21:22 Duloxetine HCl (Cymbalta) 30 mg DAILY PO 08/22/21 09:00 09/01/21 09:44 Furosemide (Lasix) 20 mg DAILY PO 08/27/21 09:00 09/01/21 09:44 Gabapentin (Neurontin) 100 mg TID PO 08/21/21 16:00 09/01/21 09:44 Home Med (Home Med List Complete!) ASDIRECTED XX 08/21/21 12:35 08/21/21 12:37 DC Hydroxyzine HCl (Atarax) 10 mg QHSP PRN PO INSOMNIA 08/21/21 13:10 08/21/21 22:17 Lidocaine (Lidoderm Patch) 1 patch DAILY TD 08/29/21 09:00 09/01/21 09:46 Metoprolol Succinate (TopROL XL) 25 mg DAILY PO 08/22/21 09:00 09/01/21 09:45 Mirtazapine (Remeron) 7.5 mg QHS PO 08/21/21 21:00 08/31/21 21:22 Non-Formulary Medication ( See Comment Field Below ) REMOVE LIDODERM PATCH DAILY@21 XX 08/29/21 21:00 08/31/21 21:23 Ondansetron HCl (Zofran) 4 mg Q6HP PRN PO NAUSEA 08/21/21 12:20 Pantoprazole Sodium (Protonix) 40 mg BID PO 08/21/21 21:00 09/01/21 09:45 Patient Own Medication (Patient'S Own Med) Volteran gel 1 dose topica... TIDP PRN TOP hand pain 08/22/21 11:10 08/26/21 09:15 DC Prednisone (Deltasone) 15 mg BID PO 08/29/21 21:00 09/01/21 09:45 Tamsulosin HCl (Flomax) 0.4 mg DAILY PO 08/22/21 09:00 09/01/21 09:44 Tramadol HCl (Ultram) 50 mg Q6HP PRN PO MODERATE PAIN (PS 5-7) 08/21/21 13:10 08/27/21 20:03 Valsartan (Diovan) 160 mg DAILY PO 08/22/21 09:00 09/01/21 09:44 Vitamin D (Vitamin D) 1,000 units DAILY PO 08/22/21 09:00 09/01/21 09:45 FAUZIA GUSTAFSON MD Sep 01, 2021 11:19
[2021-09-01 11:26] LABS: URIC ACID 6.6 MG/DL (2.6-6.0)
[2021-09-01 14:00] VITALS: BP 139/70
[2021-09-01 20:00] VITALS: BP 124/58
[2021-09-01] MEDS: MIRTAZAPINE 7.5MG PER 1/2 TABLET PO SCH (20:24)
[2021-09-01] MEDS: predniSONE 10 MG TAB PO SCH (20:24)
[2021-09-01] MEDS: **NOTE PATIENT COMMENT** MISC XX SCH (20:25)
[2021-09-02 06:00] VITALS: BP 150/80
[2021-09-02] MEDS: predniSONE 10 MG TAB PO SCH (08:47)
[2021-09-02] MEDS: TAMSULOSIN 0.4 MG CAP PO SCH (08:47)
[2021-09-02] MEDS: VALSARTAN 80 MG TAB (DIOVAN) PO SCH (08:47)
[2021-09-02] MEDS: GABAPENTIN 100 MG CAP PO SCH (08:47)
[2021-09-02] MEDS: PANTOPRAZOLE 40MG TAB (PROTONIX) PO SCH (08:47)
[2021-09-02] MEDS: DULoxetine 30MG CAPSULE (CYMBALTA) PO SCH (08:47)
[2021-09-02] MEDS: VITAMIN D 1,000 INTERNATIONAL UNITS TABLET PO SCH (08:47)
[2021-09-02] MEDS: APIXABAN 2.5 MG TAB (ELIQUIS) PO SCH (08:47)
[2021-09-02 08:48] VITALS: BP 150/80
[2021-09-02] MEDS: DOCUSATE SODIUM 100MG CAPSULE PO SCH (08:48)
[2021-09-02] MEDS: LIDOCAINE 5% (LIDODERM) PATCH TD SCH (08:49)
[2021-09-02] MEDS: ACETAMINOPHEN TAB 650MG DOSE (2X325MG) PO PRN (08:49)
[2021-09-02] MEDS: DICLOFENAC EPOLAMINE 1.3 % PATCH TOP SCH (08:50)
[2021-09-02] MEDS ORDERED: METOPROLOL SUCC *XL* 25MG TAB (TopROL *XL*) PO SCH (09:00)
[2021-09-02] MEDS ORDERED: amLODIPine 5 MG TAB PO SCH (09:00)
[2021-09-02] MEDS ORDERED: allopurinoL 100 MG TAB PO SCH (09:00)
[2021-09-02] MEDS ORDERED: MIRT1TAB PO (09:57)
[2021-09-02] MEDS ORDERED: D31000TA2 PO (09:57)
[2021-09-02] MEDS ORDERED: VALS1TAB67 PO (09:57)
[2021-09-02] MEDS ORDERED: PANT40TA29 PO (09:57)
[2021-09-02] MEDS ORDERED: GABA-1171 PO (09:57)
[2021-09-02] MEDS ORDERED: TAMS1CAP17 PO (09:57)
[2021-09-02] MEDS ORDERED: CYMB1CAP5 PO (09:57)
[2021-09-02] MEDS ORDERED: ELIQ2.5T PO (09:57)
[2021-09-02] MEDS ORDERED: ALLO10TA PO (09:58)
[2021-09-02] MEDS ORDERED: METO1TAB7 PO (09:58)
[2021-09-02] MEDS ORDERED: AMLO1TAB24 PO (09:58)
[2021-09-02] MEDS ORDERED: PRED5TA PO (09:58)
== END 2021-09-02 11:05 | disposition home or self-care (01) | DRG 56 ==
LOC: M PM&R 11:55
PROVIDERS: ADMIT Physical Medicine & Rehabilitation; ATTEND Physical Medicine & Rehabilitation
DX: I69.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 and hemip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 side (principal); I26.99 Other pulmonary embolism without acute cor pulmonale; I82.432 Acute embolism and thrombosis of left popliteal vein; Z68.43 Body mass index [BMI] 50.0-59.9, adult; I10 Essential (primary) hypertension; K21.9 Gastro-esophageal reflux disease without esophagitis; G47.00 Insomnia, unspecified; E66.9 Obesity, unspecified; R53.81 Other malaise; I95.9 Hypotension, unspecified; Z90.49 Acquired absence of other specified parts of digestive tract; R06.02 Shortness of breath; Z79.01 Long term (current) use of anticoagulants; Z79.899 Other long term (current) drug therapy; K57.30 Diverticulosis of large intestine without perforation or abscess without bleeding

== ENCOUNTER 2021-12-19 03:17 | Observation (INO) | payer MEDICARE, BC ==
[~2021-12-19] VITALS: Ht 160 cm; Wt 93.0 kg
[~2021-12-19 03:17] MED LIST changes: +ALLO10TA PO; +AMLO1TAB24 PO; -CAND4TAB PO; +CAND4TAB7 PO; -D31000TA2 PO; +METO1TAB7 PO; +PRED5TA PO; +VITA100093 PO
[2021-12-19 03:50] LABS: BASO % 0.2 % (0.0-1.0); HEMATOCRIT 45.3 % (36.0-47.0); HEMOGLOBIN 14.9 g/dl (12.0-15.5); LYMPH # 0.8 10^3/uL (1.5-5.0); LYMPH % 5.9 % (24.0-44.0); MEAN CORPUSCULAR HEMOGLOBIN 27.1 pg (27.0-33.0); MEAN CORPUSCULAR HGB CONC 32.9 g/dl (32.0-36.5); MEAN CORPUSCULAR VOLUME 82.5 fl (80.0-96.0); MONO # 0.4 10^3/uL (0.0-0.8); MONO % 2.9 % (2.0-8.0); NEUTROPHILS % 90.7 % (36.0-66.0); PLATELET COUNT, AUTOMATED 554 10^3/uL (150-450); RED BLOOD COUNT 5.49 10^6/uL (4.00-5.40); WHITE BLOOD COUNT 13.2 10^3/uL (4.0-10.0)
[2021-12-19] MEDS ORDERED: ONDANSETRON 4MG/2ML VIAL IV ONE (04:05)
[2021-12-19 04:29] LABS: CK-MB VALUE MASS < 1.0 NG/ML (<3.6); CPK CREATINE PHOSPHOKINASE 38 U/L (26-192); MB/CK RELATIVE INDEX 2.63 (< OR =4)
[2021-12-19 04:30] LABS: ALBUMIN 3.6 GM/DL (3.2-5.2); ALT/SGPT 26 U/L (12-78); BILIRUBIN,DIRECT < 0.1 MG/DL (0.0-0.2); BILIRUBIN,TOTAL 0.5 MG/DL (0.2-1.0); BLOOD UREA NITROGEN 15 MG/DL (7-18); CALCIUM LEVEL 9.7 MG/DL (8.8-10.2); CARBON DIOXIDE LEVEL 28 MEQ/L (21-32); CHLORIDE LEVEL 102 MEQ/L (98-107); CREATININE FOR GFR 0.84 MG/DL (0.55-1.30); GLOMERULAR FILTRATION RATE > 60.0 (>45); GLUCOSE, FASTING 147 MG/DL (70-100); LIPASE 210 U/L (73-393); POTASSIUM SERUM 4.6 MEQ/L (3.5-5.1); SODIUM LEVEL 138 MEQ/L (136-145)
[2021-12-19] MEDS ORDERED: METOCLOPRAMIDE INJ 10MG/2ML VIAL (J2765 PER 1) IV ONE (05:25)
[2021-12-19] MEDS ORDERED: ISOVUE-370 76% 100ML VIAL As Ordered ONE (05:28)
[2021-12-19] MEDS: MORPHINE 4 MG/ML 1ML VIAL/SYRINGE (J2270) IV PRN ×2 (06:01→06:46)
[2021-12-19] MEDS ORDERED: VITA100093 PO (08:35)
[2021-12-19] MEDS ORDERED: MELA3TAB30 PO (08:35)
[2021-12-19] MEDS ORDERED: ELIQ2.5T PO (08:35)
[2021-12-19] MEDS ORDERED: GABA-1171 PO (08:35)
[2021-12-19] MEDS ORDERED: AMLO1TAB24 PO (08:35)
[2021-12-19] MEDS ORDERED: METO1TAB7 PO (08:35)
[2021-12-19] MEDS ORDERED: MIRT-62 PO (08:35)
[2021-12-19] MEDS ORDERED: VALS1TAB67 PO (08:35)
[2021-12-19] MEDS ORDERED: PANT40TA29 PO (08:35)
[2021-12-19] MEDS ORDERED: FLOM0.4C39 PO (08:35)
[2021-12-19] MEDS ORDERED: DULO30CA9 PO (08:35)
[2021-12-19] MEDS ORDERED: ALLO100T PO (08:35)
[2021-12-19] MEDS ORDERED: HOME MED LIST COMPLETE! XX SCH (08:40)
[2021-12-19 09:19] LABS: RSV AMPLIFICATION NEGATIVE (NEGATIVE)
[2021-12-19] MEDS ORDERED: MOM 30ML SUSPENSION UDC PO PRN (11:00)
[2021-12-19] MEDS ORDERED: MAALOX 30 ML SUSP *UDC PO PRN (11:00)
[2021-12-19 12:30] VITALS: BP 136/76
[2021-12-19] MEDS: D5W/0.9% SODIUM CHLORIDE 1,000 ML IV SCH ×2 (12:40→20:11)
[2021-12-19] MEDS ORDERED: ONDANSETRON 4MG/2ML VIAL IV PRN (12:40)
[2021-12-19] MEDS ORDERED: DEXTROSE 50% 50 ML SYRINGE IV PRN (12:45)
[2021-12-19] MEDS ORDERED: GLUCOSE 4GM CHEW TABLET PO PRN (12:45)
[2021-12-19] MEDS ORDERED: GLUCAGON INJ 1MG VIAL SC PRN (12:45)
[2021-12-19] MEDS ORDERED: hydrALAZINE 20MG/ML 1ML VIAL (J0360 PER 20MG) IV PRN (12:50)
[2021-12-19 14:00] VITALS: BP 148/83
[2021-12-19] MEDS: ACETAMINOPHEN TAB 650MG DOSE (2X325MG) PO PRN (15:03)
[2021-12-19] MEDS ORDERED: METOPROLOL 5 MG/5 ML VIAL IV SCH (15:40)
[2021-12-19] MEDS: PIPERACILLIN/TAZOBACTAM SOD 3.375 GM in D5W MINI-BAG PLUS 50 ML IV SCH ×2 (16:27→22:01)
[2021-12-19] MEDS: PANTOPRAZOLE 40MG VIAL (C9113 PER 1) IV SCH (20:11)
[2021-12-19 22:00] VITALS: BP 149/83
[2021-12-20] MEDS: PIPERACILLIN/TAZOBACTAM SOD 3.375 GM in D5W MINI-BAG PLUS 50 ML IV SCH ×4 (04:21→21:36)
[2021-12-20 05:51] VITALS: BP 151/82
[2021-12-20] MEDS: D5W/0.9% SODIUM CHLORIDE 1,000 ML IV SCH ×3 (06:00→20:35)
[2021-12-20 06:46] LABS: BLOOD UREA NITROGEN 13 MG/DL (7-18); CALCIUM LEVEL 8.3 MG/DL (8.8-10.2); CARBON DIOXIDE LEVEL 28 MEQ/L (21-32); CHLORIDE LEVEL 109 MEQ/L (98-107); CREATININE FOR GFR 0.79 MG/DL (0.55-1.30); GLOMERULAR FILTRATION RATE > 60.0 (>45); GLUCOSE, FASTING 136 MG/DL (70-100); POTASSIUM SERUM 3.2 MEQ/L (3.5-5.1); SODIUM LEVEL 141 MEQ/L (136-145)
[2021-12-20 08:59] LABS: BASO % 0.3 % (0.0-1.0); EOS # 0.1 10^3/uL (0.0-0.5); HEMATOCRIT 37.8 % (36.0-47.0); LYMPH # 1.4 10^3/uL (1.5-5.0); LYMPH % 11.2 % (24.0-44.0); MEAN CORPUSCULAR HEMOGLOBIN 27.6 pg (27.0-33.0); MEAN CORPUSCULAR HGB CONC 32.5 g/dl (32.0-36.5); MEAN CORPUSCULAR VOLUME 84.8 fl (80.0-96.0); MONO # 0.7 10^3/uL (0.0-0.8); MONO % 5.9 % (2.0-8.0); NEUTROPHILS # 9.9 10^3/uL (1.5-8.5); NEUTROPHILS % 81.2 % (36.0-66.0); PLATELET COUNT, AUTOMATED 366 10^3/uL (150-450); RED BLOOD COUNT 4.46 10^6/uL (4.00-5.40); WHITE BLOOD COUNT 12.2 10^3/uL (4.0-10.0)
[2021-12-20 09:05] LABS: HEMOGLOBIN 12.3 g/dl (12.0-15.5)
[2021-12-20] MEDS: amLODIPine 5 MG TAB PO SCH (09:30)
[2021-12-20] MEDS: ENOXAPARIN 40MG/0.4ML SYRINGE (J1650 PER 10MG) SC SCH (09:30)
[2021-12-20] MEDS: PANTOPRAZOLE 40MG VIAL (C9113 PER 1) IV SCH ×2 (09:30→20:35)
[2021-12-20] MEDS: KCL 10MEQ/100ML SWI (KRUN) 10 MEQ in IV 1 EA IV SCH ×2 (09:31→12:13)
[2021-12-20] MEDS: ACETAMINOPHEN TAB 650MG DOSE (2X325MG) PO PRN ×2 (11:22→17:06)
[2021-12-20 14:00] VITALS: BP 148/82
[2021-12-20 22:00] VITALS: BP 148/81
[2021-12-21] MEDS: PIPERACILLIN/TAZOBACTAM SOD 3.375 GM in D5W MINI-BAG PLUS 50 ML IV SCH ×4 (03:50→20:59)
[2021-12-21 06:00] VITALS: BP 142/76
[2021-12-21 07:21] LABS: BASO % 0.4 % (0.0-1.0); EOS # 0.3 10^3/uL (0.0-0.5); EOS % 2.8 % (0.0-3.0); HEMATOCRIT 37.1 % (36.0-47.0); LYMPH % 10.4 % (24.0-44.0); MEAN CORPUSCULAR HEMOGLOBIN 27.4 pg (27.0-33.0); MEAN CORPUSCULAR HGB CONC 32.3 g/dl (32.0-36.5); MEAN CORPUSCULAR VOLUME 84.7 fl (80.0-96.0); MONO # 0.8 10^3/uL (0.0-0.8); MONO % 7.7 % (2.0-8.0); NEUTROPHILS # 7.7 10^3/uL (1.5-8.5); NEUTROPHILS % 78.3 % (36.0-66.0); PLATELET COUNT, AUTOMATED 322 10^3/uL (150-450); RED BLOOD COUNT 4.38 10^6/uL (4.00-5.40); WHITE BLOOD COUNT 9.9 10^3/uL (4.0-10.0)
[2021-12-21 07:42] LABS: BLOOD UREA NITROGEN 10 MG/DL (7-18); CALCIUM LEVEL 8.3 MG/DL (8.8-10.2); CARBON DIOXIDE LEVEL 28 MEQ/L (21-32); CHLORIDE LEVEL 108 MEQ/L (98-107); CREATININE FOR GFR 0.72 MG/DL (0.55-1.30); GLOMERULAR FILTRATION RATE > 60.0 (>45); GLUCOSE, FASTING 115 MG/DL (70-100); POTASSIUM SERUM 3.7 MEQ/L (3.5-5.1); SODIUM LEVEL 143 MEQ/L (136-145)
[2021-12-21] MEDS: PANTOPRAZOLE 40MG VIAL (C9113 PER 1) IV SCH ×2 (09:13→20:55)
[2021-12-21] MEDS: amLODIPine 5 MG TAB PO SCH (09:14)
[2021-12-21] MEDS: ACETAMINOPHEN TAB 650MG DOSE (2X325MG) PO PRN (09:14)
[2021-12-21] MEDS: ENOXAPARIN 40MG/0.4ML SYRINGE (J1650 PER 10MG) SC SCH (09:14)
[2021-12-21] MEDS: D5W/0.9% SODIUM CHLORIDE 1,000 ML IV SCH ×2 (09:15→20:55)
[2021-12-21 14:00] VITALS: BP 151/77
[2021-12-21 22:00] VITALS: BP 162/79
[2021-12-22] MEDS: PIPERACILLIN/TAZOBACTAM SOD 3.375 GM in D5W MINI-BAG PLUS 50 ML IV SCH ×2 (03:20→09:50)
[2021-12-22 05:15] LABS: BASO % 0.5 % (0.0-1.0); EOS # 0.2 10^3/uL (0.0-0.5); EOS % 2.9 % (0.0-3.0); HEMATOCRIT 35.3 % (36.0-47.0); HEMOGLOBIN 11.5 g/dl (12.0-15.5); LYMPH # 1.3 10^3/uL (1.5-5.0); LYMPH % 15.2 % (24.0-44.0); MEAN CORPUSCULAR HEMOGLOBIN 27.3 pg (27.0-33.0); MEAN CORPUSCULAR HGB CONC 32.6 g/dl (32.0-36.5); MEAN CORPUSCULAR VOLUME 83.6 fl (80.0-96.0); MONO # 0.7 10^3/uL (0.0-0.8); NEUTROPHILS # 6.2 10^3/uL (1.5-8.5); PLATELET COUNT, AUTOMATED 306 10^3/uL (150-450); RED BLOOD COUNT 4.22 10^6/uL (4.00-5.40); WHITE BLOOD COUNT 8.4 10^3/uL (4.0-10.0)
[2021-12-22 05:35] LABS: BLOOD UREA NITROGEN 7 MG/DL (7-18); CARBON DIOXIDE LEVEL 29 MEQ/L (21-32); CHLORIDE LEVEL 109 MEQ/L (98-107); CREATININE FOR GFR 0.64 MG/DL (0.55-1.30); GLOMERULAR FILTRATION RATE > 60.0 (>45); GLUCOSE, FASTING 107 MG/DL (70-100); POTASSIUM SERUM 3.4 MEQ/L (3.5-5.1); SODIUM LEVEL 143 MEQ/L (136-145)
[2021-12-22 06:00] VITALS: BP 160/72
[2021-12-22] MEDS: D5W/0.9% SODIUM CHLORIDE 1,000 ML IV SCH (06:30)
[2021-12-22] MEDS ORDERED: POTASSIUM CHLORIDE 10% LIQ 20 MEQ/15 ML UDC PO ONE (06:50)
[2021-12-22] MEDS ORDERED: VALSARTAN 80 MG TAB (DIOVAN) PO SCH (09:00)
[2021-12-22] MEDS ORDERED: METOPROLOL SUCC (TopROL XL) 50MG **XL** TAB PO SCH (09:00)
[2021-12-22] MEDS: PANTOPRAZOLE 40MG VIAL (C9113 PER 1) IV SCH (09:48)
[2021-12-22] MEDS: amLODIPine 5 MG TAB PO SCH (09:48)
[2021-12-22] MEDS: ENOXAPARIN 40MG/0.4ML SYRINGE (J1650 PER 10MG) SC SCH (09:50)
[2021-12-22] MEDS: ACETAMINOPHEN TAB 650MG DOSE (2X325MG) PO PRN (10:02)
[2021-12-22] MEDS ORDERED: AUGM500T34 PO (10:14)
[2021-12-22 11:05] VITALS: BP 158/74
== END 2021-12-22 13:55 | disposition home or self-care (01) ==
LOC: M ED 03:17 → M ED INP 03:18 → ENRESERV 11:53 → M MS5PR 12:25
PROVIDERS: ADMIT Internal Medicine; ATTEND Internal Medicine
DX: K56.609 Unspecified intestinal obstruction, unspecified as to partial versus complete obstruction (principal); J69.0 Pneumonitis due to inhalation of food and vomit; I10 Essential (primary) hypertension; I51.81 Takotsubo syndrome; D72.829 Elevated white blood cell count, unspecified; R00.0 Tachycardia, unspecified; K21.9 Gastro-esophageal reflux disease without esophagitis; Z79.01 Long term (current) use of anticoagulants; Z79.899 Other long term (current) drug therapy; Z86.73 Personal history of transient ischemic attack (TIA), and cerebral infarction without residual deficits; Z86.711 Personal history of pulmonary embolism; Z86.718 Personal history of other venous thrombosis and embolism; E87.6 Hypokalemia; Z87.891 Personal history of nicotine dependence
CPT/HCPCS: 36415; 71045; 74018; 74177; 80048; 80076; 82270; 82550; 82553; 83605; 83690; 84145; 84484; 85025; 86850; 86900; 86901; 87631; 93005; 93041; 96361; 96365; 96366; 96372; 96375; 96376; 99285; C9113; G0378; J1650; J2270; J2405; J2543; J2765; J3480; Q9967

== ENCOUNTER → 2022-03-19 | Outpatient (REF) | payer MEDICARE, BC ==
[~2022-03-19] MED LIST changes: +AUGM500T34 PO; +DULO30CA9 PO; +FLOM0.4C39 PO; +MELA3TAB30 PO; +MIRT-62 PO
[2022-03-19 16:33] LABS: BASO # 0.1 10^3/uL (0.0-0.2); EOS # 0.3 10^3/uL (0.0-0.5); EOS % 4.9 % (0.0-3.0); HEMATOCRIT 42.5 % (36.0-47.0); HEMOGLOBIN 13.4 g/dl (12.0-15.5); LYMPH # 1.6 10^3/uL (1.5-5.0); LYMPH % 25.7 % (24.0-44.0); MEAN CORPUSCULAR HEMOGLOBIN 26.6 pg (27.0-33.0); MEAN CORPUSCULAR HGB CONC 31.5 g/dl (32.0-36.5); MEAN CORPUSCULAR VOLUME 84.3 fl (80.0-96.0); MONO # 0.4 10^3/uL (0.0-0.8); MONO % 6.6 % (2.0-8.0); NEUTROPHILS # 3.7 10^3/uL (1.5-8.5); NEUTROPHILS % 61.6 % (36.0-66.0); PLATELET COUNT, AUTOMATED 327 10^3/uL (150-450); RED BLOOD COUNT 5.04 10^6/uL (4.00-5.40); WHITE BLOOD COUNT 6.1 10^3/uL (4.0-10.0)
== END ==
LOC: M LAB REF 15:30
PROVIDERS: ATTEND Nurse Practitioner Family
DX: K92.1 Melena (principal)

== ENCOUNTER 2022-04-29 11:57 | Emergency (ER) | payer MEDICARE, BC ==
[~2022-04-29] VITALS: Ht 162.6 cm; Wt 90.1 kg
[2022-04-29 11:58] VITALS: BP 132/79
== END 2022-04-29 15:00 | disposition home or self-care (01) ==
LOC: M ED 11:57
DX: R20.8 Other disturbances of skin sensation (principal); I10 Essential (primary) hypertension; I25.2 Old myocardial infarction; K21.9 Gastro-esophageal reflux disease without esophagitis; Z86.711 Personal history of pulmonary embolism; Z86.718 Personal history of other venous thrombosis and embolism; Z86.73 Personal history of transient ischemic attack (TIA), and cerebral infarction without residual deficits; Z87.19 Personal history of other diseases of the digestive system; Z79.899 Other long term (current) drug therapy; Z79.01 Long term (current) use of anticoagulants

== ENCOUNTER → 2023-02-17 | Outpatient (CLI) | payer MEDICARE, BC ==
[2023-02-17 12:58] LABS: BASO % 0.5 % (0.0-1.0); EOS # 0.2 10^3/uL (0.0-0.5); EOS % 4.3 % (0.0-3.0); HEMATOCRIT 45.4 % (36.0-47.0); HEMOGLOBIN 14.5 g/dl (12.0-15.5); LYMPH # 1.8 10^3/uL (1.5-5.0); LYMPH % 32.6 % (24.0-44.0); MEAN CORPUSCULAR HEMOGLOBIN 27.1 pg (27.0-33.0); MEAN CORPUSCULAR HGB CONC 31.9 g/dl (32.0-36.5); MEAN CORPUSCULAR VOLUME 84.9 fl (80.0-96.0); MONO # 0.3 10^3/uL (0.0-0.8); MONO % 6.1 % (2.0-8.0); NEUTROPHILS # 3.1 10^3/uL (1.5-8.5); NEUTROPHILS % 56.3 % (36.0-66.0); PLATELET COUNT, AUTOMATED 318 10^3/uL (150-450); RED BLOOD COUNT 5.35 10^6/uL (4.00-5.40); WHITE BLOOD COUNT 5.6 10^3/uL (4.0-10.0)
[2023-02-17 13:04] LABS: ALBUMIN 3.6 G/DL (3.2-5.2); ALKALINE PHOSPHATASE 64 U/L (46-116); ALT/SGPT 28 U/L (7.0-40); AST/SGOT 23 U/L (<34); BILIRUBIN,TOTAL 0.6 MG/DL (0.3-1.2); BLOOD UREA NITROGEN 10 MG/DL (9-23); CALCIUM LEVEL 8.8 MG/DL (8.3-10.6); CARBON DIOXIDE LEVEL 30 MMOL/L (20-31); CHLORIDE LEVEL 106 MMOL/L (98-107); CHOLESTEROL LEVEL 181 MG/DL (<200); CHOLESTEROL RISK RATIO 3.22 (<5); CREATININE FOR GFR 0.76 MG/DL (0.55-1.30); GLOMERULAR FILTRATION RATE > 60.0 (>45); GLUCOSE, FASTING 100 MG/DL (74-106); HDL CHOLESTEROL 56.2 MG/DL (>40); NON-HDL-C 124.8 MG/DL; POTASSIUM SERUM 4.9 MMOL/L (3.5-5.1); SODIUM LEVEL 141 MMOL/L (136-145); TOTAL PROTEIN 6.7 G/DL (5.7-8.2); TRIGLYCERIDES LEVEL 124 MG/DL (<150)
== END ==
LOC: M WUC 10:02
PROVIDERS: ATTEND Nurse Practitioner Family
DX: I10 Essential (primary) hypertension (principal); Z86.711 Personal history of pulmonary embolism

== ENCOUNTER → 2023-05-13 | Outpatient (CLI) | payer MEDICARE, BC ==
[2023-05-13 17:28] LABS: BASO % 0.7 % (0.0-1.0); EOS # 0.2 10^3/uL (0.0-0.5); EOS % 2.8 % (0.0-3.0); HEMATOCRIT 44.4 % (36.0-47.0); HEMOGLOBIN 14.1 g/dl (12.0-15.5); LYMPH # 1.8 10^3/uL (1.5-5.0); LYMPH % 29.9 % (24.0-44.0); MEAN CORPUSCULAR HEMOGLOBIN 27.9 pg (27.0-33.0); MEAN CORPUSCULAR HGB CONC 31.8 g/dl (32.0-36.5); MEAN CORPUSCULAR VOLUME 87.7 fl (80.0-96.0); MONO # 0.4 10^3/uL (0.0-0.8); MONO % 7.1 % (2.0-8.0); NEUTROPHILS # 3.6 10^3/uL (1.5-8.5); NEUTROPHILS % 59.5 % (36.0-66.0); PLATELET COUNT, AUTOMATED 293 10^3/uL (150-450); RED BLOOD COUNT 5.06 10^6/uL (4.00-5.40); WHITE BLOOD COUNT 6.1 10^3/uL (4.0-10.0)
[2023-05-13 17:32] LABS: BLOOD UREA NITROGEN 14 MG/DL (9-23); CALCIUM LEVEL 8.7 MG/DL (8.3-10.6); CARBON DIOXIDE LEVEL 31 MMOL/L (20-31); CHLORIDE LEVEL 104 MMOL/L (98-107); CREATININE FOR GFR 0.76 MG/DL (0.55-1.30); GLOMERULAR FILTRATION RATE > 60.0 (>45); GLUCOSE, FASTING 88 MG/DL (74-106); POTASSIUM SERUM 5.1 MMOL/L (3.5-5.1); SODIUM LEVEL 140 MMOL/L (136-145)
== END ==
LOC: M WUC 10:29
PROVIDERS: ATTEND Nurse Practitioner Family
DX: Z01.818 Encounter for other preprocedural examination (principal)

== ENCOUNTER 2023-05-25 06:13 | Day surgery (SDC) | payer MEDICARE, BC ==
[~2023-05-25] VITALS: Ht 160 cm; Wt 83.5 kg
[~2023-05-25 06:13] MED LIST changes: +CALCTAB89 PO; +CelecoXIB 400 MG CAP PO ONE; +D200CAP3 PO; +MUSHROOM PO; +OMEG10002 PO; +SEMA2PEN SQ; +VITMTA PO; +ceFAZolin SOD 2 GM in IV 1 EA IV ONE
[2023-05-25] MEDS ORDERED: propofoL 200 MG/20 ML VIAL As Ordered ONE ×3 (06:56→06:58)
[2023-05-25] MEDS ORDERED: ONDANSETRON 4MG 2ML VIAL As Ordered ONE (06:56)
[2023-05-25] MEDS ORDERED: LIDOCAINE 2% 100MG/5ML SDV (FOR ANES.) As Ordered ONE (06:56)
[2023-05-25] MEDS ORDERED: KETOROLAC 60MG 2ML VIAL As Ordered ONE (06:56)
[2023-05-25] MEDS ORDERED: MIDAZOLAM INJ 2MG/2ML VIAL As Ordered ONE (07:01)
[2023-05-25] MEDS ORDERED: fentaNYL 100 MCG/2 ML INJECTION As Ordered ONE (07:01)
[2023-05-25] MEDS ORDERED: LR 1,000 ML IV SCH ×2 (07:30→08:50)
[2023-05-25] MEDS ORDERED: LIDOCAINE 1% SDV 30ML VIAL As Ordered ONE (07:44)
[2023-05-25] MEDS ORDERED: ACETAMINOPHEN 1000MG 100ML IV BAG As Ordered ONE (07:55)
[2023-05-25] MEDS ORDERED: ONDANSETRON 4MG 2ML VIAL IV PRN (08:50)
[2023-05-25] MEDS ORDERED: fentaNYL 100 MCG/2 ML INJECTION IV PRN (08:50)
[2023-05-25 09:34] VITALS: BP 171/96; TEMP 97.9; O2SAT 97
[2023-05-25] MEDS ORDERED: KETOROLAC 30 MG/ML 1ML VIAL IV SCH (15:00)
== END 2023-05-25 09:40 | disposition home or self-care (01) ==
LOC: M SDC 06:13
PROVIDERS: ATTEND Surgery
DX: L72.0 Epidermal cyst (principal); I25.2 Old myocardial infarction; Z79.01 Long term (current) use of anticoagulants; Z79.899 Other long term (current) drug therapy; Z86.73 Personal history of transient ischemic attack (TIA), and cerebral infarction without residual deficits
CPT/HCPCS: 24071; 88305; J0131; J0665; J1100; J1885; J2250; J2405; J3010

== ENCOUNTER → 2023-09-14 | Outpatient (CLI) | payer MEDICARE, BC ==
[~2023-09-14] MED LIST changes: -CelecoXIB 400 MG CAP PO ONE; -MIRT-62 PO; +MIRT-88 PO; -ceFAZolin SOD 2 GM in IV 1 EA IV ONE
== END ==
LOC: M PLAIMG 12:31
PROVIDERS: ATTEND Nurse Practitioner Family
DX: R05.9 Cough, unspecified (principal); J98.11 Atelectasis

== ENCOUNTER → 2024-05-04 | Outpatient (CLI) | payer MEDICARE ==
[2024-05-04 10:04] LABS: BASO # 0.1 10^3/uL (0.0-0.2); BASO % 0.9 % (0.0-1.0); EOS # 0.4 10^3/uL (0.0-0.5); HEMATOCRIT 41.6 % (36.0-47.0); HEMOGLOBIN 13.8 g/dl (12.0-15.5); LYMPH # 2.5 10^3/uL (1.5-5.0); LYMPH % 33.4 % (24.0-44.0); MEAN CORPUSCULAR HGB CONC 33.2 g/dl (32.0-36.5); MEAN CORPUSCULAR VOLUME 84.4 fl (80.0-96.0); MONO # 0.6 10^3/uL (0.0-0.8); MONO % 8.5 % (2.0-8.0); NEUTROPHILS # 3.8 10^3/uL (1.5-8.5); NEUTROPHILS % 51.9 % (36.0-66.0); PLATELET COUNT, AUTOMATED 306 10^3/uL (150-450); RED BLOOD COUNT 4.93 10^6/uL (4.00-5.40); WHITE BLOOD COUNT 7.4 10^3/uL (4.0-10.0)
[2024-05-04 10:27] LABS: ALBUMIN 3.6 G/DL (3.2-5.2); ALKALINE PHOSPHATASE 49 U/L (46-116); ALT/SGPT 22 U/L (7.0-40); AST/SGOT 13 U/L (<34); BILIRUBIN,TOTAL 0.6 MG/DL (0.3-1.2); BLOOD UREA NITROGEN 24 MG/DL (9-23); CALCIUM LEVEL 9.3 MG/DL (8.3-10.6); CARBON DIOXIDE LEVEL 30 MMOL/L (20-31); CHLORIDE LEVEL 103 MMOL/L (98-107); CHOLESTEROL LEVEL 225 MG/DL (<200); CHOLESTEROL RISK RATIO 4.68 (<5); CREATININE FOR GFR 0.88 MG/DL (0.55-1.30); GLOMERULAR FILTRATION RATE > 60.0 (>45); GLUCOSE, FASTING 74 MG/DL (74-106); POTASSIUM SERUM 4.7 MMOL/L (3.5-5.1); SODIUM LEVEL 139 MMOL/L (136-145); TOTAL PROTEIN 6.8 G/DL (5.7-8.2); TRIGLYCERIDES LEVEL 155 MG/DL (<150)
== END ==
LOC: M WUC 08:44
PROVIDERS: ATTEND Nurse Practitioner Family
DX: I10 Essential (primary) hypertension (principal)

== ENCOUNTER 2024-08-14 10:31 | Day surgery (SDC) | payer MEDICARE ==
[~2024-08-14] VITALS: Ht 160 cm; Wt 85.8 kg
[~2024-08-14 10:31] MED LIST changes: +LR 1,000 ML IV SCH; +PRE PO; +PREG100C2 PO; +VALS40TA9 PO; +WOMETAB PO; +[UNRECOGNIZED DRUG - OTHER] PO
[2024-08-14] MEDS ORDERED: MIDAZOLAM INJ 2MG/2ML VIAL As Ordered ONE (12:06)
[2024-08-14] MEDS: FLURBIPROFEN 0.03% OPHTH SOLN 2.5 ML OS SCH (12:09)
[2024-08-14] MEDS: ATROPINE SULFATE 1% OPHTH SOLN 2ML BTL OS SCH (12:09)
[2024-08-14] MEDS: PHENYLEPHRINE 2.5% OPHTH SOL 2ML OS SCH (12:09)
[2024-08-14] MEDS: TETRACAINE 0.5% OPHTH SOLN 4ML OS SCH (12:09)
[2024-08-14] MEDS: TRYPAN BLUE 0.06 % 2.25 ML OPHTH SYR (VISIONBLUE) As Ordered ONE (13:47)
[2024-08-14] MEDS: LIDOCAINE 1% SDV 5ML VIAL As Ordered ONE (13:47)
[2024-08-14] MEDS: CEFUROXIME 1MG/0.1ML INTRACAMERAL INJ As Ordered ONE (13:57)
[2024-08-14 14:05] VITALS: BP 138/76; TEMP 97.7; O2SAT 100
== END 2024-08-14 14:20 | disposition home or self-care (01) ==
LOC: M SDC 10:31
PROVIDERS: ATTEND Ophthalmology
DX: H25.12 Age-related nuclear cataract, left eye (principal); I25.2 Old myocardial infarction; I10 Essential (primary) hypertension; M79.7 Fibromyalgia; K22.719 Barrett's esophagus with dysplasia, unspecified; Z79.899 Other long term (current) drug therapy; G43.909 Migraine, unspecified, not intractable, without status migrainosus; Z87.891 Personal history of nicotine dependence; Z86.73 Personal history of transient ischemic attack (TIA), and cerebral infarction without residual deficits; Z86.711 Personal history of pulmonary embolism; F12.10 Cannabis abuse, uncomplicated
CPT/HCPCS: 66982; J0697; J2250; V2632

== ENCOUNTER → 2025-02-22 | Outpatient (CLI) | payer MEDICARE, OTHER ==
[~2025-02-22] MED LIST changes: -FLOM0.4C39 PO; -LR 1,000 ML IV SCH; +TAMS-18 PO
[2025-02-22 14:12] LABS: BASO % 0.6 % (0.0-1.0); EOS # 0.2 10^3/uL (0.0-0.5); EOS % 3.1 % (0.0-3.0); HEMOGLOBIN 13.7 g/dl (12.0-15.5); INR 0.85; LYMPH # 1.4 10^3/uL (1.5-5.0); LYMPH % 29.1 % (24.0-44.0); MEAN CORPUSCULAR HEMOGLOBIN 27.7 pg (27.0-33.0); MEAN CORPUSCULAR HGB CONC 32.6 g/dl (32.0-36.5); MONO # 0.3 10^3/uL (0.0-0.8); MONO % 6.5 % (2.0-8.0); NEUTROPHILS # 2.9 10^3/uL (1.5-8.5); NEUTROPHILS % 60.5 % (36.0-66.0); PLATELET COUNT, AUTOMATED 256 10^3/uL (150-450); PROTHROMBIN TIME 11.9 SECONDS (12.5-14.5); RED BLOOD COUNT 4.94 10^6/uL (4.00-5.40); WHITE BLOOD COUNT 4.8 10^3/uL (4.0-10.0)
[2025-02-22 14:18] LABS: ERYTHROCYTE SEDIMENTATION RATE 49 mm/hr (0-30)
[2025-02-22 14:31] LABS: C REACTIVE PROTEIN QUANTITATIV 1.37 MG/DL (<1.0)
[2025-02-22 14:32] LABS: ALBUMIN 3.3 G/DL (3.2-5.2); ALKALINE PHOSPHATASE 54 U/L (35-104); ALT/SGPT 34 U/L (7.0-40); AST/SGOT 27 U/L (<34); BILIRUBIN,DIRECT 0.1 MG/DL (<0.4); BILIRUBIN,TOTAL 0.5 MG/DL (0.3-1.2); BLOOD UREA NITROGEN 16 MG/DL (9-23); CALCIUM LEVEL 8.7 MG/DL (8.3-10.6); CARBON DIOXIDE LEVEL 32 MMOL/L (20-31); CHLORIDE LEVEL 102 MMOL/L (98-107); CHOLESTEROL LEVEL 202 MG/DL (<200); CHOLESTEROL RISK RATIO 4.02 (<5); CREATININE FOR GFR 0.71 MG/DL (0.55-1.30); GLOMERULAR FILTRATION RATE > 90.0 (>45); GLUCOSE, FASTING 83 MG/DL (74-106); HDL CHOLESTEROL 50.2 MG/DL (>40); IRON (FE) 53 UG/DL (50-170); LDL CHOLESTEROL 126.4 MG/DL (<100); NON-HDL-C 151.8 MG/DL; PERCENT SATURATION 14.6 % (13.2-45.0); POTASSIUM SERUM 4.3 MMOL/L (3.5-5.1); SODIUM LEVEL 142 MMOL/L (136-145); TOTAL IRON BINDING CAPACITY 362 UG/DL (250-425); TOTAL PROTEIN 6.6 G/DL (5.7-8.2); TRIGLYCERIDES LEVEL 127 MG/DL (<150)
[2025-02-22 14:34] LABS: FERRITIN 22.5 NG/ML (7.3-270.7); FREE T4 1.38 NG/DL (0.89-1.76); THYROID STIMULATING HORMONE 0.562 uIU/ML (0.55-4.78)
== END ==
LOC: M WUC 12:19
PROVIDERS: ATTEND Nurse Practitioner Family
DX: I10 Essential (primary) hypertension (principal); R60.0 Localized edema; R58 Hemorrhage, not elsewhere classified; R06.02 Shortness of breath

== ENCOUNTER → 2025-02-23 | Outpatient (REF) | payer MEDICARE, OTHER | LOC: M LABWUC 12:43 | PROVIDERS: ATTEND Nurse Practitioner Family | DX: R58 Hemorrhage, not elsewhere classified (principal); I10 Essential (primary) hypertension; R60.0 Localized edema ==

== ENCOUNTER 2025-04-23 15:06 | Outpatient (RCR) | payer MEDICARE, OTHER ==
[~2025-04-23 15:06] MED LIST changes: -EQL50TAB2 PO; +VITA1TAB82 PO
== END 2025-05-17 ==
LOC: M PT 15:06
PROVIDERS: ATTEND Nurse Practitioner Family
DX: M51.16 Intervertebral disc disorders with radiculopathy, lumbar region (principal)

== ENCOUNTER → 2025-06-30 | Outpatient (CLI) | payer MEDICARE, OTHER ==
[~2025-06-30] MED LIST changes: -COLC0.6T47 PO; +COLC0.6T53 PO
== END ==
LOC: M RAD 09:01
PROVIDERS: ATTEND Nurse Practitioner Family
DX: M51.16 Intervertebral disc disorders with radiculopathy, lumbar region (principal); M47.816 Spondylosis without myelopathy or radiculopathy, lumbar region

== ENCOUNTER 2025-07-16 07:20 | Day surgery (SDC) | payer MEDICARE, OTHER ==
[~2025-07-16] VITALS: Ht 160 cm; Wt 76.0 kg
[~2025-07-16 07:20] MED LIST changes: +CYCL-707 PO; +FURO20TA2 PO; +KETOROLAC 30 MG/ML 1 ML VIAL As Ordered ONE; +LIDOCAINE 2% 100 MG/5 ML SDV (FOR ANES.) As Ordered ONE; +LISI5TAB11 PO; +ONDANSETRON 4MG 2ML VIAL As Ordered ONE; +TIRZ15PE SQ; +dexAMETHasone 4 MG/ML 1 ML VIAL As Ordered ONE
[2025-07-16] MEDS ORDERED: LR 1,000 ML IV SCH ×2 (07:25→11:00)
[2025-07-16] MEDS: MIDAZOLAM INJ 2 MG/2 ML VIAL IV PRN (08:25)
[2025-07-16] MEDS: EPINEPHrine INJ 1 MG/ML 1ML AMP PN ONE (08:30)
[2025-07-16] MEDS: ROPIvacaine 0.5% 30ML VIAL PN ONE (08:30)
[2025-07-16] MEDS: LIDOCAINE 1% SDV 5 ML VIAL PN ONE (08:30)
[2025-07-16] MEDS: ceFAZolin SOD 2 GM IV ONCE IV ONE (09:45)
[2025-07-16] MEDS ORDERED: GLYCOPYRROLATE INJ 0.2 MG/ML 2 ML VIAL As Ordered ONE (09:53)
[2025-07-16] MEDS ORDERED: VASOPRESSIN INJ 20UNITS/ML 1ML VIAL As Ordered ONE (09:54)
[2025-07-16] MEDS ORDERED: HYDROMORPHONE HCL 0.5 MG/0.5 ML SYRINGE IV PRN (11:00)
[2025-07-16] MEDS ORDERED: ONDANSETRON 4MG 2ML VIAL IV PRN (11:00)
[2025-07-16] MEDS ORDERED: PERC5TAB12 PO (11:12)
[2025-07-16 12:30] VITALS: BP 138/76
[2025-07-16 12:45] VITALS: TEMP 97.5; O2SAT 95
== END 2025-07-16 13:06 | disposition home or self-care (01) ==
LOC: M SDC 07:20
PROVIDERS: ATTEND Orthopaedic Surgery Hand Surgery
DX: M18.11 Unilateral primary osteoarthritis of first carpometacarpal joint, right hand (principal); I10 Essential (primary) hypertension; I25.2 Old myocardial infarction; I69.30 Unspecified sequelae of cerebral infarction; Z79.899 Other long term (current) drug therapy; Z86.711 Personal history of pulmonary embolism; Z90.49 Acquired absence of other specified parts of digestive tract; Z87.891 Personal history of nicotine dependence
CPT/HCPCS: 25310; 25447; 76000; 88304; 88311; J0166; J0665; J0688; J1100; J1596; J1885; J2250; J2405; J2598; J2765; J2795; J3010

== ENCOUNTER → 2025-07-26 | Outpatient (CLI) | payer MEDICARE, OTHER ==
[~2025-07-26] MED LIST changes: -KETOROLAC 30 MG/ML 1 ML VIAL As Ordered ONE; -LIDOCAINE 2% 100 MG/5 ML SDV (FOR ANES.) As Ordered ONE; -ONDANSETRON 4MG 2ML VIAL As Ordered ONE; +PERC5TAB12 PO; -dexAMETHasone 4 MG/ML 1 ML VIAL As Ordered ONE
== END ==
LOC: M SOG 07:24
PROVIDERS: ATTEND Physician Assistant
DX: M79.644 Pain in right finger(s) (principal)

== ENCOUNTER → 2025-08-27 | Outpatient (CLI) | payer MEDICARE, OTHER | LOC: M SOG 09:36 | PROVIDERS: ATTEND Neuromusculoskeletal Medicine, Sports Medicine | DX: M25.551 Pain in right hip (principal) ==

== ENCOUNTER → 2025-09-06 | Outpatient (CLI) | payer MEDICARE, OTHER | LOC: M SOG 07:43 | PROVIDERS: ATTEND Physician Assistant | DX: M18.11 Unilateral primary osteoarthritis of first carpometacarpal joint, right hand (principal) ==

== ENCOUNTER 2025-09-11 08:30 | Outpatient (RCR) | payer MEDICARE, OTHER | END 2025-09-16 | LOC: M PT 08:30 | PROVIDERS: ATTEND Nurse Practitioner Family | DX: M51.16 Intervertebral disc disorders with radiculopathy, lumbar region (principal) ==

== ENCOUNTER → 2025-09-28 | Outpatient (CLI) | payer MEDICARE, OTHER | LOC: M SOG 07:37 | PROVIDERS: ATTEND Orthopaedic Surgery Hand Surgery | DX: M18.11 Unilateral primary osteoarthritis of first carpometacarpal joint, right hand (principal); Z47.89 Encounter for other orthopedic aftercare ==

== ENCOUNTER 2025-10-09 09:15 | Outpatient (RCR) | payer MEDICARE, OTHER | END 2025-10-17 | LOC: M PT 09:15 | PROVIDERS: ATTEND Nurse Practitioner Family | DX: M54.50 Low back pain, unspecified (principal) ==